=== PATIENT | female | born 1935 | race Caucasian/White ===

== ENCOUNTER 2016-06-19 11:14 | Inpatient (IN) | payer MEDICARE, MEDICAID ==
[2016-06-19] VITALS (9 sets, daily range): BP systolic 123–157; BP diastolic 61–96; PULSE 101–113; RESP 18–22; TEMP 97–97.7; O2SAT 97–100
[~2016-06-19] VITALS: Ht 162.6 cm; Wt 122.5 kg
[~2016-06-19 11:14] MED LIST: FURO20TA PO; LYRI50CA2 PO; METO50TA PO; PERC5TAB12 PO; PROM6.257 PO; ZOFR4TAB3 SL
[2016-06-19] MEDS ORDERED: METO50TA PO (11:51)
[2016-06-19] MEDS ORDERED: LYRI50CA PO (11:51)
[2016-06-19] MEDS ORDERED: FURO40TA PO (11:51)
[2016-06-19] MEDS ORDERED: ZOFR4TAB PO (11:52)
--- NOTE | 2016-06-19 12:23 | RADHPO ---
EXAM DATE/TIME: 06/19/2016 12:10 [facility] COMPARISON: No previous studies available for comparison. INDICATIONS : Right forearm pain post fall. MEDICAL HISTORY : Congestive heart failure. Deep venous thrombosis. Chronic obstructive pulmonary disease. Arthriti s. SURGICAL HISTORY : Tonsillectomy. section. ENCOUNTER: Initial ACUITY: 1 day PAIN SCORE: 10/10 LOCATION: Right forearm. FINDINGS: Two view examination of the right forearm demonstrates no evidence of fracture or dislocation. Bony mineralization is normal. The soft tissue structures are intact. CONCLUSION: 1. Negative examination of the forearm. Naseem Garcia MD on June 19, 2016 at 12:21 Board Certified Radiologist. This report was verified electronically.
--- NOTE | 2016-06-19 12:23 | RADHPO ---
EXAM DATE/TIME: 06/19/2016 12:05 [facility] COMPARISON: CHEST SINGLE AP, September 18, 2015, 12:42. INDICATIONS : Pain post fall. MEDICAL HISTORY : Congestive heart failure. Deep venous thrombosis. Chronic obstructive pulmonary disease. Arthriti s. SURGICAL HISTORY : Tonsillectomy. section. Neuorstimulator. ENCOUNTER: Initial ACUITY: 1 day PAIN SCORE: 0/10 LOCATION: chest FINDINGS: The cardiac silhouette is enlarged in transverse diameter. There is prominence of the central pulmona ry vasculature with indistinct vascular margins compatible with vascular congestion but no evidence o f overt failure. The lungs are hypoinflated. CONCLUSION: 1. Cardiomegaly and findings of vascular congestion without overt failure. Naseem Garcia MD on June 19, 2016 at 12:21 Board Certified Radiologist. This report was verified electronically.
--- NOTE | 2016-06-19 12:32 | RADHPO ---
EXAM DATE/TIME: 06/19/2016 12:21 [facility] COMPARISON: No previous studies available for comparison. INDICATIONS : Pelvic pain post fall. MEDICAL HISTORY : Congestive heart failure. Deep venous thrombosis. Chronic obstructive pulmonary disease. Arthriti s SURGICAL HISTORY : Tonsillectomy. section. Neurostimulator. ENCOUNTER: Initial ACUITY: 1 day PAIN SCORE: 10/10 LOCATION: Pelvis. FINDINGS: A single frontal view of the pelvis demonstrates no evidence of fracture. The bony pelvic ring is in tact. Bony mineralization is normal. The soft tissues are intact. CONCLUSION: Changes of the lumbar spine. No fracture visualized.. Miladis Hagan MD on June 19, 2016 at 12:30 Board Certified Radiologist. This report was verified electronically.
--- NOTE | 2016-06-19 12:32 | RADHPO ---
EXAM DATE/TIME: 06/19/2016 12:10 [facility] COMPARISON: No previous studies available for comparison. INDICATIONS : Left forearm pain post fall. MEDICAL HISTORY : Congestive heart failure. Deep venous thrombosis. Chronic obstructive pulmonary disease. Arthriti s. SURGICAL HISTORY : Tonsillectomy. section. ENCOUNTER: Initial ACUITY: 1 day PAIN SCORE: 10/10 LOCATION: Left forearm FINDINGS: Two view examination of the left forearm demonstrates no evidence of fracture or dislocation. Bony m ineralization is normal. The soft tissue structures are intact. CONCLUSION: No acute disease. Miladis Hagan MD on June 19, 2016 at 12:29 Board Certified Radiologist. This report was verified electronically.
--- NOTE | 2016-06-19 12:42 | RADHPO ---
EXAM DATE/TIME: 06/19/2016 12:23 [facility] COMPARISON: No previous studies available for comparison. INDICATIONS : Right knee pain post fall MEDICAL HISTORY : Congestive heart failure. Deep venous thrombosis. Chronic obstructive pulmonary disease. Artthrit is. SURGICAL HISTORY : Tonsillectomy. section. ENCOUNTER: Initial ACUITY: 1 day PAIN SCORE: 10/10 LOCATION: Right knee FINDINGS: Four view examination of the right knee demonstrates no evidence of fracture or dislocation. Bony mi neralization is normal. The articular surfaces are intact. The suprapatellar soft tissues have a no rmal configuration. Medial joint line degenerative change. CONCLUSION: No evidence of fracture or dislocation. Medial joint line degenerative change.. Miladis Hagan MD on June 19, 2016 at 12:39 Board Certified Radiologist. This report was verified electronically.
--- NOTE | 2016-06-19 12:43 | RADHPO ---
EXAM DATE/TIME: 06/19/2016 12:27 [facility] COMPARISON: No previous studies available for comparison. INDICATIONS : Left knee pain post fall. MEDICAL HISTORY : Congestive heart failure. Deep venous thrombosis. Chronic obstructive pulmonary disease. Arthriti s. SURGICAL HISTORY : Tonsillectomy. section. ENCOUNTER: Initial ACUITY: 1 day PAIN SCORE: 9/10 LOCATION: Left knee FINDINGS: Four view examination of the left knee demonstrates no evidence of fracture or dislocation. Bony min eralization is normal. The articular surfaces are intact. The suprapatellar soft tissues have a nor mal configuration. CONCLUSION: No acute disease. Miladis Hagan MD on June 19, 2016 at 12:41 Board Certified Radiologist. This report was verified electronically.
--- NOTE | 2016-06-19 12:44 | RADHPO ---
EXAM DATE/TIME: 06/19/2016 12:39 [facility] COMPARISON: No previous studies available for comparison. INDICATIONS : Left humerus pain post fall. MEDICAL HISTORY : Congestive heart failure. Deep venous thrombosis. Chronic obstructive pulmonary disease. Arthriti s. SURGICAL HISTORY : Tonsillectomy. section. ENCOUNTER: Initial ACUITY: 1 day PAIN SCORE: 10/10 LOCATION: Left humerus. FINDINGS: Two view examination of the left humerus demonstrates no evidence of fracture or dislocation. Bony m ineralization is normal. The soft tissue structures are intact. CONCLUSION: No acute disease. Miladis Hagan MD on June 19, 2016 at 12:42 Board Certified Radiologist. This report was verified electronically.
--- NOTE | 2016-06-19 12:44 | RADHPO ---
EXAM DATE/TIME: 06/19/2016 12:11 [facility] COMPARISON: No previous studies available for comparison. INDICATIONS : Right humerus pain post fall. MEDICAL HISTORY : Congestive heart failure. Deep venous thrombosis. Chronic obstructive pulmonary disease. Arthriti s. SURGICAL HISTORY : Tonsillectomy. section. ENCOUNTER: Initial ACUITY: 1 day PAIN SCORE: 10/10 LOCATION: Right humerus FINDINGS: Two view examination of the right humerus demonstrates no evidence of fracture or dislocation. Bony mineralization is normal. The soft tissue structures are intact. CONCLUSION: No acute disease. Miladis Hagan MD on June 19, 2016 at 12:42 Board Certified Radiologist. This report was verified electronically.
--- NOTE | 2016-06-19 12:58 | PD ---
HPI Chief Complaint: Fall Time Seen by Provider: 11:24 Travel History International Travel<30 days: No Contact w/Intl Traveler<30days: No Traveled to known affect area: No History of Present Illness HPI 80-year-old female presents status post legs giving out from underneath her and falling getting abrasions to her bilateral knees and skin tears to her upper arms. She notes pain over her entire arms and bilateral knees. She states she could not get up and has been on the ground from 7 PM until 10 AM this morning when her home health check on her and called the ambulance. She denies other specific complaints that acutely short of breath. She does state she has history of the legs being swollen like they are and thinks there may be a little worse than normal. She does feel worse when she moves around and feels all over weak. History is limited. PFSH Past Medical History Narrative Medical by records Arthritis: Yes Asthma: No Autoimmune Disease: No Blood Disorders: No Heart Rhythm Problems: No Cancer: No Cardiovascular Problems: No High Cholesterol: No Chemotherapy: No Congestive Heart Failure: Yes COPD: Yes Cerebrovascular Accident: No Diabetes: No Diminished Hearing: No Deep Vein Thrombosis: Yes (left leg ) Gastrointestinal Disorders: No GERD: No Glaucoma: No Genitourinary: No Headaches: Yes Hepatitis: No Hiatal Hernia: No Hypertension: No Immune Disorder: No Implanted Vascular Access Dvce: Yes Kidney Stones: No Musculoskeletal: Yes (BACK PAIN) Neurologic: Yes (being treated for a pinch nerve since 2003) Psychiatric: No Reproductive: No Respiratory: Yes Immunizations Current: Yes Myocardial Infarction: No Radiation Therapy: No Renal Failure: No Seizures: No Sleep Apnea: No Thyroid Disease: No Ulcer: No Tetanus Vaccination: > 5 Years Influenza Vaccination: No ?: Not Menopausal: Yes Past Surgical History Narrative Surgical by records AICD: No Body Medical Devices: STIMULATOR L BACK Section: Yes (x1) Genitourinary Surgery: No Gynecologic Surgery: Yes (C SECTION) Neurologic Surgery: No Pacemaker: No Tonsillectomy: Yes Other Surgery: Yes Social History Alcohol Use: No Tobacco Use: No (quit 25-30 yrs ago) Substance Use: No Allergies-Medications (Allergen,Severity, Reaction): Coded Allergies: Codeine (Verified Adverse Reaction, Severe, GI UPSET, 06/19/16) Cortisone (Verified Adverse Reaction, Severe, GI UPSET, 06/19/16) Ibuprofen (Verified Adverse Reaction, Severe, DIZZY, 06/19/16) Tylenol (Verified Adverse Reaction, Severe, GI UPSET, 06/19/16) Morphine (Unverified Adverse Reaction, Intermediate, GI UPSET, 06/19/16) Reported Meds & Prescriptions Reported Meds & Active Scripts Active Reported Zofran (Ondansetron HCl) 4 Mg Tab 4 Mg PO Q6HR PRN Lyrica (Pregabalin) 50 Mg Cap 50 Mg PO QID Metoprolol Tartrate 50 Mg Tab 50 Mg PO DAILY Furosemide 40 Mg Tab 40 Mg PO DAILY Review of Systems Except as stated in HPI: all other systems reviewed are Neg Physical Exam Narrative General: 80 y/o patient who is covered in urine and feces Skin: trauma noted to bilateral knees with abrasions, skin tears to bilateral arms Eyes: Pupils equal ENT: no septal hematoma NECK: no pain with range of motion in midline Cardiovascular: Regular rate and rhythm Respiratory: Normal respiratory effort noted, clear to auscultation bilaterally at apices Abdomen: soft, nontender, nondistended Back: No step-offs, midline spine nontender with palpation, mild tenderness bilateral lumbar paraspinal area Extremities: Pain with palpation of entire bilateral arms without specific joint , bilateral knee pain, no lacerations over, neurovascularly intact, no pain with palpation of other joints, significant chronic appearing nonpitting edema noted to bilateral legs Neuro: awake, clear speech, moves extremities, able to sit up with assistance Data Data Last Documented VS Vital Signs Date Time Temp Pulse Resp B/P Pulse Ox O2 Delivery O2 Flow Rate FiO2 06/19/16 14:20 20 06/19/16 13:30 111 133/93 100 Nasal Cannula 2 06/19/16 11:25 97.7 Orders Electrocardiogram (06/19/16 11:42) Complete Blood Count With Diff (06/19/16 11:42) Comprehensive Metabolic Panel (06/19/16 11:42) Prothrombin Time / Inr (Pt) (06/19/16 11:42) Act Partial Throm Time (Ptt) (06/19/16 11:42) Magnesium (Mg) (06/19/16 11:42) Phosphorus (Po4) (06/19/16 11:42) Ckmb (Isoenzyme) Profile (06/19/16 11:42) Troponin I (06/19/16 11:42) Urinalysis - C+S If Indicated (06/19/16 11:42) Chest, Single Ap (06/19/16 11:42) Blood Glucose (06/19/16 11:42) Ecg Monitoring (06/19/16 11:42) Iv Access Insert/Monitor (06/19/16 11:42) Oximetry (06/19/16 11:42) Ct Brain W/O Iv Contrast(Rout) (06/19/16 11:42) B-Type Natriuretic Peptide (06/19/16 11:42) Forearm (2vws) (06/19/16 11:42) Humerus (Min 2vws) (06/19/16 11:42) Knee, Complete (4vws) (06/19/16 11:42) Forearm (2vws) (06/19/16 11:42) Humerus (Min 2vws) (06/19/16 11:42) Knee, Complete (4vws) (06/19/16 11:42) Pelvis, Ap Only (Routine) (06/19/16 ) Urinary Catheter Insert/Apply (06/19/16 11:56) Hydromorphone Pf Inj (Dilaudid Pf Inj) (06/19/16 13:45) Forearm (2vws) (06/19/16 ) CKMB (06/19/16 13:35) CKMB% (06/19/16 13:35) Urine Culture (06/19/16 14:15) Admit Order (Ed Use Only) (06/19/16 14:45) Labs Laboratory Tests Test 06/19/16 06/19/16 13:35 14:15 White Blood Count 15.6 TH/MM3 Red Blood Count 4.65 MIL/MM3 Hemoglobin 14.5 GM/DL Hematocrit 43.3 % Mean Corpuscular Volume 93.3 FL Mean Corpuscular Hemoglobin 31.2 PG Mean Corpuscular Hemoglobin 33.4 % Concent Red Cell Distribution Width 12.9 % Platelet Count 233 TH/MM3 Mean Platelet Volume 8.9 FL Neutrophils (%) (Auto) 87.3 % Lymphocytes (%) (Auto) 5.0 % Monocytes (%) (Auto) 7.5 % Eosinophils (%) (Auto) 0.0 % Basophils (%) (Auto) 0.2 % Neutrophils # (Auto) 13.6 TH/MM3 Lymphocytes # (Auto) 0.8 TH/MM3 Monocytes # (Auto) 1.2 TH/MM3 Eosinophils # (Auto) 0.0 TH/MM3 Basophils # (Auto) 0.0 TH/MM3 CBC Comment DIFF FINAL Differential Comment Prothrombin Time 11.6 SEC Prothromb Time International 1.0 RATIO Ratio Activated Partial 25.9 SEC Thromboplast Time Sodium Level 138 MEQ/L Potassium Level 4.0 MEQ/L Chloride Level 102 MEQ/L Carbon Dioxide Level 22.6 MEQ/L Anion Gap 13 MEQ/L Blood Urea Nitrogen 28 MG/DL Creatinine 1.20 MG/DL Estimat Glomerular Filtration 43 ML/MIN Rate Random Glucose 127 MG/DL Calcium Level 9.5 MG/DL Phosphorus Level 2.0 MG/DL Magnesium Level 2.3 MG/DL Total Bilirubin 0.8 MG/DL Aspartate Amino Transf 58 U/L (AST/SGOT) Alanine Aminotransferase 29 U/L (ALT/SGPT) Alkaline Phosphatase 132 U/L Total Creatine Kinase 1547 U/L Creatine Kinase MB 21.3 NG/ML Creatine Kinase MB % 1.4 % Troponin I 0.20 NG/ML B-Type Natriuretic Peptide 112 PG/ML Total Protein 7.7 GM/DL Albumin 3.4 GM/DL Urine Collection Type CATH Urine Color YELLOW Urine Turbidity SLIGHT Urine pH 5.5 Urine Specific [place] 1.028 Urine Protein 100 mg/dL Urine Glucose (UA) NEG mg/dL Urine Ketones 15 mg/dL Urine Occult Blood LARGE Urine Nitrite POS Urine Bilirubin NEG Urine Leukocyte Esterase TRACE Urine RBC 20-24 /hpf Urine WBC 20-24 /hpf Urine WBC Clumps OCC Urine Bacteria MANY /hpf Microscopic Urinalysis Comment CATH-CULTURE IND Urine Collection Time 14:15 [facility] Medical Decision Making Medical Screen Exam Complete: Yes Emergency Medical Condition: Yes Medical Record Reviewed: Yes (past history confirmed) Interpretation(s) CBC & BMP Diagram 06/19/16 13:35 Last 24 hours Impressions Radius/Ulna X-Ray 06/19/16 1142 Signed Impressions: Service Date/Time: Sunday, June 19, 2016 12:10 - CONCLUSION: 1. Negative examination of the forearm. Naseem Garcia MD Radius/Ulna X-Ray 06/19/16 1142 Signed Impressions: Service Date/Time: Sunday, June 19, 2016 12:10 - CONCLUSION: No acute disease. Miladis Hagan MD Knee X-Ray 06/19/16 1142 Signed Impressions: Service Date/Time: Sunday, June 19, 2016 12:23 - CONCLUSION: No evidence of fracture or dislocation. Medial joint line degenerative change.. Miladis Hagan MD Knee X-Ray 06/19/16 1142 Signed Impressions: Service Date/Time: Sunday, June 19, 2016 12:27 - CONCLUSION: No acute disease. Miladis Hagan MD Humerus X-Ray 06/19/16 1142 Signed Impressions: Service Date/Time: Sunday, June 19, 2016 12:11 - CONCLUSION: No acute disease. Miladis Hagan MD Humerus X-Ray 06/19/16 1142 Signed Impressions: Service Date/Time: Sunday, June 19, 2016 12:39 - CONCLUSION: No acute disease. Miladis Hagan MD Chest X-Ray 06/19/16 1142 Signed Impressions: Service Date/Time: Sunday, June 19, 2016 12:05 - CONCLUSION: 1. Cardiomegaly and findings of vascular congestion without overt failure. Naseem Garcia MD Radius/Ulna X-Ray 06/19/16 0000 Signed Impressions: Service Date/Time: Sunday, June 19, 2016 12:11 - CONCLUSION: 1. There is no evidence of acute fracture. Naseem Garcia MD Pelvis X-Ray 06/19/16 0000 Signed Impressions: Service Date/Time: Sunday, June 19, 2016 12:21 - CONCLUSION: Changes of the lumbar spine. No fracture visualized.. Miladis Hagan MD ua with uti Differential Diagnosis Rhabdomyolysis, UTI, fracture, strain, sprain, intracranial bleed, renal failure , cardiac... Narrative Course Will check workup and reevaluate ED workup shows renal failure that is near baseline, new rhabdomyolysis with UTI , patient has tachycardia and elevated white count so blood culture and lactate added on and was given cefepime for sepsis coverage in setting of UTI. Patient was given 500 mL of normal saline given her chest x-ray shows mild vascular congestion she will not be placed on aggressive IV fluid hydration. She will need to be admitted to the hospital for further care. Sepsis Criteria SIRS Criteria (2 or more): Heart rate over 90, WBC > 65819, < 4000 or > 10% bands Sepsis Criteria (SIRS+source): Infect source susp/known Physician Communication Physician Communication dr barragan requests call back with lactate dr barragan agrees to admit Diagnosis Primary Impression: Sepsis Qualified Code: A41.9 - Sepsis, due to unspecified organism Additional Impressions: Rhabdomyolysis Qualified Code: M62.82 - Non-traumatic rhabdomyolysis Fall Qualified Code: W19.XXXA - Fall, initial encounter Skin tear of upper arm without complication Qualified Code: S41.119A - Skin tear of upper arm without complication, unspecified laterality, initial encounter Edema of both legs Admitting Information Admitting Physician Requests: Admit Koki Pedersen MD Jun 19, 2016 12:58
[2016-06-19 13:42] LABS: AUTOMATED NEUTROPHIL # 13.6 TH/MM3 (1.8-7.7); BASOPHIL % 0.2 % (0.0-2.0); HEMATOCRIT 43.3 % (35.0-46.0); LYMPHOCYTE # 0.8 TH/MM3 (1.0-4.8); MEAN CELL VOLUME 93.3 FL (80.0-100.0); MEAN CORPUSCULAR HEMOGLOBIN 31.2 PG (27.0-34.0); MEAN CORPUSCULAR HGB CONC 33.4 % (32.0-36.0); MONO % 7.5 % (0.0-8.0); NEUT % 87.3 % (16.0-70.0); PLATELET COUNT 233 TH/MM3 (150-450); RED BLOOD COUNT 4.65 MIL/MM3 (4.00-5.30); RED CELL DISTRIBUTION WIDTH 12.9 % (11.6-17.2); WHITE BLOOD COUNT 15.6 TH/MM3 (4.0-11.0)
[2016-06-19] MEDS ORDERED: HYDROmorphone HCL PF 1 MG/ML VIAL IV PUSH ONE (13:45)
[2016-06-19 13:46] LABS: HEMO FLAGS DIFF FINAL
[2016-06-19 13:51] LABS: CHLORIDE 102 MEQ/L (98-107); SODIUM (NA) 138 MEQ/L (136-145)
[2016-06-19 13:55] LABS: ANION GAP 13 MEQ/L (5-15); APTT (PATIENT) 25.9 SEC (24.3-30.1); BICARBONATE 22.6 MEQ/L (21.0-32.0); BLOOD UREA NITROGEN 28 MG/DL (7-18); MAGNESIUM 2.3 MG/DL (1.5-2.5); PROTHROMBIN TIME - PATIENT 11.6 SEC (9.8-11.6)
[2016-06-19 13:58] LABS: ALT (GPT) 29 U/L (10-53); AST (GOT) 58 U/L (15-37); GLOMERULAR FILTRATION RATE 43 ML/MIN (>89)
[2016-06-19 14:00] LABS: TOTAL BILIRUBIN ADULT 0.8 MG/DL (0.2-1.0)
[2016-06-19 14:01] LABS: ALKALINE PHOSPHATASE 132 U/L (45-117)
[2016-06-19 14:12] LABS: CREATINE KINASE 1547 U/L (26-192)
--- NOTE | 2016-06-19 14:19 | RADHPO ---
EXAM DATE/TIME: 06/19/2016 12:11 [facility] COMPARISON: No previous studies available for comparison. INDICATIONS : Right forearm pain post fall. MEDICAL HISTORY : Congestive heart failure. Congestive heart failure. Deep venous thrombosis. Arthritis. SURGICAL HISTORY : Tonsillectomy. section. ENCOUNTER: Initial ACUITY: 1 day PAIN SCORE: 10/10 LOCATION: Right forearm. FINDINGS: Two view examination of the right forearm demonstrates no evidence of fracture or dislocation. Bony mineralization is normal. The soft tissue structures are intact. CONCLUSION: 1. There is no evidence of acute fracture. Naseem Garcia MD on June 19, 2016 at 14:05 Board Certified Radiologist. This report was verified electronically.
[2016-06-19 14:25] LABS: CKMB 21.3 NG/ML (0.5-3.6)
[2016-06-19 14:30] LABS: BLOOD, URINE LARGE (NEG); GLUCOSE,URINE NEG (NEG); KETONE, URINE 15 mg/dL (NEG); PH, URINE 5.5 (5.0-8.5)
[2016-06-19 14:34] LABS: NITRITE,URINE POS (NEG)
[2016-06-19 14:38] LABS: METHOD OF COLLECTION CATH; URINE COLOR YELLOW (YELLW/STRAW)
[2016-06-19 14:39] LABS: BACTERIA, URINE MANY /hpf; COMMENT (UR) CATH-CULTURE IND; CULTURE IF INDICATED CATH CULTURE IND
[2016-06-19] MEDS ORDERED: CEFEPIME INJ 2,000 MG in SODIUM CHLORIDE 0.9% INJ 100 ML IV STA (15:00)
[2016-06-19] MEDS ORDERED: SODIUM CHLORID 0.9% 500 ML INJ 500 ML IV ONE (15:30)
--- NOTE | 2016-06-19 16:18 | RADHPO ---
EXAM DATE/TIME: 06/19/2016 16:04 [facility] COMPARISON: CT BRAIN W/O CONTRAST, October 03, 2014, 11:48. INDICATIONS : Post fall. RADIATION DOSE: 64.06 CTDIvol (mGy) MEDICAL HISTORY : Chronic obstructive pulmonary disease. Deep venous thrombosis. Congestive heart failure. SURGICAL HISTORY : Tonsillectomy. section. ENCOUNTER: Initial ACUITY: 1 day PAIN SCALE: 5/10 LOCATION: cranial TECHNIQUE: Multiple contiguous axial images were obtained of the head. Using automated exposure control and adj ustment of the mA and/or kV according to patient size, radiation dose was kept as low as reasonably a chievable to obtain optimal diagnostic quality images. FINDINGS: There is no evidence of acute cortical infarction, acute hemorrhage, mass effect or midline shift. Th e ventricles are enlarged out of proportion to the sulcal atrophy. In addition the third ventricle is somewhat prominent. Clinical correlation would be helpful in regards to the possibility of normal pr essure hydrocephalus. Posterior fossa structures are unremarkable. CONCLUSION: 1. No evidence of acute intracranial pathology. No masses are identified. Possible normal pressure hy drocephalus. Correlation with clinical findings is necessary. Naseem Garcia MD on June 19, 2016 at 16:15 Board Certified Radiologist. This report was verified electronically.
[2016-06-19] MEDS ORDERED: ASPIRIN 325 MG TAB PO ONE (16:45)
[2016-06-19] MEDS ORDERED: BISACODYL 10 MG SUPP PR PRN (17:45)
[2016-06-19] MEDS ORDERED: SODIUM CHLORIDE 0.9% FLUSH 5 ML FLUSH FLUSH PRN (17:45)
[2016-06-19] MEDS ORDERED: MAGNESIUM HYDROXIDE SUSP 30 ML CUP PO PRN (17:45)
--- NOTE | 2016-06-19 18:41 | HHI.HP ---
[facility] Service [facility] Primary Care Physician Naseem Haines MD Admission Diagnosis uti, rhabdomyolysis Diagnoses: Travel History International Travel<30 Days: No Contact w/Intl Traveler <30 Da: No Traveled to Known Affected Are: No History of Present Illness This is a pleasant 80 year-old female with past medical history of CHF , hypertension, COPD, who presented to the hospital today after she fell at home yesterday and was unable to get up. The patient states that her legs just gave out beneath her and she sank to the floor and laid there from 10 PM until this morning when her aide came in to check on her. She lives at an independent living facility. The patient states that over the past month she has been getting more short of breath. She has chronic pedal edema. Her PCP is Dr. Owens. The patient otherwise denies fever or chills. She denies dysuria. Urine does look infected. She was mildly tachycardic with leukocytosis and received IV antibiotics and blood cultures in the emergency department. Past Family Social History Past Medical History CHF, hypertension, COPD, weakness, sciatica, neuropathy, lumbar stenosis Allergies: Coded Allergies: Codeine (Verified Adverse Reaction, Severe, GI UPSET, 06/19/16) Cortisone (Verified Adverse Reaction, Severe, GI UPSET, 06/19/16) Ibuprofen (Verified Adverse Reaction, Severe, DIZZY, 06/19/16) Tylenol (Verified Adverse Reaction, Severe, GI UPSET, 06/19/16) Morphine (Unverified Adverse Reaction, Intermediate, GI UPSET, 06/19/16) Physical Exam Vital Signs Vital Signs Date Time Temp Pulse Resp B/P Pulse Ox O2 Delivery O2 Flow Rate FiO2 06/19/16 17:25 107 18 99 Nasal Cannula 2 06/19/16 15:30 112 18 100 Nasal Cannula 2 06/19/16 14:20 20 06/19/16 13:30 111 20 133/93 100 Nasal Cannula 2 06/19/16 13:25 110 20 100 Nasal Cannula 2 06/19/16 13:00 107 20 139/96 100 Nasal Cannula 2 06/19/16 11:53 22 99 Room Air 06/19/16 11:38 110 22 99 Room Air 06/19/16 11:25 97.7 109 20 154/74 100 Physical Exam GENERAL: Well-nourished, well-developed obese pleasant female patient. SKIN: Warm and dry. HEAD: Normocephalic. EYES: No scleral icterus. Yellow purulent discharge from bilateral eyes. NECK: Supple, trachea midline. No JVD or lymphadenopathy. CARDIOVASCULAR: Regular rate and rhythm without murmurs, gallops, or rubs. RESPIRATORY: Breath sounds equal bilaterally anteriorly without wheezes. Able to speak in complete sentences. GASTROINTESTINAL: Abdomen soft, non-tender, nondistended. Urine appears cloudy at bedside. EXTREMITIES: Chronic edema of the bilateral lower extremities. Forearms are edematous. She also has some edema of the face. Left medial thigh is slightly warm to touch. NEUROLOGICAL: Awake, alert, and oriented x 3. Non-focal. Laboratory Laboratory Tests Test 06/19/16 06/19/16 06/19/16 13:35 14:15 16:40 White Blood Count 15.6 Red Blood Count 4.65 Hemoglobin 14.5 Hematocrit 43.3 Mean Corpuscular Volume 93.3 Mean Corpuscular Hemoglobin 31.2 Mean Corpuscular Hemoglobin 33.4 Concent Red Cell Distribution Width 12.9 Platelet Count 233 Mean Platelet Volume 8.9 Neutrophils (%) (Auto) 87.3 Lymphocytes (%) (Auto) 5.0 Monocytes (%) (Auto) 7.5 Eosinophils (%) (Auto) 0.0 Basophils (%) (Auto) 0.2 Neutrophils # (Auto) 13.6 Lymphocytes # (Auto) 0.8 Monocytes # (Auto) 1.2 Eosinophils # (Auto) 0.0 Basophils # (Auto) 0.0 CBC Comment DIFF FINAL Differential Comment Prothrombin Time 11.6 Prothromb Time International 1.0 Ratio Activated Partial 25.9 Thromboplast Time Sodium Level 138 Potassium Level 4.0 Chloride Level 102 Carbon Dioxide Level 22.6 Anion Gap 13 Blood Urea Nitrogen 28 Creatinine 1.20 Estimat Glomerular Filtration 43 Rate Random Glucose 127 Calcium Level 9.5 Phosphorus Level 2.0 Magnesium Level 2.3 Total Bilirubin 0.8 Aspartate Amino Transf 58 (AST/SGOT) Alanine Aminotransferase 29 (ALT/SGPT) Alkaline Phosphatase 132 Total Creatine Kinase 1547 Creatine Kinase MB 21.3 Creatine Kinase MB % 1.4 Troponin I 0.20 B-Type Natriuretic Peptide 112 Total Protein 7.7 Albumin 3.4 Urine Collection Type CATH Urine Color YELLOW Urine Turbidity SLIGHT Urine pH 5.5 Urine Specific [place] 1.028 Urine Protein 100 Urine Glucose (UA) NEG Urine Ketones 15 Urine Occult Blood LARGE Urine Nitrite POS Urine Bilirubin NEG Urine Leukocyte Esterase TRACE Urine RBC 20-24 Urine WBC 20-24 Urine WBC Clumps OCC Urine Bacteria MANY Microscopic Urinalysis Comment CATH-CULTURE IND Urine Collection Time 14:15 Lactic Acid Level 1.4 Date/Time Procedure Status Source Growth 06/19/16 16:40 Aerobic Blood Culture Received Blood Peripheral Pending 06/19/16 16:40 Anaerobic Blood Culture Received Blood Peripheral Pending 06/19/16 14:15 Urine Culture Received Urine Catheterized Urine Pending Result Diagram: 06/19/16 1335 06/19/16 1335 Assessment and Plan Assessment and Plan -Sepsis due to UTI - continue with IV antibiotics, follow blood cultures, -CHF - will hold off on further IV fluids as she has anasarca on exam. We'll resume her by mouth Lasix in the morning. Check echocardiogram. -Generalized weakness. Status post fall at home. X-rays are negative. We'll consult PT. -Conjunctivitis. Start erythromycin eyedrops. -The patient states she is DO NOT RESUSCITATE. Elizabeth Fatima MD Jun 19, 2016 18:41
[2016-06-19] MEDS: DOCUSATE SODIUM 100 MG CAP PO SCH (19:33)
[2016-06-19] MEDS: ENOXAPARIN SODIUM 40 MG/0.4 ML SYRINGE SQ SCH (19:35)
[2016-06-19] MEDS: PREGABALIN 25 MG CAP PO SCH (20:41)
[2016-06-19] MEDS: cefTRIAXone INJ 2,000 MG in SODIUM CHLORIDE 0.9% INJ 100 ML IV SCH (20:41)
[2016-06-19] MEDS: SODIUM CHLORIDE 0.9% FLUSH 5 ML FLUSH FLUSH SCH (20:42)
[2016-06-19] MEDS: ERYTHROMYCIN 0.5% OPTH OINT 3.5 GM TUBO EACH EYE SCH (21:00)
[2016-06-20] VITALS: BP 123/63; PULSE 102; RESP 18; TEMP 99.1; O2SAT 95
[2016-06-20 04:00] VITALS: BP 188/75; PULSE 108; RESP 18; TEMP 98.9; O2SAT 95
[2016-06-20] MEDS: DOCUSATE SODIUM 100 MG CAP PO SCH ×2 (05:20→17:52)
[2016-06-20] MEDS: ONDANSETRON HCL 4 MG/2 ML VIAL IV PUSH PRN (05:20)
[2016-06-20 06:16] LABS: AUTOMATED NEUTROPHIL # 11.9 TH/MM3 (1.8-7.7); BASOPHIL # 0.1 TH/MM3 (0-0.2); BASOPHIL % 0.8 % (0.0-2.0); EOSINOPHIL % 0.2 % (0.0-4.0); LYMPH % 6.4 % (9.0-44.0); LYMPHOCYTE # 0.9 TH/MM3 (1.0-4.8); MEAN CELL VOLUME 93.1 FL (80.0-100.0); MEAN CORPUSCULAR HEMOGLOBIN 31.8 PG (27.0-34.0); MEAN CORPUSCULAR HGB CONC 34.2 % (32.0-36.0); MONO % 10.1 % (0.0-8.0); NEUT % 82.5 % (16.0-70.0); PLATELET COUNT 217 TH/MM3 (150-450); RED BLOOD COUNT 4.08 MIL/MM3 (4.00-5.30); RED CELL DISTRIBUTION WIDTH 13.2 % (11.6-17.2); WHITE BLOOD COUNT 14.3 TH/MM3 (4.0-11.0)
[2016-06-20 06:17] LABS: HEMO FLAGS AUTO DIFF
[2016-06-20] MEDS: HYDROmorphone HCL PF 1 MG/ML VIAL IV PUSH PRN ×3 (06:29→23:35)
[2016-06-20 06:30] LABS: POTASSIUM 4.1 MEQ/L (3.5-5.1)
[2016-06-20 06:32] LABS: BICARBONATE 20.6 MEQ/L (21.0-32.0)
[2016-06-20 06:39] LABS: SCAN/DIFF AUTO DIFF CONFIRMED
[2016-06-20 08:00] VITALS: BP 144/71; PULSE 101; RESP 20; TEMP 98.9; O2SAT 92
[2016-06-20] MEDS: SODIUM CHLORIDE 0.9% FLUSH 5 ML FLUSH FLUSH SCH ×2 (08:34→20:12)
[2016-06-20] MEDS: ERYTHROMYCIN 0.5% OPTH OINT 3.5 GM TUBO EACH EYE SCH (08:34)
[2016-06-20] MEDS: METOPROLOL TARTRATE 50 MG TAB PO SCH (08:34)
[2016-06-20] MEDS: PREGABALIN 25 MG CAP PO SCH ×4 (08:34→20:08)
[2016-06-20] MEDS ORDERED: RESP: ALBUTEROL 2.5 MG/IPRATROPIUM 0.5 MG NEB (PRN) NEB (08:45)
[2016-06-20] MEDS ORDERED: FUROSEMIDE 40 MG TAB PO SCH (09:00)
[2016-06-20] MEDS: RESP: ALBUTEROL 2.5 MG/IPRATROPIUM 0.5 MG NEB (SCH) NEB ×4 (11:41→19:33)
[2016-06-20 12:00] VITALS: BP 136/75; PULSE 98; RESP 18; TEMP 98.2; O2SAT 93
[2016-06-20] MEDS: POTASSIUM CHLORIDE 20 MEQ CONTROLLED RELEASE TAB PO SCH ×2 (12:16→20:08)
[2016-06-20] MEDS: BUMETANIDE INJ 1 MG/4 ML VIAL IV PUSH SCH ×2 (12:17→17:51)
--- NOTE | 2016-06-20 12:38 | HHI.PR ---
Subjective Remarks The patient is feeling better today in terms of her breathing however she is sore all over. She was unable to get up with physical therapy. She is agreeable to going to a nursing facility and requests to be located in [place] near her daughter. Vital signs have been stable. Objective Vitals Vital Signs Date Time Temp Pulse Resp B/P Pulse Ox O2 Delivery O2 Flow Rate FiO2 06/20/16 12:00 98.2 98 18 136/75 93 06/20/16 08:00 98.9 101 20 144/71 92 06/20/16 04:00 98.9 108 18 188/75 95 06/20/16 00:00 99.1 102 18 123/63 95 06/19/16 20:00 97.0 113 18 123/92 97 06/19/16 18:55 107 18 97 Nasal Cannula 2 06/19/16 18:55 108 18 147/61 97 Nasal Cannula 2 06/19/16 17:25 107 18 99 Nasal Cannula 2 06/19/16 16:30 101 18 129/84 99 Nasal Cannula 2 06/19/16 15:30 112 18 100 Nasal Cannula 2 06/19/16 15:15 105 18 157/69 98 Nasal Cannula 2 06/19/16 14:25 111 18 138/93 99 Nasal Cannula 2 06/19/16 14:20 20 06/19/16 13:30 111 20 133/93 100 Nasal Cannula 2 06/19/16 13:25 110 20 100 Nasal Cannula 2 06/19/16 13:00 107 20 139/96 100 Nasal Cannula 2 I/O 06/19/16 06/19/16 06/19/16 06/20/16 06/20/16 06/20/16 07:00 15:00 23:00 07:00 15:00 23:00 Intake Total 600 ml Output Total 300 ml Balance 600 ml -300 ml Intake IV Total 600 ml Output Urine Total 300 ml Result Diagram: 06/20/1653906/20/16 0540 Objective Remarks GENERAL: Well-nourished, well-developed obese pleasant female patient. SKIN: Warm and dry. HEAD: Normocephalic. EYES: No scleral icterus. scant DC from bilateral eyes, much improved. NECK: Supple, trachea midline. No JVD or lymphadenopathy. CARDIOVASCULAR: Regular rate and rhythm without murmurs, gallops, or rubs. RESPIRATORY: Breath sounds equal bilaterally anteriorly without wheezes. Able to speak in complete sentences. GASTROINTESTINAL: Abdomen soft, non-tender, nondistended. Urine appears cloudy at bedside. EXTREMITIES: Chronic edema of the bilateral lower extremities. Forearms are edematous. She also has some edema of the face but this is much improved. Left medial thigh no longer as warm to touch. NEUROLOGICAL: Awake, alert, and oriented x 3. Non-focal. A/P Assessment and Plan -Sepsis due to UTI - continue with IV antibiotics, follow blood cultures, urine cultures. clinically improved and stable. -CHF - will hold off on further IV fluids as she has anasarca on exam. continue IV diuresis with lasix, and kaba catheter needed for accurate ins/ outs and for skin protection as she is essentially bed bound at this time. Check echocardiogram. -Generalized weakness. Status post fall at home. X-rays are negative. continue PT. -Conjunctivitis. change erythromycin (pt c/o burning eyes) -> polymyxin eyedrops. clinically improved today. DO NOT RESUSCITATE. Discharge Planning will likely require nursing facility - consulted Elizabeth Mejia MD Jun 20, 2016 12:38
--- NOTE | 2016-06-20 16:56 | EC ---
Study Study Date:06/20/2016 STUDY CONCLUSIONS SUMMARY - Procedure narrative: Image quality was poor. The study was technically limited due to poor acoustic window availability. - Left ventricle: Systolic function was probably normal. The estimated ejection fraction was in the range of 55% to 60%. Doppler parameters are consistent with abnormal left ventricular relaxation (grade 1 diastolic dysfunction). If LV function is below 40, please consider prescribing an ACEI or ARB or document rationale for non-use. PROCEDURE DATA STUDY STATUS: Elective. Procedure: Transthoracic echocardiography. Image quality was poor. The study was technically limited due to poor acoustic window availability. Scanning was performed from the parasternal, apical, and subcostal acoustic windows. Study completion: The patient tolerated the procedure well. Transthoracic echocardiography. M-mode, complete 2D, complete spectral Doppler, and color Doppler. Patient status: Inpatient. CARDIAC ANATOMY LEFT VENTRICLE: Systolic function was probably normal. The estimated ejection fraction was in the range of 55% to 60%. Images were inadequate for LV wall motion assessment. Doppler parameters are consistent with abnormal left ventricular relaxation (grade 1 diastolic dysfunction). AORTIC VALVE: Not well visualized. Doppler: Valve area: 2.55cm^2 (Vmax). MITRAL VALVE: Not well visualized. Doppler: Peak gradient: 2mm Hg (D). PULMONIC VALVE: Not well visualized. TRICUSPID VALVE: Not well visualized. BASIC MEASUREMENTS ADULT Normal Left ventricle LV internal dimension, ED, chordal level, *41.4 mm 43-52 PLAX LV internal dimension, ES, chordal level, 34 mm 23-38 PLAX Fractional shortening, chordal level, PLAX *18 % >29 LV posterior wall thickness, ED 7.91 mm IVS/LVPW ratio, ED 1.15 <1.3 Ventricular septum Septal thickness, ED 9.11 mm Aortic valve Leaflet separation 17 mm 15-26 BASIC MEASUREMENTS ADULT Normal Aortic valve Leaflet separation 17 mm 15-26 Aorta Root diameter, ED 25 mm 20-37 Left atrium Anterior-posterior dimension, ES 34 mm 19-40 LA/aortic root ratio 1.36 DOPPLER MEASUREMENTS ADULT Normal Aortic valve Peak velocity, S 133 cm/s Valve area, Vmax 2.55 cm^2 Regurgitant velocity, ED 178 cm/s Regurgitant deceleration 1640 cm/s^2 Regurgitant pressure half-time 317 ms Regurgitant gradient, ED 13 mm Hg Mitral valve Peak E-wave velocity 71.6 cm/s Peak A-wave velocity 130 cm/s Deceleration time *106 ms 150-230 Peak gradient, D 2 mm Hg Peak E/A ratio 0.6 LEGEND: Mean values are shown as u=mean value. Asterisk (*) sandra values outside specified normal range. Prepared and signed by Joe Ingram [id number]
[2016-06-20] MEDS: POLYMYXIN/TRIMETHOPRIM OPHT SOLN 10 ML BTL EACH EYE SCH ×2 (17:32→23:39)
[2016-06-20] MEDS: ENOXAPARIN SODIUM 40 MG/0.4 ML SYRINGE SQ SCH (17:53)
[2016-06-20 20:00] VITALS: BP 144/75; PULSE 114; RESP 18; TEMP 99.3; O2SAT 95
[2016-06-20] MEDS: cefTRIAXone INJ 2,000 MG in SODIUM CHLORIDE 0.9% INJ 100 ML IV SCH (20:08)
--- NOTE | 2016-06-20 21:25 | EKG ---
Date Performed: 06/19/2016 Time Performed: 11:55:24 PTAGE: 80 years EKG: Sinus tachycardia with PVC(s) Left axis deviation rSr'(V1) - probable normal variant Possib le anterior infarct - age undetermined Inferior T wave changes are nonspecific Low QRS voltages in pr ecordial leads Abnormal ECG PREVIOUS TRACING : 09/18/2015 12.43 DOCTOR: Ronaldo Emmanuel Interpretating Date/Time 06/20/2016 21:12:43
[2016-06-21] MEDS: HYDROmorphone HCL PF 1 MG/ML VIAL IV PUSH PRN ×5 (05:13→20:46)
[2016-06-21] MEDS: DOCUSATE SODIUM 100 MG CAP PO SCH ×2 (05:14→17:08)
[2016-06-21] MEDS: POLYMYXIN/TRIMETHOPRIM OPHT SOLN 10 ML BTL EACH EYE SCH ×3 (05:15→16:24)
[2016-06-21 06:20] LABS: AUTOMATED NEUTROPHIL # 8.5 TH/MM3 (1.8-7.7); BASOPHIL % 0.3 % (0.0-2.0); EOSINOPHIL # 0.3 TH/MM3 (0-0.4); EOSINOPHIL % 2.3 % (0.0-4.0); HEMATOCRIT 36.8 % (35.0-46.0); HEMO FLAGS DIFF FINAL; LYMPH % 14.2 % (9.0-44.0); LYMPHOCYTE # 1.7 TH/MM3 (1.0-4.8); MEAN CELL VOLUME 94.4 FL (80.0-100.0); MEAN CORPUSCULAR HEMOGLOBIN 31.4 PG (27.0-34.0); MEAN CORPUSCULAR HGB CONC 33.3 % (32.0-36.0); MONO % 9.1 % (0.0-8.0); NEUT % 74.1 % (16.0-70.0); PLATELET COUNT 224 TH/MM3 (150-450); RED BLOOD COUNT 3.89 MIL/MM3 (4.00-5.30); RED CELL DISTRIBUTION WIDTH 13.3 % (11.6-17.2); WHITE BLOOD COUNT 11.6 TH/MM3 (4.0-11.0)
[2016-06-21 06:24] LABS: BICARBONATE 26.6 MEQ/L (21.0-32.0)
[2016-06-21] MEDS: RESP: ALBUTEROL 2.5 MG/IPRATROPIUM 0.5 MG NEB (SCH) NEB ×4 (07:30→19:49)
[2016-06-21 08:00] VITALS: BP 142/63; PULSE 104; RESP 21; TEMP 96.5; O2SAT 92
[2016-06-21] MEDS: METOPROLOL TARTRATE 50 MG TAB PO SCH (08:35)
[2016-06-21] MEDS: BUMETANIDE INJ 1 MG/4 ML VIAL IV PUSH SCH ×2 (08:35→17:08)
[2016-06-21] MEDS: SODIUM CHLORIDE 0.9% FLUSH 5 ML FLUSH FLUSH SCH ×2 (08:35→20:50)
[2016-06-21] MEDS: POTASSIUM CHLORIDE 20 MEQ CONTROLLED RELEASE TAB PO SCH ×2 (08:35→20:48)
[2016-06-21] MEDS: PREGABALIN 25 MG CAP PO SCH ×4 (08:35→20:48)
[2016-06-21 12:00] VITALS: BP 119/69; PULSE 91; RESP 20; TEMP 97; O2SAT 91
--- NOTE | 2016-06-21 13:05 | HHI.PR ---
Subjective Remarks The patient states that she is sore and has pain in her lower back. However her breathing continues to improve. PT is working with her and attempting to get her to sit up. Objective Vitals Vital Signs Date Time Temp Pulse Resp B/P Pulse Ox O2 Delivery O2 Flow Rate FiO2 06/21/16 08:00 96.5 104 21 142/63 92 06/20/16 20:00 99.3 114 18 144/75 95 I/O 06/20/16 06/20/16 06/20/16 06/21/16 06/21/16 06/21/16 07:00 15:00 23:00 07:00 15:00 23:00 Intake Total 240 ml 100 ml Output Total 300 ml 2400 ml Balance -300 ml 240 ml -2400 ml 100 ml Intake Oral 240 ml IV Total 100 ml Output Urine Total 300 ml 2400 ml Result Diagram: 06/21/16 0540 06/21/16 0540 Objective Remarks GENERAL: Well-nourished, well-developed obese pleasant female patient. SKIN: Warm and dry. HEAD: Normocephalic. EYES: No scleral icterus. scant DC from bilateral eyes, much improved. NECK: Supple, trachea midline. No JVD or lymphadenopathy. CARDIOVASCULAR: Regular rate and rhythm without murmurs, gallops, or rubs. RESPIRATORY: Breath sounds equal bilaterally anteriorly without wheezes. Able to speak in complete sentences. GASTROINTESTINAL: Abdomen soft, non-tender, nondistended. Urine appears cloudy at bedside. EXTREMITIES: Chronic edema of the bilateral lower extremities. Forearms are edematous. NEUROLOGICAL: Awake, alert, and oriented x 3. Non-focal. A/P Assessment and Plan -Sepsis due to UTI - continue with IV antibiotics, urine culture positive for Escherichia coli which is pansensitive. Blood cultures are no growth in 2 days. I'll continue Rocephin IV. Patient is clinically improved and stable. -Acute on chronic diastolic CHF exacerbation- continue IV diuresis with lasix, and kaba catheter needed for accurate ins/outs and for skin protection as she is essentially bed bound at this time. She's had 2 L out of urine output. Echocardiogram showing preserved ejection fraction. And grade 1 diastolic dysfunction. -Generalized weakness and physical deconditioning. Status post fall at home. X -rays are negative. continue PT. -Conjunctivitis. Continue polymyxin eyedrops. clinically improved today. DO NOT RESUSCITATE. Discharge Planning Likely SNF. Elizabeth Fatima MD Jun 21, 2016 13:05
[2016-06-21 16:00] VITALS: BP 127/63; PULSE 102; RESP 20; TEMP 96.2; O2SAT 90
[2016-06-21] MEDS: ENOXAPARIN SODIUM 40 MG/0.4 ML SYRINGE SQ SCH (17:08)
[2016-06-21 20:00] VITALS: BP 126/68; PULSE 111; RESP 18; TEMP 97.2; O2SAT 96
[2016-06-21] MEDS: cefTRIAXone INJ 2,000 MG in SODIUM CHLORIDE 0.9% INJ 100 ML IV SCH (20:45)
[2016-06-22] VITALS (7 sets, daily range): BP systolic 102–140; BP diastolic 56–67; PULSE 90–108; RESP 18–22; TEMP 98.6–99.4; O2SAT 92–95
[2016-06-22] MEDS: HYDROmorphone HCL PF 1 MG/ML VIAL IV PUSH PRN ×6 (03:44→21:46)
[2016-06-22] MEDS: DOCUSATE SODIUM 100 MG CAP PO SCH ×2 (06:00→16:57)
[2016-06-22] MEDS: POLYMYXIN/TRIMETHOPRIM OPHT SOLN 10 ML BTL EACH EYE SCH ×4 (06:00→16:56)
[2016-06-22] MEDS: RESP: ALBUTEROL 2.5 MG/IPRATROPIUM 0.5 MG NEB (SCH) NEB ×3 (07:45→15:51)
[2016-06-22] MEDS: PREGABALIN 25 MG CAP PO SCH ×4 (08:42→20:14)
[2016-06-22] MEDS: BUMETANIDE INJ 1 MG/4 ML VIAL IV PUSH SCH (08:42)
[2016-06-22] MEDS: POTASSIUM CHLORIDE 20 MEQ CONTROLLED RELEASE TAB PO SCH ×2 (08:42→20:14)
[2016-06-22] MEDS: SODIUM CHLORIDE 0.9% FLUSH 5 ML FLUSH FLUSH SCH ×2 (08:42→20:16)
[2016-06-22] MEDS: METOPROLOL TARTRATE 50 MG TAB PO SCH (08:43)
[2016-06-22 13:46] LABS: AUTOMATED NEUTROPHIL # 7.1 TH/MM3 (1.8-7.7); BASOPHIL # 0.1 TH/MM3 (0-0.2); BASOPHIL % 0.6 % (0.0-2.0); EOSINOPHIL # 0.5 TH/MM3 (0-0.4); EOSINOPHIL % 4.9 % (0.0-4.0); HEMATOCRIT 36.2 % (35.0-46.0); HEMO FLAGS DIFF FINAL; LYMPH % 15.2 % (9.0-44.0); LYMPHOCYTE # 1.6 TH/MM3 (1.0-4.8); MEAN CELL VOLUME 92.9 FL (80.0-100.0); MEAN CORPUSCULAR HEMOGLOBIN 31.8 PG (27.0-34.0); MEAN CORPUSCULAR HGB CONC 34.3 % (32.0-36.0); MONO % 11.1 % (0.0-8.0); NEUT % 68.2 % (16.0-70.0); PLATELET COUNT 246 TH/MM3 (150-450); RED CELL DISTRIBUTION WIDTH 12.7 % (11.6-17.2); WHITE BLOOD COUNT 10.5 TH/MM3 (4.0-11.0)
[2016-06-22 13:55] LABS: POTASSIUM 4.4 MEQ/L (3.5-5.1)
--- NOTE | 2016-06-22 15:36 | HHI.PR ---
Subjective Remarks Patient seen and examined today with Dr. Fatima. Patient states that she is feeling better. Still having pain in her lower extremities from where she fell. Patient would actually like to go home, however she knows that her daughter can't really manage her at home. Plans to go to rehabilitation facility and possible look into long-term care facility. Objective Vitals Vital Signs Date Time Temp Pulse Resp B/P Pulse Ox O2 Delivery O2 Flow Rate FiO2 06/22/16 12:00 98.8 90 20 127/62 92 06/22/16 08:00 98.7 92 22 102/56 93 06/22/16 04:00 99.3 104 18 126/67 92 06/22/16 00:00 98.6 108 18 109/62 92 06/21/16 20:00 97.2 111 18 126/68 96 06/21/16 16:00 96.2 102 20 127/63 90 I/O 06/21/16 06/21/16 06/21/16 06/22/16 06/22/16 06/22/16 07:00 15:00 23:00 07:00 15:00 23:00 Intake Total 100 ml 500 ml 160 ml 750 ml Output Total 1200 ml 975 ml Balance 100 ml 500 ml -1040 ml -225 ml Intake Oral 500 ml 160 ml 750 ml IV Total 100 ml Output Urine Total 1200 ml 975 ml # Bowel Movements 0 0 0 Result Diagram: 06/22/16 1335 06/22/16 1335 Objective Remarks GENERAL: Well-developed, well-nourished, in no acute distress. alert and orientated HEENT: Head is normocephalic without any lesions or masses noted. Facial features are symmetric. Eyes: Extraocular muscles are intact. Conjunctivae were clear. NECK: Supple without any masses. Trachea midline no deviation. No JVD, CARDIAC: Regular rhythm, regular rate. S1/S2 are heard. No murmurs gallops or rubs. LUNGS: Clear to auscultation bilaterally. No wheeze, rhonchi or rales. No use of accessory muscles on inspiration or expiration. ABDOMEN: Soft, nontender. Nondistended. Bowel sounds heard in all 4 quadrants. No organomegaly or masses. Negative rebound, negative guarding EXTREMITIES: No edema, pulses are equal bilaterally. No cyanosis or clubbing NEUROLOGY: Mood and affect appear appropriate. Cranial nerves II through XII grossly intact. Moving all extremities, speech is clear Urinary Catheter: Yes Assessment to: Continue Kaba insert reason: Measure Accurate Output Vascular Central Line Catheter: No A/P Assessment and Plan Sepsis due to UTI, improved continue Rocephin Urine culture positive for Escherichia coli which is pansensitive. Blood cultures are no growth in 3 days. -Change to ceftin at DC - total 10 days Acute on chronic diastolic CHF exacerbation Discontinue IV diuresis with Bumex, resume patient's Lasix 40 mg by mouth daily kaba catheter needed for accurate ins/outs and for skin protection as she is essentially bed bound at this time. Echocardiogram showing preserved ejection fraction. And grade 1 diastolic dysfunction. Generalized weakness and physical deconditioning. Status post fall at home. X-rays are negative. continue PT. Conjunctivitis. Continue polymyxin eyedrops. clinically improved today. DVT prevention Subcutaneous Lovenox Written by Bradley Juan PA-C, acting as scribe for Dr. Fatima on 06/22/16 at 1430. The documentation accurately reflects the work and decisions performed face-to- face by Dr. Fatima on 06/22/16 at 1430. Discharge Planning Discharge to group home facility in [place] Jun 22, 2016 15:36 Elizabeth Fatima MD Jun 22, 2016 16:28
[2016-06-22] MEDS ORDERED: POLY10O EACH EYE (16:19)
[2016-06-22] MEDS ORDERED: CEFT250T8 PO (16:19)
[2016-06-22] MEDS ORDERED: IPRASOL NEB (16:19)
[2016-06-22] MEDS: ENOXAPARIN SODIUM 40 MG/0.4 ML SYRINGE SQ SCH (16:57)
[2016-06-22] MEDS: cefTRIAXone INJ 2,000 MG in SODIUM CHLORIDE 0.9% INJ 100 ML IV SCH (20:15)
[2016-06-23] VITALS (7 sets, daily range): BP systolic 99–153; BP diastolic 51–73; PULSE 97–128; RESP 18–20; TEMP 97.4–99.4; O2SAT 91–94
[2016-06-23] MEDS: HYDROmorphone HCL PF 1 MG/ML VIAL IV PUSH PRN ×2 (05:13→09:13)
[2016-06-23] MEDS: DOCUSATE SODIUM 100 MG CAP PO SCH ×2 (05:14→18:04)
[2016-06-23] MEDS: POLYMYXIN/TRIMETHOPRIM OPHT SOLN 10 ML BTL EACH EYE SCH ×6 (05:15→23:24)
[2016-06-23] MEDS: RESP: ALBUTEROL 2.5 MG/IPRATROPIUM 0.5 MG NEB (SCH) NEB ×4 (07:24→20:01)
[2016-06-23 07:43] LABS: POTASSIUM 4.6 MEQ/L (3.5-5.1)
[2016-06-23 07:49] LABS: BICARBONATE 26.9 MEQ/L (21.0-32.0)
[2016-06-23] MEDS: PREGABALIN 25 MG CAP PO SCH ×4 (09:14→20:48)
[2016-06-23] MEDS: SODIUM CHLORIDE 0.9% FLUSH 5 ML FLUSH FLUSH SCH ×2 (09:14→20:47)
[2016-06-23] MEDS: METOPROLOL TARTRATE 50 MG TAB PO SCH (09:14)
[2016-06-23] MEDS: FUROSEMIDE 40 MG TAB PO SCH (09:14)
[2016-06-23] MEDS: POTASSIUM CHLORIDE 20 MEQ CONTROLLED RELEASE TAB PO SCH ×2 (09:14→20:47)
--- NOTE | 2016-06-23 11:42 | HHI.PR ---
Subjective Remarks Patient seen and examined today with Dr. Fatima. Patient states that she still has multiple aches and pains in her arms and legs. Discussed with case management, they do not have a female bed available this time for rehabilitation facility. Objective Vitals Vital Signs Date Time Temp Pulse Resp B/P Pulse Ox O2 Delivery O2 Flow Rate FiO2 06/23/16 08:00 98.5 103 19 123/61 93 06/23/16 07:24 92 21 06/23/16 04:00 99.1 105 18 153/73 94 06/23/16 00:00 98.1 128 20 129/68 91 06/22/16 21:25 92 21 06/22/16 20:00 99.4 106 18 128/65 92 06/22/16 16:00 99.4 102 22 140/67 95 06/22/16 12:00 98.8 90 20 127/62 92 I/O 06/22/16 06/22/16 06/22/16 06/23/16 06/23/16 06/23/16 07:00 15:00 23:00 07:00 15:00 23:00 Intake Total 160 ml 750 ml Output Total 1200 ml 975 ml 1050 ml Balance -1040 ml -225 ml -1050 ml Intake Oral 160 ml 750 ml Output Urine Total 1200 ml 975 ml 1050 ml # Bowel Movements 0 0 0 Result Diagram: 06/22/16 1335 06/23/16 0712 Objective Remarks GENERAL: Well-developed, well-nourished, in no acute distress. alert and orientated HEENT: Head is normocephalic without any lesions or masses noted. Facial features are symmetric. Eyes: Extraocular muscles are intact. Conjunctivae were clear. NECK: Supple without any masses. Trachea midline no deviation. No JVD, CARDIAC: Regular rhythm, regular rate. S1/S2 are heard. No murmurs gallops or rubs. LUNGS: Clear to auscultation bilaterally. No wheeze, rhonchi or rales. No use of accessory muscles on inspiration or expiration. ABDOMEN: Soft, nontender. Nondistended. Bowel sounds heard in all 4 quadrants. No organomegaly or masses. Negative rebound, negative guarding EXTREMITIES: No edema, pulses are equal bilaterally. No cyanosis or clubbing NEUROLOGY: Mood and affect appear appropriate. Cranial nerves II through XII grossly intact. Moving all extremities, speech is clear Urinary Catheter: Yes Assessment to: Continue Kaba insert reason: Measure Accurate Output Vascular Central Line Catheter: No A/P Assessment and Plan Sepsis due to UTI, improved continue Rocephin Urine culture positive for Escherichia coli which is pansensitive. Blood cultures are no growth in 4 days. Acute on chronic diastolic CHF exacerbation Discontinue IV diuresis with Bumex, resumed patient's Lasix 40 mg by mouth daily kaba catheter needed for accurate ins/outs and for skin protection as she is essentially bed bound at this time. Echocardiogram showing preserved ejection fraction. And grade 1 diastolic dysfunction. Generalized weakness and physical deconditioning. Status post fall at home. X-rays are negative. continue PT. Conjunctivitis. Continue polymyxin eyedrops. clinically improved today. DVT prevention Subcutaneous Lovenox Written by Bradley Juan PA-C, acting as scribe for Dr. Fatima on 06/23/16 at 1210. The documentation accurately reflects the work and decisions performed face-to- face by Dr. Fatima on 06/23/16 at 1210. Discharge Planning Discharge to long-term facility once arrangements made by case management [place] Jun 23, 2016 11:42
[2016-06-23] MEDS ORDERED: HYDROmorphone HCL 2 MG TAB PO PRN (12:30)
[2016-06-23] MEDS: HYDROmorphone HCL 4 MG TAB PO PRN ×3 (13:34→22:48)
[2016-06-23] MEDS: ENOXAPARIN SODIUM 40 MG/0.4 ML SYRINGE SQ SCH (18:04)
[2016-06-23] MEDS: cefTRIAXone INJ 2,000 MG in SODIUM CHLORIDE 0.9% INJ 100 ML IV SCH (20:47)
[2016-06-24] VITALS: BP 107/66; PULSE 124; RESP 20; TEMP 98.2; O2SAT 94
[2016-06-24] MEDS: DOCUSATE SODIUM 100 MG CAP PO SCH (06:16)
[2016-06-24] MEDS: HYDROmorphone HCL 4 MG TAB PO PRN ×3 (06:19→14:42)
[2016-06-24] MEDS: RESP: ALBUTEROL 2.5 MG/IPRATROPIUM 0.5 MG NEB (SCH) NEB ×2 (07:20→11:54)
[2016-06-24 07:22] VITALS: O2SAT 92
[2016-06-24 08:00] VITALS: BP 101/52; PULSE 97; RESP 18; TEMP 98.5; O2SAT 97
[2016-06-24] MEDS: ONDANSETRON HCL 4 MG/2 ML VIAL IV PUSH PRN ×2 (09:27→14:42)
[2016-06-24] MEDS: PREGABALIN 25 MG CAP PO SCH ×2 (09:28→13:33)
[2016-06-24] MEDS: METOPROLOL TARTRATE 50 MG TAB PO SCH (09:29)
[2016-06-24] MEDS: POTASSIUM CHLORIDE 20 MEQ CONTROLLED RELEASE TAB PO SCH (09:29)
[2016-06-24] MEDS: FUROSEMIDE 40 MG TAB PO SCH (09:29)
[2016-06-24] MEDS: SODIUM CHLORIDE 0.9% FLUSH 5 ML FLUSH FLUSH SCH (09:32)
[2016-06-24 12:00] VITALS: BP 128/61; PULSE 97; RESP 18; TEMP 98; O2SAT 97
[2016-06-24] MEDS: POLYMYXIN/TRIMETHOPRIM OPHT SOLN 10 ML BTL EACH EYE SCH (12:00)
[2016-06-24] MEDS ORDERED: DOCUSATE SODIUM 50 MG/SENNA 8.6 MG TAB PO ONE (13:30)
[2016-06-24] MEDS ORDERED: POLYETHYLENE GLYCOL 17 GM PKG PO SCH (13:30)
--- NOTE | 2016-06-24 14:26 | HHI.DCPOC ---
Discharge Care Plan Diagnosis: (1) Skin tear of upper arm without complication (2) Fall (3) Rhabdomyolysis Goals to Promote Your Health * To prevent worsening of your condition and complications * To maintain your health at the optimal level Directions to Meet Your Goals Take your medications as prescribed Follow your dietary instruction Follow activity as directed Keep your appointments as scheduled Take your immunizations and boosters as scheduled If your symptoms worsen call your PCP, if no PCP go to Urgent Care Center or Emergency Room Smoking is Dangerous to Your Health. Avoid second hand smoke Call the 24-hour hour crisis hotline for domestic abuse at [place] Jun 24, 2016 14:26
--- NOTE | 2016-06-24 14:33 | HHI.DS ---
Discharge Summary Admission Date Jun 19, 2016 at 14:46 Discharge Date: Jun 24, 2016 Admitting Diagnosis uti, rhabdomyolysis (1) Fall ICD Code: W19.XXXA (2) Edema of both legs ICD Code: R60.0 (3) Rhabdomyolysis ICD Code: M62.82 (4) Skin tear of upper arm without complication ICD Code: S41.119A (5) Sepsis ICD Code: A41.9 (6) Urinary tract infection ICD Code: N39.0 Procedures None Brief History - From Admission This is a pleasant 80 year-old female with past medical history of CHF , hypertension, COPD, who presented to the hospital today after she fell at home yesterday and was unable to get up. The patient states that her legs just gave out beneath her and she sank to the floor and laid there from 10 PM until this morning when her aide came in to check on her. She lives at an independent living facility. The patient states that over the past month she has been getting more short of breath. She has chronic pedal edema. Her PCP is Dr. Owens. The patient otherwise denies fever or chills. She denies dysuria. Urine does look infected. She was mildly tachycardic with leukocytosis and received IV antibiotics and blood cultures in the emergency department. CBC/BMP: 06/22/16 1335 06/23/16 0712 Significant Findings Laboratory Tests Test 06/22/16 06/23/16 13:35 07:12 Red Blood Count 3.90 MIL/MM3 (4.00-5.30) Monocytes (%) (Auto) 11.1 % (0.0-8.0) Eosinophils (%) (Auto) 4.9 % (0.0-4.0) Monocytes # (Auto) 1.2 TH/MM3 (0-0.9) Eosinophils # (Auto) 0.5 TH/MM3 (0-0.4) Blood Urea Nitrogen 34 MG/DL (7-18) 33 MG/DL (7-18) Estimat Glomerular Filtration 54 ML/MIN (>89) 63 ML/MIN (>89) Rate Random Glucose 123 MG/DL (74-106) Imaging Last Impressions Radius/Ulna X-Ray 06/19/16 1142 Signed Impressions: Service Date/Time: Sunday, June 19, 2016 12:10 - CONCLUSION: 1. Negative examination of the forearm. Naseem Garcia MD Knee X-Ray 06/19/16 1142 Signed Impressions: Service Date/Time: Sunday, June 19, 2016 12:23 - CONCLUSION: No evidence of fracture or dislocation. Medial joint line degenerative change.. Miladis Hagan MD Humerus X-Ray 06/19/16 1142 Signed Impressions: Service Date/Time: Sunday, June 19, 2016 12:11 - CONCLUSION: No acute disease. Miladis Hagan MD Head CT 06/19/16 1142 Signed Impressions: Service Date/Time: Sunday, June 19, 2016 16:04 - CONCLUSION: 1. No evidence of acute intracranial pathology. No masses are identified. Possible normal pressure hydrocephalus. Correlation with clinical findings is necessary. Naseem Garcia MD Chest X-Ray 06/19/16 1142 Signed Impressions: Service Date/Time: Sunday, June 19, 2016 12:05 - CONCLUSION: 1. Cardiomegaly and findings of vascular congestion without overt failure. Naseem Garcia MD Pelvis X-Ray 06/19/16 0000 Signed Impressions: Service Date/Time: Sunday, June 19, 2016 12:21 - CONCLUSION: Changes of the lumbar spine. No fracture visualized.. Miladis Hagan MD PE at Discharge GENERAL: Well-developed, well-nourished, in no acute distress. alert and orientated HEENT: Head is normocephalic without any lesions or masses noted. Facial features are symmetric. Eyes: Extraocular muscles are intact. Conjunctivae were clear. NECK: Supple without any masses. Trachea midline no deviation. No JVD, CARDIAC: Regular rhythm, regular rate. S1/S2 are heard. No murmurs gallops or rubs. LUNGS: Clear to auscultation bilaterally. No wheeze, rhonchi or rales. No use of accessory muscles on inspiration or expiration. ABDOMEN: Soft, nontender. Nondistended. Bowel sounds heard in all 4 quadrants. No organomegaly or masses. Negative rebound, negative guarding EXTREMITIES: No edema, pulses are equal bilaterally. No cyanosis or clubbing NEUROLOGY: Mood and affect appear appropriate. Cranial nerves II through XII grossly intact. Moving all extremities, speech is clear Hospital Course 80-year-old female with known history of congestive heart failure, hypertension, chronic affective component disease who presented to hospital because she fell her house and was unable to get up. The patient was on the ground from 7 PM the night before until the next morning when her aide came and checked on her. She lives in independent living facility once a found her on the floor [facility] was called the patient was sent to the hospital for evaluation. Patient had workup done with a plethora of x-rays and CT scans of the brain, chest x-rays which did not indicate any acute abnormality. Laboratory studies performed which did show signs of sepsis. Infectious source was urinary tract infection. Culture did grow Escherichia coli and was susceptible Rocephin that was continued during his stay in the hospital. Patient did have physical therapy during her stay which indicated patient is going require wheeled walker, bedside commode, PT at rehabilitation. Case management was consulted in which was successful and arranging rehabilitation placement. That was arranged to have PICC Today at 4 PM. Patient still complaining of diffuse pain in the arms and legs secondary to her fall. She is reluctant to get out of bed and has been reluctant to have her Kumar removed. It does appear that she likes lying in bed and not moving. Discharge planning has been arranged to go to rehabilitation facility today. Will discharge in stable condition. Pt Condition on Discharge: Stable Discharge Disposition: Discharge to SNF Discharge Time: > 30 minutes Discharge Instructions DIET: Follow Instructions for: Heart Healthy Diet Activities you can perform: Regular-No Restrictions Activities to Avoid: Driving for 24 hrs Follow up Referrals: PCP Follow-up - 1 Week New Medications: Cefuroxime (Ceftin) 250 Mg Tab 250 MG PO BID Infection #14 Ref 0 TAB Ipratropium-Albuterol Neb (Duoneb) 0.5-2.5 Mg/3 Ml Neb 1 AMPULE NEB Q2HR NEB PRN dyspnea #120 ML Polymyxin B-Trimethoprim Opth Drops (Polytrim Opth Drops) 10,000-0.1 Unit/Ml-% Soln 1 DROP EACH EYE Q6HR Infection Days 4 ML Continued Medications: Furosemide (Furosemide) 40 Mg Tab 40 MG PO DAILY #30 Ref 0 TAB Metoprolol Tartrate (Metoprolol Tartrate) 50 Mg Tab 50 MG PO DAILY #30 Ref 0 TAB Ondansetron (Zofran) 4 Mg Tab 4 MG PO Q6HR PRN NAUSEA OR VOMITING Ref 0 TAB Pregabalin (Lyrica) 50 Mg Cap 50 MG PO QID #60 Ref 0 CAP Additional Information Written by [place] Juan PA-C, acting as scribe for Dr. Fatima on 06/24/16 at 1315. The documentation accurately reflects the work and decisions performed face-to- face by Dr. Fatima on 06/24/16 at 1315. [place] Jun 24, 2016 14:33 Elizabeth Fatima MD Jun 26, 2016 17:26
[2016-06-24 16:00] VITALS: BP 118/60; PULSE 89; RESP 18; TEMP 98.2; O2SAT 96
[2016-06-24] MEDS ORDERED: DOCUSATE SODIUM 50 MG/SENNA 8.6 MG TAB PO SCH (21:00)
== END 2016-06-24 17:17 | DRG 871 ==
LOC: PHED 11:14 → PHEDA 14:46 → PH3A 20:21
PROVIDERS: ADMIT Family Medicine; ATTEND Family Medicine
PROC: 0T9B70Z Drainage of Bladder with Drainage Device, Via Natural or Artificial Opening (ICD-10-PCS; principal; 2016-06-19)
DX: A41.9 Sepsis, unspecified organism (principal); I50.33 Acute on chronic diastolic (congestive) heart failure; M62.82 Rhabdomyolysis; N39.0 Urinary tract infection, site not specified; J44.9 Chronic obstructive pulmonary disease, unspecified; S41.112A Laceration without foreign body of left upper arm, initial encounter; S41.111A Laceration without foreign body of right upper arm, initial encounter; W18.30XA Fall on same level, unspecified, initial encounter; Y93.9 Activity, unspecified; Y92.099 Unspecified place in other non-institutional residence as the place of occurrence of the external cause; S80.212A Abrasion, left knee, initial encounter; S80.211A Abrasion, right knee, initial encounter; M19.90 Unspecified osteoarthritis, unspecified site; M54.9 Dorsalgia, unspecified; Z87.891 Personal history of nicotine dependence; Z66 Do not resuscitate; Z74.01 Bed confinement status; I10 Essential (primary) hypertension; H10.9 Unspecified conjunctivitis
CPT/HCPCS: 51702; 70450; 71010; 72170; 73060; 73090; 73564; 80048; 80053; 81001; 82550; 82552; 83605; 83735; 83880; 84100; 84484; 85025; 85610; 85730; 87040; 87077; 87086; 87186; 93005; 93306; 94640; 94664; 96374; J0692; J0696; J1170; J1650; J2405; J7040

== ENCOUNTER 2016-07-27 14:44 | Emergency (ER) | payer MEDICARE, MEDICAID ==
[~2016-07-27] VITALS: Ht 160 cm; Wt 122.5 kg
[~2016-07-27 14:44] MED LIST changes: +CEFT250T8 PO; -FURO20TA PO; +FURO40TA PO; +IPRASOL NEB; -LYRI50CA2 PO; -PERC5TAB12 PO; +POLY10O EACH EYE; -PROM6.257 PO; +ZOFR4TAB PO; -ZOFR4TAB3 SL
[2016-07-27 14:52] VITALS: BP 115/56; PULSE 115; PULSE 92; RESP 18; RESP 56; TEMP 98.5; O2SAT 96
[2016-07-27] MEDS ORDERED: LYRI50CA PO ×2 (15:07→16:42)
[2016-07-27] MEDS ORDERED: MELA3CAP PO ×2 (15:07→16:42)
[2016-07-27] MEDS ORDERED: MIRA33504 PO ×2 (15:07→16:42)
[2016-07-27] MEDS ORDERED: DILA2TAB2 PO (15:07)
[2016-07-27] MEDS ORDERED: COLA100C3 PO ×2 (15:07→16:42)
--- NOTE | 2016-07-27 15:56 | PD ---
HPI Chief Complaint: General Weakness Time Seen by Provider: 15:08 Travel History International Travel<30 days: No Contact w/Intl Traveler<30days: No Traveled to known affect area: No History of Present Illness HPI This patient complains of generalized weakness and inability to take care of herself or walk. She for the last one month has been in a long term but yesterday at 10 AM signed herself out of the long term and went home by way of [address] services to her home. She thought she could live on her own but realized over the last 24 hours that she could not. She says she couldn't get out of her wheelchair. She can't walk or take care of herself. She says that her daughter who lives locally will not help her out because she has small children. She requests to go back to the long term. She tried to call there today but her call was not returned so she called paramedics and came to the emergency room. She has no specific complaint. She says she feels well but just cannot get out of bed and walk. For the last month at the long term she was getting some type of physical therapy but was not able to walk and was basically wheelchair bound but could not get out of the chair by herself. Severity of symptoms is moderate. No alleviating factors. Duration one month PFSH Past Medical History Arthritis: Yes Asthma: No Autoimmune Disease: No Blood Disorders: No Anxiety: No Depression: No Heart Rhythm Problems: No Cancer: No Cardiovascular Problems: No High Cholesterol: No Chemotherapy: No Congestive Heart Failure: Yes COPD: Yes Cerebrovascular Accident: No Diabetes: No Diminished Hearing: No Deep Vein Thrombosis: Yes (left leg ) Gastrointestinal Disorders: No GERD: No Glaucoma: No Genitourinary: No Headaches: Yes Hepatitis: No Hiatal Hernia: No Hypertension: No Immune Disorder: No Implanted Vascular Access Dvce: Yes Kidney Stones: No Musculoskeletal: Yes (BACK PAIN) Neurologic: Yes (being treated for a pinch nerve since 2003) Psychiatric: No Reproductive: No Respiratory: Yes Immunizations Current: Yes Migraines: No Myocardial Infarction: No Radiation Therapy: No Renal Failure: No Seizures: No Sickle Cell Disease: No Sleep Apnea: No Thyroid Disease: No Ulcer: No Influenza Vaccination: No ?: Not Menopausal: Yes Past Surgical History AICD: No Body Medical Devices: STIMULATOR L BACK Section: Yes (x1) Genitourinary Surgery: No Gynecologic Surgery: Yes (C SECTION) Neurologic Surgery: No Pacemaker: No Tonsillectomy: Yes Other Surgery: Yes Social History Alcohol Use: No Tobacco Use: No (quit 25-30 yrs ago) Substance Use: No Allergies-Medications (Allergen,Severity, Reaction): Coded Allergies: Codeine (Verified Adverse Reaction, Severe, GI UPSET, 07/27/16) Cortisone (Verified Adverse Reaction, Severe, GI UPSET, 07/27/16) Ibuprofen (Verified Adverse Reaction, Severe, DIZZY, 07/27/16) Tylenol (Verified Adverse Reaction, Severe, GI UPSET, 07/27/16) Morphine (Unverified Adverse Reaction, Intermediate, GI UPSET, 07/27/16) Reported Meds & Prescriptions Reported Meds & Active Scripts Active Reported Miralax Powder (Polyethylene Glycol 3350 Powder) 17 Gm Powd 17 Gm PO DAILY Mix and dissolve one measuring cap-ful (17 grams) in water or juice. Dilaudid (Hydromorphone HCl) 2 Mg Tab 2 Mg PO Q4H PRN Melatonin 3 Mg Cap 6 Mg PO HS Colace (Docusate Sodium) 100 Mg Cap 100 Mg PO BID Lyrica (Pregabalin) 50 Mg Cap 50 Mg PO Q6HR Metoprolol Tartrate 50 Mg Tab 50 Mg PO DAILY Furosemide 40 Mg Tab 40 Mg PO DAILY Review of Systems General / Constitutional: No: Fever Eyes: No: Visual changes HENT: No: Headaches Cardiovascular: No: Chest Pain or Discomfort Respiratory: No: Shortness of Breath Gastrointestinal: No: Abdominal Pain Genitourinary: No: Dysuria Musculoskeletal: Positive: Weakness, No: Pain Skin: No Rash Neurologic: Positive: Weakness Psychiatric: No: Depression Endocrine: No: Polydipsia Hematologic/Lymphatic: No: Easy Bruising Physical Exam Narrative GENERAL: Well-nourished, well-developed patient in no apparent distress. SKIN: Warm and dry. HEAD: Atraumatic. Normocephalic. EYES: Pupils equal and round. No scleral icterus. No injection or drainage. ENT: No nasal bleeding or discharge. Mucous membranes pink and moist. NECK: Trachea midline. No JVD. CARDIOVASCULAR: Regular rate and rhythm. No murmur appreciated. RESPIRATORY: No accessory muscle use. Clear to auscultation. Breath sounds equal bilaterally. GASTROINTESTINAL: Abdomen soft, non-tender, nondistended. Hepatic and splenic margins not palpable. MUSCULOSKELETAL: No obvious deformities. No clubbing. No cyanosis. Symmetric edema of the legs to the midshin NEUROLOGICAL: Awake and alert. No obvious cranial nerve deficits. Motor exam shows some degree of generalized weakness but no obvious asymmetry. Normal speech. PSYCHIATRIC: Appropriate mood and affect; insight and judgment poor. Data Data Last Documented VS Vital Signs Date Time Temp Pulse Resp B/P Pulse Ox O2 Delivery O2 Flow Rate FiO2 07/27/16 14:52 98.5 92 18 115/56 96 Orders Complete Blood Count With Diff (07/27/16 15:56) Basic Metabolic Panel (Bmp) (07/27/16 15:56) Creatine Kinase (Cpk) (07/27/16 15:56) Urinalysis - C+S If Indicated (07/27/16 15:56) MDM Medical Decision Making Medical Screen Exam Complete: Yes Emergency Medical Condition: Yes Medical Record Reviewed: Yes Differential Diagnosis Chronic weakness, deconditioning, inability to care for self Narrative Course I have reviewed the patient's electronic medical record. I reviewed her admission history and physical and discharge summary from her recent admission. She left the hospital one month ago to the long term Charge nurse Cynthia has spoken with case finishing machine adjuster who is looking into the matter. She has been gone from the long term for 30 hours and most ideally is to send her back there. Doesn't seem very much indication for an acute hospitalization as she has been this way for the last 30 days. medical claims manager has contacted the long term and they are going to take her back. Transport has been arranged and she will be sent back to the long term today. I feel like this is the best possible outcome for the patient. Diagnosis Primary Impression: Generalized weakness Additional Impression: Inability to bear weight Additional Instructions: Follow-up with long term [facility]/Other Pt SpecificInfo: Other Disposition: 03 DISCHARGE TO SNF Condition: Stable Bradley Null MD Jul 27, 2016 15:56
[2016-07-27] MEDS ORDERED: FURO40TA PO (16:42)
[2016-07-27] MEDS ORDERED: METO50TA PO (16:42)
[2016-07-27 17:10] VITALS: BP 116/58; PULSE 80; RESP 18; O2SAT 99
== END 2016-07-27 19:11 ==
LOC: PHEFT 14:44
DX: R53.1 Weakness (principal)
CPT/HCPCS: 99285

== ENCOUNTER 2016-08-12 11:19 | Inpatient (IN) | payer MEDICARE, MEDICAID ==
[2016-08-12] VITALS (9 sets, daily range): BP systolic 121–152; BP diastolic 61–68; PULSE 90–116; RESP 18–25; TEMP 99.1–101.3; O2SAT 86–98
[~2016-08-12] VITALS: Ht 162.6 cm; Wt 122.2 kg
[~2016-08-12 11:19] MED LIST changes: -CEFT250T8 PO; +COLA100C3 PO; -IPRASOL NEB; +LYRI50CA PO; +MELA3CAP PO; +MIRA33504 PO; -POLY10O EACH EYE; -ZOFR4TAB PO
[2016-08-12] MEDS ORDERED: AZITHROMYCIN INJ 500 MG in SODIUM CHLOR 0.9% 250 ML INJ 250 ML IV STA (12:00)
[2016-08-12] MEDS ORDERED: PIPERACIL-TAZO 4.5 GM PREMIX 100 ML IV STA (12:00)
--- NOTE | 2016-08-12 12:02 | PD ---
HPI Chief Complaint: Respiratory Distress Time Seen by Provider: 12:02 Travel History International Travel<30 days: No Contact w/Intl Traveler<30days: No Traveled to known affect area: No History of Present Illness HPI 80-year-old female with history of CHF, COPD, currently being treated for pneumonia with doxycycline, presents to the emergency department for evaluation of worsening shortness of breath, hypoxia, and infiltrate identified on chest x- ray. Patient is residing in a [facility] facility. States she has been coughing cough and chest congestion since her last hospitalization. She states she has been having shortness of breath. Reports right sided pain. No nausea or vomiting. She has been febrile. Cough is intermittently productive. No urinary symptoms. No other symptoms to report. Pt has DNR with [facility] facility. Sheet is in her paperwork from there. PFSH Past Medical History Arthritis: Yes Asthma: No Autoimmune Disease: No Blood Disorders: No Anxiety: No Depression: No Heart Rhythm Problems: No Cancer: No Cardiovascular Problems: No High Cholesterol: No Chemotherapy: No Congestive Heart Failure: Yes COPD: Yes Cerebrovascular Accident: No Diabetes: No Diminished Hearing: No Deep Vein Thrombosis: Yes (left leg ) Gastrointestinal Disorders: No GERD: No Glaucoma: No Genitourinary: No Headaches: Yes Hepatitis: No Hiatal Hernia: No Hypertension: No Immune Disorder: No Implanted Vascular Access Dvce: Yes Kidney Stones: No Musculoskeletal: Yes (BACK PAIN) Neurologic: Yes (being treated for a pinch nerve since 2003) Psychiatric: No Reproductive: No Respiratory: Yes Immunizations Current: Yes Migraines: No Myocardial Infarction: No Radiation Therapy: No Renal Failure: No Seizures: No Sickle Cell Disease: No Sleep Apnea: No Thyroid Disease: No Ulcer: No Tetanus Vaccination: > 5 Years Influenza Vaccination: No ?: Not Menopausal: Yes Past Surgical History AICD: No Body Medical Devices: STIMULATOR L BACK Section: Yes (x1) Genitourinary Surgery: No Gynecologic Surgery: Yes (C SECTION) Neurologic Surgery: No Pacemaker: No Tonsillectomy: Yes Other Surgery: Yes Social History Alcohol Use: No Tobacco Use: No (quit 25-30 yrs ago) Substance Use: No Allergies-Medications (Allergen,Severity, Reaction): Coded Allergies: Codeine (Verified Adverse Reaction, Severe, GI UPSET, 08/12/16) Cortisone (Verified Adverse Reaction, Severe, GI UPSET, 08/12/16) Ibuprofen (Verified Adverse Reaction, Severe, DIZZY, 08/12/16) Tylenol (Verified Adverse Reaction, Severe, GI UPSET, 08/12/16) Morphine (Unverified Adverse Reaction, Intermediate, GI UPSET, 08/12/16) Reported Meds & Prescriptions Reported Meds & Active Scripts Active Miralax Powder (Polyethylene Glycol 3350 Powder) 17 Gm Powd 17 Gm PO DAILY Mix and dissolve one measuring cap-ful (17 grams) in water or juice. Melatonin 3 Mg Cap 6 Mg PO HS Colace (Docusate Sodium) 100 Mg Cap 100 Mg PO BID Lyrica (Pregabalin) 50 Mg Cap 50 Mg PO Q6HR Metoprolol Tartrate 50 Mg Tab 50 Mg PO DAILY Furosemide 40 Mg Tab 40 Mg PO DAILY Review of Systems Except as stated in HPI: all other systems reviewed are Neg Physical Exam Narrative GENERAL: Obese female patient, appears chronically ill, sitting up in the bed, in no acute distress SKIN: Warm and dry. Pallor HEAD: Atraumatic. Normocephalic. EYES: Pupils equal and round. No scleral icterus. No injection or drainage. ENT: No nasal bleeding or discharge. Mucous membranes pink and moist. NECK: Trachea midline. No JVD. CARDIOVASCULAR: Elevated rate and rhythm. No murmur appreciated. RESPIRATORY: Tachypneic Diminished to auscultation. Breath sounds equal bilaterally. GASTROINTESTINAL: Abdomen soft, non-tender, nondistended. Hepatic and splenic margins not palpable. MUSCULOSKELETAL: No obvious deformities. No clubbing. No cyanosis. Distal pulses are palpable. NEUROLOGICAL: Awake and alert. No obvious cranial nerve deficits. Motor grossly within normal limits. Normal speech. PSYCHIATRIC: Appropriate mood and affect; insight and judgment normal. Data Data Last Documented VS Vital Signs Date Time Temp Pulse Resp B/P Pulse Ox O2 Delivery O2 Flow Rate FiO2 08/12/16 13:22 96 20 150/67 95 Nasal Cannula 3 08/12/16 11:33 100.9 Orders Electrocardiogram (08/12/16 12:00) Complete Blood Count With Diff (08/12/16 12:00) Comprehensive Metabolic Panel (08/12/16 12:00) Prothrombin Time / Inr (Pt) (08/12/16 12:00) Act Partial Throm Time (Ptt) (08/12/16 12:00) Lactic Acid Sepsis Protocol (08/12/16 12:00) Magnesium (Mg) (08/12/16 12:00) Ckmb (Isoenzyme) Profile (08/12/16 12:00) Troponin I (08/12/16 12:00) Urinalysis - C+S If Indicated (08/12/16 12:00) Influenzae A/B Antigen (08/12/16 12:00) Blood Culture (08/12/16 12:00) Chest, Single Ap (08/12/16 12:00) Blood Glucose (08/12/16 12:00) Ecg Monitoring (08/12/16 12:00) Iv Access Insert/Monitor (08/12/16 12:00) Oximetry (08/12/16 12:00) Oxygen Administration (08/12/16 12:00) Azithromycin Inj (Zithromax Inj) (08/12/16 12:00) Piperacil-Tazo 4.5 Gm Premix (Zosyn 4.5 (08/12/16 12:00) Urine Culture (08/12/16 12:20) Urinary Catheter Management AMY.Q8H (08/12/16 13:53) Arterial Blood Gas (Abg) (08/12/16 ) Admit Order (Ed Use Only) (08/12/16 15:13) Labs Laboratory Tests Test 08/12/16 08/12/16 12:20 14:40 Urine Color LIGHT-YELLOW Urine Turbidity CLEAR Urine pH 5.0 Urine Specific [place] 1.008 Urine Protein NEG mg/dL Urine Glucose (UA) NEG mg/dL Urine Ketones NEG mg/dL Urine Occult Blood TRACE Urine Nitrite NEG Urine Bilirubin NEG Urine Urobilinogen LESS THAN 2.0 MG/DL Urine Leukocyte Esterase NEG Urine RBC LESS THAN 1 /hpf Urine WBC 1 /hpf Urine Amorphous Sediment RARE Urine Bacteria RARE /hpf Urine Hyaline Casts 5 /lpf Urine Mucus FEW /lpf Microscopic Urinalysis Comment CATH-CULTURE IND Sodium Level 138 MEQ/L Potassium Level 4.4 MEQ/L Chloride Level 98 MEQ/L Carbon Dioxide Level 31.0 MEQ/L Anion Gap 9 MEQ/L Blood Urea Nitrogen 22 MG/DL Creatinine 1.01 MG/DL Estimat Glomerular Filtration 53 ML/MIN Rate Random Glucose 101 MG/DL Lactic Acid Level 1.3 mmol/L Calcium Level 8.7 MG/DL Magnesium Level 2.3 MG/DL Total Bilirubin 0.4 MG/DL Aspartate Amino Transf 29 U/L (AST/SGOT) Alanine Aminotransferase 29 U/L (ALT/SGPT) Alkaline Phosphatase 131 U/L Total Creatine Kinase 56 U/L Troponin I 0.02 NG/ML Total Protein 7.8 GM/DL Albumin 2.8 GM/DL White Blood Count 7.7 TH/MM3 Red Blood Count 4.10 MIL/MM3 Hemoglobin 12.1 GM/DL Hematocrit 37.7 % Mean Corpuscular Volume 92.0 FL Mean Corpuscular Hemoglobin 29.6 PG Mean Corpuscular Hemoglobin 32.2 % Concent Red Cell Distribution Width 14.2 % Platelet Count 350 TH/MM3 Mean Platelet Volume 8.6 FL Neutrophils (%) (Auto) 59.2 % Lymphocytes (%) (Auto) 18.1 % Monocytes (%) (Auto) 16.9 % Eosinophils (%) (Auto) 4.7 % Basophils (%) (Auto) 1.1 % Neutrophils # (Auto) 4.5 TH/MM3 Lymphocytes # (Auto) 1.4 TH/MM3 Monocytes # (Auto) 1.3 TH/MM3 Eosinophils # (Auto) 0.4 TH/MM3 Basophils # (Auto) 0.1 TH/MM3 CBC Comment DIFF FINAL Differential Comment Prothrombin Time 10.9 SEC Prothromb Time International 1.0 RATIO Ratio Activated Partial 26.7 SEC Thromboplast Time MDM Medical Decision Making Medical Screen Exam Complete: Yes Emergency Medical Condition: Yes Medical Record Reviewed: Yes Differential Diagnosis Pneumonia versus influenza versus COPD exacerbation versus UTI versus electrolyte abnormality Narrative Course 80 year-old female presents to emergency department for evaluation. Patient is hypoxic on arrival. Her heart rate is elevated. She is febrile. Patient is unable to have ibuprofen or Tylenol. Sepsis workup was initiated. Patient is given Zosyn and azithromycin IV. Oxygen is applied and patient's oxygen saturation increases. She is awake and oriented. Breath sounds are diminished. She has received albuterol in route. CBC is without acute concern. CMP is without acute concern. Lactic acid is 1.3. Urinalysis is with trace occult blood, rare bacteria, few mucus. Cultures indicated. Influenza screen is negative. I discussed the patient my attending physician Dr. Eddy who agrees the patient needs to be admitted for hypoxia and further evaluation. I spoke with Dr. Hernandez. Patient will be admitted to [facility] hospital[facility] service. Diagnosis Primary Impression: Hypoxia Additional Impressions: Fever Qualified Code: R50.9 - Fever, unspecified fever cause Tachypnea Generalized weakness Inability to bear weight Admitting Information Admitting Physician Requests: Admit Condition: Stable Shalini Kaur Aug 12, 2016 12:02
--- NOTE | 2016-08-12 12:54 | RADRPT ---
EXAM DATE/TIME: 08/12/2016 12:37 [facility] COMPARISON: CHEST SINGLE AP, June 19, 2016, 12:05. INDICATIONS : Cough. Short of breath. MEDICAL HISTORY : Chronic obstructive pulmonary disease. Deep venous thrombosis. Congestive heart failure. SURGICAL HISTORY : Tonsillectomy. section. ENCOUNTER: Initial ACUITY: 2 days PAIN SCORE: 0/10 LOCATION: Bilateral chest FINDINGS: A single view of the chest demonstrates the lungs to be symmetrically aerated without evidence of mas s, infiltrate or effusion. The cardiomediastinal contours are unremarkable. Dorsal column stimulato r is again noted. Osseous structures are intact. CONCLUSION: No acute disease. Arnel Miranda MD on August 12, 2016 at 12:52 Board Certified Radiologist. This report was verified electronically.
[2016-08-12 13:41] LABS: BACTERIA, URINE RARE /hpf; BLOOD, URINE TRACE (NEG); COMMENT (UR) CATH-CULTURE IND; CULTURE IF INDICATED CATH CULTURE IND; GLUCOSE,URINE NEG (NEG); HYALINE CAST, URINE 5 /lpf (RARE); KETONE, URINE NEG (NEG); MUCUS URINE FEW /lpf (OCC); NITRITE,URINE NEG (NEG); URINE COLOR LIGHT-YELLOW (YELLW/STRAW)
[2016-08-12 13:50] LABS: ANION GAP 9 MEQ/L (5-15); AST (GOT) 29 U/L (15-37); BLOOD UREA NITROGEN 22 MG/DL (7-18); CHLORIDE 98 MEQ/L (98-107); GLOMERULAR FILTRATION RATE 53 ML/MIN (>89); MAGNESIUM 2.3 MG/DL (1.5-2.5); POTASSIUM 4.4 MEQ/L (3.5-5.1); SODIUM (NA) 138 MEQ/L (136-145)
[2016-08-12 13:54] LABS: ALKALINE PHOSPHATASE 131 U/L (45-117); ALT (GPT) 29 U/L (10-53); TOTAL BILIRUBIN ADULT 0.4 MG/DL (0.2-1.0)
[2016-08-12 14:05] LABS: CREATINE KINASE 56 U/L (26-192)
[2016-08-12 15:06] LABS: AUTOMATED NEUTROPHIL # 4.5 TH/MM3 (1.8-7.7); BASOPHIL # 0.1 TH/MM3 (0-0.2); BASOPHIL % 1.1 % (0.0-2.0); EOSINOPHIL # 0.4 TH/MM3 (0-0.4); EOSINOPHIL % 4.7 % (0.0-4.0); HEMATOCRIT 37.7 % (35.0-46.0); HEMO FLAGS DIFF FINAL; LYMPH % 18.1 % (9.0-44.0); LYMPHOCYTE # 1.4 TH/MM3 (1.0-4.8); MEAN CORPUSCULAR HEMOGLOBIN 29.6 PG (27.0-34.0); MEAN CORPUSCULAR HGB CONC 32.2 % (32.0-36.0); MONO % 16.9 % (0.0-8.0); NEUT % 59.2 % (16.0-70.0); PLATELET COUNT 350 TH/MM3 (150-450); RED CELL DISTRIBUTION WIDTH 14.2 % (11.6-17.2); WHITE BLOOD COUNT 7.7 TH/MM3 (4.0-11.0)
[2016-08-12 15:13] LABS: APTT (PATIENT) 26.7 SEC (24.3-30.1); PROTHROMBIN TIME - PATIENT 10.9 SEC (9.8-11.6)
[2016-08-12] MEDS ORDERED: TEMA15CA PO (15:23)
[2016-08-12] MEDS ORDERED: MILKSUS4 PO (15:23)
[2016-08-12] MEDS ORDERED: FLEEENE3 RECTAL (15:23)
[2016-08-12] MEDS ORDERED: DULC10SU3 RECTAL (15:23)
[2016-08-12] MEDS ORDERED: GUAI100L5 PO (15:23)
[2016-08-12] MEDS ORDERED: DOXY1CAP91 PO (15:23)
[2016-08-12] MEDS ORDERED: IPRASOL INH (15:23)
[2016-08-12] MEDS ORDERED: TRAM50TA PO (15:23)
[2016-08-12] MEDS ORDERED: MAGNESIUM HYDROXIDE SUSP 30 ML CUP PO PRN (15:30)
[2016-08-12] MEDS ORDERED: SENNOSIDES 8.6 MG TAB PO PRN (15:30)
[2016-08-12] MEDS ORDERED: ACETAMINOPHEN 325 MG TAB PO PRN (15:30)
[2016-08-12] MEDS ORDERED: PROCHLORPERAZINE 25 MG SUPP PR PRN (15:30)
[2016-08-12] MEDS ORDERED: BISACODYL 10 MG SUPP PR PRN (15:30)
[2016-08-12] MEDS ORDERED: SODIUM CHLORIDE 0.9% FLUSH 5 ML FLUSH FLUSH PRN (15:30)
[2016-08-12] MEDS ORDERED: ONDANSETRON HCL 4 MG/2 ML VIAL IVP PRN (15:30)
[2016-08-12] MEDS ORDERED: ENOXAPARIN SODIUM 40 MG/0.4 ML SYRINGE SQ SCH (16:00)
[2016-08-12 16:37] LABS: BLOOD GAS BASE EXCESS 6.6 mmol/L (-2-2); BLOOD GAS CARBOXYHEMOGLOBIN 1.4 % (0-4); BLOOD GAS HCO3 31 mmol/L (22-26); BLOOD GAS METHEMOGLOBIN 0.6 % (0-2); BLOOD GAS O2 HGB SATURATION 93 % (90-100); BLOOD GAS OXYGEN CONTENT 15.9 Vol % (12.0-20.0); BLOOD GAS PCO2 49 mmHg (38-42); BLOOD GAS PO2 66 mmHG (61-120); BLOOD GAS TOTAL HGB 12.2 G/DL (12.0-16.0); CRITICAL VALUE NO; DRAW SITE LT RADIAL; LITER FLOW 2 L/M; NUMBER OF ARTERIAL PUNCTURES 2; OXYGEN DEVICE NASAL CANNULA; STAT YES; TEMP CORR TO 98.6; ULNAR PULSE PRESENT
[2016-08-12] MEDS ORDERED: IOHEXOL 350 MG/ML 10 ML VIAL (for RAD DIAG) IV ONE (17:23)
[2016-08-12] MEDS ORDERED: VANCOMYCIN INJ 1,000 MG in SODIUM CHLOR 0.9% 250 ML INJ 250 ML IV SCH ×4 (18:00)
[2016-08-12] MEDS ORDERED: traMADol HCL 50 MG TAB PO PRN (18:00)
[2016-08-12] MEDS: PREGABALIN 25 MG CAP PO SCH (18:00)
[2016-08-12] MEDS ORDERED: RESP: ALBUTEROL 2.5 MG/IPRATROPIUM 0.5 MG NEB (PRN) NEB (18:00)
[2016-08-12] MEDS ORDERED: Vancomycin Consult Pharmacy 1 EA OTHER SCH ×2 (18:00)
[2016-08-12] MEDS: SODIUM CHLOR 0.9% 1000 ML INJ 1,000 ML IV SCH (18:18)
--- NOTE | 2016-08-12 18:24 | HHI.HP ---
[facility] Naseem Haines MD Admission Diagnosis Hypoxia; resiratory distress; fever Diagnoses: Chief Complaint: Soreness of breath with worsening cough Travel History International Travel<30 Days: No Contact w/Intl Traveler <30 Da: No Traveled to Known Affected Are: No Sepsis Criteria SIRS Criteria (2 or more): Temp > 100.9 or < 96.8, RR > 20 or PaCO2 < 32 Sepsis Criteria (SIRS+source): Infect source susp/known History of Present Illness This is 80-year-old female patient with a past medical history which includes congestive heart failure, hypertension, COPD, sciatica, neuropathy, chronic back pain. [facility] for [facility] and worsening cough. Patient reports she has had a cough for the past 3 weeks and it is getting progressively worse. Patient reports the cough is nonproductive although it does sound moist in nature. Patient has been taking doxycycline by mouth with no improvement. Patient also complains of chronic lower back pain for which she has a spinal stimulator takes Lyrica and her tramadol 4. Patient reports no changes in the back pain denies weakness, numbness or tingling in bilateral lower extremities. Patient denies chest pain nausea vomiting diarrhea constipation fevers or chills Review of Systems Except as stated in HPI: all other systems reviewed are Neg Past Family Social History Past Medical History congestive heart failure, hypertension, COPD, sciatica, neuropathy, chronic back pain. Past Surgical History Spinal stimulator, 1, tonsillectomy Reported Medications Miralax Powder (Polyethylene Glycol 3350 Powder) 17 Gm Powd 17 Gm PO DAILY Mix and dissolve one measuring cap-ful (17 grams) in water or juice. Melatonin 3 Mg Cap 6 Mg PO HS Colace (Docusate Sodium) 100 Mg Cap 100 Mg PO BID Lyrica (Pregabalin) 50 Mg Cap 50 Mg PO Q6HR Metoprolol Tartrate 50 Mg Tab 50 Mg PO DAILY Furosemide 40 Mg Tab 40 Mg PO DAILY Dulcolax Supp (Bisacodyl) 10 Mg Supp 10 Mg RECTAL DAILY PRN Milk of Magnesia Liq (Magnesium Hydroxide) 400 Mg/5 Ml Susp 5 Ml PO Q3D Fleet Enema Rectal (Sodium Phosphates Rectal) 7-19 Gm/118 Ml Enem 118 Ml RECTAL DAILY PRN Robitussin Mucus+Chest Congestion Liq (Guaifenesin) 100 Mg/5 Ml Liq 100 Mg PO Q4H PRN Duoneb (Ipratropium-Albuterol Neb) 0.5-2.5 Mg/3 Ml Neb 1 Nebule INH Q6HR NEB Temazepam 15 Mg Cap 15 Mg PO HS PRN Tramadol (Tramadol HCl) 50 Mg Tab 50 Mg PO Q8H PRN Doxycycline (Doxycycline (Monohydrate)) 100 Mg Cap Mg PO Allergies: Coded Allergies: Codeine (Verified Adverse Reaction, Severe, GI UPSET, 08/12/16) Cortisone (Verified Adverse Reaction, Severe, GI UPSET, 08/12/16) Ibuprofen (Verified Adverse Reaction, Severe, DIZZY, 08/12/16) Tylenol (Verified Adverse Reaction, Severe, GI UPSET, 08/12/16) Morphine (Unverified Adverse Reaction, Intermediate, GI UPSET, 08/12/16) Active Ordered Medications Current Medications Medications (Trade) Dose Ordered Sig/Krystal Route Start Time Stop Time Status Last Admin (NS Flush) 2 ml UNSCH PRN FLUSH 08/12/16 15:30 (NS Flush) 2 ml BID FLUSH 08/12/16 21:00 (Tylenol) 650 mg Q4H PRN PO 08/12/16 15:30 (Zofran Inj) 4 mg Q6H PRN IVP 08/12/16 15:30 (Compazine Supp) 25 mg Q12H PRN FL 08/12/16 15:30 (Dulcolax Supp) 10 mg DAILY PRN FL 08/12/16 15:30 (Milk Of Magnesia Liq) 30 ml Q12H PRN PO 08/12/16 15:30 (Senokot) 17.2 mg Q12H PRN PO 08/12/16 15:30 Enoxaparin Sodium 40 mg 40 mg Q24H SQ 08/12/16 16:00 Sodium Chloride 1,000 ml @ 84 mls/hr [id number] IV 08/12/16 16:00 Pharmacy Profile Note 0 ml @ 0 mls/hr UNSCH OTHER 08/12/16 18:00 UNV (Vancomycin Inj/ NS 250 ml Inj) 250 ml @ 250 mls/hr Q12H IV 08/12/16 18:00 UNV (Protonix) 20 mg DAILY PO 08/13/16 09:00 UNV (Lasix) 40 mg DAILY PO 08/13/16 09:00 UNV (Robitussin Liq) 100 mg Q4H PRN PO 08/12/16 18:00 UNV (Lopressor) 50 mg DAILY PO 08/13/16 09:00 UNV (Miralax) 17 gm DAILY PO 08/13/16 09:00 UNV (Lyrica) 50 mg Q6HR PO 08/12/16 18:00 UNV Tramadol HCl 50 mg 50 mg Q8H PRN PO 08/12/16 18:00 UNV Vancomycin HCl 1000 mg/Sodium Chloride 250 ml @ 250 mls/hr Q12H IV 08/12/16 18:00 UNV Pharmacy Profile Note 0 ml @ 0 mls/hr UNSCH OTHER 08/12/16 18:00 UNV (Zosyn 3.375 Gm Premix) 50 ml @ 100 mls/hr Q6H IV 08/12/16 18:00 UNV Family History Patient reports multiple family members have heart disease unable to elaborate Social History Patient quit smoking 25+ years ago Denies EtOH use or illicit drug use Physical Exam Vital Signs Vital Signs Date Time Temp Pulse Resp B/P Pulse Ox O2 Delivery O2 Flow Rate FiO2 08/12/16 15:30 90 20 127/67 98 Nasal Cannula 3 08/12/16 13:22 96 20 150/67 95 Nasal Cannula 3 08/12/16 12:30 90 18 134/68 98 Nasal Cannula 2 08/12/16 12:30 96 Nasal Cannula 2 08/12/16 11:33 100.9 92 25 129/61 93 Nasal Cannula 3 08/12/16 11:28 100.9 93 25 129/61 86 Physical Exam GENERAL: This is a obese, well-developed patient, coughing multiple times throughout the interview process SKIN: Generally dry skin flaking bilateral lower extremities HEAD: Atraumatic. Normocephalic. No temporal or scalp tenderness. EYES:Extraocular motions intact. No scleral icterus. No injection or drainage. CARDIOVASCULAR: Regular rate and rhythm without murmurs, gallops, or rubs. RESPIRATORY: Coarse throughout with scattered expiratory wheezing GASTROINTESTINAL: Abdomen soft, non-tender, nondistended. MUSCULOSKELETAL: Extensive bilateral lower extremity nonpitting edema No calf tenderness. Negative Homans sign bilaterally. NEUROLOGICAL: Awake and alert. No focal deficits. Motor and sensory grossly within normal limits. 3-4 out of 5 muscle strength in all muscle groups. Normal speech. Laboratory Laboratory Tests Test 08/12/16 08/12/16 08/12/16 12:20 14:40 16:30 Urine Color LIGHT-YELLOW Urine Turbidity CLEAR Urine pH 5.0 Urine Specific [place] 1.008 Urine Protein NEG Urine Glucose (UA) NEG Urine Ketones NEG Urine Occult Blood TRACE Urine Nitrite NEG Urine Bilirubin NEG Urine Urobilinogen LESS THAN 2.0 Urine Leukocyte Esterase NEG Urine RBC LESS THAN 1 Urine WBC 1 Urine Amorphous Sediment RARE Urine Bacteria RARE Urine Hyaline Casts 5 Urine Mucus FEW Microscopic Urinalysis Comment CATH-CULTURE IND Sodium Level 138 Potassium Level 4.4 Chloride Level 98 Carbon Dioxide Level 31.0 Anion Gap 9 Blood Urea Nitrogen 22 Creatinine 1.01 Estimat Glomerular Filtration 53 Rate Random Glucose 101 Lactic Acid Level 1.3 Calcium Level 8.7 Magnesium Level 2.3 Total Bilirubin 0.4 Aspartate Amino Transf 29 (AST/SGOT) Alanine Aminotransferase 29 (ALT/SGPT) Alkaline Phosphatase 131 Total Creatine Kinase 56 Troponin I 0.02 Total Protein 7.8 Albumin 2.8 White Blood Count 7.7 Red Blood Count 4.10 Hemoglobin 12.1 Hematocrit 37.7 Mean Corpuscular Volume 92.0 Mean Corpuscular Hemoglobin 29.6 Mean Corpuscular Hemoglobin 32.2 Concent Red Cell Distribution Width 14.2 Platelet Count 350 Mean Platelet Volume 8.6 Neutrophils (%) (Auto) 59.2 Lymphocytes (%) (Auto) 18.1 Monocytes (%) (Auto) 16.9 Eosinophils (%) (Auto) 4.7 Basophils (%) (Auto) 1.1 Neutrophils # (Auto) 4.5 Lymphocytes # (Auto) 1.4 Monocytes # (Auto) 1.3 Eosinophils # (Auto) 0.4 Basophils # (Auto) 0.1 CBC Comment DIFF FINAL Differential Comment Prothrombin Time 10.9 Prothromb Time International 1.0 Ratio Activated Partial 26.7 Thromboplast Time B-Type Natriuretic Peptide 88 Blood Gas Puncture Site LT RADIAL Blood Gas Patient Temperature 98.6 Blood Gas HCO3 31 Blood Gas Base Excess 6.6 Blood Gas Oxygen Saturation 93 Arterial Blood pH 7.42 Arterial Blood Partial 49 Pressure CO2 Arterial Blood Partial 66 Pressure O2 Arterial Blood Oxygen Content 15.9 Arterial Blood 1.4 Carboxyhemoglobin Arterial Blood Methemoglobin 0.6 Blood Gas Hemoglobin 12.2 Oxygen Delivery Device NASAL CANNULA Blood Gas Liter Flow 2 Date/Time Procedure Status Source Growth 08/12/16 12:20 Urine Culture Received Urine Catheterized Urine Pending 08/12/16 12:20 Influenza Types A,B Antigen (MILDRED) - Final Complete Nasal Washing NEGATIVE FOR FLU A AND B ANTIGEN.... 08/12/16 12:20 Aerobic Blood Culture Received Blood Peripheral Pending 08/12/16 12:20 Anaerobic Blood Culture Received Blood Peripheral Pending Result Diagram: 08/12/16 1440 08/12/16 1220 Septic Shock Reassessment Heart: Regular rate and rhythm Lungs: Course Skin: Warm, Dry Peripheral Pulses: Bounding Right Radial Bounding Left Radial Bounding Right Dorsalis Pedis Bounding Left Dorsalis Pedis Capillary Refill: Brisk Assessment and Plan Assessment and Plan This is 80-year-old female patient with a past medical history which includes congestive heart failure, hypertension, COPD, sciatica, neuropathy, chronic back pain. [facility] for [facility]ness of [facility] and worsening cough. Patient reports she has had a cough for the past 3 weeks and it is getting progressively worse. Patient reports the cough is nonproductive although it does sound moist in nature. Patient has been taking doxycycline by mouth with no improvement. Healthcare acquired pneumonia Failed outpatient therapy COPD exacerbation Hypoxia Sepsis by criteria temp 101.3, respitatory rate 25 and pna Vancomycin with pharmacy to dose and Zosyn IV Duo nebs every 4 hours and scheduled into every 2 hours as needed Hold off on Solu-Medrol as patient reports allergy to steroids Consult pulmonology Lactic acid ordered and pending Sputum culture Blood cultures 2 Chronic back pain Continue Lyrica and tramadol as needed Hypertension continue home medications metoprolol Monitor blood pressure trend adjust as indicated Chronic congestive heart failure unknown systolic versus diastolic Continue home medications Lasix and metoprolol DVT prophylaxis Levaquin Patient has a [place] DNR status DNR while in hospital Plan of care discussed with the care provider, patient and nursing Written by Sandra Chadwick, acting as scribe for Dr. Hernandez on 08/12/16 at 18 :22. All or portions of this note were transcribed by balwinder Chadwick. I , Dr. Phylicia Hernandez personally performed the history, physical exam, and medical decision making; and confirmed the accuracy of the information in the transcribed note on 08/12/16 at 18:22. Authenticated by Dr. Phylicia Hernandez on 08/12/16 at 19:19. Physician Certification 2 Midnight Certification Type: Admission for Inpatient Services Order for Inpatient Services The services are ordered in accordance with Medicare regulations or non- Medicare payer requirements, as applicable. In the case of services not specified as inpatient-only, they are appropriately provided as inpatient services in accordance with the 2-midnight benchmark. Estimated LOS (days): 4 days is the estimated time the patient will need to remain in the hospital, assuming treatment plan goals are met and no additional complications. Post-Hospital Plan: SNF Sandra Chadwick Aug 12, 2016 18:24 Phylicia Hernandez MD Aug 12, 2016 19:20
[2016-08-12] MEDS ORDERED: VANCOMYCIN INJ 2,500 MG in SODIUM CHLORID 0.9% 500 ML INJ 500 ML IV ONE (20:00)
[2016-08-12] MEDS: SODIUM CHLORIDE 0.9% FLUSH 5 ML FLUSH FLUSH SCH (21:00)
[2016-08-12] MEDS: RESP: ALBUTEROL 2.5 MG/IPRATROPIUM 0.5 MG NEB (PRN) NEB (21:10)
[2016-08-12] MEDS: PIPERACIL-TAZO 3.375 GM PREMIX 50 ML IV SCH (21:20)
[2016-08-12] MEDS: guaiFENesin SOLUTION 200 MG/10 ML CUP PO PRN (21:26)
[2016-08-12] MEDS ORDERED: RESP: ALBUTEROL 2.5 MG/IPRATROPIUM 0.5 MG NEB (SCH) NEB (22:00)
[2016-08-13] VITALS (9 sets, daily range): BP systolic 108–151; BP diastolic 56–67; PULSE 99–118; RESP 18–24; TEMP 97.6–100.2; O2SAT 92–100
[2016-08-13] MEDS: PREGABALIN 25 MG CAP PO SCH ×5 (01:10→23:15)
[2016-08-13] MEDS: guaiFENesin SOLUTION 200 MG/10 ML CUP PO PRN ×3 (01:15→10:39)
[2016-08-13] MEDS: RESP: ALBUTEROL 2.5 MG/IPRATROPIUM 0.5 MG NEB (SCH) NEB ×6 (01:20→20:09)
[2016-08-13] MEDS: PIPERACIL-TAZO 3.375 GM PREMIX 50 ML IV SCH ×4 (04:59→23:14)
[2016-08-13] MEDS: SODIUM CHLOR 0.9% 1000 ML INJ 1,000 ML IV SCH ×3 (05:00→18:00)
--- NOTE | 2016-08-13 07:50 | MB ---
cc: MALINDA MEADOWS DATE OF CONSULTATION 08/12/[address] David Whatley REASON FOR CONSULTATION COPD exacerbation and pneumonia. PRESENT ILLNESS Ms. Shrestha is a 80-year-old female with COPD, hypertension and CHF. She is basically chronically bedridden. She lives in a [place] [facility] home for the last 16 years or so. She has been having worsening of shortness of cough and congestion. She took antibiotic that did not help her. Because of the worsening of symptoms, she came to the hospital. She had a workup done. WBC count is 7.7, hemoglobin 12.1, hematocrit 37.7, MCV 92, platelet count 350. Sodium 130, potassium 4.4, chloride 98, CO2 31, BUN 22, creatinine 1.01. Her blood gas on 2 liters nasal cannula - pH 7.42, pCO2 49, pO2 66, bicarb 31. Her INR is 1.0. CHEST X-RAY No acute infiltrate. PAST MEDICAL HISTORY 1. History of COPD. 2. Congestive heart failure. 3. Hypertension. 4. Neuropathy. 5. Chronic back pain. MEDICATIONS 1. Protonix 20 mg a day. 2. Lasix 40 mg a day. 3. Metoprolol 50 mg a day. 4. MiraLax 17 grams daily. 5. Albuterol/Atrovent nebulizer treatment. 6. Zosyn IV q. 6 hours. 7. Vancomycin IV. 8. Lyrica 50 mg q.6 hours. 9. Ultram 50 mg for pain as needed. 10. Lovenox 40 mg a day. ALLERGIES CODEINE. CORTISONE. IBUPROFEN. MORPHINE. TYLENOL. SOCIAL HISTORY She has a remote history of smoking. No alcohol use. 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 FAMILY HISTORY She is . She has one daughter. REVIEW OF SYSTEMS The patient is basically bedridden, does not walk because of multiple falls. Denies any seizure, stroke or epilepsy. Denies any malignancy. No DVT or pulmonary embolism. PHYSICAL EXAMINATION GENERAL: A morbidly obese female. Mild short of breath. VITAL SIGNS: Blood pressure 121/67, heart rate 100, respirations 20, temperature 101.3. HEENT EXAMINATION: Pupils are equal and reactive to light. Oral mucosa, nasal mucosa normal. NECK: Supple. JVP not raised. CHEST: Equal bilaterally. She has bilateral expiratory rhonchi. CV: S2 and S2 normal. ABDOMEN: Bening, obese, nontender. Bowel sounds are present. EXTREMITIES: She has nonpitting edema. IMPRESSION 1. COPD exacerbation. 2. Acute bronchitis. 3. Possible pneumonia but x-ray does not show any infiltrate right now. 4. Chronically bedridden. 5. Hypertension. 6. Congestive heart failure. PLAN 1. We will continue with her antibiotic. 2. Check her cultures. 3. Aerosol treatment every q.12 and Atrovent. 4. Subcu Lovenox for DVT prophylaxis. 5. Supplemental oxygen. 6. Further treatment will depend on her course in the hospital. Thank you Dr. David Whatley for this consult. MD REGINALDO Parks/SOPHIA /7:25 PM /6:35 AM
--- NOTE | 2016-08-13 08:04 | HHI.PR ---
Subjective Remarks Patient appears chronically ill, very dry mouth and lips. She says she still feels sob, she is coughing, nu much chest pain. No feevrs or chills overnight., Feesl very tired. No palpitations, however her HR is elevated. Objective Vitals Vital Signs Date Time Temp Pulse Resp B/P Pulse Ox O2 Delivery O2 Flow Rate FiO2 08/13/16 04:58 100.2 112 22 151/65 100 08/13/16 00:00 99.6 118 20 124/64 93 08/12/16 21:10 92 Nasal Cannula 4.00 08/12/16 20:45 99.1 116 20 140/63 96 08/12/16 18:34 101.3 100 24 121/67 96 08/12/16 18:15 70 18 152/68 96 Nasal Cannula 2 08/12/16 15:30 90 20 127/67 98 Nasal Cannula 3 08/12/16 13:22 96 20 150/67 95 Nasal Cannula 3 08/12/16 12:30 90 18 134/68 98 Nasal Cannula 2 08/12/16 12:30 96 Nasal Cannula 2 08/12/16 11:33 100.9 92 25 129/61 93 Nasal Cannula 3 08/12/16 11:28 100.9 93 25 129/61 86 I/O 08/12/16 08/12/16 08/12/16 08/13/16 08/13/16 08/13/16 07:00 15:00 23:00 07:00 15:00 23:00 Intake Total 890 ml Output Total 600 ml 250 ml Balance -600 ml -250 ml 890 ml Intake IV Total 890 ml Output Urine Total 600 ml 250 ml Result Diagram: 08/12/16 1440 08/12/16 1220 Imaging Last Impressions Chest X-Ray 08/12/16 1200 Signed Impressions: Service Date/Time: Friday, August 12, 2016 12:37 - CONCLUSION: No acute disease. Arnel Miranda MD Objective Remarks GENERAL: This is a pleasant 80 yo male, obese, well-developed patient, coughing multiple times throughout the interview process SKIN: Generally dry skin flaking bilateral lower extremities HEAD: Atraumatic. Normocephalic. No temporal or scalp tenderness. EYES:Extraocular motions intact. No scleral icterus. No injection or drainage. CARDIOVASCULAR: Regular rate and rhythm without murmurs, gallops, or rubs. RESPIRATORY: Coarse throughout with scattered expiratory wheezing GASTROINTESTINAL: Abdomen soft, non-tender, nondistended. MUSCULOSKELETAL: Extensive bilateral lower extremity nonpitting edema No calf tenderness. Negative Homans sign bilaterally. NEUROLOGICAL: Awake and alert. No focal deficits. Motor and sensory grossly within normal limits. 3-4 out of 5 muscle strength in all muscle groups. Normal speech. A/P Assessment and Plan This is 80-year-old female patient with a past medical history which includes congestive heart failure, hypertension, COPD, sciatica, neuropathy, chronic back pain. Patient was sent from a [facility] facility for shortness of breath and worsening cough. Patient reports she has had a cough for the past 3 weeks and it is getting progressively worse. Patient reports the cough is nonproductive although it does sound moist in nature. Patient has been taking doxycycline by mouth with no improvement. Healthcare acquired pneumonia Failed outpatient therapy COPD exacerbation Hypoxia Pulmonary embolism Sepsis by criteria temp 101.3, respiratory rate 25 and pna Vancomycin with pharmacy to dose and Zosyn IV Duo nebs every 4 hours and scheduled into every 2 hours as needed Hold off on Solu-Medrol as patient reports allergy to steroids Consult pulmonology Lactic acid ordered and pending Sputum culture Blood cultures 2 CTA lung reviewed shows pulm emboli . Start lovenox 120 mg bid Will start gentle IVF. Monitor VS. Chronic back pain. Continue Lyrica and tramadol as needed Hypertension continue home medications metoprolol. Monitor blood pressure trend adjust as indicated Chronic congestive heart failure unknown systolic versus diastolic. Continue home medications Lasix and metoprolol DVT prophylaxis Levaquin Patient has a [place] DNR status DNR while in hospital Discussed with the patient, nurse SETH pending improvement Phylicia Hernandez MD Aug 13, 2016 08:04
[2016-08-13 08:41] LABS: AUTOMATED NEUTROPHIL # 6.1 TH/MM3 (1.8-7.7); BASOPHIL # 0.1 TH/MM3 (0-0.2); BASOPHIL % 1.4 % (0.0-2.0); EOSINOPHIL # 0.1 TH/MM3 (0-0.4); EOSINOPHIL % 1.7 % (0.0-4.0); HEMATOCRIT 34.9 % (35.0-46.0); LYMPH % 13.5 % (9.0-44.0); LYMPHOCYTE # 1.2 TH/MM3 (1.0-4.8); MEAN CELL VOLUME 91.2 FL (80.0-100.0); MEAN CORPUSCULAR HEMOGLOBIN 30.4 PG (27.0-34.0); MEAN CORPUSCULAR HGB CONC 33.4 % (32.0-36.0); MONO % 13.7 % (0.0-8.0); NEUT % 69.7 % (16.0-70.0); PLATELET COUNT 299 TH/MM3 (150-450); RED BLOOD COUNT 3.83 MIL/MM3 (4.00-5.30); RED CELL DISTRIBUTION WIDTH 14.2 % (11.6-17.2); WHITE BLOOD COUNT 8.8 TH/MM3 (4.0-11.0)
[2016-08-13 08:42] LABS: BICARBONATE 29.3 MEQ/L (21.0-32.0)
[2016-08-13 08:43] LABS: POTASSIUM 4.4 MEQ/L (3.5-5.1)
[2016-08-13 08:48] LABS: HEMO FLAGS AUTO DIFF
[2016-08-13] MEDS ORDERED: IOHEXOL 350 MG/ML 10 ML VIAL (for RAD DIAG) IV ONE (09:13)
--- NOTE | 2016-08-13 09:21 | RADRPT ---
EXAM DATE/TIME: 08/13/2016 08:55 [facility] COMPARISON: No previous studies available for comparison. INDICATIONS : Shortness of breath. IV CONTRAST: 75 cc Omnipaque 350 (iohexol) IV RADIATION DOSE: 23.02 CTDIvol (mGy) MEDICAL HISTORY : Congestive hearrt failure. Deep venous thrombosis. SURGICAL HISTORY : None. ENCOUNTER: Initial ACUITY: 1 day PAIN SCALE: 3/10 LOCATION: Bilateral chest TECHNIQUE: Volumetric scanning of the chest was performed using a pulmonary embolism protocol MIP images were re constructed. Using automated exposure control and adjustment of the mA and/or kV according to patien t size, radiation dose was kept as low as reasonably achievable to obtain optimal diagnostic quality images. FINDINGS: PULMONARY ARTERIES: There are pulmonary emboli seen in the left pulmonary artery supplying the left lower lobe. Significa nt pulmonary emboli on the right are not seen. LUNGS: There is mild increased density at the left lower lung representing some atelectasis or consolidation . PLEURAE: There is no pleural thickening or pleural effusion. MEDIASTINUM: There is good visualization of the great vessels of the middle mediastinum. No evidence of mediastin al or hilar adenopathy/mass. Coronary artery calcification are present. MUSCULOSKELETAL: Spinal leads are seen. MISCELLANEOUS: The visualized upper abdominal organs demonstrate no acute abnormality. CONCLUSION: 1. Pulmonary emboli at the left lower lobe. 2. Atelectasis or consolidation of the left lower lobe. Damaso Rios MD on August 13, 2016 at 9:14 Board Certified Radiologist. This report was verified electronically.
[2016-08-13 09:46] LABS: BANDS 14 % (0-6); BASOPHILS 1 % (0-2); NEUTROPHIL # MANUAL DIFF 5.7 TH/MM3 (1.8-7.7); POLYS (SEG NEUTROPHILS) 51 % (16-70); WBC DIFF SAMPLE 100
[2016-08-13 09:47] LABS: PLATELET ESTIMATE SMEAR NORMAL (NORMAL); PLATELET MORPHOLOGY CLUMPED (NORMAL); SCAN/DIFF FINAL DIFF MANUAL
[2016-08-13] MEDS: PANTOPRAZOLE SOD 20 MG DELAYED RELEASE TAB PO SCH (10:28)
[2016-08-13] MEDS: FUROSEMIDE 40 MG TAB PO SCH (10:28)
[2016-08-13] MEDS: METOPROLOL TARTRATE 50 MG TAB PO SCH (10:28)
[2016-08-13] MEDS: SODIUM CHLORIDE 0.9% FLUSH 5 ML FLUSH FLUSH SCH ×2 (10:29→19:59)
[2016-08-13] MEDS: POLYETHYLENE GLYCOL 17 GM PKG PO SCH (10:29)
[2016-08-13] MEDS: ENOXAPARIN SODIUM 120 MG/0.8 ML SYRINGE SQ SCH ×2 (12:51→23:15)
--- NOTE | 2016-08-13 19:51 | HHI.PR ---
Subjective Remarks 80 YO WF with SOB, Cough CTA PE and left basal infilt has persistant cough no fever Objective Vital Signs Vital Signs Date Time Temp Pulse Resp B/P Pulse Ox O2 Delivery O2 Flow Rate FiO2 08/13/16 16:00 97.6 103 128/56 92 08/13/16 12:00 97.6 111 24 125/67 96 08/13/16 11:39 95 Nasal Cannula 4.00 08/13/16 09:35 92 Nasal Cannula 3.00 08/13/16 08:00 97.6 99 24 133/65 95 08/13/16 04:58 100.2 112 22 151/65 100 08/13/16 00:00 99.6 118 20 124/64 93 08/12/16 21:10 92 Nasal Cannula 4.00 08/12/16 20:45 99.1 116 20 140/63 96 I/O 08/12/16 08/12/16 08/12/16 08/13/16 08/13/16 08/13/16 07:00 15:00 23:00 07:00 15:00 23:00 Intake Total 1370 ml Output Total 600 ml 250 ml 1100 ml Balance -600 ml -250 ml 270 ml Intake Oral 480 ml IV Total 890 ml Output Urine Total 600 ml 250 ml 1100 ml # Bowel Movements 1 Result Diagram: 08/13/1672208/13/16722 Objective Remarks GENERAL: WBWN female, mild discomfort SKIN: Warm and dry. HEAD: Normocephalic. EYES: No scleral icterus. No injection or drainage. NECK: Supple, trachea midline. No JVD or lymphadenopathy. CARDIOVASCULAR: Regular rate and rhythm without murmurs, gallops, or rubs. RESPIRATORY: Breath sounds equal bilaterally. No accessory muscle use. GASTROINTESTINAL: Abdomen soft, non-tender, nondistended. MUSCULOSKELETAL: No cyanosis, or edema. BACK: Nontender without obvious deformity. No CVA tenderness. A/P Assessment and Plan Pulm Embolism Basal infilt bronchitis HTN COPD PLAN SQ Lovenox Abx vanco and Zosyn pending cultures Aerosol nebs Supplement 02 Robitussin with Cod cough syp Carlos Manuel Caceres MD Aug 13, 2016 19:51
[2016-08-13] MEDS: guaiFENesin/CODEINE SYRUP 200 MG/20 MG/10 ML CUP PO SCH (19:57)
[2016-08-14] VITALS (9 sets, daily range): BP systolic 99–151; BP diastolic 58–69; PULSE 98–117; RESP 17–22; TEMP 96.6–98.9; O2SAT 84–100
[2016-08-14] MEDS: VANCOMYCIN INJ 2,000 MG in SODIUM CHLORID 0.9% 500 ML INJ 500 ML IV SCH ×2 (00:11→22:41)
[2016-08-14] MEDS: RESP: ALBUTEROL 2.5 MG/IPRATROPIUM 0.5 MG NEB (SCH) NEB ×6 (00:11→19:12)
[2016-08-14] MEDS: guaiFENesin/CODEINE SYRUP 200 MG/20 MG/10 ML CUP PO SCH ×4 (02:19→19:40)
[2016-08-14] MEDS: PIPERACIL-TAZO 3.375 GM PREMIX 50 ML IV SCH ×3 (03:59→15:25)
[2016-08-14] MEDS: PREGABALIN 25 MG CAP PO SCH ×4 (06:20→22:42)
[2016-08-14] MEDS: SODIUM CHLOR 0.9% 1000 ML INJ 1,000 ML IV SCH ×2 (06:20→22:43)
--- NOTE | 2016-08-14 07:25 | EKG ---
Date Performed: 08/12/2016 Time Performed: 12:51:15 PTAGE: 80 years EKG: Sinus rhythm LOW QRS VOLTAGE IN PRECORDIAL LEADS PATTERN CONSISTENT WITH PULMONARY DISEASE INCOMPLETE RIGHT BUNDL E BRANCH BLOCK LEFT ANTERIOR FASCICULAR BLOCK Compared to the previous tracing sinus rate has slowed ABNORMAL ECG PREVIOUS TRACING : 06/19/2016 11.55 DOCTOR: Jack Leach Interpretating Date/Time 08/14/2016 07:24:58
[2016-08-14] MEDS: POLYETHYLENE GLYCOL 17 GM PKG PO SCH (07:56)
[2016-08-14] MEDS: FUROSEMIDE 40 MG TAB PO SCH (07:56)
[2016-08-14] MEDS: PANTOPRAZOLE SOD 20 MG DELAYED RELEASE TAB PO SCH (07:56)
[2016-08-14] MEDS: SODIUM CHLORIDE 0.9% FLUSH 5 ML FLUSH FLUSH SCH ×2 (08:02→19:41)
[2016-08-14] MEDS: METOPROLOL TARTRATE 50 MG TAB PO SCH (09:00)
--- NOTE | 2016-08-14 09:13 | HHI.PR ---
Subjective Remarks Patient is more awake and alert today. Says cough has improved somehow.No efevr or chills overnight. With sob, improving. No n/v/d/c. Eating better. Objective Vitals Vital Signs Date Time Temp Pulse Resp B/P Pulse Ox O2 Delivery O2 Flow Rate FiO2 08/14/16 08:00 98.9 98 22 99/69 100 08/14/16 04:00 97.8 102 18 151/69 100 08/14/16 00:00 97.2 110 18 131/58 98 08/13/16 20:09 94 Nasal Cannula 4.00 08/13/16 20:00 98.3 108 18 108/63 97 08/13/16 16:00 97.6 103 128/56 92 08/13/16 12:00 97.6 111 24 125/67 96 08/13/16 11:39 95 Nasal Cannula 4.00 08/13/16 09:35 92 Nasal Cannula 3.00 I/O 08/13/16 08/13/16 08/13/16 08/14/16 08/14/16 08/14/16 07:00 15:00 23:00 07:00 15:00 23:00 Intake Total 1370 ml 1080 ml 995 ml Output Total 250 ml 1100 ml 1350 ml Balance -250 ml 270 ml 1080 ml -355 ml Intake Oral 480 ml 140 ml 200 ml IV Total 890 ml 940 ml 795 ml Output Urine Total 250 ml 1100 ml 1350 ml # Bowel Movements 1 1 Result Diagram: 08/13/16 0723 08/13/[address] Angiography 08/13/16 0000 Signed Impressions: Service Date/Time: Saturday, August 13, 2016 08:55 - CONCLUSION: 1. Pulmonary emboli at the left lower lobe. 2. Atelectasis or consolidation of the left lower lobe. Damaso Rios MD Chest X-Ray 08/12/16 1200 Signed Impressions: Service Date/Time: Friday, August 12, 2016 12:37 - CONCLUSION: No acute disease. Arnel Miranda MD Objective Remarks GENERAL: This is a pleasant 80 yo male, obese, well-developed patient, coughing multiple times throughout the interview process SKIN: Generally dry skin flaking bilateral lower extremities HEAD: Atraumatic. Normocephalic. No temporal or scalp tenderness. EYES:Extraocular motions intact. No scleral icterus. No injection or drainage. CARDIOVASCULAR: Regular rate and rhythm without murmurs, gallops, or rubs. RESPIRATORY: Coarse throughout with scattered expiratory wheezing GASTROINTESTINAL: Abdomen soft, non-tender, nondistended. MUSCULOSKELETAL: Extensive bilateral lower extremity nonpitting edema No calf tenderness. Negative Homans sign bilaterally. NEUROLOGICAL: Awake and alert. No focal deficits. Motor and sensory grossly within normal limits. 3-4 out of 5 muscle strength in all muscle groups. Normal speech. A/P Assessment and Plan This is 80-year-old female patient with a past medical history which includes congestive heart failure, hypertension, COPD, sciatica, neuropathy, chronic back pain. Patient was [facility] for shortness of breath and worsening cough. Patient reports she has had a cough for the past 3 weeks and it is getting progressively worse. Patient reports the cough is nonproductive although it does sound moist in nature. Patient has been taking doxycycline by mouth with no improvement. Healthcare acquired pneumonia Failed outpatient therapy COPD exacerbation Hypoxia Pulmonary embolism Bacteremia GPC. Sepsis by criteria temp 101.3, respiratory rate 25 and pna, UTI E coli, bacteremia GPC Continue Vancomycin with pharmacy to dose and Zosyn IV Duo nebs every 4 hours and scheduled into every 2 hours as needed Hold off on Solu-Medrol as patient reports allergy to steroids Consult pulmonology Lactic acid 1.3 Sputum culture pending Blood cultures 2 positive GPC CTA lung reviewed shows pulm emboli . Continue lovenox 120 mg bid Gentle IVF. Monitor VS. Consult ID as patient with bacteremia GPC x2 , repeat blood cultures 08/13 NTD Chronic back pain. Continue Lyrica and tramadol as needed Hypertension continue home medications metoprolol. Monitor blood pressure trend adjust as indicated Chronic congestive heart failure unknown systolic versus diastolic. Continue home medications Lasix and metoprolol DVT prophylaxis Levaquin Patient has a [place] DNR status DNR while in hospital Discussed with the patient, nurse SETH pending improvement Phylicia Hernandez MD Aug 14, 2016 09:13
[2016-08-14] MEDS: ENOXAPARIN SODIUM 120 MG/0.8 ML SYRINGE SQ SCH ×2 (12:17→22:42)
[2016-08-14 13:43] LABS: AUTOMATED NEUTROPHIL # 3.2 TH/MM3 (1.8-7.7); BASOPHIL % 0.7 % (0.0-2.0); EOSINOPHIL # 0.5 TH/MM3 (0-0.4); EOSINOPHIL % 8.3 % (0.0-4.0); HEMATOCRIT 33.3 % (35.0-46.0); HEMO FLAGS DIFF FINAL; LYMPH % 23.5 % (9.0-44.0); LYMPHOCYTE # 1.5 TH/MM3 (1.0-4.8); MEAN CELL VOLUME 91.9 FL (80.0-100.0); MEAN CORPUSCULAR HEMOGLOBIN 30.1 PG (27.0-34.0); MEAN CORPUSCULAR HGB CONC 32.7 % (32.0-36.0); MONO % 16.2 % (0.0-8.0); NEUT % 51.3 % (16.0-70.0); PLATELET COUNT 284 TH/MM3 (150-450); RED BLOOD COUNT 3.63 MIL/MM3 (4.00-5.30); RED CELL DISTRIBUTION WIDTH 14.4 % (11.6-17.2); WHITE BLOOD COUNT 6.2 TH/MM3 (4.0-11.0)
[2016-08-14 14:02] LABS: BICARBONATE 30.5 MEQ/L (21.0-32.0); POTASSIUM 3.6 MEQ/L (3.5-5.1)
--- NOTE | 2016-08-14 15:09 | PD.ID.CON ---
History of Present Illness Service ID Consult Requested By Dr Heranndez Reason for Consult bacteremia, coag neg staph Primary Care Physician Naseem Haines MD Diagnoses: History of Present Illness Chart reviewed Morbidly obese bedriddent 80 yo female pt with HTN, CHF andf COPD presented with fever, hypoxia She is basically bedriden and resides in a correction She co cough, non productive, cold like smx, fever and SOB x 3 weeks Her CXR from 2 days ago showed no acute disease, but CTA was positive for Pulmonary emboli at the left lower lobe and Atelectasis or consolidation of the left lower lobe. She has low grade fever on admission, but is afebrile in the last 24 hrs She is unable to expectorate Blood clx growing coag negative staph Pt has spinal cord stimulator Review of Systems ROS Limitations: Poor Historian Except as stated in HPI: all other systems reviewed are Neg Past Family Social History Allergies: Coded Allergies: Codeine (Verified Adverse Reaction, Severe, GI UPSET, 08/12/16) Cortisone (Verified Adverse Reaction, Severe, GI UPSET, 08/12/16) Ibuprofen (Verified Adverse Reaction, Severe, DIZZY, 08/12/16) Tylenol (Verified Adverse Reaction, Severe, GI UPSET, 08/12/16) Morphine (Unverified Adverse Reaction, Intermediate, GI UPSET, 08/12/16) Past Medical History congestive heart failure, hypertension, COPD, sciatica, neuropathy, chronic back pain. Past Surgical History Spinal stimulator, 1, tonsillectomy Active Ordered Medications Medications where reviewed in EMR Antibiotics Include: vancomycin, zosyn Family History Patient reports multiple family members have heart disease Social History remote smoking 25+ years ago Denies EtOH use or illicit drug use Physical Exam Vital Signs Vital Signs Date Time Temp Pulse Resp B/P Pulse Ox O2 Delivery O2 Flow Rate FiO2 08/14/16 12:21 96.6 98 20 106/61 97 08/14/16 11:58 99 Nasal Cannula 4.00 08/14/16 08:00 98.9 98 22 99/69 100 08/14/16 04:00 97.8 102 18 151/69 100 08/14/16 00:00 97.2 110 18 131/58 98 08/13/16 20:09 94 Nasal Cannula 4.00 08/13/16 20:00 98.3 108 18 108/63 97 08/13/16 16:00 97.6 103 128/56 92 Physical Exam CONSTITUTIONAL/GENERAL: This is a morbidly obese female patient, in no apparent distress. TUBES/LINES/DRAINS: PIVs wo e/o infx SKIN: No jaundice, rashes, or lesions.Skin temperature appropriate. Not diaphoretic. HEAD: Atraumatic. Normocephalic. EYES: Pupils equal and round and reactive. Extraocular motions intact. No scleral icterus. No injection or drainage. Fundi not examined. ENT: Hearing grossly normal. Nose without bleeding or purulent drainage. Oral mucosase4 dry without visible erythema, exudates, masses, or lesions. NECK: Trachea midline. Supple, nontender. CARDIOVASCULAR: Regular rate and rhythm without murmurs, gallops, or rubs. No JVD. Peripheral pulses symmetric. RESPIRATORY/CHEST: Symmetric, unlabored respirations. Clear to auscultation. Breath sounds equal bilaterally. No wheezes, rales, or rhonchi. GASTROINTESTINAL: Abdomen soft very obese , non-tender, nondistended. No hepato- splenomegaly, or palpable masses. No guarding. Bowel sounds present, hyperactive GENITOURINARY: Without palpable bladder distension. Kumar catheter in place with clear yellow MUSCULOSKELETAL: Extremities without clubbing, cyanosis, or edema. No joint tenderness or effusion noted. No calf tenderness. No mottling or clubbing. BACK: well healed L spine scar from prev sx L upper outer buttock has stimulator in place wo skin changes over it Not tender to palpation LYMPHATICS: No palpable cervical or supraclavicular adenopathy. NEUROLOGICAL: Awake and alert. Motor and sensory grossly within normal limits. Follows commands. Cognitively sharp. Moves all extremities. PSYCHIATRIC: No obvious anxiety/depression. no apparent hallucinations or other psychotic thought process. Laboratory Laboratory Tests Test 08/14/16 13:11 White Blood Count 6.2 Red Blood Count 3.63 Hemoglobin 10.9 Hematocrit 33.3 Mean Corpuscular Volume 91.9 Mean Corpuscular Hemoglobin 30.1 Mean Corpuscular Hemoglobin 32.7 Concent Red Cell Distribution Width 14.4 Platelet Count 284 Mean Platelet Volume 8.3 Neutrophils (%) (Auto) 51.3 Lymphocytes (%) (Auto) 23.5 Monocytes (%) (Auto) 16.2 Eosinophils (%) (Auto) 8.3 Basophils (%) (Auto) 0.7 Neutrophils # (Auto) 3.2 Lymphocytes # (Auto) 1.5 Monocytes # (Auto) 1.0 Eosinophils # (Auto) 0.5 Basophils # (Auto) 0.0 CBC Comment DIFF FINAL Differential Comment Sodium Level 140 Potassium Level 3.6 Chloride Level 100 Carbon Dioxide Level 30.5 Anion Gap 10 Blood Urea Nitrogen 19 Creatinine 1.03 Estimat Glomerular Filtration 52 Rate Random Glucose 105 Calcium Level 8.7 Date/Time Procedure Status Source Growth 08/13/16 21:41 Aerobic Blood Culture - Preliminary Resulted Blood Peripheral NO GROWTH IN 1 DAY 08/13/16 21:41 Anaerobic Blood Culture - Preliminary Resulted Blood Peripheral NO GROWTH IN 1 DAY 08/12/16 12:20 Urine Culture - Final Complete Urine Catheterized Urine Escherichia Coli 08/12/16 12:20 Influenza Types A,B Antigen (MILDRED) - Final Complete Nasal Washing NEGATIVE FOR FLU A AND B ANTIGEN.... Result Diagram: 08/14/16 1311 08/14/[address] Angiography 08/13/16 0000 Signed Impressions: Service Date/Time: Saturday, August 13, 2016 08:55 - CONCLUSION: 1. Pulmonary emboli at the left lower lobe. 2. Atelectasis or consolidation of the left lower lobe. Damaso Rios MD Chest X-Ray 08/12/16 1200 Signed Impressions: Service Date/Time: Friday, August 12, 2016 12:37 - CONCLUSION: No acute disease. Arnel Miranda MD Assessment and Plan Assessment and Plan Fever Pulm emboli ? LLL PNA coag neg staph bacteremia, clin significance is unclear at this point E.coli bacteriuria - dc zosyn - start levaquine, cefepime - fu CXR - BNP - try to obtaine sputum for clx - cont vanco for now - if diff morphology staph then will dc vanco Discussed Condition With Antonia Salazar MD Aug 14, 2016 15:09
[2016-08-14] MEDS: LEVOFLOXACIN 750 MG TAB PO SCH (17:38)
[2016-08-14] MEDS: CEFEPIME INJ 2,000 MG in SODIUM CHLORIDE 0.9% INJ 100 ML IV SCH (17:38)
--- NOTE | 2016-08-14 21:30 | HHI.PR ---
Subjective Remarks 80 YO WF with SOB, Cough CTA PE and left basal infilt has persistant cough, better with Cough syp no fever Objective Vital Signs Vital Signs Date Time Temp Pulse Resp B/P Pulse Ox O2 Delivery O2 Flow Rate FiO2 08/14/16 20:00 97.5 117 17 108/59 96 08/14/16 19:14 95 Nasal Cannula 4.00 08/14/16 16:00 97.9 101 22 102/61 95 08/14/16 12:21 96.6 98 20 106/61 97 08/14/16 11:58 99 Nasal Cannula 4.00 08/14/16 08:00 98.9 98 22 99/69 100 08/14/16 04:00 97.8 102 18 151/69 100 08/14/16 00:00 97.2 110 18 131/58 98 I/O 08/13/16 08/13/16 08/13/16 08/14/16 08/14/16 08/14/16 07:00 15:00 23:00 07:00 15:00 23:00 Intake Total 1370 ml 1080 ml 995 ml 600 ml Output Total 250 ml 1100 ml 1350 ml 1350 ml 450 ml Balance -250 ml 270 ml 1080 ml -355 ml -750 ml -450 ml Intake Oral 480 ml 140 ml 200 ml 600 ml IV Total 890 ml 940 ml 795 ml Output Urine Total 250 ml 1100 ml 1350 ml 1350 ml 450 ml # Bowel Movements 1 1 Result Diagram: 08/14/16 1311 08/14/16 1311 Objective Remarks GENERAL: WBWN female, mild discomfort SKIN: Warm and dry. HEAD: Normocephalic. EYES: No scleral icterus. No injection or drainage. NECK: Supple, trachea midline. No JVD or lymphadenopathy. CARDIOVASCULAR: Regular rate and rhythm without murmurs, gallops, or rubs. RESPIRATORY: Breath sounds equal bilaterally. No accessory muscle use. GASTROINTESTINAL: Abdomen soft, non-tender, nondistended. MUSCULOSKELETAL: No cyanosis, or edema. BACK: Nontender without obvious deformity. No CVA tenderness. A/P Assessment and Plan Pulm Embolism Basal infilt bronchitis HTN COPD PLAN SQ Lovenox Abx vanco and Zosyn pending cultures Aerosol nebs Supplement 02 Robitussin with Cod cough syp DC Plans underway Carlos Manuel Caceres MD Aug 14, 2016 21:30
[2016-08-14] MEDS: guaiFENesin SOLUTION 200 MG/10 ML CUP PO PRN (23:24)
[2016-08-14] MEDS: SODIUM CHLORIDE 0.65% NASAL SPRAY 45 ML BTL EACH NARE PRN (23:24)
[2016-08-15] VITALS (8 sets, daily range): BP systolic 114–140; BP diastolic 62–80; PULSE 93–102; RESP 18–22; TEMP 97–98.1; O2SAT 94–99
[2016-08-15] MEDS: RESP: ALBUTEROL 2.5 MG/IPRATROPIUM 0.5 MG NEB (SCH) NEB ×6 (01:30→19:59)
[2016-08-15] MEDS: CEFEPIME INJ 2,000 MG in SODIUM CHLORIDE 0.9% INJ 100 ML IV SCH ×2 (04:38→18:35)
[2016-08-15] MEDS: PREGABALIN 25 MG CAP PO SCH ×4 (04:38→23:36)
[2016-08-15] MEDS: SODIUM CHLORIDE 0.65% NASAL SPRAY 45 ML BTL EACH NARE PRN ×3 (04:39→21:51)
[2016-08-15] MEDS: guaiFENesin SOLUTION 200 MG/10 ML CUP PO PRN ×2 (04:47→12:43)
[2016-08-15] MEDS: SODIUM CHLORIDE 0.9% FLUSH 5 ML FLUSH FLUSH SCH ×2 (07:39→21:51)
[2016-08-15] MEDS: FUROSEMIDE 40 MG TAB PO SCH (07:39)
[2016-08-15] MEDS: PANTOPRAZOLE SOD 20 MG DELAYED RELEASE TAB PO SCH (07:39)
[2016-08-15] MEDS: METOPROLOL TARTRATE 50 MG TAB PO SCH (07:39)
[2016-08-15] MEDS: LEVOFLOXACIN 750 MG TAB PO SCH (07:39)
[2016-08-15] MEDS: POLYETHYLENE GLYCOL 17 GM PKG PO SCH (07:39)
[2016-08-15 08:09] LABS: AUTOMATED NEUTROPHIL # 4.9 TH/MM3 (1.8-7.7); BASOPHIL # 0.1 TH/MM3 (0-0.2); BASOPHIL % 0.8 % (0.0-2.0); EOSINOPHIL # 0.6 TH/MM3 (0-0.4); EOSINOPHIL % 7.6 % (0.0-4.0); HEMATOCRIT 34.1 % (35.0-46.0); HEMO FLAGS DIFF FINAL; LYMPH % 18.6 % (9.0-44.0); LYMPHOCYTE # 1.5 TH/MM3 (1.0-4.8); MEAN CORPUSCULAR HEMOGLOBIN 30.1 PG (27.0-34.0); MEAN CORPUSCULAR HGB CONC 32.7 % (32.0-36.0); PLATELET COUNT 307 TH/MM3 (150-450); RED BLOOD COUNT 3.71 MIL/MM3 (4.00-5.30); RED CELL DISTRIBUTION WIDTH 14.7 % (11.6-17.2); WHITE BLOOD COUNT 7.9 TH/MM3 (4.0-11.0)
[2016-08-15 08:43] LABS: BICARBONATE 28.8 MEQ/L (21.0-32.0); POTASSIUM 3.5 MEQ/L (3.5-5.1)
--- NOTE | 2016-08-15 08:52 | RADRPT ---
EXAM DATE/TIME: 08/15/2016 06:39 [facility] COMPARISON: CHEST SINGLE AP, August 12, 2016, 12:37. INDICATIONS : Coughing, short of breath MEDICAL HISTORY : Chronic obstructive pulmonary disease. Congestive heart failure. DVT SURGICAL HISTORY : Tonsillectomy. section. ENCOUNTER: Subsequent ACUITY: 2 days PAIN SCORE: 0/10 LOCATION: chest FINDINGS: Heart is minimally enlarged. Mild interstitial edema is present. Spinal stimulator is noted. Minim al bibasilar parenchymal changes are noted. Degenerative changes are seen about both shoulders. CONCLUSION: Overall there has been improvement when compared to 08/12 with better aeration. Minimal bibasilar parenchymal changes persist. Ronnie Del Rio MD FACR on August 15, 2016 at 8:43 Board Certified Radiologist. This report was verified electronically.
--- NOTE | 2016-08-15 10:48 | HHI.PR ---
Subjective Remarks Says she feels much better. Says she had some itching with the syrup however she wants to take it as she fels much better, says she felt itchy with codeine in it. No n/v/d/c. Coughing less. Says she wants to go home. No fever or chills. Objective Vitals Vital Signs Date Time Temp Pulse Resp B/P Pulse Ox O2 Delivery O2 Flow Rate FiO2 08/15/16 08:50 95 Nasal Cannula 4.00 08/15/16 07:37 98.1 102 20 140/64 94 08/15/16 04:00 97.5 97 18 125/80 96 08/15/16 00:00 97.5 97 20 115/66 98 08/14/16 22:00 84 21 08/14/16 20:00 97.5 117 17 108/59 96 08/14/16 19:14 95 Nasal Cannula 4.00 08/14/16 16:00 97.9 101 22 102/61 95 08/14/16 12:21 96.6 98 20 106/61 97 08/14/16 11:58 99 Nasal Cannula 4.00 I/O 08/14/16 08/14/16 08/14/16 08/15/16 08/15/16 08/15/16 07:00 15:00 23:00 07:00 15:00 23:00 Intake Total 995 ml 1245 ml 1788 ml Output Total 1350 ml 1350 ml 450 ml 400 ml Balance -355 ml -105 ml -450 ml 1388 ml Intake Oral 200 ml 600 ml IV Total 795 ml 645 ml 1788 ml Output Urine Total 1350 ml 1350 ml 450 ml 400 ml # Bowel Movements 1 Result Diagram: 08/15/16 0708 08/15/16 0708 Other Results Microbiology Date/Time Procedure Status Source Growth 08/14/16 16:16 Legionella Antigen - Final Complete Urine Random Urine PRESUMPTIVE NEGATIVE FOR LEGIONELLA P... 08/14/16 16:16 Streptococcus pneumoniae Antigen (M - Final Complete Urine Random Urine PRESUMPTIVE NEGATIVE FOR STREPTOCOCCU... 08/13/16 21:41 Aerobic Blood Culture - Preliminary Resulted Blood Peripheral NO GROWTH IN 2 DAYS 08/13/16 21:41 Anaerobic Blood Culture - Preliminary Resulted Blood Peripheral NO GROWTH IN 2 DAYS 08/12/16 12:20 Urine Culture - Final Complete Urine Catheterized Urine Escherichia Coli 08/12/16 12:20 Influenza Types A,B Antigen (MILDRED) - Final Complete Nasal Washing NEGATIVE FOR FLU A AND B ANTIGEN.... Imaging Last Impressions CT Angiography 08/13/16 0000 Signed Impressions: Service Date/Time: Saturday, August 13, 2016 08:55 - CONCLUSION: 1. Pulmonary emboli at the left lower lobe. 2. Atelectasis or consolidation of the left lower lobe. Damaso Rios MD Chest X-Ray 08/12/16 1200 Signed Impressions: Service Date/Time: Friday, August 12, 2016 12:37 - CONCLUSION: No acute disease. Arnel Miranda MD Objective Remarks GENERAL: This is a pleasant 80 yo male, obese, well-developed patient, coughing multiple times throughout the interview process SKIN: Generally dry skin flaking bilateral lower extremities HEAD: Atraumatic. Normocephalic. No temporal or scalp tenderness. EYES:Extraocular motions intact. No scleral icterus. No injection or drainage. CARDIOVASCULAR: Regular rate and rhythm without murmurs, gallops, or rubs. RESPIRATORY: Coarse throughout with scattered expiratory wheezing GASTROINTESTINAL: Abdomen soft, non-tender, nondistended. MUSCULOSKELETAL: Extensive bilateral lower extremity nonpitting edema No calf tenderness. Negative Homans sign bilaterally. NEUROLOGICAL: Awake and alert. No focal deficits. Motor and sensory grossly within normal limits. 3-4 out of 5 muscle strength in all muscle groups. Normal speech. A/P Assessment and Plan This is 80-year-old female patient with a past medical history which includes congestive heart failure, hypertension, COPD, sciatica, neuropathy, chronic back pain. Patient was sent from a senior care facility for shortness of breath and worsening cough. Patient reports she has had a cough for the past 3 weeks and it is getting progressively worse. Patient reports the cough is nonproductive although it does sound moist in nature. Patient has been taking doxycycline by mouth with no improvement. Healthcare acquired pneumonia Failed outpatient therapy COPD exacerbation Hypoxia Pulmonary embolism Bacteremia GPC. Sepsis by criteria temp 101.3, respiratory rate 25 and pna, UTI E coli, bacteremia GPC Continue Vancomycin with pharmacy to dose .DC zosyn, start levaquine, cefepime Duo nebs every 4 hours and scheduled into every 2 hours as needed Hold off on Solu-Medrol as patient reports allergy to steroids Consult pulmonology Lactic acid 1.3 Sputum culture pending Blood cultures 2 positive GPC CTA lung reviewed shows pulm emboli . Continue lovenox 120 mg bid Gentle IVF. Monitor VS. Consult ID as patient with bacteremia GPC x2 , repeat blood cultures 08/13 NTD Chronic back pain. Continue Lyrica and tramadol as needed Hypertension continue home medications metoprolol. Monitor blood pressure trend adjust as indicated Chronic congestive heart failure unknown systolic versus diastolic. Continue home medications Lasix and metoprolol DVT prophylaxis Levaquin Patient has a [place] DNR status DNR while in hospital Discussed with the patient, nurse SETH pending improvement Phylicia Hernandez MD Aug 15, 2016 10:48
[2016-08-15] MEDS: ENOXAPARIN SODIUM 120 MG/0.8 ML SYRINGE SQ SCH (11:17)
[2016-08-15] MEDS ORDERED: ACETAMINOPHEN/CODEINE ELIX 120 MG/12 MG/5 ML CUP PO PRN (11:45)
[2016-08-15] MEDS: guaiFENesin/CODEINE SYRUP 200 MG/20 MG/10 ML CUP PO PRN ×2 (15:32→21:50)
--- NOTE | 2016-08-15 16:52 | HHI.PR ---
Subjective Remarks 80 YO WF with SOB, Cough CTA PE and left basal infilt has persistant cough, better with Cough syp no fever mild itching no rash Objective Vital Signs Vital Signs Date Time Temp Pulse Resp B/P Pulse Ox O2 Delivery O2 Flow Rate FiO2 08/15/16 12:00 97.3 95 20 114/62 94 08/15/16 08:50 95 Nasal Cannula 4.00 08/15/16 07:37 98.1 102 20 140/64 94 08/15/16 04:00 97.5 97 18 125/80 96 08/15/16 00:00 97.5 97 20 115/66 98 08/14/16 22:00 84 21 08/14/16 20:00 97.5 117 17 108/59 96 08/14/16 19:14 95 Nasal Cannula 4.00 I/O 08/14/16 08/14/16 08/14/16 08/15/16 08/15/16 08/15/16 07:00 15:00 23:00 07:00 15:00 23:00 Intake Total 995 ml 1245 ml 1788 ml Output Total 1350 ml 1350 ml 450 ml 400 ml Balance -355 ml -105 ml -450 ml 1388 ml Intake Oral 200 ml 600 ml IV Total 795 ml 645 ml 1788 ml Output Urine Total 1350 ml 1350 ml 450 ml 400 ml # Bowel Movements 1 Result Diagram: 08/15/16 0708 08/15/16 0708 Objective Remarks GENERAL: WBWN female, mild discomfort SKIN: Warm and dry. HEAD: Normocephalic. EYES: No scleral icterus. No injection or drainage. NECK: Supple, trachea midline. No JVD or lymphadenopathy. CARDIOVASCULAR: Regular rate and rhythm without murmurs, gallops, or rubs. RESPIRATORY: Breath sounds equal bilaterally. No accessory muscle use. GASTROINTESTINAL: Abdomen soft, non-tender, nondistended. MUSCULOSKELETAL: No cyanosis, or edema. BACK: Nontender without obvious deformity. No CVA tenderness. A/P Assessment and Plan Pulm Embolism Basal infilt bronchitis HTN COPD PLAN SQ Lovenox Abx vanco and Zosyn pending cultures Aerosol nebs Supplement 02 Robitussin with Cod cough syp Stable from pulm standpoint. Carlos Manuel Caceres MD Aug 15, 2016 16:52
[2016-08-15] MEDS ORDERED: PHARMACY ORDERED LAB XX ONE (21:45)
[2016-08-15] MEDS: VANCOMYCIN INJ 2,000 MG in SODIUM CHLORID 0.9% 500 ML INJ 500 ML IV SCH (21:51)
[2016-08-16] VITALS (8 sets, daily range): BP systolic 98–134; BP diastolic 51–73; PULSE 88–109; RESP 17–22; TEMP 96.9–98.2; O2SAT 94–98
[2016-08-16] MEDS: ENOXAPARIN SODIUM 120 MG/0.8 ML SYRINGE SQ SCH ×3 (00:51→21:46)
[2016-08-16] MEDS: diphenhydrAMINE HCL 25 MG CAP PO PRN ×3 (01:22→20:01)
[2016-08-16] MEDS: RESP: ALBUTEROL 2.5 MG/IPRATROPIUM 0.5 MG NEB (SCH) NEB ×6 (01:26→20:23)
[2016-08-16] MEDS: CEFEPIME INJ 2,000 MG in SODIUM CHLORIDE 0.9% INJ 100 ML IV SCH ×2 (05:05→16:39)
[2016-08-16] MEDS: PREGABALIN 25 MG CAP PO SCH ×3 (05:09→16:39)
[2016-08-16] MEDS: SODIUM CHLORIDE 0.65% NASAL SPRAY 45 ML BTL EACH NARE PRN ×3 (05:10→21:51)
[2016-08-16] MEDS ORDERED: TRAM50TA PO (08:09)
[2016-08-16] MEDS ORDERED: TEMA15CA PO (08:09)
--- NOTE | 2016-08-16 08:09 | HHI.DS ---
Discharge Summary Admission Date Aug 12, 2016 at 15:15 Discharge Date: Aug 17, 2016 Admitting Diagnosis Hypoxia; resiratory distress; fever (1) Hypoxia ICD Code: R09.02 Diagnosis: Principal (2) Sepsis ICD Code: A41.9 Diagnosis: Principal (3) Pneumonia ICD Code: J18.9 Diagnosis: Principal (4) Respiratory distress ICD Code: R06.00 Diagnosis: Principal (5) Bacteremia ICD Code: R78.81 Diagnosis: Principal (6) Generalized weakness ICD Code: R53.1 Diagnosis: Secondary (7) Urinary tract infection ICD Code: N39.0 Diagnosis: Secondary Procedures none Brief History - From Admission This is 80-year-old female patient with a past medical history which includes congestive heart failure, hypertension, COPD, sciatica, neuropathy, chronic back pain. Patient was sent from a longterm facility for shortness of breath and worsening cough. Patient reports she has had a cough for the past 3 weeks and it is getting progressively worse. Patient reports the cough is nonproductive although it does sound moist in nature. Patient has been taking doxycycline by mouth with no improvement. Patient also complains of chronic lower back pain for which she has a spinal stimulator takes Lyrica and her tramadol 4. Patient reports no changes in the back pain denies weakness, numbness or tingling in bilateral lower extremities. Patient denies chest pain nausea vomiting diarrhea constipation fevers or chills CBC/BMP: 08/15/16 0708 08/15/16 0708 Significant Findings Laboratory Tests Test 08/14/16 08/15/16 08/15/16 13:11 07:08 21:49 Red Blood Count 3.63 MIL/MM3 3.71 MIL/MM3 (4.00-5.30) (4.00-5.30) Hemoglobin 10.9 GM/DL 11.2 GM/DL (11.6-15.3) (11.6-15.3) Hematocrit 33.3 % 34.1 % (35.0-46.0) (35.0-46.0) Monocytes (%) (Auto) 16.2 % 11.0 % (0.0-8.0) (0.0-8.0) Eosinophils (%) (Auto) 8.3 % (0.0-4.0) 7.6 % (0.0-4.0) Monocytes # (Auto) 1.0 TH/MM3 (0-0.9) Eosinophils # (Auto) 0.5 TH/MM3 0.6 TH/MM3 (0-0.4) (0-0.4) Blood Urea Nitrogen 19 MG/DL (7-18) Creatinine 1.03 MG/DL (0.50-1.00) Estimat Glomerular Filtration 52 ML/MIN (>89) 54 ML/MIN (>89) Rate Vancomycin Level Trough 30.2 MCG/ML (5.0-10.0) Imaging Last Impressions Chest X-Ray 08/15/16 0600 Signed Impressions: Service Date/Time: July 06:39 - CONCLUSION: Overall there has been improvement when compared to 08/12 with better aeration. Minimal bibasilar parenchymal changes persist. Ronnie DelR io MD FACR CT Angiography 08/13/16 0000 Signed Impressions: Service Date/Time: Saturday, August 13, 2016 08:55 - CONCLUSION: 1. Pulmonary emboli at the left lower lobe. 2. Atelectasis or consolidation of the left lower lobe. Damaso Rios MD PE at Discharge GENERAL: This is a pleasant 80 yo male, obese, well-developed patient, coughing multiple times throughout the interview process SKIN: Generally dry skin flaking bilateral lower extremities HEAD: Atraumatic. Normocephalic. No temporal or scalp tenderness. EYES:Extraocular motions intact. No scleral icterus. No injection or drainage. CARDIOVASCULAR: Regular rate and rhythm without murmurs, gallops, or rubs. RESPIRATORY: Coarse throughout with scattered expiratory wheezing GASTROINTESTINAL: Abdomen soft, non-tender, nondistended. MUSCULOSKELETAL: Extensive bilateral lower extremity nonpitting edema No calf tenderness. Negative Homans sign bilaterally. NEUROLOGICAL: Awake and alert. No focal deficits. Motor and sensory grossly within normal limits. 3-4 out of 5 muscle strength in all muscle groups. Normal speech. Hospital Course This is 80-year-old female patient with a past medical history which includes congestive heart failure, hypertension, COPD, sciatica, neuropathy, chronic back pain. Patient was sent from a longterm facility for shortness of breath and worsening cough. Patient reports she has had a cough for the past 3 weeks and it is getting progressively worse. Patient reports the cough is nonproductive although it does sound moist in nature. Patient has been taking doxycycline by mouth with no improvement. Healthcare acquired pneumonia Failed outpatient therapy COPD exacerbation Hypoxia Pulmonary embolism Bacteremia GPC. Sepsis by criteria temp 101.3, respiratory rate 25 and pna, UTI E coli, bacteremia GPC. Continue Vancomycin with pharmacy to dose. DC zosyn, start levaquine, cefepime Duo nebs every 4 hours and scheduled into every 2 hours as needed Hold off on Solu-Medrol as patient reports allergy to steroids Consult pulmonology Lactic acid 1.3 Sputum culture pending Blood cultures 2 positive GPC CTA lung reviewed shows pulm emboli . Continue lovenox 120 mg bid. Give xarelto at DC. Gentle IVF. Monitor VS. Consult ID as patient with bacteremia GPC x2 , repeat blood cultures 08/13 NTD. Can give levaquin at DC 750 mg x5 days per Dr Pelayo. Chronic back pain. Continue Lyrica and tramadol as needed Hypertension continue home medications metoprolol. Monitor blood pressure trend adjust as indicated Chronic congestive heart failure unknown systolic versus diastolic. Continue home medications Lasix and metoprolol DVT prophylaxis Levaquin Patient has a [place] DNR status DNR while in hospital Discussed with the patient, nurse DC to SNF. I spoke with Dr Pelayo who evaluated the patient, recommends levaquin PO 750 at DC. Patient was discharged to SNF in fairly stable condition to follow up as OP with PCP and consultants as OP. Pt Condition on Discharge: Stable Discharge Disposition: Discharge to SNF Discharge Time: > 30 minutes Discharge Instructions DIET: Follow Instructions for: Heart Healthy Diet Activities you can perform: Regular-No Restrictions Follow up Referrals: PCP Follow-up - 3-5 Days Pulmonology New Medications: Levofloxacin (Levaquin) 750 Mg Tab 750 MG PO DAILY Infection #5 Ref 0 TAB Rivaroxaban (Xarelto) 15 Mg Tab 15 MG PO Q12HR take with food, continue treatment with 20 mg po daily thereafter Blood Clot Prevention #42 Ref 0 TAB Rivaroxaban (Xarelto) 20 Mg Tab 20 MG PO DAILY Blood Clot Prevention #30 Ref 0 TAB Guaifenesin-Codeine Liq (Guaifenesin-Codeine Liq) 100-10 Mg/5 Ml Soln 10 ML PO Q6H PRN COUGH Days 5 ML Continued Medications: Bisacodyl Supp (Dulcolax Supp) 10 Mg Supp 10 MG RECTAL DAILY PRN CONSTIPATION #12 Ref 0 SUPP Docusate Sodium (Colace) 100 Mg Cap 100 MG PO BID Constipation #60 Ref 0 CAP Furosemide (Furosemide) 40 Mg Tab 40 MG PO DAILY #30 Ref 0 TAB Guaifenesin Liq (Robitussin Mucus+Chest Congestion Liq) 100 Mg/5 Ml Liq 100 MG PO Q4H PRN CHEST CONGESTION #1 Ref 0 BOTTLE Ipratropium-Albuterol Neb (Duoneb) 0.5-2.5 Mg/3 Ml Neb 1 NEBULE INH Q6HR NEB Breathing Treatment #120 Ref 0 NEBULE Magnesium Hydroxide Liq (Milk of Magnesia Liq) 400 Mg/5 Ml Susp 5 ML PO Q3D Melatonin (Melatonin) 3 Mg Cap 6 MG PO HS #30 Metoprolol Tartrate (Metoprolol Tartrate) 50 Mg Tab 50 MG PO DAILY #30 Ref 0 TAB Polyethylene Glycol 3350 Powder (Miralax Powder) 17 Gm Powd 17 GM PO DAILY Mix and dissolve one measuring cap-ful (17 grams) in water or juice. Constipation #1 Ref 0 BOTTLE Pregabalin (Lyrica) 50 Mg Cap 50 MG PO Q6HR #60 Ref 0 CAP Sodium Phosphates Rectal (Fleet Enema Rectal) 7-19 Gm/118 Ml Enem 118 ML RECTAL DAILY PRN CONSTIPATION Ref 0 BOTTLE Temazepam (Temazepam) 15 Mg Cap 15 MG PO HS PRN INSOMNIA #30 Ref 0 CAP (This prescription has been renewed) Tramadol (Tramadol) 50 Mg Tab 50 MG PO Q8H PRN PAIN #15 Ref 0 TAB (This prescription has been renewed) Discontinued Medications: Doxycycline (Monohydrate) (Doxycycline) 100 Mg Cap MG PO Cough Phylicia Hernandez MD Aug 16, 2016 08:09
[2016-08-16] MEDS ORDERED: GUAI100S5 PO (08:11)
--- NOTE | 2016-08-16 08:12 | HHI.PR ---
Subjective Remarks Feels improving. Still with cough, says syrup does help. No n/v/d/c. She is able to eat and doesn't appear dehydrated. Less wheezing. No fever or chills. Objective Vitals Vital Signs Date Time Temp Pulse Resp B/P Pulse Ox O2 Delivery O2 Flow Rate FiO2 08/16/16 04:00 96.9 99 17 126/73 98 08/16/16 00:00 97.8 109 17 119/51 96 08/15/16 20:00 97.0 93 18 126/71 99 08/15/16 19:59 96 Nasal Cannula 4.00 08/15/16 16:00 97.5 95 22 140/64 95 08/15/16 12:00 97.3 95 20 114/62 94 08/15/16 08:50 95 Nasal Cannula 4.00 I/O 08/15/16 08/15/16 08/15/16 08/16/16 08/16/16 08/16/16 06:59 14:59 22:59 06:59 14:59 22:59 Intake Total 1788 ml 840 ml Output Total 400 ml 1100 ml 250 ml Balance 1388 ml -260 ml -250 ml Intake Oral 840 ml IV Total 1788 ml Output Urine Total 400 ml 1100 ml 250 ml Result Diagram: 08/15/16 0708 08/15/16 0708 Imaging Last Impressions Chest X-Ray 08/15/16 0600 Signed Impressions: Service Date/Time: July 06:39 - CONCLUSION: Overall there has been improvement when compared to 08/12 with better aeration. Minimal bibasilar parenchymal changes persist. Ronnie Del Rio MD FACR CT Angiography 08/13/16 0000 Signed Impressions: Service Date/Time: Saturday, August 13, 2016 08:55 - CONCLUSION: 1. Pulmonary emboli at the left lower lobe. 2. Atelectasis or consolidation of the left lower lobe. Damaso Rios MD Objective Remarks GENERAL: This is a pleasant 80 yo male, obese, well-developed patient, coughing multiple times throughout the interview process SKIN: Generally dry skin flaking bilateral lower extremities HEAD: Atraumatic. Normocephalic. No temporal or scalp tenderness. EYES:Extraocular motions intact. No scleral icterus. No injection or drainage. CARDIOVASCULAR: Regular rate and rhythm without murmurs, gallops, or rubs. RESPIRATORY: Coarse throughout with scattered expiratory wheezing GASTROINTESTINAL: Abdomen soft, non-tender, nondistended. MUSCULOSKELETAL: Extensive bilateral lower extremity nonpitting edema No calf tenderness. Negative Homans sign bilaterally. NEUROLOGICAL: Awake and alert. No focal deficits. Motor and sensory grossly within normal limits. 3-4 out of 5 muscle strength in all muscle groups. Normal speech. A/P Assessment and Plan This is 80-year-old female patient with a past medical history which includes congestive heart failure, hypertension, COPD, sciatica, neuropathy, chronic back pain. Patient was sent from a halfway facility for shortness of breath and worsening cough. Patient reports she has had a cough for the past 3 weeks and it is getting progressively worse. Patient reports the cough is nonproductive although it does sound moist in nature. Patient has been taking doxycycline by mouth with no improvement. Healthcare acquired pneumonia Failed outpatient therapy COPD exacerbation Hypoxia Pulmonary embolism Bacteremia GPC. Sepsis by criteria temp 101.3, respiratory rate 25 and pna, UTI E coli, bacteremia GPC Continue Vancomycin with pharmacy to dose. DC zosyn, start levaquine, cefepime Duo nebs every 4 hours and scheduled into every 2 hours as needed Hold off on Solu-Medrol as patient reports allergy to steroids Consult pulmonology Lactic acid 1.3 Sputum culture pending Blood cultures 2 positive GPC CTA lung reviewed shows pulm emboli . Continue lovenox 120 mg bid Gentle IVF. Monitor VS. Consult ID as patient with bacteremia GPC x2 , repeat blood cultures 08/13 NTD Chronic back pain. Continue Lyrica and tramadol as needed Hypertension continue home medications metoprolol. Monitor blood pressure trend adjust as indicated Chronic congestive heart failure unknown systolic versus diastolic. Continue home medications Lasix and metoprolol DVT prophylaxis Levaquin Patient has a [place] DNR status DNR while in hospital Discussed with the patient, nurse DC to SNF today after seen by ID specialist. I spoke with Dr Pelayo will evaluate the patient and will give recommendations at DC after evaluation. Phylicia Hernandez MD Aug 16, 2016 08:12
[2016-08-16] MEDS ORDERED: XARE20TA PO (08:27)
[2016-08-16] MEDS ORDERED: XARE15TA PO (08:27)
[2016-08-16] MEDS: POLYETHYLENE GLYCOL 17 GM PKG PO SCH (09:00)
[2016-08-16] MEDS: SODIUM CHLORIDE 0.9% FLUSH 5 ML FLUSH FLUSH SCH ×2 (09:00→20:03)
[2016-08-16] MEDS: METOPROLOL TARTRATE 50 MG TAB PO SCH (09:07)
[2016-08-16] MEDS: PANTOPRAZOLE SOD 20 MG DELAYED RELEASE TAB PO SCH (09:07)
[2016-08-16] MEDS: LEVOFLOXACIN 250 MG TAB PO SCH (09:07)
[2016-08-16] MEDS: FUROSEMIDE 40 MG TAB PO SCH (09:07)
[2016-08-16] MEDS: guaiFENesin/CODEINE SYRUP 200 MG/20 MG/10 ML CUP PO PRN ×2 (09:11→16:44)
--- NOTE | 2016-08-16 13:49 | HHI.IDPN ---
Subjective Subjective Remarks feels better afebrile still on 4 L of O2 + cough , not able to expectorate Antibiotics levaquin vanco -stopped Allergies: Coded Allergies: Codeine (Verified Adverse Reaction, Severe, GI UPSET, ITCHING, 08/15/16) Cortisone (Verified Adverse Reaction, Severe, GI UPSET, 08/12/16) Ibuprofen (Verified Adverse Reaction, Severe, DIZZY, 08/12/16) Tylenol (Verified Adverse Reaction, Severe, GI UPSET, 08/12/16) Morphine (Unverified Adverse Reaction, Intermediate, GI UPSET, 08/12/16) Objective . Vital Signs Date Time Temp Pulse Resp B/P Pulse Ox O2 Delivery O2 Flow Rate FiO2 08/16/16 08:38 97 Nasal Cannula 4.00 08/16/16 08:00 97.3 97 22 134/67 96 08/16/16 04:00 96.9 99 17 126/73 98 08/16/16 00:00 97.8 109 17 119/51 96 08/15/16 20:00 97.0 93 18 126/71 99 08/15/16 19:59 96 Nasal Cannula 4.00 08/15/16 16:00 97.5 95 22 140/64 95 08/15/16 08/15/16 08/16/16 15:00 23:00 07:00 Intake Total 840 ml Output Total 1100 ml 250 ml Balance -260 ml -250 ml Intake Oral 840 ml Output Urine Total 1100 ml 250 ml . Laboratory Tests Test 08/15/16 07:08 White Blood Count 7.9 TH/MM3 Red Blood Count 3.71 MIL/MM3 Hemoglobin 11.2 GM/DL Hematocrit 34.1 % Mean Corpuscular Volume 92.0 FL Mean Corpuscular Hemoglobin 30.1 PG Mean Corpuscular Hemoglobin 32.7 % Concent Red Cell Distribution Width 14.7 % Platelet Count 307 TH/MM3 Mean Platelet Volume 8.7 FL Neutrophils (%) (Auto) 62.0 % Lymphocytes (%) (Auto) 18.6 % Monocytes (%) (Auto) 11.0 % Eosinophils (%) (Auto) 7.6 % Basophils (%) (Auto) 0.8 % Neutrophils # (Auto) 4.9 TH/MM3 Lymphocytes # (Auto) 1.5 TH/MM3 Monocytes # (Auto) 0.9 TH/MM3 Eosinophils # (Auto) 0.6 TH/MM3 Basophils # (Auto) 0.1 TH/MM3 CBC Comment DIFF FINAL Differential Comment Laboratory Tests Test 08/15/16 07:08 Sodium Level 141 MEQ/L Potassium Level 3.5 MEQ/L Chloride Level 102 MEQ/L Carbon Dioxide Level 28.8 MEQ/L Anion Gap 10 MEQ/L Blood Urea Nitrogen 18 MG/DL Creatinine 1.00 MG/DL Estimat Glomerular Filtration 54 ML/MIN Rate Random Glucose 98 MG/DL Calcium Level 8.9 MG/DL Microbiology Date/Time Procedure Status Source Growth 08/13/16 21:30 Aerobic Blood Culture - Preliminary Resulted Blood Peripheral NO GROWTH IN 3 DAYS 08/13/16 21:30 Anaerobic Blood Culture - Preliminary Resulted Blood Peripheral NO GROWTH IN 3 DAYS 08/13/16 21:41 Aerobic Blood Culture - Preliminary Resulted Blood Peripheral NO GROWTH IN 3 DAYS 08/13/16 21:41 Anaerobic Blood Culture - Preliminary Resulted Blood Peripheral NO GROWTH IN 3 DAYS 08/14/16 16:16 Legionella Antigen - Final Complete Urine Random Urine PRESUMPTIVE NEGATIVE FOR LEGIONELLA P... 08/14/16 16:16 Streptococcus pneumoniae Antigen (M - Final Complete Urine Random Urine PRESUMPTIVE NEGATIVE FOR STREPTOCOCCU... Imaging Last Impressions Chest X-Ray 08/15/16 0600 Signed Impressions: Service Date/Time: July 06:39 - CONCLUSION: Overall there has been improvement when compared to 08/12 with better aeration. Minimal bibasilar parenchymal changes persist. Ronnie Del Rio MD FACR CT Angiography 08/13/16 0000 Signed Impressions: Service Date/Time: Saturday, August 13, 2016 08:55 - CONCLUSION: 1. Pulmonary emboli at the left lower lobe. 2. Atelectasis or consolidation of the left lower lobe. Damaso Rios MD Physical Exam CONSTITUTIONAL/GENERAL: This is a morbidly obese female patient, in no apparent distress. TUBES/LINES/DRAINS: PIVs wo e/o infx SKIN: No jaundice, rashes, or lesions.Skin temperature appropriate. Not diaphoretic. CARDIOVASCULAR: Regular rate and rhythm without murmurs, gallops, or rubs. No JVD. Peripheral pulses symmetric. RESPIRATORY/CHEST: Symmetric, unlabored respirations. Coars breath sounds to ascultaiton GASTROINTESTINAL: Abdomen soft very obese , non-tender, nondistended. No hepato- splenomegaly, or palpable masses. No guarding. Bowel sounds present, hyperactive GENITOURINARY: Without palpable bladder distension. Kumar catheter in place with clear yellow MUSCULOSKELETAL: Extremities without clubbing, cyanosis, or edema. No joint tenderness or effusion noted. No calf tenderness. No mottling or clubbing. NEUROLOGICAL: Awake and alert. Motor and sensory grossly within normal limits. Follows commands. Normal speech. Moves all extremities. PSYCHIATRIC: No obvious anxiety/depression. no apparent hallucinations or other psychotic thought process. Assessment & Plan Remarks Fever -r esolved Pulm embolism, on tx Possible superimposed LLL PNA - clinically suspicious for PNA (cough) - Leg/pneumococcus neg - spurtm unobtainable for clx coag neg staph bacteremia, different morphologies; repeat BC negative - no clin significance E.coli bacteriuria, less likley UTI - dc cefepime - cont levaquine 750 daily po x 5 days - dc vanco - done - OK to dc Discussed Condition With Antonia Mae RN, MD Aug 16, 2016 13:49
[2016-08-16] MEDS ORDERED: LEVA750T PO (13:53)
[2016-08-16] MEDS ORDERED: BENZOCAINE 6 MG/MENTHOL 10 MG LOZENGE BUCCAL PRN (18:45)
[2016-08-16] MEDS: MENTHOL LOZENGE BUCCAL PRN ×2 (20:01→21:46)
--- NOTE | 2016-08-16 20:32 | HHI.PR ---
Subjective Remarks 80 YO WF with SOB, Cough CTA PE and left basal infilt has persistant cough, better with Cough syp no fever mild itching no rash Sore mouth, difficult to swallow Objective Vital Signs Vital Signs Date Time Temp Pulse Resp B/P Pulse Ox O2 Delivery O2 Flow Rate FiO2 08/16/16 20:24 98 Nasal Cannula 4.00 08/16/16 20:05 98.0 95 18 123/63 97 08/16/16 16:00 98.2 88 18 98/55 95 08/16/16 12:00 97.7 93 19 113/56 94 08/16/16 08:38 97 Nasal Cannula 4.00 08/16/16 08:00 97.3 97 22 134/67 96 08/16/16 04:00 96.9 99 17 126/73 98 08/16/16 00:00 97.8 109 17 119/51 96 I/O 08/15/16 08/15/16 08/15/16 08/16/16 08/16/16 08/16/16 07:00 15:00 23:00 07:00 15:00 23:00 Intake Total 1788 ml 840 ml 1200 ml 0 ml Output Total 400 ml 1100 ml 250 ml 825 ml Balance 1388 ml -260 ml -250 ml 375 ml 0 ml Intake Oral 840 ml 1200 ml IV Total 1788 ml 0 ml Output Urine Total 400 ml 1100 ml 250 ml Stool Total 825 ml Result Diagram: 08/15/16 0708 08/15/16 0708 Objective Remarks GENERAL: WBWN female, mild discomfort SKIN: Warm and dry. HEAD: Normocephalic. EYES: No scleral icterus. No injection or drainage. NECK: Supple, trachea midline. No JVD or lymphadenopathy. CARDIOVASCULAR: Regular rate and rhythm without murmurs, gallops, or rubs. RESPIRATORY: Breath sounds equal bilaterally. No accessory muscle use. GASTROINTESTINAL: Abdomen soft, non-tender, nondistended. MUSCULOSKELETAL: No cyanosis, or edema. BACK: Nontender without obvious deformity. No CVA tenderness. A/P Assessment and Plan Pulm Embolism Basal infilt bronchitis HTN COPD PLAN SQ Lovenox Abx vanco and Zosyn pending cultures Aerosol nebs Supplement 02 Robitussin with Cod cough syp Will try magic mouth wash. Carlos Manuel Caceres MD Aug 16, 2016 20:32
[2016-08-16] MEDS: NYSTAT/DIPHENHY/LIDO MOUTHWASH (Adult) 120ML SWISH-SWAL SCH (21:15)
[2016-08-17] VITALS: BP 109/62; PULSE 93; RESP 21; TEMP 98.7; O2SAT 96
[2016-08-17] MEDS: MENTHOL LOZENGE BUCCAL PRN ×3 (02:37→15:50)
[2016-08-17 04:00] VITALS: BP 96/58; PULSE 99; RESP 22; TEMP 97.6; O2SAT 95
[2016-08-17] MEDS: CEFEPIME INJ 2,000 MG in SODIUM CHLORIDE 0.9% INJ 100 ML IV SCH ×2 (05:33→16:47)
[2016-08-17] MEDS: PREGABALIN 25 MG CAP PO SCH ×4 (05:36→16:47)
[2016-08-17] MEDS: guaiFENesin/CODEINE SYRUP 200 MG/20 MG/10 ML CUP PO PRN ×2 (05:38→12:31)
[2016-08-17] MEDS: SODIUM CHLORIDE 0.65% NASAL SPRAY 45 ML BTL EACH NARE PRN (05:38)
[2016-08-17 08:00] VITALS: BP 97/55; PULSE 93; RESP 18; TEMP 98.7; O2SAT 95
[2016-08-17] MEDS: POLYETHYLENE GLYCOL 17 GM PKG PO SCH (09:00)
[2016-08-17] MEDS: LEVOFLOXACIN 250 MG TAB PO SCH (09:51)
[2016-08-17] MEDS: FUROSEMIDE 40 MG TAB PO SCH (09:51)
[2016-08-17] MEDS: METOPROLOL TARTRATE 50 MG TAB PO SCH (09:51)
[2016-08-17] MEDS: PANTOPRAZOLE SOD 20 MG DELAYED RELEASE TAB PO SCH (09:51)
[2016-08-17] MEDS: NYSTAT/DIPHENHY/LIDO MOUTHWASH (Adult) 120ML SWISH-SWAL SCH ×3 (09:52→16:47)
[2016-08-17] MEDS: SODIUM CHLORIDE 0.9% FLUSH 5 ML FLUSH FLUSH SCH (09:56)
[2016-08-17] MEDS: ENOXAPARIN SODIUM 120 MG/0.8 ML SYRINGE SQ SCH (11:52)
[2016-08-17 12:00] VITALS: BP 98/53; PULSE 88; RESP 18; TEMP 97.3; O2SAT 96
--- NOTE | 2016-08-17 14:00 | HHI.PR ---
Subjective Remarks In bed, appears in nad. Says she has some sore throat , l;oz helps dome. still with cough. No n/v/d/c. No efevrs or chills overnight. Wants to go to SNF today. Objective Vitals Vital Signs Date Time Temp Pulse Resp B/P Pulse Ox O2 Delivery O2 Flow Rate FiO2 08/17/16 12:00 97.3 88 18 98/53 96 08/17/16 08:00 98.7 93 18 97/55 95 08/17/16 04:00 97.6 99 22 96/58 95 08/17/16 00:00 98.7 93 21 109/62 96 08/16/16 20:24 98 Nasal Cannula 4.00 08/16/16 20:05 98.0 95 18 123/63 97 08/16/16 16:00 98.2 88 18 98/55 95 I/O 08/16/16 08/16/16 08/16/16 08/17/16 08/17/16 08/17/16 07:00 15:00 23:00 07:00 15:00 23:00 Intake Total 1200 ml 480 ml 480 ml 960 ml Output Total 250 ml 825 ml 350 ml 350 ml 600 ml Balance -250 ml 375 ml 130 ml 130 ml 360 ml Intake Oral 1200 ml 480 ml 480 ml 960 ml IV Total 0 ml Output Urine Total 250 ml 350 ml 350 ml 600 ml Stool Total 825 ml # Bowel Movements 1 Result Diagram: 08/15/16 0708 08/17/16 0705 Imaging Last Impressions Chest X-Ray 08/15/16 0600 Signed Impressions: Service Date/Time: July 06:39 - CONCLUSION: Overall there has been improvement when compared to 08/12 with better aeration. Minimal bibasilar parenchymal changes persist. Ronnie Del Rio MD FACR CT Angiography 08/13/16 0000 Signed Impressions: Service Date/Time: Saturday, August 13, 2016 08:55 - CONCLUSION: 1. Pulmonary emboli at the left lower lobe. 2. Atelectasis or consolidation of the left lower lobe. Damaso Rios MD Objective Remarks GENERAL: This is a pleasant 80 yo male, obese, well-developed patient, coughing multiple times throughout the interview process SKIN: Generally dry skin flaking bilateral lower extremities HEAD: Atraumatic. Normocephalic. No temporal or scalp tenderness. EYES:Extraocular motions intact. No scleral icterus. No injection or drainage. CARDIOVASCULAR: Regular rate and rhythm without murmurs, gallops, or rubs. RESPIRATORY: Coarse throughout with scattered expiratory wheezing GASTROINTESTINAL: Abdomen soft, non-tender, nondistended. MUSCULOSKELETAL: Extensive bilateral lower extremity nonpitting edema No calf tenderness. Negative Homans sign bilaterally. NEUROLOGICAL: Awake and alert. No focal deficits. Motor and sensory grossly within normal limits. 3-4 out of 5 muscle strength in all muscle groups. Normal speech. Procedures none A/P Assessment and Plan This is 80-year-old female patient with a past medical history which includes congestive heart failure, hypertension, COPD, sciatica, neuropathy, chronic back pain. Patient was sent from a shelter facility for shortness of breath and worsening cough. Patient reports she has had a cough for the past 3 weeks and it is getting progressively worse. Patient reports the cough is nonproductive although it does sound moist in nature. Patient has been taking doxycycline by mouth with no improvement. Healthcare acquired pneumonia Failed outpatient therapy COPD exacerbation Hypoxia Pulmonary embolism Bacteremia GPC. Sepsis by criteria temp 101.3, respiratory rate 25 and pna, UTI E coli, bacteremia GPC Continue Vancomycin with pharmacy to dose. DC zosyn, start levaquine, cefepime Duo nebs every 4 hours and scheduled into every 2 hours as needed Hold off on Solu-Medrol as patient reports allergy to steroids Consult pulmonology Lactic acid 1.3 Sputum culture pending Blood cultures 2 positive GPC CTA lung reviewed shows pulm emboli . Continue lovenox 120 mg bid Gentle IVF. Monitor VS. Consult ID as patient with bacteremia GPC x2 , repeat blood cultures 08/13 NTD Chronic back pain. Continue Lyrica and tramadol as needed Hypertension continue home medications metoprolol. Monitor blood pressure trend adjust as indicated Chronic congestive heart failure unknown systolic versus diastolic. Continue home medications Lasix and metoprolol DVT prophylaxis Levaquin Patient has a [place] DNR status DNR while in hospital Discussed with the patient, nurse DC to SNF today. I spoke with Dr Pelayo who evaluated the patient, recommends levaquin PO 750 at DC. Patient to be discharged to SNF when arrangements done, to follow up as OP with PCP and consultants as OP. CM following for DC plan Phylicia Hernandez MD Aug 17, 2016 14:00
[2016-08-17 15:19] VITALS: O2SAT 96
--- NOTE | 2016-08-17 15:45 | HHI.PR ---
Subjective Remarks 80 YO WF with SOB, Cough CTA PE and left basal infilt has persistant cough, better with Cough syp no fever mild itching no rash Anxious to go SNF Objective Vital Signs Vital Signs Date Time Temp Pulse Resp B/P Pulse Ox O2 Delivery O2 Flow Rate FiO2 08/17/16 15:19 96 Nasal Cannula 4.00 08/17/16 12:00 97.3 88 18 98/53 96 08/17/16 08:00 98.7 93 18 97/55 95 08/17/16 04:00 97.6 99 22 96/58 95 08/17/16 00:00 98.7 93 21 109/62 96 08/16/16 20:24 98 Nasal Cannula 4.00 08/16/16 20:05 98.0 95 18 123/63 97 08/16/16 16:00 98.2 88 18 98/55 95 I/O 08/16/16 08/16/16 08/16/16 08/17/16 08/17/16 08/17/16 07:00 15:00 23:00 07:00 15:00 23:00 Intake Total 1200 ml 480 ml 480 ml 960 ml Output Total 250 ml 825 ml 350 ml 350 ml 600 ml Balance -250 ml 375 ml 130 ml 130 ml 360 ml Intake Oral 1200 ml 480 ml 480 ml 960 ml IV Total 0 ml Output Urine Total 250 ml 350 ml 350 ml 600 ml Stool Total 825 ml # Bowel Movements 1 Result Diagram: 08/15/16 0708 08/17/16 0705 Objective Remarks GENERAL: WBWN female, mild discomfort SKIN: Warm and dry. HEAD: Normocephalic. EYES: No scleral icterus. No injection or drainage. NECK: Supple, trachea midline. No JVD or lymphadenopathy. CARDIOVASCULAR: Regular rate and rhythm without murmurs, gallops, or rubs. RESPIRATORY: Breath sounds equal bilaterally. No accessory muscle use. GASTROINTESTINAL: Abdomen soft, non-tender, nondistended. MUSCULOSKELETAL: No cyanosis, or edema. BACK: Nontender without obvious deformity. No CVA tenderness. A/P Assessment and Plan Pulm Embolism Basal infilt bronchitis HTN COPD PLAN SQ Lovenox Abx vanco and Zosyn pending cultures Aerosol nebs Supplement 02 Robitussin with Cod cough syp Magic mouth wash. DC Plans for SNF Carlos Manuel Caceres MD Aug 17, 2016 15:45
[2016-08-17 16:00] VITALS: BP 108/54; PULSE 92; RESP 20; TEMP 97; O2SAT 95
[2016-08-17] MEDS: RESP: ALBUTEROL 2.5 MG/IPRATROPIUM 0.5 MG NEB (PRN) NEB (16:07)
== END 2016-08-17 19:41 | DRG 871 ==
LOC: NEPE 11:19 → NEDA 15:15 → HOCB 18:19
PROVIDERS: ADMIT Hospitalist; ATTEND Hospitalist
DX: A41.9 Sepsis, unspecified organism (principal); J18.9 Pneumonia, unspecified organism; I26.99 Other pulmonary embolism without acute cor pulmonale; J96.90 Respiratory failure, unspecified, unspecified whether with hypoxia or hypercapnia; I13.0 Hypertensive heart and chronic kidney disease with heart failure and stage 1 through stage 4 chronic kidney disease, or unspecified chronic kidney disease; G62.9 Polyneuropathy, unspecified; N39.0 Urinary tract infection, site not specified; I50.32 Chronic diastolic (congestive) heart failure; J44.0 Chronic obstructive pulmonary disease with (acute) lower respiratory infection; J44.1 Chronic obstructive pulmonary disease with (acute) exacerbation; Z68.42 Body mass index [BMI] 45.0-49.9, adult; G89.29 Other chronic pain; E66.01 Morbid (severe) obesity due to excess calories; M54.40 Lumbago with sciatica, unspecified side; B96.20 Unspecified Escherichia coli [E. coli] as the cause of diseases classified elsewhere; Z66 Do not resuscitate; N18.9 Chronic kidney disease, unspecified; E87.6 Hypokalemia; Z74.01 Bed confinement status; Z87.891 Personal history of nicotine dependence
CPT/HCPCS: 36600; 71010; 71275; 76937; 80048; 80053; 80202; 81001; 82550; 82565; 82805; 83605; 83735; 83880; 84484; 85007; 85025; 85027; 85610; 85730; 86403; 87040; 87077; 87086; 87186; 87205; 87449; 87804; 93005; 94150; 94640; 94664; 96365; J0456; J0692; J1650; J2543; J3370; J7030; J7040; J7050; Q9967

== ENCOUNTER 2016-08-17 21:06 | Inpatient (IN) | payer MEDICARE, MEDICAID ==
[~2016-08-17] VITALS: Ht 162.6 cm; Wt 123.0 kg
[~2016-08-17 21:06] MED LIST changes: +DULC10SU3 RECTAL; +FLEEENE3 RECTAL; +GUAI100L5 PO; +GUAI100S5 PO; +IPRASOL INH; +LEVA750T PO; +MILKSUS4 PO; +TEMA15CA PO; +TRAM50TA PO; +XARE15TA PO; +XARE20TA PO
[2016-08-17 21:12] VITALS: BP 134/84; PULSE 108; RESP 24; TEMP 100.1; O2SAT 96
--- NOTE | 2016-08-17 21:25 | PD ---
HPI Chief Complaint: Respiratory Distress Time Seen by Provider: 21:12 Travel History International Travel<30 days: No Contact w/Intl Traveler<30days: No Traveled to known affect area: No History of Present Illness HPI 80-year-old female was brought from the SNF by EMS for shortness of breath and worsening cough. Patient was just discharged less than 8 hours ago from this institution after being admitted for pneumonia, shortness of breath and PE. Patient was awake and answering questions appropriately. She did not appear to be in any respiratory distress as she was laying on the stretcher. However she did start coughing which sounded like a very wet and rhonchorous cough. As per EMS oxygen saturation was 96% on 5 L of oxygen. They gave her a nebulizer treatment en route. In the ER a rectal temperature was done which was 100.1. Patient says that her cough has worsened after she was discharged. [facility] Past Medical History Narrative Medical List of her past medical, surgical, social and family history was reviewed from the nursing note. Arthritis: Yes Asthma: No Autoimmune Disease: No Blood Disorders: No Anxiety: No Depression: No Heart Rhythm Problems: No Cancer: No Cardiovascular Problems: No High Cholesterol: No Chemotherapy: No Congestive Heart Failure: Yes COPD: Yes Cerebrovascular Accident: No Diabetes: No Diminished Hearing: No Deep Vein Thrombosis: Yes (left leg ) Endocrine: No Gastrointestinal Disorders: No GERD: No Glaucoma: No Genitourinary: No Headaches: Yes Hepatitis: No Hiatal Hernia: No Hypertension: No Immune Disorder: No Implanted Vascular Access Dvce: Yes Kidney Stones: No Musculoskeletal: Yes (BACK PAIN) Neurologic: Yes (being treated for a pinch nerve since 2003) Psychiatric: No Reproductive: No Respiratory: Yes Immunizations Current: Yes Migraines: No Myocardial Infarction: No Radiation Therapy: No Renal Failure: No Seizures: No Sickle Cell Disease: No Sleep Apnea: No Thyroid Disease: No Ulcer: No Menopausal: Yes Past Surgical History AICD: No Body Medical Devices: STIMULATOR L BACK Section: Yes (x1) Genitourinary Surgery: No Gynecologic Surgery: Yes (C SECTION) Neurologic Surgery: No Pacemaker: No Tonsillectomy: Yes Other Surgery: Yes Social History Alcohol Use: No Tobacco Use: No (quit 25-30 yrs ago) Substance Use: No Allergies-Medications (Allergen,Severity, Reaction): Coded Allergies: Codeine (Verified Adverse Reaction, Severe, GI UPSET, ITCHING, 08/15/16) Cortisone (Verified Adverse Reaction, Severe, GI UPSET, 08/12/16) Ibuprofen (Verified Adverse Reaction, Severe, DIZZY, 08/12/16) Tylenol (Verified Adverse Reaction, Severe, GI UPSET, 08/12/16) Morphine (Unverified Adverse Reaction, Intermediate, GI UPSET, 08/12/16) Comments List of her allergies reviewed from the nursing note. Reported Meds & Prescriptions Reported Meds & Active Scripts Active Levaquin (Levofloxacin) 750 Mg Tab 750 Mg PO DAILY Xarelto (Rivaroxaban) 20 Mg Tab 20 Mg PO DAILY Xarelto (Rivaroxaban) 15 Mg Tab 15 Mg PO Q12HR take with food, continue treatment with 20 mg po daily thereafter Guaifenesin-Codeine Liq 100-10 Mg/5 Ml Soln 10 Ml PO Q6H PRN 5 Days Temazepam 15 Mg Cap 15 Mg PO HS PRN Tramadol (Tramadol HCl) 50 Mg Tab 50 Mg PO Q8H PRN Miralax Powder (Polyethylene Glycol 3350 Powder) 17 Gm Powd 17 Gm PO DAILY Mix and dissolve one measuring cap-ful (17 grams) in water or juice. Melatonin 3 Mg Cap 6 Mg PO HS Colace (Docusate Sodium) 100 Mg Cap 100 Mg PO BID Lyrica (Pregabalin) 50 Mg Cap 50 Mg PO Q6HR Metoprolol Tartrate 50 Mg Tab 50 Mg PO DAILY Furosemide 40 Mg Tab 40 Mg PO DAILY Reported Dulcolax Supp (Bisacodyl) 10 Mg Supp 10 Mg RECTAL DAILY PRN Milk of Magnesia Liq (Magnesium Hydroxide) 400 Mg/5 Ml Susp 5 Ml PO Q3D Fleet Enema Rectal (Sodium Phosphates Rectal) 7-19 Gm/118 Ml Enem 118 Ml RECTAL DAILY PRN Robitussin Mucus+Chest Congestion Liq (Guaifenesin) 100 Mg/5 Ml Liq 100 Mg PO Q4H PRN Duoneb (Ipratropium-Albuterol Neb) 0.5-2.5 Mg/3 Ml Neb 1 Nebule INH Q6HR NEB Narrative Medication List of her home medications reviewed from the nursing note. Review of Systems Except as stated in HPI: all other systems reviewed are Neg Physical Exam Narrative GENERAL: Awake, alert, elderly, morbidly obese, mild distress, disheveled SKIN: Warm and dry. HEAD: Atraumatic. Normocephalic. EYES: Pupils equal and round. No scleral icterus. No injection or drainage. ENT: No nasal bleeding or discharge. Mucous membranes pink and moist. NECK: Trachea midline. No JVD. CARDIOVASCULAR: Regular rate and rhythm. No murmur appreciated. RESPIRATORY: No accessory muscle use. Clear to auscultation. Decreased breath sounds bilaterally with coarse crackles mostly bibasilar left worse than right. GASTROINTESTINAL: Abdomen soft, non-tender, nondistended. Hepatic and splenic margins not palpable. MUSCULOSKELETAL: No obvious deformities. No clubbing. No cyanosis. No edema. NEUROLOGICAL: Awake and alert. No obvious cranial nerve deficits. Motor grossly within normal limits. Normal speech. PSYCHIATRIC: Appropriate mood and affect; insight and judgment normal. Data Data Last Documented VS Vital Signs Date Time Temp Pulse Resp B/P Pulse Ox O2 Delivery O2 Flow Rate FiO2 08/17/16 22:15 100 22 122/68 95 Nasal Cannula 5 08/17/16 21:12 100.1 Orders Complete Blood Count With Diff (08/17/16 21:12) Comprehensive Metabolic Panel (08/17/16 21:12) Lactic Acid Sepsis Protocol (08/17/16 21:12) Urinalysis - C+S If Indicated (08/17/16 21:12) Blood Culture (08/17/16 21:12) Chest, Single Ap (08/17/16 21:12) Blood Glucose (08/17/16 21:12) Ecg Monitoring (08/17/16 21:12) Iv Access Insert/Monitor (08/17/16 21:12) Oximetry (08/17/16 21:12) Oxygen Administration (08/17/16 21:12) Piperacil-Tazo 4.5 Gm Premix (Zosyn 4.5 (08/17/16 22:00) Vancomycin Inj (Vancomycin Inj) (08/17/16 22:00) Admit Order (Ed Use Only) (08/17/16 22:45) Labs Laboratory Tests Test 08/17/16 22:00 Sodium Level 139 MEQ/L Potassium Level 3.5 MEQ/L Chloride Level 99 MEQ/L Carbon Dioxide Level 32.3 MEQ/L Anion Gap 8 MEQ/L Blood Urea Nitrogen 22 MG/DL Creatinine 1.25 MG/DL Estimat Glomerular Filtration 41 ML/MIN Rate Random Glucose 123 MG/DL Lactic Acid Level 1.1 mmol/L Calcium Level 9.0 MG/DL Total Bilirubin 0.3 MG/DL Aspartate Amino Transf 27 U/L (AST/SGOT) Alanine Aminotransferase 19 U/L (ALT/SGPT) Alkaline Phosphatase 88 U/L Total Protein 7.0 GM/DL Albumin 2.5 GM/DL White Blood Count 13.5 TH/MM3 Red Blood Count 3.59 MIL/MM3 Hemoglobin 10.6 GM/DL Hematocrit 32.5 % Mean Corpuscular Volume 90.4 FL Mean Corpuscular Hemoglobin 29.6 PG Mean Corpuscular Hemoglobin 32.8 % Concent Red Cell Distribution Width 14.4 % Platelet Count 302 TH/MM3 Mean Platelet Volume 8.5 FL Neutrophils (%) (Auto) 75.7 % Lymphocytes (%) (Auto) 11.9 % Monocytes (%) (Auto) 6.5 % Eosinophils (%) (Auto) 4.9 % Basophils (%) (Auto) 1.0 % Neutrophils # (Auto) 10.3 TH/MM3 Lymphocytes # (Auto) 1.6 TH/MM3 Monocytes # (Auto) 0.9 TH/MM3 Eosinophils # (Auto) 0.7 TH/MM3 Basophils # (Auto) 0.1 TH/MM3 CBC Comment DIFF FINAL Differential Comment MDM Medical Decision Making Medical Screen Exam Complete: Yes Emergency Medical Condition: Yes Medical Record Reviewed: Yes Differential Diagnosis Sepsis, pneumonia, UTI Narrative Course 10:23 PM patient is a difficult stick. An IV access was finally achieved an blood test have been sent. Meanwhile chest x-ray was done and the report is back which is read as new infiltrate developing and worsening of infiltrate. I have ordered IV vancomycin and Zosyn. I will give her IV fluid with caution given her past history of congestive heart failure. Patient will need to be admitted again. Procedures EKG Prior to Arrival: No Diagnosis Primary Impression: Respiratory distress Additional Impression: Pneumonia Qualified Code: J18.9 - Pneumonia of both lower lobes due to infectious organism Admitting Information Admitting Physician Requests: Admit Pool Shaffer MD Aug 17, 2016 21:25 Admitting Physician Requests: Admit Pool Shaffer MD Aug 17, 2016 21:25
--- NOTE | 2016-08-17 21:40 | RADRPT ---
EXAM DATE/TIME: 08/17/2016 21:25 [place] COMPARISON: CHEST SINGLE AP, August 15, 2016, 6:39. INDICATIONS : Short of Breath. MEDICAL HISTORY : Chronic obstructive pulmonary disease. Congestive heart failure. DVT SURGICAL HISTORY : Tonsillectomy. section. ENCOUNTER: Subsequent ACUITY: 4 - 6 days PAIN SCORE: 0/10 LOCATION: Bilateral chest FINDINGS: A single view of the chest demonstrates the lungs to be symmetrically aerated without evidence of mas s or effusion. Hazy opacity is present in both lung bases left greater than right. This appears incr eased on the left. The cardiomediastinal contours are unremarkable. Osseous structures are intact. CONCLUSION: 1. Interval increase in hazy opacity the left lung base of concern for pneumonia. 2. Milder opacity remains at the right lung base. Diomedes Chin MD on August 17, 2016 at 21:36 Board Certified Radiologist. This report was verified electronically.
[2016-08-17] MEDS ORDERED: VANCOMYCIN INJ 1,000 MG in SODIUM CHLOR 0.9% 250 ML INJ 250 ML IV ONE (22:00)
[2016-08-17] MEDS ORDERED: PIPERACIL-TAZO 4.5 GM PREMIX 100 ML IV ONE (22:00)
[2016-08-17 22:15] VITALS: BP 122/68; PULSE 100; RESP 22; O2SAT 95
[2016-08-17 22:21] LABS: AUTOMATED NEUTROPHIL # 10.3 TH/MM3 (1.8-7.7); BASOPHIL # 0.1 TH/MM3 (0-0.2); EOSINOPHIL # 0.7 TH/MM3 (0-0.4); EOSINOPHIL % 4.9 % (0.0-4.0); HEMATOCRIT 32.5 % (35.0-46.0); HEMO FLAGS DIFF FINAL; LYMPH % 11.9 % (9.0-44.0); LYMPHOCYTE # 1.6 TH/MM3 (1.0-4.8); MEAN CELL VOLUME 90.4 FL (80.0-100.0); MEAN CORPUSCULAR HEMOGLOBIN 29.6 PG (27.0-34.0); MEAN CORPUSCULAR HGB CONC 32.8 % (32.0-36.0); MONO % 6.5 % (0.0-8.0); NEUT % 75.7 % (16.0-70.0); PLATELET COUNT 302 TH/MM3 (150-450); RED BLOOD COUNT 3.59 MIL/MM3 (4.00-5.30); RED CELL DISTRIBUTION WIDTH 14.4 % (11.6-17.2); WHITE BLOOD COUNT 13.5 TH/MM3 (4.0-11.0)
[2016-08-17 22:32] LABS: ALT (GPT) 19 U/L (10-53); ANION GAP 8 MEQ/L (5-15); AST (GOT) 27 U/L (15-37); BICARBONATE 32.3 MEQ/L (21.0-32.0); BLOOD UREA NITROGEN 22 MG/DL (7-18); CHLORIDE 99 MEQ/L (98-107); GLOMERULAR FILTRATION RATE 41 ML/MIN (>89); POTASSIUM 3.5 MEQ/L (3.5-5.1); SODIUM (NA) 139 MEQ/L (136-145)
[2016-08-17 22:34] LABS: ALKALINE PHOSPHATASE 88 U/L (45-117); TOTAL BILIRUBIN ADULT 0.3 MG/DL (0.2-1.0)
--- NOTE | 2016-08-17 23:07 | HHI.HP ---
[facility] Naseem Haines MD Admission Diagnosis hospital-acquired pneumonia, respiratory distress Diagnoses: (1) Sepsis Diagnosis: Principal (2) PNA (pneumonia) Diagnosis: Principal (3) CHF (congestive heart failure) Diagnosis: Principal (4) PE (pulmonary thromboembolism) Diagnosis: Principal (5) Renal insufficiency Diagnosis: Principal Travel History International Travel<30 Days: No Contact w/Intl Traveler <30 Da: No Traveled to Known Affected Are: No History of Present Illness This is a 80-year-old DNR female with a PMH of HTN, COPD, CHF (Echo 06/20/16 w/ EF 55-60%, Grade I Diastolic Dysfxn), PE, Chronic Pain and Sciatica who was sent to the ER from SNF secondary to SOB. Recent admit 08/12-08/16/16 for Respiratory Distress, Hypoxia, Sepsis w/ Bacteremia and PE on Xarelto. D/c'd to SNF, however shortly afterwards developed worsening SOB. On arrival, BP 108/ 54, HR 92, O2 sat 95% on 4L NC, Temp 100.1. WBC 13.5. Creatinine 1.25, previously 1.0 on 08/15/16. Lactic Acid 1.1. INR 1.0. CXR with interval increase in hazy opacity at left lung base concerning for pneumonia, additional opacity right lung base. S/p Blood Cultures, Vanc/Zosyn in ER. Review of Systems Except as stated in HPI: all other systems reviewed are Neg ROS: 14 point review of systems otherwise negative. Past Family Social History Past Medical History PMH: HTN, COPD, CHF (Echo 06/20/16 w/ EF 55-60%, Grade I Diastolic Dysfxn), PE, Chronic Pain and Sciatica Past Surgical History PAST SURGICAL HISTORY: Back Stimulator, , Tonsillectomy Allergies: Coded Allergies: Codeine (Verified Adverse Reaction, Severe, GI UPSET, ITCHING, 08/15/16) Cortisone (Verified Adverse Reaction, Severe, GI UPSET, 08/12/16) Ibuprofen (Verified Adverse Reaction, Severe, DIZZY, 08/12/16) Tylenol (Verified Adverse Reaction, Severe, GI UPSET, 08/12/16) Morphine (Unverified Adverse Reaction, Intermediate, GI UPSET, 08/12/16) Family History PAST FAMILY HISTORY: Reviewed. No h/o DM or CAD Social History PAST SOCIAL HISTORY: Negative for alcohol, tobacco or drugs. Physical Exam Vital Signs Vital Signs Date Time Temp Pulse Resp B/P Pulse Ox O2 Delivery O2 Flow Rate FiO2 08/17/16 21:17 Nasal Cannula 5 08/17/16 21:16 97 Nasal Cannula 5 08/17/16 21:12 100.1 108 24 134/84 96 Physical Exam PE: GENERAL: Elderly white female in mild distress secondary to shortness of breath HEENT: PERRLA, EOMI. No scleral icterus or conjunctival pallor. No lid lag or facial droop. CARDIOVASCULAR: Regular rate and rhythm. No obvious murmurs to auscultation. No chest tenderness to palpation. RESPIRATORY: No obvious rhonchi or wheezing. Clear to auscultation. Breath sounds decreased at bases bilaterally. GASTROINTESTINAL: Abdomen soft, non-tender, nondistended. BS normal. MUSCULOSKELETAL: Extremities without clubbing, cyanosis, or edema. No obvious deformities. NEUROLOGICAL: Awake, alert and oriented x4. No focal neurologic deficits. Moving both upper and lower extremities spontaneously. Laboratory Laboratory Tests Test 08/17/16 22:00 White Blood Count 13.5 Red Blood Count 3.59 Hemoglobin 10.6 Hematocrit 32.5 Mean Corpuscular Volume 90.4 Mean Corpuscular Hemoglobin 29.6 Mean Corpuscular Hemoglobin 32.8 Concent Red Cell Distribution Width 14.4 Platelet Count 302 Mean Platelet Volume 8.5 Neutrophils (%) (Auto) 75.7 Lymphocytes (%) (Auto) 11.9 Monocytes (%) (Auto) 6.5 Eosinophils (%) (Auto) 4.9 Basophils (%) (Auto) 1.0 Neutrophils # (Auto) 10.3 Lymphocytes # (Auto) 1.6 Monocytes # (Auto) 0.9 Eosinophils # (Auto) 0.7 Basophils # (Auto) 0.1 CBC Comment DIFF FINAL Differential Comment Sodium Level 139 Potassium Level 3.5 Chloride Level 99 Carbon Dioxide Level 32.3 Anion Gap 8 Blood Urea Nitrogen 22 Creatinine 1.25 Estimat Glomerular Filtration 41 Rate Random Glucose 123 Lactic Acid Level 1.1 Calcium Level 9.0 Total Bilirubin 0.3 Aspartate Amino Transf 27 (AST/SGOT) Alanine Aminotransferase 19 (ALT/SGPT) Alkaline Phosphatase 88 Total Protein 7.0 Albumin 2.5 Date/Time Procedure Status Source Growth 08/17/16 22:05 Aerobic Blood Culture Received Blood Peripheral Pending 08/17/16 22:05 Anaerobic Blood Culture Received Blood Peripheral Pending Result Diagram: 08/17/16219908/17/162199 Assessment and Plan Problem List: (1) Sepsis ICD Code: A41.9 Status: Acute (2) PNA (pneumonia) ICD Code: J18.9 Status: Acute (3) CHF (congestive heart failure) ICD Code: I50.9 Status: Acute (4) PE (pulmonary thromboembolism) ICD Code: I26.99 Status: Acute (5) Renal insufficiency ICD Code: N28.9 Status: Acute Assessment and Plan A/P: 1. Sepsis: Temp 100.1, HR 114, WBC 13.5, Source-PNA, s/p Blood Cultures, Vanc/ Zosyn for HCAP, will follow up cultures, continue IV Abx, IVF for hydration- caution w/ CHF. 2. PNA: Recent admit 08/12-08/16/16 for Sepsis/PNA/Bacteremia, s/p IV Abx, d/c' d on Levaquin. CXR w/ increased opacity in the left lung base concerning for pneumonia and persistent opacity at right lung base, images reviewed by me. Continue w/ IV Abx as above, follow up cultures, DuoNeb, Mucinex, Symbicort. 3. CHF: Echo 06/20/16 w/ EF 55-60%, Grade I Diastolic Dysfunction, resume home Lasix-caution w/ diuresis and renal insufficiency/sepsis. 4. Renal Insufficiency: Acute on Chronic, creatinine 1.25, previously 1.00, will monitor, repeat labs in am. 5. PE: PE on recent admit, currently on Xarelto, will resume. 6. DVT Prophylaxis: On Xarelto as above. 7. Social work for d/c planning as needed. 8. Case discussed w/ ER physician at length. Physician Certification 2 Midnight Certification Type: Admission for Inpatient Services Order for Inpatient Services The services are ordered in accordance with Medicare regulations or non- Medicare payer requirements, as applicable. In the case of services not specified as inpatient-only, they are appropriately provided as inpatient services in accordance with the 2-midnight benchmark. Estimated LOS (days): 2 days is the estimated time the patient will need to remain in the hospital, assuming treatment plan goals are met and no additional complications. Post-Hospital Plan: Not yet determined Kelsy Sanabria MD Aug 17, 2016 23:07
[2016-08-17 23:10] VITALS: BP 125/69; PULSE 102; RESP 22; O2SAT 94
[2016-08-17] MEDS ORDERED: traMADol HCL 50 MG TAB PO PRN (23:15)
[2016-08-17] MEDS ORDERED: ONDANSETRON HCL 4 MG/2 ML VIAL IVP PRN (23:15)
[2016-08-17] MEDS ORDERED: Vancomycin Consult Pharmacy 1 EA OTHER SCH (23:15)
[2016-08-17] MEDS ORDERED: ACETAMINOPHEN 325 MG TAB PO PRN (23:15)
[2016-08-17] MEDS ORDERED: BISACODYL 10 MG SUPP PR PRN (23:15)
[2016-08-17] MEDS ORDERED: SODIUM CHLORIDE 0.9% FLUSH 5 ML FLUSH FLUSH PRN (23:15)
[2016-08-18] VITALS (15 sets, daily range): BP systolic 108–136; BP diastolic 42–70; PULSE 80–105; RESP 18–24; TEMP 96.3–99.2; O2SAT 91–99
[2016-08-18] MEDS: SODIUM CHLOR 0.9% 1000 ML INJ 1,000 ML IV SCH ×3 (00:12→22:43)
[2016-08-18 01:45] LABS: BACTERIA, URINE OCC /hpf; BLOOD, URINE MOD (NEG); GLUCOSE,URINE NEG (NEG); KETONE, URINE NEG (NEG); MUCUS URINE FEW /lpf (OCC); NITRITE,URINE NEG (NEG); PH, URINE 5.5 (5.0-8.5); SQUAMOUS EPITHELIAL CELL URINE 4 /hpf (0-5); URINE COLOR YELLOW (YELLW/STRAW)
[2016-08-18 01:48] LABS: COMMENT (UR) CATH-CULTURE IND; CULTURE IF INDICATED CATH CULTURE IND
[2016-08-18] MEDS: PREGABALIN 25 MG CAP PO SCH ×5 (02:09→22:43)
[2016-08-18] MEDS: RESP: ALBUTEROL 2.5 MG/IPRATROPIUM 0.5 MG NEB (PRN) NEB ×6 (02:40→23:20)
[2016-08-18] MEDS: diphenhydrAMINE HCL 50 MG/ML VIAL IV PRN ×2 (02:41→22:47)
[2016-08-18] MEDS: PIPERACIL-TAZO 2.25 GM PREMIX 50 ML IV SCH ×3 (04:53→20:25)
[2016-08-18 05:53] LABS: AUTOMATED NEUTROPHIL # 8.9 TH/MM3 (1.8-7.7); BASOPHIL % 0.4 % (0.0-2.0); EOSINOPHIL # 0.6 TH/MM3 (0-0.4); EOSINOPHIL % 4.7 % (0.0-4.0); HEMATOCRIT 31.1 % (35.0-46.0); HEMO FLAGS DIFF FINAL; LYMPH % 11.4 % (9.0-44.0); LYMPHOCYTE # 1.3 TH/MM3 (1.0-4.8); MEAN CELL VOLUME 89.6 FL (80.0-100.0); MEAN CORPUSCULAR HEMOGLOBIN 28.8 PG (27.0-34.0); MEAN CORPUSCULAR HGB CONC 32.2 % (32.0-36.0); MONO % 7.7 % (0.0-8.0); NEUT % 75.8 % (16.0-70.0); PLATELET COUNT 288 TH/MM3 (150-450); RED BLOOD COUNT 3.47 MIL/MM3 (4.00-5.30); RED CELL DISTRIBUTION WIDTH 14.2 % (11.6-17.2); WHITE BLOOD COUNT 11.8 TH/MM3 (4.0-11.0)
[2016-08-18 06:32] LABS: ANION GAP 9 MEQ/L (5-15); AST (GOT) 23 U/L (15-37); BICARBONATE 30.1 MEQ/L (21.0-32.0); BLOOD UREA NITROGEN 21 MG/DL (7-18); CHLORIDE 101 MEQ/L (98-107); GLOMERULAR FILTRATION RATE 42 ML/MIN (>89); POTASSIUM 3.1 MEQ/L (3.5-5.1); SODIUM (NA) 140 MEQ/L (136-145)
[2016-08-18 06:37] LABS: ALKALINE PHOSPHATASE 78 U/L (45-117); ALT (GPT) 16 U/L (10-53); TOTAL BILIRUBIN ADULT 0.4 MG/DL (0.2-1.0)
[2016-08-18] MEDS: SODIUM CHLORIDE 0.9% FLUSH 5 ML FLUSH FLUSH SCH ×2 (09:00→21:15)
--- NOTE | 2016-08-18 09:38 | HHI.PR ---
Subjective Remarks With cough and congestion. Was sent back form the SNF. Patient says she feels tired. Had low grade fevers. With wheezing. No n/v/d/c. Denies chest pain. Objective Vitals Vital Signs Date Time Temp Pulse Resp B/P Pulse Ox O2 Delivery O2 Flow Rate FiO2 08/18/16 08:58 94 Nasal Cannula 4.00 08/18/16 08:00 96.3 91 18 136/61 96 08/18/16 05:53 18 08/18/16 04:03 96.9 88 20 113/55 96 08/18/16 02:45 91 Nasal Cannula 4.00 08/18/16 02:20 98.3 105 20 108/55 92 08/18/16 02:11 104 22 129/60 94 Nasal Cannula 5 08/18/16 01:30 98 20 118/68 96 Nasal Cannula 5 08/18/16 00:15 102 20 120/70 94 Nasal Cannula 5 08/17/16 23:10 102 22 125/69 94 Nasal Cannula 5 08/17/16 22:15 100 22 122/68 95 Nasal Cannula 5 08/17/16 21:17 Nasal Cannula 5 08/17/16 21:16 97 Nasal Cannula 5 08/17/16 21:12 100.1 108 24 134/84 96 I/O 08/17/16 08/17/16 08/17/16 08/18/16 08/18/16 08/18/16 07:00 15:00 23:00 07:00 15:00 23:00 Intake Total 240 ml Output Total 750 ml Balance -510 ml Intake Oral 240 ml Output Urine Total 750 ml # Bowel Movements 0 Result Diagram: 08/18/163 08/18/16 0433 Imaging Last Impressions Chest X-Ray 08/17/162111 Signed Impressions: Service Date/Time: Wednesday, August 17, 2016 21:25 - CONCLUSION: 1. Interval increase in hazy opacity the left lung base of concern for pneumonia. 2. Milder opacity remains at the right lung base. Diomedes Chin MD Objective Remarks GENERAL: Elderly 80 yo female in mild distress secondary to shortness of breath HEENT: PERRLA, EOMI. No scleral icterus or conjunctival pallor. No lid lag or facial droop. CARDIOVASCULAR: Regular rate and rhythm. No obvious murmurs to auscultation. No chest tenderness to palpation. RESPIRATORY: No obvious rhonchi or wheezing. Clear to auscultation. Breath sounds decreased at bases bilaterally. GASTROINTESTINAL: Abdomen soft, non-tender, nondistended. BS normal. MUSCULOSKELETAL: Extremities without clubbing, cyanosis, or edema. No obvious deformities. NEUROLOGICAL: Awake, alert and oriented x4. No focal neurologic deficits. Moving both upper and lower extremities spontaneously. A/P Problem List: (1) Sepsis ICD Code: A41.9 Status: Acute (2) PNA (pneumonia) ICD Code: J18.9 Status: Acute (3) CHF (congestive heart failure) ICD Code: I50.9 Status: Acute (4) PE (pulmonary thromboembolism) ICD Code: I26.99 Status: Acute (5) Renal insufficiency ICD Code: N28.9 Status: Acute Assessment and Plan Sepsis: Temp 100.1, HR 114, WBC 13.5, Source-PNA on admission Blood Cultures pending Continue Vanc/Zosyn for HCAP Follow up cultures, continue IV Abx Gentle IVF for hydration-caution w/ CHF. Add mucomyst to duonebs. PNA: COPD with exacerbation Recent admit 08/12-08/16/16 for Sepsis/PNA/Bacteremia, s/p IV Abx, d/c'd on Levaquin. CXR w/ increased opacity in the left lung base concerning for pneumonia and persistent opacity at right lung base, images reviewed by me. Continue w/ IV Abx as above, follow up cultures, DuoNeb, Mucinex, Symbicort. Add mucomyst to duonebs. Discussed with Dr Montano, Consult Dr Pelayo ID as she s aquintat with the patient. Diastolic CHF with preserved EF: Echo 06/20/16 w/ EF 55-60%, Grade I Diastolic Dysfunction, resume home Lasix-caution w/ diuresis and renal insufficiency/ sepsis. Renal Insufficiency: Acute on Chronic, creatinine 1.25, previously 1.00, will monitor, repeat labs in am. PE: PE on recent admit, continue Xarelto DVT Prophylaxis: On Xarelto as above. CM consult for d/c planning as needed. Discussed with the patient, nurse. Phylicia Hernandez MD Aug 18, 2016 09:38
[2016-08-18] MEDS ORDERED: POTASSIUM CHLORIDE 20 MEQ CONTROLLED RELEASE TAB PO ONE (09:45)
[2016-08-18] MEDS: DOCUSATE SODIUM 100 MG CAP PO SCH ×2 (09:50→20:24)
[2016-08-18] MEDS: FUROSEMIDE 40 MG TAB PO SCH (09:50)
[2016-08-18] MEDS: guaiFENesin E.R. 600 MG TAB PO SCH ×2 (09:51→20:25)
[2016-08-18] MEDS: METOPROLOL TARTRATE 50 MG TAB PO SCH (09:51)
[2016-08-18] MEDS: BUDESONIDE-FORMOTEROL 160/4.5 MCG INHALER INH SCH ×2 (09:58→20:23)
[2016-08-18] MEDS: RIVAROXABAN 15 MG TAB PO SCH ×2 (09:58→20:25)
[2016-08-18] MEDS: RESP: ACETYLCYSTEINE 20% 30 ML NEB NEB SCH ×4 (12:57→23:21)
[2016-08-18] MEDS: BENZOCAINE 6 MG/MENTHOL 10 MG LOZENGE BUCCAL PRN (15:19)
[2016-08-19] VITALS (8 sets, daily range): BP systolic 114–141; BP diastolic 51–82; PULSE 82–102; RESP 17–22; TEMP 98–99.4; O2SAT 93–98
[2016-08-19] MEDS: RESP: ACETYLCYSTEINE 20% 30 ML NEB NEB SCH ×5 (03:30→20:56)
[2016-08-19] MEDS: RESP: ALBUTEROL 2.5 MG/IPRATROPIUM 0.5 MG NEB (PRN) NEB ×5 (03:30→20:56)
[2016-08-19] MEDS: PREGABALIN 25 MG CAP PO SCH ×4 (05:16→22:27)
[2016-08-19] MEDS: PIPERACIL-TAZO 2.25 GM PREMIX 50 ML IV SCH ×3 (05:17→19:57)
[2016-08-19 05:35] LABS: BICARBONATE 28.1 MEQ/L (21.0-32.0); MAGNESIUM 2.4 MG/DL (1.5-2.5); POTASSIUM 3.8 MEQ/L (3.5-5.1)
[2016-08-19 05:37] LABS: AUTOMATED NEUTROPHIL # 10.2 TH/MM3 (1.8-7.7); BASOPHIL % 0.3 % (0.0-2.0); EOSINOPHIL # 0.7 TH/MM3 (0-0.4); EOSINOPHIL % 5.3 % (0.0-4.0); HEMATOCRIT 32.6 % (35.0-46.0); HEMO FLAGS DIFF FINAL; LYMPH % 13.5 % (9.0-44.0); LYMPHOCYTE # 1.8 TH/MM3 (1.0-4.8); MEAN CELL VOLUME 91.3 FL (80.0-100.0); MEAN CORPUSCULAR HEMOGLOBIN 29.6 PG (27.0-34.0); MEAN CORPUSCULAR HGB CONC 32.4 % (32.0-36.0); MONO % 6.9 % (0.0-8.0); PLATELET COUNT 310 TH/MM3 (150-450); RED BLOOD COUNT 3.57 MIL/MM3 (4.00-5.30); RED CELL DISTRIBUTION WIDTH 14.5 % (11.6-17.2); WHITE BLOOD COUNT 13.7 TH/MM3 (4.0-11.0)
[2016-08-19] MEDS: FUROSEMIDE 40 MG TAB PO SCH (08:21)
[2016-08-19] MEDS: METOPROLOL TARTRATE 50 MG TAB PO SCH (08:21)
[2016-08-19] MEDS: guaiFENesin E.R. 600 MG TAB PO SCH ×2 (08:21→19:55)
[2016-08-19] MEDS: SODIUM CHLORIDE 0.9% FLUSH 5 ML FLUSH FLUSH SCH ×2 (08:22→19:56)
[2016-08-19] MEDS: BUDESONIDE-FORMOTEROL 160/4.5 MCG INHALER INH SCH ×2 (08:22→19:54)
[2016-08-19] MEDS: RIVAROXABAN 15 MG TAB PO SCH ×2 (08:22→19:55)
[2016-08-19] MEDS: DOCUSATE SODIUM 100 MG CAP PO SCH ×2 (08:23→19:56)
--- NOTE | 2016-08-19 09:48 | HHI.PR ---
Subjective Remarks awake and alert, po 100% dry cough- poor expectoration effort generalized [id number] states has been unable or too weak to walk since her fall 06/2016 recent admission and just discharge few days ago for PNA Objective Vitals Vital Signs Date Time Temp Pulse Resp B/P Pulse Ox O2 Delivery O2 Flow Rate FiO2 08/19/16 08:57 93 Nasal Cannula 4.00 08/19/16 08:00 98.0 102 20 114/51 94 08/19/16 06:24 98.4 82 20 134/80 98 08/19/16 00:00 98.8 88 22 141/80 94 08/18/16 23:43 18 08/18/16 23:22 96 Nasal Cannula 3.00 08/18/16 19:57 92 08/18/16 19:57 91 Nasal Cannula 2.00 08/18/16 19:00 99.2 92 24 122/68 94 08/18/16 16:00 98.2 80 19 120/59 96 08/18/16 13:29 99 08/18/16 12:00 96.5 96 19 109/42 95 I/O 08/18/16 08/18/16 08/18/16 08/19/16 08/19/16 08/19/16 07:00 15:00 23:00 07:00 15:00 23:00 Intake Total 240 ml 1320 ml 2138 ml 240 ml Output Total 750 ml 1150 ml 750 ml 700 ml Balance -510 ml 170 ml 1388 ml -460 ml Intake Oral 240 ml 1320 ml 360 ml 240 ml IV Total 1778 ml Output Urine Total 750 ml 1150 ml 750 ml 700 ml # Bowel Movements 0 1 0 0 Result Diagram: 08/19/164 08/19/164 Imaging Last Impressions Chest X-Ray 08/17/162111 Signed Impressions: Service Date/Time: Wednesday, August 17, 2016 21:25 - CONCLUSION: 1. Interval increase in hazy opacity the left lung base of concern for pneumonia. 2. Milder opacity remains at the right lung base. Diomedes Chin MD Objective Remarks awake and alert but appears weak anicteric lungs decreased breath sounds, few rhonchi regular rhythm abdomen- flabby soft kaba in place extremities- moves all extremities spontaneously Urinary Catheter: Yes Assessment to: Continue Kaba insert reason: Prolonged Immobilization A/P Problem List: (1) Sepsis ICD Code: A41.9 Status: Acute (2) PNA (pneumonia) ICD Code: J18.9 Status: Acute (3) CHF (congestive heart failure) ICD Code: I50.9 Status: Acute (4) PE (pulmonary thromboembolism) ICD Code: I26.99 Status: Acute (5) Renal insufficiency ICD Code: N28.9 Status: Acute Assessment and Plan Sepsis: Temp 100.1, HR 114, WBC 13.5, Source-PNA on admission Blood Cultures pending Continue Vanc/Zosyn for HCAP Follow up cultures, continue IV Abx Gentle IVF for hydration-caution w/ CHF. Add mucomyst to duonebs. PNA: Non resolving Pneumonia COPD with exacerbation Recent admit 08/12-08/16/16 for Sepsis/PNA/Bacteremia, s/p IV Abx, d/c'd on Levaquin. CXR w/ increased opacity in the left lung base concerning for pneumonia and persistent opacity at right lung base, images reviewed by me. Continue w/ IV Abx as above, follow up cultures, DuoNeb, Mucinex, Symbicort. Add mucomyst to duonebs. Consult Dr Galan ID -knew patient from recent admission Respiratory Failure- due to PE and Infectious process -Consult her Remote Sensing Analyst- Dr. Caceres -continue NC supplement Diastolic CHF with preserved EF: Echo 06/20/16 w/ EF 55-60%, Grade I Diastolic Dysfunction, resume home Lasix-caution w/ diuresis and renal insufficiency/ sepsis. Renal Insufficiency: Acute on Chronic, creatinine 1.25, previously 1.00, will monitor Hypokalemia- replace and ff PE: PE on recent admit, continue Xarelto Generalized deconditioning- PT gently as tolerates DVT Prophylaxis: On Xarelto as above. Aurelio Fox MD Aug 19, 2016 09:48
[2016-08-19 10:47] LABS: BLOOD GAS BASE EXCESS 5.1 mmol/L (-2-2); BLOOD GAS CARBOXYHEMOGLOBIN 1.2 % (0-4); BLOOD GAS HCO3 30 mmol/L (22-26); BLOOD GAS METHEMOGLOBIN 0.8 % (0-2); BLOOD GAS O2 HGB SATURATION 93 % (90-100); BLOOD GAS OXYGEN CONTENT 20.8 Vol % (12.0-20.0); BLOOD GAS PCO2 47 mmHg (38-42); BLOOD GAS PO2 73 mmHg (61-120); CRITICAL VALUE NO; DRAW SITE LT RADIAL; LITER FLOW 4 L/M; NUMBER OF ARTERIAL PUNCTURES 1; OXYGEN DEVICE NASAL CANNULA; TEMP CORR TO 98.6
[2016-08-19 10:48] LABS: STAT NO; ULNAR PULSE PRESENT
[2016-08-19] MEDS ORDERED: VANCOMYCIN INJ 2,000 MG in SODIUM CHLORID 0.9% 500 ML INJ 500 ML IV SCH (13:00)
[2016-08-19] MEDS: SODIUM CHLOR 0.9% 1000 ML INJ 1,000 ML IV SCH (17:55)
--- NOTE | 2016-08-19 18:39 | PD.ID.CON ---
History of Present Illness Service ID Consult Requested By Dr Fox Reason for Consult Dr Fox Primary Care Physician Naseem Haines MD Diagnoses: History of Present Illness 80 yo female known to me from previous admission with pulmonary embolism and PNA This time she presented from the skilled nursing where she resides with shortness of breath and worsening cough within a day of discharge Blood clx were negative last admission, sputum was not available for clx 2/2 lack of expectoration She had negative flu/leg/pneumoccoccus antigens readmitted with non resolving cough, SOB She is unable to expectorate Her CXR showed Interval increase in hazy opacity the left lung base of concern for pneumonia She has no fever, but noted to have leukocytosis (13 K) Review of Systems Except as stated in HPI: all other systems reviewed are Neg Past Family Social History Allergies: Coded Allergies: Codeine (Verified Adverse Reaction, Severe, GI UPSET, ITCHING, 08/15/16) Cortisone (Verified Adverse Reaction, Severe, GI UPSET, 08/12/16) Ibuprofen (Verified Adverse Reaction, Severe, DIZZY, 08/12/16) Tylenol (Verified Adverse Reaction, Severe, GI UPSET, 08/12/16) Morphine (Unverified Adverse Reaction, Intermediate, GI UPSET, 08/12/16) Past Medical History congestive heart failure, hypertension, COPD, sciatica, neuropathy, chronic back pain. Past Surgical History Spinal stimulator, 1, tonsillectomy Active Ordered Medications Medications where reviewed in EMR Antibiotics Include: vancomycin, zosyn Family History Patient reports multiple family members have heart disease Social History remote smoking 25+ years ago Denies EtOH use or illicit drug use Physical Exam Vital Signs Vital Signs Date Time Temp Pulse Resp B/P Pulse Ox O2 Delivery O2 Flow Rate FiO2 08/19/16 16:00 99.4 99 20 127/59 93 08/19/16 13:45 16 08/19/16 12:00 99.3 84 17 126/58 93 08/19/16 08:57 93 Nasal Cannula 4.00 08/19/16 08:00 98.0 102 20 114/51 94 08/19/16 06:24 98.4 82 20 134/80 98 08/19/16 00:00 98.8 88 22 141/80 94 08/18/16 23:22 96 Nasal Cannula 3.00 08/18/16 19:57 92 08/18/16 19:57 91 Nasal Cannula 2.00 08/18/16 19:00 99.2 92 24 122/68 94 Physical Exam CONSTITUTIONAL/GENERAL: This is a morbidly obese female patient, in no apparent distress. + non productive wet cough TUBES/LINES/DRAINS: PIVs wo e/o infx SKIN: No jaundice, rashes, or lesions.Skin temperature appropriate. Not diaphoretic. HEAD: Atraumatic. Normocephalic. EYES: Pupils equal and round and reactive. Extraocular motions intact. No scleral icterus. No injection or drainage. Fundi not examined. ENT: Hearing grossly normal. Nose without bleeding or purulent drainage. Oral mucosae dry without visible erythema, exudates, masses, or lesions. NECK: Trachea midline. Supple, nontender. CARDIOVASCULAR: Regular rate and rhythm without murmurs, gallops, or rubs. No JVD. Peripheral pulses symmetric. RESPIRATORY/CHEST: Symmetric, unlabored respirations. Clear to auscultation. Breath sounds equal bilaterally. No wheezes, rales, or rhonchi. GASTROINTESTINAL: Abdomen soft very obese , non-tender, nondistended. No hepato- splenomegaly, or palpable masses. No guarding. Bowel sounds present, hyperactive GENITOURINARY: Without palpable bladder distension. Kumar catheter in place with clear yellow MUSCULOSKELETAL: Extremities without clubbing, cyanosis, or edema. No joint tenderness or effusion noted. No calf tenderness. No mottling or clubbing. LYMPHATICS: No palpable cervical or supraclavicular adenopathy. NEUROLOGICAL: Awake and alert. Motor and sensory grossly within normal limits. Follows commands. Normal speech. Moves all extremities. PSYCHIATRIC: No obvious anxiety/depression. no apparent hallucinations or other psychotic thought process. Laboratory Laboratory Tests Test 08/19/16 08/19/16 04:44 10:35 White Blood Count 13.7 Red Blood Count 3.57 Hemoglobin 10.6 Hematocrit 32.6 Mean Corpuscular Volume 91.3 Mean Corpuscular Hemoglobin 29.6 Mean Corpuscular Hemoglobin 32.4 Concent Red Cell Distribution Width 14.5 Platelet Count 310 Mean Platelet Volume 8.7 Neutrophils (%) (Auto) 74.0 Lymphocytes (%) (Auto) 13.5 Monocytes (%) (Auto) 6.9 Eosinophils (%) (Auto) 5.3 Basophils (%) (Auto) 0.3 Neutrophils # (Auto) 10.2 Lymphocytes # (Auto) 1.8 Monocytes # (Auto) 1.0 Eosinophils # (Auto) 0.7 Basophils # (Auto) 0.0 CBC Comment DIFF FINAL Differential Comment Sodium Level 141 Potassium Level 3.8 Chloride Level 104 Carbon Dioxide Level 28.1 Anion Gap 9 Blood Urea Nitrogen 20 Creatinine 1.21 Estimat Glomerular Filtration 43 Rate Random Glucose 102 Calcium Level 8.9 Magnesium Level 2.4 Random Vancomycin Level 23.3 Blood Gas Puncture Site LT RADIAL Blood Gas Patient Temperature 98.6 Blood Gas HCO3 30 Blood Gas Base Excess 5.1 Blood Gas Oxygen Saturation 93 Arterial Blood pH 7.42 Arterial Blood Partial 47 Pressure CO2 Arterial Blood Partial 73 Pressure O2 Arterial Blood Oxygen Content 20.8 Arterial Blood 1.2 Carboxyhemoglobin Arterial Blood Methemoglobin 0.8 Blood Gas Hemoglobin 16.0 Oxygen Delivery Device NASAL CANNULA Blood Gas Liter Flow 4 Date/Time Procedure Status Source Growth 08/18/16 15:00 Group A Streptococcus Screen - Preliminary Resulted Throat NO BETA STREPTOCOCCI ISOLATED AT 24 H... 08/18/16 15:00 Group A Streptococcus Screen (MILDRED) - Final Complete Throat 08/18/16 01:00 Urine Culture - Preliminary Resulted Urine Catheterized Urine Yeast Species 08/17/16 22:05 Aerobic Blood Culture - Preliminary Resulted Blood Peripheral NO GROWTH IN 2 DAYS 08/17/16 22:05 Anaerobic Blood Culture - Preliminary Resulted Blood Peripheral NO GROWTH IN 2 DAYS Result Diagram: 08/19/16 0444 08/19/16 0444 Imaging Last Impressions Chest X-Ray 08/17/162 Signed Impressions: Service Date/Time: Wednesday, August 17, 2016 21:25 - CONCLUSION: 1. Interval increase in hazy opacity the left lung base of concern for pneumonia. 2. Milder opacity remains at the right lung base. Diomedes Chin MD Assessment and Plan Assessment and Plan ? LLL PNA: recurrent recent Pulm emboli recent coag neg staph bacteremia, no clin significance, cw contaminant E.coli bacteriuria - cont zosyn, vanco - needs sputum for clx Discussed Condition With Dr Ruddy Galan,Antonia Soliman MD Aug 19, 2016 18:39
[2016-08-19] MEDS: traMADol HCL 50 MG TAB PO PRN (22:27)
[2016-08-20] VITALS (9 sets, daily range): BP systolic 108–132; BP diastolic 45–80; PULSE 78–103; RESP 17–20; TEMP 98.1–99.5; O2SAT 92–97
[2016-08-20] MEDS: RESP: ALBUTEROL 2.5 MG/IPRATROPIUM 0.5 MG NEB (PRN) NEB ×5 (04:03→20:54)
[2016-08-20] MEDS: RESP: ACETYLCYSTEINE 20% 30 ML NEB NEB SCH ×6 (04:03→20:54)
[2016-08-20] MEDS: PREGABALIN 25 MG CAP PO SCH ×3 (04:58→17:34)
[2016-08-20] MEDS: PIPERACIL-TAZO 2.25 GM PREMIX 50 ML IV SCH ×3 (04:58→20:38)
--- NOTE | 2016-08-20 05:55 | MB ---
cc: MALINDA MEADOWS DATE OF CONSULTATION 08/19/[address] Fox REASON FOR CONSULTATION Pneumonia. HISTORY OF PRESENT ILLNESS Ms. Shrestha is a 80-year-old female who [facility]. She was recently discharged from this hospital. She continued to have persistent cough and when she went to the [facility] she started having increasing shortness of breath and fever, did not have any nausea or vomiting. Because of worsening of her symptoms she was brought to the emergency room. She had a workup done. Her chest x-ray shows she has increased in hazy opacity in the left lung base concerning for pneumonia. Her WBC count is 13.7, hemoglobin 10.6, hematocrit 32.6, MCI 91, platelet count 310. Her sodium was 141, potassium 3.8, chloride 104, CO2 28, BUN 20, creatinine 1.21, lactic acid 1.1. Blood gas on 4 liters nasal cannula - pH 7.42, pCO2 47, pO2 73, bicarb 30. PAST MEDICAL HISTORY Significant for history of - 1. COPD. 2. Congestive heart failure. 3. Pulmonary embolism. 4. Chronic pain. 5. Sciatica. 6. Hypertension. 7. History of chronic back pain. PAST SURGICAL HISTORY 1. Pain nerve stimulator. 2. History of . 3. Tonsillectomy. MEDICATIONS She is currently taking - 1. Vancomycin IV. 2. Mucomyst. 3. Nebulizer treatment 20%. 4. Throat lozenges. 5. Symbicort 160/4.5 two puffs twice a day. 6. Mucinex 600 mg twice a day. 7. Lasix 40 mg a day. 8. Lopressor 50 mg a day. 9. Xarelto 15 mg q. 12 hours. 10. Zosyn IV. 11. Lyrica 50 mg q. 6 hours. 12. Albuterol/Atrovent nebulizer treatment. 13. Temazepam 15 mg as needed. 14. Levaquin 250 mg per day. 15. Robitussin AC cough syrup. 16. Cefepime 2 grams. ALLERGIES CORTISONE. CODEINE. IBUPROFEN. MORPHINE. TYLENOL SOCIAL HISTORY [facility] the [facility]. She has a remote history of smoking. FAMILY HISTORY Noncontributory. REVIEW OF SYSTEMS She is bedridden, has mild shortness of breath, congestion in his chest. No seizure or epilepsy. Recent pulmonary embolism. PHYSICAL EXAMINATION GENERAL: An obese, elderly female with mild discomfort because of persistent cough. VITAL SIGNS: Blood pressure 127/59, heart 99, respirations 20, temperature 99.4. HEENT: Examination pupils are equal and reactive to light. NECK: Supple. JVP not raised. CHEST: She has expiratory rhonchi. Has coarse crackles. CV: S1 and S2 normal. ABDOMEN: Obese, nontender. Bowel sounds are present EXTREMITIES: 1+ pedal edema. 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 No focal deficit. IMPRESSION 1. Pneumonia. 2. COPD with mild exacerbation. 3. Hypertension. 4. Recent pulmonary embolism. 5. Congestive heart failure. PLAN We will continue with present antibiotic, aerosol treatment with albuterol and Atrovent, Symbicort twice a day, Mucinex twice a day. Encourage her to use acapella. Monitor her electrolytes and blood count. Further treatment will depend on her course in the hospital. Thank you, Dr. Kelsy Sanabria, for this consultation. MD REGINALDO Parks/SOPHIA /6:50 PM /5:37 AM
[2016-08-20] MEDS: SODIUM CHLORIDE 0.9% FLUSH 5 ML FLUSH FLUSH SCH ×2 (08:07→20:38)
[2016-08-20] MEDS: SODIUM CHLOR 0.9% 1000 ML INJ 1,000 ML IV SCH (08:07)
[2016-08-20] MEDS: METOPROLOL TARTRATE 50 MG TAB PO SCH (08:36)
[2016-08-20] MEDS: FUROSEMIDE 40 MG TAB PO SCH (08:36)
[2016-08-20] MEDS: guaiFENesin E.R. 600 MG TAB PO SCH ×2 (08:36→20:38)
[2016-08-20] MEDS: RIVAROXABAN 15 MG TAB PO SCH ×2 (08:36→20:38)
[2016-08-20] MEDS: BUDESONIDE-FORMOTEROL 160/4.5 MCG INHALER INH SCH ×2 (08:37→20:44)
[2016-08-20] MEDS: DOCUSATE SODIUM 100 MG CAP PO SCH ×2 (08:39→20:38)
--- NOTE | 2016-08-20 09:31 | HHI.PR ---
Subjective Remarks patient awake and alert po 100% poor expectoration effort needs to be encourage to move Objective Vitals Vital Signs Date Time Temp Pulse Resp B/P Pulse Ox O2 Delivery O2 Flow Rate FiO2 08/20/16 07:18 94 Nasal Cannula 3.00 08/20/16 06:43 18 08/20/16 04:07 92 Nasal Cannula 3.00 08/20/16 04:00 98.9 78 20 132/80 97 08/19/16 23:27 18 08/19/16 20:57 93 Nasal Cannula 3.00 08/19/16 20:00 98.8 88 22 138/82 96 08/19/16 16:00 99.4 99 20 127/59 93 08/19/16 12:00 99.3 84 17 126/58 93 I/O 08/19/16 08/19/16 08/19/16 08/20/16 08/20/16 08/20/16 07:00 15:00 23:00 07:00 15:00 23:00 Intake Total 240 ml 1188 ml 948 ml Output Total 700 ml 1850 ml 800 ml Balance -460 ml -662 ml 148 ml Intake Oral 240 ml 360 ml 240 ml IV Total 828 ml 708 ml Output Urine Total 700 ml 1850 ml 800 ml # Bowel Movements 0 0 0 Result Diagram: 08/19/16 0444 08/20/16 0437 Imaging Last Impressions Chest X-Ray 08/17/162111 Signed Impressions: Service Date/Time: Wednesday, August 17, 2016 21:25 - CONCLUSION: 1. Interval increase in hazy opacity the left lung base of concern for pneumonia. 2. Milder opacity remains at the right lung base. Diomedes Chin MD Objective Remarks awake and alert NAD anicteric lungs decreased breath sounds, few rhonchi regular rhythm abdomen- flabby soft kaba in place extremities- moves all extremities spontaneously Urinary Catheter: Yes Assessment to: Continue Kaba insert reason: Prolonged Immobilization Date of Insertion: Aug 19, 2016 A/P Problem List: (1) Sepsis ICD Code: A41.9 Status: Acute (2) PNA (pneumonia) ICD Code: J18.9 Status: Acute (3) CHF (congestive heart failure) ICD Code: I50.9 Status: Acute (4) PE (pulmonary thromboembolism) ICD Code: I26.99 Status: Acute (5) Renal insufficiency ICD Code: N28.9 Status: Acute Assessment and Plan Sepsis: Temp 100.1, HR 114, WBC 13.5, Source-PNA on admission Blood Cultures pending Continue Vanc/Zosyn for HCAP Follow up cultures, continue IV Abx Add mucomyst to duonebs. ID and Pulmo ff will try to get sputum cultures- needs encurage- I spoke with RT PNA: Non resolving Pneumonia COPD with exacerbation Recent admit 08/12-08/16/16 for Sepsis/PNA/Bacteremia, s/p IV Abx, d/c'd on Levaquin. CXR w/ increased opacity in the left lung base concerning for pneumonia and persistent opacity at right lung base, images reviewed by me. Continue w/ IV Abx as above, follow up cultures, DuoNeb, Mucinex, Symbicort. Add mucomyst to duonebs. Consult Dr Galan ID get sputum studies Respiratory Failure- due to PE and Infectious process -Consult her Blending Tank Tender- Dr. Caceres -continue NC supplement Diastolic CHF with preserved EF: Echo 06/20/16 w/ EF 55-60%, Grade I Diastolic Dysfunction, resume home Lasix-caution w/ diuresis and renal insufficiency/ sepsis. - good UO. DC IVF- good PO Renal Insufficiency: Acute on Chronic, creatinine 1.25, previously 1.00, will monitor Hypokalemia- replace and ff recheck BMP today PE: PE on recent admit, continue Xarelto Generalized deconditioning- PT gently as tolerates DVT Prophylaxis: On Xarelto as above. Aurelio Fox MD Aug 20, 2016 09:31
[2016-08-20 11:46] LABS: BICARBONATE 31.1 MEQ/L (21.0-32.0); POTASSIUM 3.6 MEQ/L (3.5-5.1)
--- NOTE | 2016-08-20 15:00 | HHI.IDPN ---
Subjective Subjective Remarks cont to have cough unable to expectorate thinks she feeels better, both breathing and cough afebrile Antibiotics zosyn orianao Allergies: Coded Allergies: Codeine (Verified Adverse Reaction, Severe, GI UPSET, ITCHING, 08/15/16) Cortisone (Verified Adverse Reaction, Severe, GI UPSET, 08/12/16) Ibuprofen (Verified Adverse Reaction, Severe, DIZZY, 08/12/16) Tylenol (Verified Adverse Reaction, Severe, GI UPSET, 08/12/16) Morphine (Unverified Adverse Reaction, Intermediate, GI UPSET, 08/12/16) Objective . Vital Signs Date Time Temp Pulse Resp B/P Pulse Ox O2 Delivery O2 Flow Rate FiO2 08/20/16 12:24 18 08/20/16 12:00 99.4 83 18 112/53 95 08/20/16 08:00 98.1 97 17 111/53 94 08/20/16 07:18 94 Nasal Cannula 3.00 08/20/16 04:07 92 Nasal Cannula 3.00 08/20/16 04:00 98.9 78 20 132/80 97 08/19/16 23:27 18 08/19/16 20:57 93 Nasal Cannula 3.00 08/19/16 20:00 98.8 88 22 138/82 96 08/19/16 16:00 99.4 99 20 127/59 93 08/19/16 08/19/16 08/20/16 15:00 23:00 07:00 Intake Total 1188 ml 948 ml Output Total 1850 ml 800 ml Balance -662 ml 148 ml Intake Oral 360 ml 240 ml IV Total 828 ml 708 ml Output Urine Total 1850 ml 800 ml # Bowel Movements 0 0 . Laboratory Tests Test 08/19/16 04:44 White Blood Count 13.7 TH/MM3 Red Blood Count 3.57 MIL/MM3 Hemoglobin 10.6 GM/DL Hematocrit 32.6 % Mean Corpuscular Volume 91.3 FL Mean Corpuscular Hemoglobin 29.6 PG Mean Corpuscular Hemoglobin 32.4 % Concent Red Cell Distribution Width 14.5 % Platelet Count 310 TH/MM3 Mean Platelet Volume 8.7 FL Neutrophils (%) (Auto) 74.0 % Lymphocytes (%) (Auto) 13.5 % Monocytes (%) (Auto) 6.9 % Eosinophils (%) (Auto) 5.3 % Basophils (%) (Auto) 0.3 % Neutrophils # (Auto) 10.2 TH/MM3 Lymphocytes # (Auto) 1.8 TH/MM3 Monocytes # (Auto) 1.0 TH/MM3 Eosinophils # (Auto) 0.7 TH/MM3 Basophils # (Auto) 0.0 TH/MM3 CBC Comment DIFF FINAL Differential Comment Laboratory Tests Test 08/19/16 08/20/16 08/20/16 04:44 04:37 10:25 Sodium Level 141 MEQ/L 140 MEQ/L Potassium Level 3.8 MEQ/L 3.6 MEQ/L Chloride Level 104 MEQ/L 103 MEQ/L Carbon Dioxide Level 28.1 MEQ/L 31.1 MEQ/L Anion Gap 9 MEQ/L 6 MEQ/L Blood Urea Nitrogen 20 MG/DL 20 MG/DL Creatinine 1.21 MG/DL 1.37 MG/DL 1.33 MG/DL Estimat Glomerular Filtration 43 ML/MIN 37 ML/MIN 39 ML/MIN Rate Random Glucose 102 MG/DL 134 MG/DL Calcium Level 8.9 MG/DL 9.0 MG/DL Magnesium Level 2.4 MG/DL B-Type Natriuretic Peptide 124 PG/ML Microbiology Date/Time Procedure Status Source Growth 08/17/16 22:00 Aerobic Blood Culture - Preliminary Resulted Blood Peripheral NO GROWTH IN 3 DAYS 08/17/16 22:00 Anaerobic Blood Culture - Preliminary Resulted Blood Peripheral NO GROWTH IN 3 DAYS 08/17/16 22:05 Aerobic Blood Culture - Preliminary Resulted Blood Peripheral NO GROWTH IN 3 DAYS 08/17/16 22:05 Anaerobic Blood Culture - Preliminary Resulted Blood Peripheral NO GROWTH IN 3 DAYS 08/18/16 01:00 Urine Culture - Final Complete Urine Catheterized Urine [place] Albicans 08/18/16 15:00 Group A Streptococcus Screen (MILDRED) - Final Complete Throat 08/18/16 15:00 Group A Streptococcus Screen - Final Complete Throat NO GP A BETA STREP ISOLATED. Imaging Last Impressions Chest X-Ray 08/17/162111 Signed Impressions: Service Date/Time: Wednesday, August 17, 2016 21:25 - CONCLUSION: 1. Interval increase in hazy opacity the left lung base of concern for pneumonia. 2. Milder opacity remains at the right lung base. Diomedes Chin MD Physical Exam CONSTITUTIONAL/GENERAL: This is a morbidly obese female patient, in no apparent distress. + non productive wet cough TUBES/LINES/DRAINS: PIVs wo e/o infx SKIN: No jaundice, rashes, or lesions.Skin temperature appropriate. Not diaphoretic. EYES: No scleral icterus. ENT: Oral mucosae moist without visible erythema, exudates, masses, or lesions. CARDIOVASCULAR: Regular rate and rhythm without murmurs, gallops, or rubs. No JVD. Peripheral pulses symmetric. RESPIRATORY/CHEST: Symmetric, unlabored respirations. Clear to auscultation. Breath sounds equal bilaterally. No wheezes, rales, or rhonchi. GASTROINTESTINAL: Abdomen soft very obese , non-tender, nondistended. No hepato- splenomegaly, or palpable masses. No guarding. Bowel sounds present, hyperactive GENITOURINARY: Without palpable bladder distension. Kumar catheter in place with clear yellow MUSCULOSKELETAL: Extremities without clubbing, cyanosis, + trace edema. NEUROLOGICAL: Awake and alert. Motor and sensory grossly within normal limits. Follows commands. Normal speech. Moves all extremities. PSYCHIATRIC: calm and cooperative Assessment & Plan Remarks ? LLL PNA: recurrent - some clin improvement to empiric abx recent Pulm emboli recent coag neg staph bacteremia, no clin significance, cw contaminant Candiduria - doubt clin significance - cont zosyn, vanco - needs sputum for clx : as k RT to help top obtain -fu CXR; if not improving will chk CT dw Dr jacobson;Antonia Sparks MD Aug 20, 2016 15:00
[2016-08-20] MEDS: guaiFENesin/DEXTROMETHORPHAN 200 MG/20 MG/10 ML CUP PO PRN ×2 (15:53→20:39)
--- NOTE | 2016-08-20 19:26 | HHI.PR ---
Subjective Remarks 80 YOWF with Pn,COPD exac, persistant cough Feels better Small amount of sp no fever Objective Vital Signs Vital Signs Date Time Temp Pulse Resp B/P Pulse Ox O2 Delivery O2 Flow Rate FiO2 08/20/16 18:38 19 08/20/16 16:00 98.5 93 17 108/50 94 08/20/16 12:00 99.4 83 18 112/53 95 08/20/16 08:00 98.1 97 17 111/53 94 08/20/16 07:18 94 Nasal Cannula 3.00 08/20/16 04:07 92 Nasal Cannula 3.00 08/20/16 04:00 98.9 78 20 132/80 97 08/19/16 23:27 18 08/19/16 20:57 93 Nasal Cannula 3.00 08/19/16 20:00 98.8 88 22 138/82 96 I/O 08/19/16 08/19/16 08/19/16 08/20/16 08/20/16 08/20/16 07:00 15:00 23:00 07:00 15:00 23:00 Intake Total 240 ml 1188 ml 948 ml 1200 ml Output Total 700 ml 1850 ml 800 ml 1200 ml Balance -460 ml -662 ml 148 ml 0 ml Intake Oral 240 ml 360 ml 240 ml 1200 ml IV Total 828 ml 708 ml 0 ml Output Urine Total 700 ml 1850 ml 800 ml 1200 ml # Bowel Movements 0 0 0 1 Result Diagram: 08/19/16 0444 08/20/16 1025 Objective Remarks GENERAL: WBWN Wf, mild sob SKIN: Warm and dry. HEAD: Normocephalic. EYES: No scleral icterus. No injection or drainage. NECK: Supple, trachea midline. No JVD or lymphadenopathy. CARDIOVASCULAR: Regular rate and rhythm without murmurs, gallops, or rubs. RESPIRATORY: Breath sounds equal bilaterally. No accessory muscle use. Exp rhonchi GASTROINTESTINAL: Abdomen soft, non-tender, nondistended. MUSCULOSKELETAL: No cyanosis, or edema. BACK: Nontender without obvious deformity. No CVA tenderness. A/P Assessment and Plan Pneumonia COPD exac Pulm Embolism CHF PLAN: Cont Abx Aerosol nebs Tessalon 200 mg tid Robitussin DM cough syp cont xarelto Symbicort BID Carlos Manuel Caceres MD Aug 20, 2016 19:26
[2016-08-20] MEDS: BENZOCAINE 6 MG/MENTHOL 10 MG LOZENGE BUCCAL PRN (20:47)
[2016-08-20] MEDS: traMADol HCL 50 MG TAB PO PRN (21:16)
[2016-08-20] MEDS ORDERED: diphenhydrAMINE HCL 25 MG CAP PO ONE (23:15)
[2016-08-21] VITALS (10 sets, daily range): BP systolic 99–131; BP diastolic 40–61; PULSE 83–95; RESP 18–20; TEMP 97.6–98.9; O2SAT 93–97
[2016-08-21] MEDS: PREGABALIN 25 MG CAP PO SCH ×5 (00:54→23:24)
[2016-08-21] MEDS: RESP: ALBUTEROL 2.5 MG/IPRATROPIUM 0.5 MG NEB (PRN) NEB ×3 (03:29→19:46)
[2016-08-21] MEDS: RESP: ACETYLCYSTEINE 20% 30 ML NEB NEB SCH ×6 (03:29→19:46)
[2016-08-21] MEDS: PIPERACIL-TAZO 2.25 GM PREMIX 50 ML IV SCH ×3 (06:04→19:47)
[2016-08-21] MEDS: DOCUSATE SODIUM 100 MG CAP PO SCH ×2 (09:00→19:46)
[2016-08-21] MEDS: RIVAROXABAN 15 MG TAB PO SCH ×2 (10:19→19:46)
[2016-08-21] MEDS: FUROSEMIDE 40 MG TAB PO SCH (10:19)
[2016-08-21] MEDS: METOPROLOL TARTRATE 50 MG TAB PO SCH (10:19)
[2016-08-21] MEDS: SODIUM CHLORIDE 0.9% FLUSH 5 ML FLUSH FLUSH SCH ×2 (10:19→19:47)
[2016-08-21] MEDS: guaiFENesin E.R. 600 MG TAB PO SCH ×2 (10:19→19:46)
[2016-08-21] MEDS: BUDESONIDE-FORMOTEROL 160/4.5 MCG INHALER INH SCH ×2 (10:20→19:47)
[2016-08-21] MEDS ORDERED: PHARMACY ORDERED LAB XX ONE (12:45)
--- NOTE | 2016-08-21 13:43 | HHI.IDPN ---
Subjective Subjective Remarks feels better afebrile still co cough Antibiotics zosyn vanco Allergies: Coded Allergies: Codeine (Verified Adverse Reaction, Severe, GI UPSET, ITCHING, 08/15/16) Cortisone (Verified Adverse Reaction, Severe, GI UPSET, 08/12/16) Ibuprofen (Verified Adverse Reaction, Severe, DIZZY, 08/12/16) Tylenol (Verified Adverse Reaction, Severe, GI UPSET, 08/12/16) Morphine (Unverified Adverse Reaction, Intermediate, GI UPSET, 08/12/16) Objective . Vital Signs Date Time Temp Pulse Resp B/P Pulse Ox O2 Delivery O2 Flow Rate FiO2 08/21/16 12:56 18 08/21/16 12:00 98.2 89 18 100/40 96 08/21/16 08:05 93 Nasal Cannula 3.00 08/21/16 08:00 97.6 94 18 131/61 94 08/21/16 04:00 98.5 89 18 99/50 94 08/21/16 03:30 96 Nasal Cannula 3.00 08/21/16 00:00 98.9 95 18 106/53 94 08/20/16 20:56 94 Nasal Cannula 3.00 08/20/16 20:48 103 08/20/16 20:00 99.5 103 18 115/45 93 08/20/16 16:00 98.5 93 17 108/50 94 08/20/16 08/20/16 08/21/16 15:00 23:00 07:00 Intake Total 1200 ml 530 ml 120 ml Output Total 1200 ml 750 ml 800 ml Balance 0 ml -220 ml -680 ml Intake Oral 1200 ml 480 ml 120 ml IV Total 0 ml 50 ml Output Urine Total 1200 ml 750 ml 800 ml # Bowel Movements 1 1 . Laboratory Tests Test 08/20/16 08/20/16 08/21/16 04:37 10:25 04:50 Creatinine 1.37 MG/DL 1.33 MG/DL 1.26 MG/DL Estimat Glomerular Filtration 37 ML/MIN 39 ML/MIN 41 ML/MIN Rate Sodium Level 140 MEQ/L Potassium Level 3.6 MEQ/L Chloride Level 103 MEQ/L Carbon Dioxide Level 31.1 MEQ/L Anion Gap 6 MEQ/L Blood Urea Nitrogen 20 MG/DL Random Glucose 134 MG/DL Calcium Level 9.0 MG/DL B-Type Natriuretic Peptide 124 PG/ML Microbiology Date/Time Procedure Status Source Growth 08/18/16 15:00 Group A Streptococcus Screen (MILDRED) - Final Complete Throat 08/18/16 15:00 Group A Streptococcus Screen - Final Complete Throat NO GP A BETA STREP ISOLATED. 08/20/16 14:50 Gram Stain - Final Resulted Sputum Expectorated Sputum 08/20/16 14:50 Sputum Culture - Preliminary Resulted Sputum Expectorated Sputum HEAVY GROWTH NORMAL RESPIRATORY HUY... Imaging Last Impressions Chest X-Ray 08/17/162111 Signed Impressions: Service Date/Time: Wednesday, August 17, 2016 21:25 - CONCLUSION: 1. Interval increase in hazy opacity the left lung base of concern for pneumonia. 2. Milder opacity remains at the right lung base. Diomedes Chin MD Physical Exam CONSTITUTIONAL/GENERAL: This is a morbidly obese female patient, in no apparent distress. + non productive wet cough TUBES/LINES/DRAINS: PIVs wo e/o infx SKIN: No jaundice, rashes, or lesions.Skin temperature appropriate. Not diaphoretic. EYES: No scleral icterus. ENT: Oral mucosae moist without visible erythema, exudates, masses, or lesions. CARDIOVASCULAR: Regular rate and rhythm without murmurs, gallops, or rubs. No JVD. Peripheral pulses symmetric. RESPIRATORY/CHEST: Symmetric, unlabored respirations. Clear to auscultation. Breath sounds equal bilaterally. No wheezes, rales, or rhonchi. GASTROINTESTINAL: Abdomen soft very obese , non-tender, nondistended. No hepato- splenomegaly, or palpable masses. No guarding. Bowel sounds present, hyperactive GENITOURINARY: Without palpable bladder distension. Kumar catheter in place with clear yellow MUSCULOSKELETAL: Extremities without clubbing, cyanosis, no edema. NEUROLOGICAL: Awake and alert. NOn focal PSYCHIATRIC: calm and cooperative Assessment & Plan Remarks ? LLL PNA: recurrent - clinically and radioogicaly improving - nl resp huy on sputum clx recent Pulm emboli recent coag neg staph bacteremia, no clin significance, cw contaminant Candiduria - doubt clin significance - cont zosyn, - dc vanco - needs sputum for clx : as k RT to help top obtain -fu CXR; if not improving will chk CT Antonia Galan MD Aug 21, 2016 13:42
[2016-08-21] MEDS ORDERED: VANCOMYCIN INJ 2,000 MG in SODIUM CHLORID 0.9% 500 ML INJ 500 ML IV SCH (14:00)
--- NOTE | 2016-08-21 14:32 | HHI.PR ---
Subjective Remarks still with cough- unable to bring up sputum generalized weakness - discuss PT with her- "will not do any good, I've been through all of it" no diarrhea or abdominal pain Objective Vitals Vital Signs Date Time Temp Pulse Resp B/P Pulse Ox O2 Delivery O2 Flow Rate FiO2 08/21/16 12:56 18 08/21/16 12:00 98.2 89 18 100/40 96 08/21/16 08:05 93 Nasal Cannula 3.00 08/21/16 08:00 97.6 94 18 131/61 94 08/21/16 04:00 98.5 89 18 99/50 94 08/21/16 03:30 96 Nasal Cannula 3.00 08/21/16 00:00 98.9 95 18 106/53 94 08/20/16 20:56 94 Nasal Cannula 3.00 08/20/16 20:48 103 08/20/16 20:00 99.5 103 18 115/45 93 08/20/16 16:00 98.5 93 17 108/50 94 I/O 08/20/16 08/20/16 08/20/16 08/21/16 08/21/16 08/21/16 07:00 15:00 23:00 07:00 15:00 23:00 Intake Total 948 ml 1200 ml 530 ml 120 ml Output Total 800 ml 1200 ml 750 ml 800 ml Balance 148 ml 0 ml -220 ml -680 ml Intake Oral 240 ml 1200 ml 480 ml 120 ml IV Total 708 ml 0 ml 50 ml Output Urine Total 800 ml 1200 ml 750 ml 800 ml # Bowel Movements 0 1 1 Result Diagram: 08/19/16 0444 08/21/16 0450 Imaging Last Impressions Chest X-Ray 08/17/162 Signed Impressions: Service Date/Time: Wednesday, August 17, 2016 21:25 - CONCLUSION: 1. Interval increase in hazy opacity the left lung base of concern for pneumonia. 2. Milder opacity remains at the right lung base. Diomedes Chin MD Objective Remarks awake and alert NAD anicteric lungs decreased breath sounds, no wheezes regular rhythm abdomen- flabby soft kaba in place extremities- moves all extremities spontaneously Date of Insertion: Aug 19, 2016 A/P Problem List: (1) Sepsis ICD Code: A41.9 Status: Acute (2) PNA (pneumonia) ICD Code: J18.9 Status: Acute (3) CHF (congestive heart failure) ICD Code: I50.9 Status: Acute (4) PE (pulmonary thromboembolism) ICD Code: I26.99 Status: Acute (5) Renal insufficiency ICD Code: N28.9 Status: Acute Assessment and Plan Sepsis: Source-PNA on admission Blood Cultures pending- no growth so far. T down Continue Vanc/Zosyn for HCAP Add mucomyst to duonebs. ID and Pulmo ff 08/20 will try to get sputum cultures- needs encurage- I spoke with RT PNA: Non resolving Pneumonia COPD with exacerbation Recent admit 08/12-08/16/16 for Sepsis/PNA/Bacteremia, s/p IV Abx, d/c'd on Levaquin. CXR w/ increased opacity in the left lung base concerning for pneumonia and persistent opacity at right lung base, images reviewed by me. Continue w/ IV Abx as above, follow up cultures, DuoNeb, Mucinex, Symbicort. Add mucomyst to duonebs. 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 Caceres -continue NC supplement Diastolic CHF with preserved EF: Echo 06/20/16 w/ EF 55-60%, Grade I Diastolic Dysfunction, resume home Lasix-caution w/ diuresis and renal insufficiency/ sepsis. - good UO. DC IVF- good PO Renal Insufficiency: Acute on Chronic, creatinine 1.25, previously 1.00, will monitor Hypokalemia- replace and ff - stable PE: PE on recent admit, continue Xarelto Generalized deconditioning- PT gently as tolerates DVT Prophylaxis: On Xarelto as above. Aurelio Fox MD Aug 21, 2016 14:32
--- NOTE | 2016-08-21 19:05 | HHI.PR ---
Subjective Remarks 80 YOWF with Pn,COPD exac, persistant cough Feels better Small amount of sp no fever Cough better Good appetite Objective Vital Signs Vital Signs Date Time Temp Pulse Resp B/P Pulse Ox O2 Delivery O2 Flow Rate FiO2 08/21/16 16:00 97.9 83 19 118/58 97 08/21/16 15:50 96 Nasal Cannula 3.00 08/21/16 12:56 18 08/21/16 12:00 98.2 89 18 100/40 96 08/21/16 08:05 93 Nasal Cannula 3.00 08/21/16 08:00 97.6 94 18 131/61 94 08/21/16 04:00 98.5 89 18 99/50 94 08/21/16 03:30 96 Nasal Cannula 3.00 08/21/16 00:00 98.9 95 18 106/53 94 08/20/16 20:56 94 Nasal Cannula 3.00 08/20/16 20:48 103 08/20/16 20:00 99.5 103 18 115/45 93 I/O 08/20/16 08/20/16 08/20/16 08/21/16 08/21/16 08/21/16 07:00 15:00 23:00 07:00 15:00 23:00 Intake Total 948 ml 1200 ml 530 ml 120 ml 620 ml Output Total 800 ml 1200 ml 750 ml 800 ml 700 ml Balance 148 ml 0 ml -220 ml -680 ml -80 ml Intake Oral 240 ml 1200 ml 480 ml 120 ml 620 ml IV Total 708 ml 0 ml 50 ml Output Urine Total 800 ml 1200 ml 750 ml 800 ml 700 ml # Bowel Movements 0 1 1 0 Result Diagram: 08/19/16 0444 08/21/16 0450 Objective Remarks GENERAL: WBWN Wf, mild sob SKIN: Warm and dry. HEAD: Normocephalic. EYES: No scleral icterus. No injection or drainage. NECK: Supple, trachea midline. No JVD or lymphadenopathy. CARDIOVASCULAR: Regular rate and rhythm without murmurs, gallops, or rubs. RESPIRATORY: Breath sounds equal bilaterally. No accessory muscle use. Exp rhonchi GASTROINTESTINAL: Abdomen soft, non-tender, nondistended. MUSCULOSKELETAL: No cyanosis, or edema. BACK: Nontender without obvious deformity. No CVA tenderness. A/P Assessment and Plan Pneumonia COPD exac Pulm Embolism CHF PLAN: Cont Abx Aerosol nebs Tessalon 200 mg tid Robitussin DM cough syp cont Xarelto Symbicort BID DC palns for NH Carlos Manuel Caceres MD Aug 21, 2016 19:05
[2016-08-21] MEDS: BENZOCAINE 6 MG/MENTHOL 10 MG LOZENGE BUCCAL PRN (19:47)
[2016-08-22] VITALS (9 sets, daily range): BP systolic 118–151; BP diastolic 60–66; PULSE 86–102; RESP 16–20; TEMP 96.9–98.4; O2SAT 93–97
[2016-08-22] MEDS: RESP: ALBUTEROL 2.5 MG/IPRATROPIUM 0.5 MG NEB (PRN) NEB ×4 (00:08→11:49)
[2016-08-22] MEDS: guaiFENesin/DEXTROMETHORPHAN 200 MG/20 MG/10 ML CUP PO PRN ×3 (01:04→20:22)
[2016-08-22] MEDS: RESP: ACETYLCYSTEINE 20% 30 ML NEB NEB SCH ×4 (04:30→11:48)
[2016-08-22] MEDS: PREGABALIN 25 MG CAP PO SCH ×4 (05:28→22:56)
[2016-08-22] MEDS: PIPERACIL-TAZO 2.25 GM PREMIX 50 ML IV SCH ×3 (05:28→22:25)
[2016-08-22 05:37] LABS: AUTOMATED NEUTROPHIL # 8.8 TH/MM3 (1.8-7.7); BASOPHIL # 0.1 TH/MM3 (0-0.2); BASOPHIL % 0.6 % (0.0-2.0); EOSINOPHIL # 0.7 TH/MM3 (0-0.4); EOSINOPHIL % 5.5 % (0.0-4.0); HEMATOCRIT 31.5 % (35.0-46.0); HEMO FLAGS DIFF FINAL; LYMPH % 16.8 % (9.0-44.0); LYMPHOCYTE # 2.2 TH/MM3 (1.0-4.8); MEAN CELL VOLUME 89.7 FL (80.0-100.0); MEAN CORPUSCULAR HEMOGLOBIN 29.1 PG (27.0-34.0); MEAN CORPUSCULAR HGB CONC 32.4 % (32.0-36.0); MONO % 9.5 % (0.0-8.0); NEUT % 67.6 % (16.0-70.0); PLATELET COUNT 320 TH/MM3 (150-450); RED BLOOD COUNT 3.52 MIL/MM3 (4.00-5.30); RED CELL DISTRIBUTION WIDTH 14.3 % (11.6-17.2); WHITE BLOOD COUNT 13.1 TH/MM3 (4.0-11.0)
[2016-08-22] MEDS: BUDESONIDE-FORMOTEROL 160/4.5 MCG INHALER INH SCH ×2 (08:39→20:21)
[2016-08-22] MEDS: BENZOCAINE 6 MG/MENTHOL 10 MG LOZENGE BUCCAL PRN ×3 (08:41→17:35)
[2016-08-22] MEDS: FUROSEMIDE 40 MG TAB PO SCH (08:41)
[2016-08-22] MEDS: METOPROLOL TARTRATE 50 MG TAB PO SCH (08:41)
[2016-08-22] MEDS: DOCUSATE SODIUM 100 MG CAP PO SCH ×2 (08:41→20:24)
[2016-08-22] MEDS: guaiFENesin E.R. 600 MG TAB PO SCH ×2 (08:41→20:22)
[2016-08-22] MEDS: RIVAROXABAN 15 MG TAB PO SCH ×2 (08:41→20:22)
[2016-08-22] MEDS: SODIUM CHLORIDE 0.9% FLUSH 5 ML FLUSH FLUSH SCH ×2 (08:43→20:25)
--- NOTE | 2016-08-22 13:48 | HHI.PR ---
Subjective Remarks awake but feels weak unable to expectorate well, wak cough Objective Vitals Vital Signs Date Time Temp Pulse Resp B/P Pulse Ox O2 Delivery O2 Flow Rate FiO2 08/22/16 12:00 96.9 86 20 134/60 93 08/22/16 08:08 96 Nasal Cannula 3.00 08/22/16 08:00 97.8 102 18 148/61 94 08/22/16 04:00 98.4 90 18 121/66 94 08/22/16 00:11 94 Nasal Cannula 3.00 08/22/16 00:00 98.0 92 18 118/62 95 08/21/16 20:00 97.9 95 20 120/58 96 08/21/16 19:20 93 08/21/16 16:00 97.9 83 19 118/58 97 08/21/16 15:50 96 Nasal Cannula 3.00 I/O 08/21/16 08/21/16 08/21/16 08/22/16 08/22/16 08/22/16 07:00 15:00 23:00 07:00 15:00 23:00 Intake Total 120 ml 620 ml 375 ml 290 ml 40 ml Output Total 800 ml 700 ml 850 ml 650 ml Balance -680 ml -80 ml -475 ml -360 ml 40 ml Intake Oral 120 ml 620 ml 320 ml 240 ml IV Total 55 ml 50 ml 40 ml Output Urine Total 800 ml 700 ml 850 ml 650 ml # Bowel Movements 1 0 0 0 Result Diagram: 08/22/16 0429 08/21/16 0450 Imaging Last Impressions Chest X-Ray 08/17/162 Signed Impressions: Service Date/Time: Wednesday, August 17, 2016 21:25 - CONCLUSION: 1. Interval increase in hazy opacity the left lung base of concern for pneumonia. 2. Milder opacity remains at the right lung base. Diomedes Chin MD Objective Remarks awake and alert NAD anicteric lungs decreased breath sounds, no wheezes regular rhythm abdomen- flabby soft kaba in place extremities- moves all extremities spontaneously Date of Insertion: Aug 19, 2016 A/P Problem List: (1) Sepsis ICD Code: A41.9 Status: Acute (2) PNA (pneumonia) ICD Code: J18.9 Status: Acute (3) CHF (congestive heart failure) ICD Code: I50.9 Status: Acute (4) PE (pulmonary thromboembolism) ICD Code: I26.99 Status: Acute (5) Renal insufficiency ICD Code: N28.9 Status: Acute Assessment and Plan Sepsis: Source-PNA on admission Blood Cultures pending- no growth so far. T down Continue Zosyn for HCAP Add mucomyst to duonebs. [place] ID and Pulmo ff I spoke with RT PNA: Non resolving Pneumonia COPD with exacerbation Recent admit 08/12-08/16/16 for Sepsis/PNA/Bacteremia, s/p IV Abx, d/c'd on Levaquin. CXR w/ increased opacity in the left lung base concerning for pneumonia and persistent opacity at right lung base, images reviewed by me. Continue w/ IV Abx as above, follow up cultures, DuoNeb, Mucinex, Symbicort. mucomyst to duonebs. Consult Dr Adama PALUMBO awaiting sputum specimen Respiratory Failure- due to PE and Infectious process -Consult her Maintenance Coordinator- Dr. Caceres -continue NC supplement Diastolic CHF with preserved EF: Echo 06/20/16 w/ EF 55-60%, Grade I Diastolic Dysfunction, resume home Lasix-caution w/ diuresis and renal insufficiency/ sepsis. - good UO. DC IVF- good PO Renal Insufficiency: Acute on Chronic, creatinine 1.25, previously 1.00, will monitor Hypokalemia- replace and ff - stable PE: PE on recent admit, continue Xarelto Generalized deconditioning- PT gently as tolerates DVT Prophylaxis: On Xarelto as above. ? hospice candidate Aruelio Fox MD Aug 22, 2016 13:48
[2016-08-22] MEDS: traMADol HCL 50 MG TAB PO PRN (17:38)
--- NOTE | 2016-08-22 18:59 | HHI.PR ---
Subjective Remarks 80 YOWF with Pn,COPD exac, persistant cough Feels better Small amount of sp no fever Good appetite no new complaint Objective Vital Signs Vital Signs Date Time Temp Pulse Resp B/P Pulse Ox O2 Delivery O2 Flow Rate FiO2 08/22/16 16:00 98.4 89 20 151/66 95 08/22/16 12:00 96.9 86 20 134/60 93 08/22/16 08:08 96 Nasal Cannula 3.00 08/22/16 08:00 97.8 102 18 148/61 94 08/22/16 04:00 98.4 90 18 121/66 94 08/22/16 00:11 94 Nasal Cannula 3.00 08/22/16 00:00 98.0 92 18 118/62 95 08/21/16 20:00 97.9 95 20 120/58 96 08/21/16 19:20 93 I/O 08/21/16 08/21/16 08/21/16 08/22/16 08/22/16 08/22/16 07:00 15:00 23:00 07:00 15:00 23:00 Intake Total 120 ml 620 ml 375 ml 290 ml 520 ml Output Total 800 ml 700 ml 850 ml 650 ml 1450 ml Balance -680 ml -80 ml -475 ml -360 ml -930 ml Intake Oral 120 ml 620 ml 320 ml 240 ml 480 ml IV Total 55 ml 50 ml 40 ml Output Urine Total 800 ml 700 ml 850 ml 650 ml 1450 ml # Bowel Movements 1 0 0 0 1 Result Diagram: 08/22/16 0429 08/21/16 0450 Objective Remarks GENERAL: WBWN Wf, mild sob SKIN: Warm and dry. HEAD: Normocephalic. EYES: No scleral icterus. No injection or drainage. NECK: Supple, trachea midline. No JVD or lymphadenopathy. CARDIOVASCULAR: Regular rate and rhythm without murmurs, gallops, or rubs. RESPIRATORY: Breath sounds equal bilaterally. No accessory muscle use. Exp rhonchi GASTROINTESTINAL: Abdomen soft, non-tender, nondistended. MUSCULOSKELETAL: No cyanosis, or edema. BACK: Nontender without obvious deformity. No CVA tenderness. A/P Assessment and Plan Pneumonia COPD exac Pulm Embolism CHF PLAN: Cont Abx Aerosol nebs Tessalon 200 mg tid Robitussin DM cough syp cont Xarelto Symbicort BID Aneja,Carlos Manuel Dev MD Aug 22, 2016 18:59
[2016-08-23] VITALS (8 sets, daily range): BP systolic 111–142; BP diastolic 57–80; PULSE 86–102; RESP 17–20; TEMP 96.2–98.4; O2SAT 92–97
[2016-08-23] MEDS: diphenhydrAMINE HCL 25 MG CAP PO PRN ×2 (01:13→20:56)
[2016-08-23] MEDS: PIPERACIL-TAZO 2.25 GM PREMIX 50 ML IV SCH ×3 (05:34→20:15)
[2016-08-23] MEDS: PREGABALIN 25 MG CAP PO SCH ×3 (05:34→17:30)
[2016-08-23] MEDS: guaiFENesin/DEXTROMETHORPHAN 200 MG/20 MG/10 ML CUP PO PRN ×4 (05:39→20:16)
[2016-08-23] MEDS: BENZOCAINE 6 MG/MENTHOL 10 MG LOZENGE BUCCAL PRN ×5 (06:19→20:56)
[2016-08-23] MEDS: FUROSEMIDE 40 MG TAB PO SCH (07:29)
[2016-08-23] MEDS: RIVAROXABAN 15 MG TAB PO SCH ×2 (07:29→20:15)
[2016-08-23] MEDS: guaiFENesin E.R. 600 MG TAB PO SCH ×2 (07:29→20:14)
[2016-08-23] MEDS: METOPROLOL TARTRATE 50 MG TAB PO SCH (07:29)
[2016-08-23] MEDS: DOCUSATE SODIUM 100 MG CAP PO SCH ×2 (07:29→20:14)
[2016-08-23] MEDS: SODIUM CHLORIDE 0.9% FLUSH 5 ML FLUSH FLUSH SCH ×2 (07:30→20:13)
[2016-08-23] MEDS: BUDESONIDE-FORMOTEROL 160/4.5 MCG INHALER INH SCH ×2 (07:32→20:13)
[2016-08-23] MEDS ORDERED: PHARMACY ORDERED LAB XX ONE (13:45)
--- NOTE | 2016-08-23 14:23 | HHI.PR ---
Subjective Remarks persistent cough- having diffiuctty expectorating sputum Objective Vitals Vital Signs Date Time Temp Pulse Resp B/P Pulse Ox O2 Delivery O2 Flow Rate FiO2 08/23/16 12:00 96.8 88 19 142/66 96 08/23/16 08:00 96.2 86 18 127/58 95 08/23/16 04:47 98.1 90 18 137/80 97 08/23/16 00:29 98.4 89 18 118/57 94 08/22/16 20:18 97.7 88 16 140/62 97 08/22/16 20:00 89 08/22/16 16:00 98.4 89 20 151/66 95 I/O 08/22/16 08/22/16 08/22/16 08/23/16 08/23/16 08/23/16 06:59 14:59 22:59 06:59 14:59 22:59 Intake Total 290 ml 520 ml 360 ml 680 ml Output Total 650 ml 1450 ml 1000 ml 1200 ml Balance -360 ml -930 ml -640 ml -520 ml Intake Oral 240 ml 480 ml 360 ml 580 ml IV Total 50 ml 40 ml 100 ml Output Urine Total 650 ml 1450 ml 1000 ml 1200 ml # Bowel Movements 0 1 1 Result Diagram: 08/22/16 0429 08/21/16 0450 Imaging Last Impressions Chest X-Ray 08/17/162111 Signed Impressions: Service Date/Time: Wednesday, August 17, 2016 21:25 - CONCLUSION: 1. Interval increase in hazy opacity the left lung base of concern for pneumonia. 2. Milder opacity remains at the right lung base. Diomedes Chin MD Objective Remarks awake and alert NAD anicteric lungs decreased breath sounds, + rhonchi, few expiratory wheezes regular rhythm abdomen- flabby soft kaba in place extremities- moves all extremities spontaneously Urinary Catheter: Yes Kaba insert reason: Prolonged Immobilization Date of Insertion: Aug 19, 2016 A/P Problem List: (1) Sepsis ICD Code: A41.9 Status: Acute (2) PNA (pneumonia) ICD Code: J18.9 Status: Acute (3) CHF (congestive heart failure) ICD Code: I50.9 Status: Acute (4) PE (pulmonary thromboembolism) ICD Code: I26.99 Status: Acute (5) Renal insufficiency ICD Code: N28.9 Status: Acute Assessment and Plan Sepsis: Source-PNA on admission Blood Cultures no growth so far. T down Continue Zosyn for HCAP Add mucomyst to duonebs. A[place]ella ID and Pulmo ff PNA: Non resolving Pneumonia- slow improvment COPD with exacerbation Recent admit 08/12-08/16/16 for Sepsis/PNA/Bacteremia, s/p IV Abx, d/c'd on Levaquin. CXR w/ increased opacity in the left lung base concerning for pneumonia and persistent opacity at right lung base, images reviewed by me. Continue w/ IV Abx as above, follow up cultures, DuoNeb, Mucinex, Symbicort. mucomyst to duonebs. Dr Galan ID ff sputum culture pending recheck CXR in am Respiratory Failure- due to PE and Infectious process Dr. Caceres ff -continue NC supplement Diastolic CHF with preserved EF: Echo 06/20/16 w/ EF 55-60%, Grade I Diastolic Dysfunction, resume home Lasix-caution w/ diuresis and renal insufficiency/ sepsis. - good UO. DC IVF- good PO Renal Insufficiency: Acute on Chronic, creatinine 1.25, previously 1.00, will monitor Hypokalemia- replace and ff - stable PE: PE on recent admit, continue Xarelto Generalized deconditioning- PT gently as tolerates DVT Prophylaxis: On Xarelto as above. ? hospice candidate/Palliative candidate Aurelio Fox MD Aug 23, 2016 14:23
[2016-08-23] MEDS ORDERED: BENZONATATE 100 MG CAP PO PRN (14:30)
[2016-08-23] MEDS: RESP: ALBUTEROL 2.5 MG/IPRATROPIUM 0.5 MG NEB (PRN) NEB (14:39)
[2016-08-23] MEDS: BENZONATATE 100 MG CAP PO PRN ×2 (14:59→22:14)
--- NOTE | 2016-08-23 16:20 | HHI.PR ---
Subjective Remarks 80 YOWF with Pn,COPD exac, persistant cough Feels better Small amount of sp no fever Good appetite Still has cough Objective Vital Signs Vital Signs Date Time Temp Pulse Resp B/P Pulse Ox O2 Delivery O2 Flow Rate FiO2 08/23/16 12:00 96.8 88 19 142/66 96 08/23/16 08:00 96.2 86 18 127/58 95 08/23/16 04:47 98.1 90 18 137/80 97 08/23/16 00:29 98.4 89 18 118/57 94 08/22/16 20:18 97.7 88 16 140/62 97 08/22/16 20:00 89 I/O 08/22/16 08/22/16 08/22/16 08/23/16 08/23/16 08/23/16 07:00 15:00 23:00 07:00 15:00 23:00 Intake Total 290 ml 520 ml 360 ml 680 ml Output Total 650 ml 1450 ml 1000 ml 1200 ml Balance -360 ml -930 ml -640 ml -520 ml Intake Oral 240 ml 480 ml 360 ml 580 ml IV Total 50 ml 40 ml 100 ml Output Urine Total 650 ml 1450 ml 1000 ml 1200 ml # Bowel Movements 0 1 1 Result Diagram: 08/22/16 0429 08/21/16 0450 Objective Remarks GENERAL: WBWN Wf, mild sob SKIN: Warm and dry. HEAD: Normocephalic. EYES: No scleral icterus. No injection or drainage. NECK: Supple, trachea midline. No JVD or lymphadenopathy. CARDIOVASCULAR: Regular rate and rhythm without murmurs, gallops, or rubs. RESPIRATORY: Breath sounds equal bilaterally. No accessory muscle use. Exp rhonchi GASTROINTESTINAL: Abdomen soft, non-tender, nondistended. MUSCULOSKELETAL: No cyanosis, or edema. BACK: Nontender without obvious deformity. No CVA tenderness. A/P Assessment and Plan Pneumonia COPD exac Pulm Embolism CHF PLAN: Cont Abx Aerosol nebs Tessalon 200 mg tid Robitussin DM cough syp cont Xarelto Symbicort BID Available prn over weekend. Carlos Manuel Caceres MD Aug 23, 2016 16:20
[2016-08-23] MEDS: RESP: ALBUTEROL 2.5 MG/IPRATROPIUM 0.5 MG NEB (SCH) NEB ×2 (16:36→20:26)
[2016-08-24] VITALS (10 sets, daily range): BP systolic 117–136; BP diastolic 56–66; PULSE 86–100; RESP 15–20; TEMP 97.3–98.9; O2SAT 93–97
[2016-08-24] MEDS: RESP: ALBUTEROL 2.5 MG/IPRATROPIUM 0.5 MG NEB (SCH) NEB ×4 (03:32→21:02)
[2016-08-24] MEDS: PIPERACIL-TAZO 2.25 GM PREMIX 50 ML IV SCH ×3 (05:10→20:33)
[2016-08-24] MEDS: PREGABALIN 25 MG CAP PO SCH ×5 (06:00→23:40)
[2016-08-24] MEDS: RIVAROXABAN 15 MG TAB PO SCH ×2 (08:08→20:36)
[2016-08-24] MEDS: guaiFENesin E.R. 600 MG TAB PO SCH ×2 (08:08→20:35)
[2016-08-24] MEDS: FUROSEMIDE 40 MG TAB PO SCH (08:08)
[2016-08-24] MEDS: guaiFENesin/DEXTROMETHORPHAN 200 MG/20 MG/10 ML CUP PO PRN ×4 (08:08→20:36)
[2016-08-24] MEDS: DOCUSATE SODIUM 100 MG CAP PO SCH ×2 (08:08→20:35)
[2016-08-24] MEDS: BENZOCAINE 6 MG/MENTHOL 10 MG LOZENGE BUCCAL PRN ×5 (08:09→23:41)
[2016-08-24] MEDS: METOPROLOL TARTRATE 50 MG TAB PO SCH (08:09)
[2016-08-24] MEDS: SODIUM CHLORIDE 0.9% FLUSH 5 ML FLUSH FLUSH SCH ×2 (08:09→20:36)
[2016-08-24] MEDS: BENZONATATE 100 MG CAP PO PRN ×3 (08:09→21:27)
[2016-08-24] MEDS: BUDESONIDE-FORMOTEROL 160/4.5 MCG INHALER INH SCH ×2 (08:10→20:34)
--- NOTE | 2016-08-24 08:47 | HHI.PR ---
Subjective Remarks f/u; pneumonia still with cough. on oxygen via [place]. no fever. Objective Vitals Vital Signs Date Time Temp Pulse Resp B/P Pulse Ox O2 Delivery O2 Flow Rate FiO2 08/24/16 04:03 98.4 92 20 122/56 97 08/24/16 03:33 95 Nasal Cannula 3.00 08/24/16 00:13 98.1 90 20 119/57 97 08/23/16 20:36 96.5 90 20 111/59 95 08/23/16 20:00 102 08/23/16 16:36 92 Nasal Cannula 3.00 08/23/16 16:00 96.9 91 17 120/58 92 08/23/16 12:00 96.8 88 19 142/66 96 I/O 08/23/16 08/23/16 08/23/16 08/24/16 08/24/16 08/24/16 07:00 15:00 23:00 07:00 15:00 23:00 Intake Total 680 ml 1680 ml 480 ml 380 ml Output Total 1200 ml 1150 ml 500 ml 600 ml Balance -520 ml 530 ml -20 ml -220 ml Intake Oral 580 ml 1680 ml 480 ml 380 ml IV Total 100 ml Output Urine Total 1200 ml 1150 ml 500 ml 600 ml # Bowel Movements 1 2 2 1 Result Diagram: 08/22/16 0429 08/21/16 0450 Imaging Last Impressions Chest X-Ray 08/17/162111 Signed Impressions: Service Date/Time: Wednesday, August 17, 2016 21:25 - CONCLUSION: 1. Interval increase in hazy opacity the left lung base of concern for pneumonia. 2. Milder opacity remains at the right lung base. Diomedes hCin MD Objective Remarks GENERAL: This is a well-nourished, well-developed patient, in no apparent distress. CARDIOVASCULAR: Regular rate and regular rhythm without murmurs, gallops, or rubs. RESPIRATORY: diminished air entry in bases with rhonchi bilaterally GASTROINTESTINAL: Abdomen soft, non-tender, nondistended. Normal, active bowel sounds MUSCULOSKELETAL: Extremities without clubbing, cyanosis, or edema. NEURO: Alert & Oriented x4 to person, place, time, situation. Moves all ext x4 Procedures none Medications and IVs Current Medications Piperacillin Sod/ Tazobactam Sod 100 ml @ 200 mls/hr ONCE ONCE IV Last administered on 08/17/16 23:09; Start 08/17/16 at 22:00; Stop 08/17/16 at 22:29 ; Status DC Vancomycin HCl 1000 mg/Sodium Chloride 250 ml @ 250 mls/hr ONCE ONCE IV Last administered on 08/18/16 00:12; Start 08/17/16 at 22:00; Stop 08/17/16 at 22:59 ; Status DC Pharmacy Profile Note 0 ml @ 0 mls/hr UNSCH OTHER ; Start 08/17/16 at 23:15; Stop 08/21/16 at 13:43; Status DC Piperacillin Sod/ Tazobactam Sod (Zosyn 2.25 Gm Premix) 50 ml @ 100 mls/hr Q8H IV Last administered on 08/24/16 05:10; Start 08/18/16 at 06:00 Albuterol/ Ipratropium (Duoneb Neb) 1 ampule Q4HR NEB PRN NEB SOB/WHEEZING Last administered on 08/22/16 11:49; Start 08/17/16 at 23:15; Stop 08/23/16 at 14:24; Status DC Budesonide/ Formoterol Fumarate (Symbicort 160-4.5 Inh) 2 puff Q12HR INH Last administered on 08/24/16 08:10; Start 08/18/16 at 09:00 Guaifenesin 600 mg 600 mg BID PO Last administered on 08/24/16 08:08; Start at 09:00 Sodium Chloride (NS 1000 ml Inj) 1,000 ml @ 70 mls/hr [id number] IV Last administered on 08/20/16 08:07; Start 08/17/16 at 23:01; Stop 08/20/16 at 09:33 ; Status DC IV Flush (NS Flush) 2 ml UNSCH PRN FLUSH FLUSH AFTER USING IV ACCESS Last administered on 08/22/16 05:28; Start 08/17/16 at 23:15 IV Flush (NS Flush) 2 ml BID FLUSH Last administered on 08/24/16 08:09; Start 08/18/16 at 09:00 Ondansetron HCl (Zofran Inj) 4 mg Q6H PRN IVP NAUSEA OR VOMITING; Start at 23:15 Bisacodyl (Dulcolax Supp) 10 mg DAILY PRN [place] CONSTIPATION; Start 08/17/16 at 23 :15 Acetaminophen (Tylenol) 650 mg Q6H PRN PO FEVER/PAIN SCALE 1 TO 2; Start at 23:15 Tramadol HCl (Ultram) 50 mg Q4H PRN PO PAIN SCALE 3 TO 5 Last administered on 17:38; Start 08/17/16 at 23:15 Tramadol HCl (Ultram) 100 mg Q4H PRN PO PAIN SCALE 6 TO 10; Start 08/17/16 at 23:15 Docusate Sodium (Colace) 100 mg BID PO Last administered on 08/21/16 19:46; Start 08/18/16 at 09:00 Furosemide (Lasix) 40 mg DAILY PO Last administered on 08/24/16 08:08; Start 08/18/16 at 09:00 Metoprolol Tartrate (Lopressor) 50 mg DAILY PO Last administered on 08/24/16 08:09; Start 08/18/16 at 09:00 Pregabalin (Lyrica) 50 mg Q6HR PO Last administered on 08/23/16 17:30; Start 08/18/16 at 00:00 Rivaroxaban (Xarelto) 15 mg Q12HR PO Last administered on 08/24/16 08:08; Start 08/18/16 at 09:00 Temazepam (Restoril) 15 mg HS PRN PO INSOMNIA; Start 08/17/16 at 23:15 Diphenhydramine HCl (Benadryl Inj) 25 mg Q6H PRN IV ITCHING Last administered on 08/18/16 22:47; Start 08/18/16 at 02:30; Stop 08/19/16 at 09:54; Status DC Potassium Chloride (KCl) 40 meq ONCE ONCE PO Last administered on 08/18/16 09 :50; Start 08/18/16 at 09:45; Stop 08/18/16 at 09:46; Status DC Benzocaine/Menthol (Chloraseptic Yasmany) 1 lozenge UNSCH PRN BUCCAL sore throat Last administered on 08/24/16 08:09; Start 08/18/16 at 11:00 Acetylcysteine 2 ml 2 ml Q4HR NEB NEB Last administered on 08/22/16 11:48; Start 08/18/16 at 12:00; Stop 08/22/16 at 12:00; Status DC Vancomycin HCl/ Sodium Chloride (Vancomycin Inj/ NS 500 ml Inj) 520 ml @ 250 mls/hr Q24H IV Last administered on 08/19/16 13:46; Start 08/19/16 at 13:00; Stop 08/21/16 at 09:48; Status DC Miscellaneous Information SPECIFIC LAB TO BE DRAWN:VANCOMYCIN TROUGH DATE TO... ONCE ONCE XX ; Start 08/21/16 at 12:45; Stop 08/21/16 at 12:46; Status Cancel Guaifenesin/ Dextromethorphan (Robitussin Dm 200-20 Mg/10 ml Liq) 5 ml Q4H PRN PO COUGH Last administered on 08/24/16 08:08; Start 08/20/16 at 15:30 Diphenhydramine HCl 25 mg 25 mg ONCE ONCE PO Last administered on 08/21/16 00 :55; Start 08/20/16 at 23:15; Stop 08/20/16 at 23:16; Status DC Vancomycin HCl/ Sodium Chloride (Vancomycin Inj/ NS 500 ml Inj) 520 ml @ 250 mls/hr Q48H IV ; Start 08/21/16 at 14:00; Stop 08/21/16 at 14:00; Status DC Miscellaneous Information SPECIFIC LAB TO BE DRAWN:VANCOMYCIN TROUGH DATE TO... ONCE ONCE XX ; Start 08/23/16 at 13:45; Stop 08/23/16 at 13:46; Status Cancel Diphenhydramine HCl (Benadryl) 25 mg UNSCH X1 PRN PO ITCHING Last administered on 08/23/16 20:56; Start 08/22/16 at 21:45; Stop 08/23/16 at 23:59; Status DC Benzonatate (Tessalon) 100 mg TID PRN PO COUGH; Start 08/23/16 at 14:30; Stop 08/23/16 at 14:30; Status DC Benzonatate (Tessalon) 200 mg TID PRN PO COUGH Last administered on 08/24/16 08:09; Start 08/23/16 at 14:30 Albuterol/ Ipratropium (Duoneb Neb) 1 ampule Q6HR NEB NEB Last administered on 08/24/16 03:32; Start 08/23/16 at 16:00 Albuterol/ Ipratropium (Duoneb Neb) 1 ampule Q2HR NEB PRN NEB WHEEZING/SOB Last administered on 08/23/16 14:39; Start 08/23/16 at 14:30; Stop 08/28/16 at 14:29 Date of Insertion: Aug 19, 2016 A/P Assessment and Plan A/P Sepsis: Source-PNA on admission Blood Cultures no growth so far. Continue Zosyn for HCAP ID and Pulmo ff PNA: Non resolving Pneumonia- COPD with exacerbation Recent admit 08/12-08/16/16 for Sepsis/PNA/Bacteremia, s/p IV Abx, d/c'd on Levaquin. CXR w/ increased opacity in the left lung base concerning for pneumonia and persistent opacity at right lung base. Continue w/ IV Abx as above. Dr Galan ID ff sputum culture with normal respiratory huy. CXR in am Diastolic CHF with preserved EF: Echo 06/20/16 w/ EF 55-60%, Grade I Diastolic Dysfunction, resumed home Lasix-caution w/ diuresis and renal insufficiency/ sepsis. Renal Insufficiency: Chronic- PE: PE on recent admit, continue Xarelto Generalized deconditioning- PT gently as tolerates DVT Prophylaxis: On Xarelto as above. PT consulted. Chinmay Singh MD Aug 24, 2016 08:47
[2016-08-24] MEDS: RESP: ALBUTEROL 2.5 MG/IPRATROPIUM 0.5 MG NEB (PRN) NEB (11:41)
[2016-08-24] MEDS ORDERED: RESP: ACETYLCYSTEINE 10% 30 ML NEB NEB PRN (14:15)
[2016-08-24] MEDS: TEMAZEPAM 15 MG CAP PO PRN (23:41)
[2016-08-25] VITALS (8 sets, daily range): BP systolic 116–132; BP diastolic 56–60; PULSE 75–100; RESP 15–19; TEMP 97.4–98.9; O2SAT 92–96
[2016-08-25] MEDS: RESP: ALBUTEROL 2.5 MG/IPRATROPIUM 0.5 MG NEB (SCH) NEB ×4 (02:56→20:36)
[2016-08-25] MEDS: PIPERACIL-TAZO 2.25 GM PREMIX 50 ML IV SCH ×3 (05:38→22:08)
[2016-08-25] MEDS: guaiFENesin/DEXTROMETHORPHAN 200 MG/20 MG/10 ML CUP PO PRN ×4 (05:41→20:31)
[2016-08-25] MEDS: PREGABALIN 25 MG CAP PO SCH ×4 (05:45→23:32)
--- NOTE | 2016-08-25 06:51 | RADRPT ---
EXAM DATE/TIME: 08/25/2016 06:12 [facility] COMPARISON: CHEST SINGLE AP, August 17, 2016, 21:25. INDICATIONS : Pneumonia. MEDICAL HISTORY : None. SURGICAL HISTORY : None. ENCOUNTER: Subsequent ACUITY: 3 days PAIN SCORE: 5/10 LOCATION: Bilateral chest FINDINGS: A single portable frontal view of the chest shows resolution of the right lower lobe infiltrate. A pa tchy parenchymal opacity remains in the left lung base. Heart is mildly enlarged. No effusions. Bony structures unremarkable. Neurostimulator overlies the spine. CONCLUSION: Resolved right lower lobe infiltrate with residual left lower lobe infiltrate. Gunner Chamberlain Jr., MD on August 25, 2016 at 6:49 Board Certified Radiologist. This report was verified electronically.
[2016-08-25] MEDS: DOCUSATE SODIUM 100 MG CAP PO SCH ×2 (09:00→20:33)
[2016-08-25] MEDS: BUDESONIDE-FORMOTEROL 160/4.5 MCG INHALER INH SCH ×2 (09:00→20:36)
[2016-08-25] MEDS: SODIUM CHLORIDE 0.9% FLUSH 5 ML FLUSH FLUSH SCH ×2 (09:36→20:34)
[2016-08-25] MEDS: RIVAROXABAN 15 MG TAB PO SCH ×2 (09:37→20:33)
[2016-08-25] MEDS: FUROSEMIDE 40 MG TAB PO SCH (09:37)
[2016-08-25] MEDS: BENZONATATE 100 MG CAP PO PRN ×2 (09:37→17:27)
[2016-08-25] MEDS: METOPROLOL TARTRATE 50 MG TAB PO SCH (09:37)
[2016-08-25] MEDS: BENZOCAINE 6 MG/MENTHOL 10 MG LOZENGE BUCCAL PRN ×3 (09:38→18:19)
[2016-08-25] MEDS: guaiFENesin E.R. 600 MG TAB PO SCH ×2 (09:38→20:32)
--- NOTE | 2016-08-25 10:19 | HHI.PR ---
Subjective Remarks in no acute distress. afebrile. cough is better. on oxygen via N/C. Objective Vitals Vital Signs Date Time Temp Pulse Resp B/P Pulse Ox O2 Delivery O2 Flow Rate FiO2 08/25/16 08:00 97.4 99 15 116/58 93 08/25/16 04:00 97.8 97 19 132/60 94 08/25/16 00:00 98.9 100 18 117/56 94 08/24/16 21:00 96 Nasal Cannula 3.00 08/24/16 20:17 91 08/24/16 20:00 98.9 92 18 118/60 97 08/24/16 16:00 97.3 86 17 120/58 95 08/24/16 12:00 98.5 89 17 117/56 97 08/24/16 10:47 93 Nasal Cannula 3.00 I/O 08/24/16 08/24/16 08/24/16 08/25/16 08/25/16 08/25/16 07:00 15:00 23:00 07:00 15:00 23:00 Intake Total 380 ml 120 ml 240 ml 240 ml Output Total 600 ml 950 ml 800 ml 750 ml Balance -220 ml -830 ml -560 ml -510 ml Intake Oral 380 ml 120 ml 240 ml 240 ml Output Urine Total 600 ml 950 ml 800 ml 750 ml # Bowel Movements 1 4 2 Result Diagram: 08/22/16 0429 08/21/16 0450 Imaging Last Impressions Chest X-Ray 08/25/16 0600 Signed Impressions: Service Date/Time: Thursday, August 25, 2016 06:12 - CONCLUSION: Resolved right lower lobe infiltrate with residual left lower lobe infiltrate. Gunner Chamberlain Jr., MD Objective Remarks GENERAL: This is a well-nourished, well-developed patient, in no apparent distress. CARDIOVASCULAR: Regular rate and regular rhythm without murmurs, gallops, or rubs. RESPIRATORY: diminished air entry in bases with rhonchi bilaterally GASTROINTESTINAL: Abdomen soft, non-tender, nondistended. Normal, active bowel sounds MUSCULOSKELETAL: Extremities without clubbing, cyanosis, or edema. NEURO: Alert & Oriented x4 to person, place, time, situation. Moves all ext x4 Procedures none Medications and IVs Current Medications Piperacillin Sod/ Tazobactam Sod 100 ml @ 200 mls/hr ONCE ONCE IV Last administered on 08/17/16 23:09; Start 08/17/16 at 22:00; Stop 08/17/16 at 22:29 ; Status DC Vancomycin HCl 1000 mg/Sodium Chloride 250 ml @ 250 mls/hr ONCE ONCE IV Last administered on 08/18/16 00:12; Start 08/17/16 at 22:00; Stop 08/17/16 at 22:59 ; Status DC Pharmacy Profile Note 0 ml @ 0 mls/hr UNSCH OTHER ; Start 08/17/16 at 23:15; Stop 08/21/16 at 13:43; Status DC Piperacillin Sod/ Tazobactam Sod (Zosyn 2.25 Gm Premix) 50 ml @ 100 mls/hr Q8H IV Last administered on 08/25/16 05:38; Start 08/18/16 at 06:00 Albuterol/ Ipratropium (Duoneb Neb) 1 ampule Q4HR NEB PRN NEB SOB/WHEEZING Last administered on 08/22/16 11:49; Start 08/17/16 at 23:15; Stop 08/23/16 at 14:24; Status DC Budesonide/ Formoterol Fumarate (Symbicort 160-4.5 Inh) 2 puff Q12HR INH Last administered on 08/25/16 09:00; Start 08/18/16 at 09:00 Guaifenesin 600 mg 600 mg BID PO Last administered on 08/25/16 09:38; Start at 09:00 Sodium Chloride (NS 1000 ml Inj) 1,000 ml @ 70 mls/hr [id number] IV Last administered on 08/20/16 08:07; Start 08/17/16 at 23:01; Stop 08/20/16 at 09:33 ; Status DC IV Flush (NS Flush) 2 ml UNSCH PRN FLUSH FLUSH AFTER USING IV ACCESS Last administered on 08/22/16 05:28; Start 08/17/16 at 23:15 IV Flush (NS Flush) 2 ml BID FLUSH Last administered on 08/25/16 09:36; Start 08/18/16 at 09:00 Ondansetron HCl (Zofran Inj) 4 mg Q6H PRN IVP NAUSEA OR VOMITING; Start at 23:15 Bisacodyl (Dulcolax Supp) 10 mg DAILY PRN IN CONSTIPATION; Start 08/17/16 at 23 :15 Acetaminophen (Tylenol) 650 mg Q6H PRN PO FEVER/PAIN SCALE 1 TO 2; Start at 23:15 Tramadol HCl (Ultram) 50 mg Q4H PRN PO PAIN SCALE 3 TO 5 Last administered on 17:38; Start 08/17/16 at 23:15 Tramadol HCl (Ultram) 100 mg Q4H PRN PO PAIN SCALE 6 TO 10; Start 08/17/16 at 23:15 Docusate Sodium (Colace) 100 mg BID PO Last administered on 08/21/16 19:46; Start 08/18/16 at 09:00 Furosemide (Lasix) 40 mg DAILY PO Last administered on 08/25/16 09:37; Start 08/18/16 at 09:00 Metoprolol Tartrate (Lopressor) 50 mg DAILY PO Last administered on 08/25/16 09:37; Start 08/18/16 at 09:00 Pregabalin (Lyrica) 50 mg Q6HR PO Last administered on 08/25/16 05:45; Start 08/18/16 at 00:00 Rivaroxaban (Xarelto) 15 mg Q12HR PO Last administered on 08/25/16 09:37; Start 08/18/16 at 09:00 Temazepam (Restoril) 15 mg HS PRN PO INSOMNIA Last administered on 08/24/16 23 :41; Start 08/17/16 at 23:15 Diphenhydramine HCl (Benadryl Inj) 25 mg Q6H PRN IV ITCHING Last administered on 08/18/16 22:47; Start 08/18/16 at 02:30; Stop 08/19/16 at 09:54; Status DC Potassium Chloride (KCl) 40 meq ONCE ONCE PO Last administered on 08/18/16 09 :50; Start 08/18/16 at 09:45; Stop 08/18/16 at 09:46; Status DC Benzocaine/Menthol (Chloraseptic Yasmany) 1 lozenge UNSCH PRN BUCCAL sore throat Last administered on 08/25/16 09:38; Start 08/18/16 at 11:00 Acetylcysteine 2 ml 2 ml Q4HR NEB NEB Last administered on 08/22/16 11:48; Start 08/18/16 at 12:00; Stop 08/22/16 at 12:00; Status DC Vancomycin HCl/ Sodium Chloride (Vancomycin Inj/ NS 500 ml Inj) 520 ml @ 250 mls/hr Q24H IV Last administered on 08/19/16 13:46; Start 08/19/16 at 13:00; Stop 08/21/16 at 09:48; Status DC Miscellaneous Information SPECIFIC LAB TO BE DRAWN:VANCOMYCIN TROUGH DATE TO... ONCE ONCE XX ; Start 08/21/16 at 12:45; Stop 08/21/16 at 12:46; Status Cancel Guaifenesin/ Dextromethorphan (Robitussin Dm 200-20 Mg/10 ml Liq) 5 ml Q4H PRN PO COUGH Last administered on 08/25/16 09:37; Start 08/20/16 at 15:30 Diphenhydramine HCl 25 mg 25 mg ONCE ONCE PO Last administered on 08/21/16 00 :55; Start 08/20/16 at 23:15; Stop 08/20/16 at 23:16; Status DC Vancomycin HCl/ Sodium Chloride (Vancomycin Inj/ NS 500 ml Inj) 520 ml @ 250 mls/hr Q48H IV ; Start 08/21/16 at 14:00; Stop 08/21/16 at 14:00; Status DC Miscellaneous Information SPECIFIC LAB TO BE DRAWN:VANCOMYCIN TROUGH DATE TO... ONCE ONCE XX ; Start 08/23/16 at 13:45; Stop 08/23/16 at 13:46; Status Cancel Diphenhydramine HCl (Benadryl) 25 mg UNSCH X1 PRN PO ITCHING Last administered on 08/23/16 20:56; Start 08/22/16 at 21:45; Stop 08/23/16 at 23:59; Status DC Benzonatate (Tessalon) 100 mg TID PRN PO COUGH; Start 08/23/16 at 14:30; Stop 08/23/16 at 14:30; Status DC Benzonatate (Tessalon) 200 mg TID PRN PO COUGH Last administered on 08/25/16 09:37; Start 08/23/16 at 14:30 Albuterol/ Ipratropium (Duoneb Neb) 1 ampule Q6HR NEB NEB Last administered on 08/24/16 21:02; Start 08/23/16 at 16:00 Albuterol/ Ipratropium (Duoneb Neb) 1 ampule Q2HR NEB PRN NEB WHEEZING/SOB Last administered on 08/24/16 11:41; Start 08/23/16 at 14:30; Stop 08/28/16 at 14:29 Acetylcysteine (Mucomyst 10% Neb) 2 ml Q6HR NEB PRN NEB COUGH Last administered on 08/24/16 21:03; Start 08/24/16 at 14:15 Date of Insertion: Aug 19, 2016 A/P Assessment and Plan A/P Sepsis: Source-PNA on admission Blood Cultures no growth so far. Continue Zosyn for HCAP ID and Pulmo ff PNA: COPD with exacerbation Continue w/ IV Abx as above. Dr Galan ID ff sputum culture with normal respiratory huy. CXR on 08/25 with resolved RLL infiltrate and residual LLL infiltrate will taper off the oxygen to keep O2 sat > 90%. Diastolic CHF with preserved EF: Echo 06/20/16 w/ EF 55-60%, Grade I Diastolic Dysfunction, resumed home Lasix-caution w/ diuresis and renal insufficiency/ sepsis. Renal Insufficiency: Chronic- PE: PE on recent admit, continue Xarelto Generalized deconditioning- PT gently as tolerates DVT Prophylaxis: On Xarelto as above. PT consulted. Discharge Planning possible dc to SNF in am if stable. Chinmay Singh MD Aug 25, 2016 10:19
[2016-08-25 14:00] LABS: BICARBONATE 37.2 MEQ/L (21.0-32.0); POTASSIUM 3.6 MEQ/L (3.5-5.1)
[2016-08-25] MEDS: TEMAZEPAM 15 MG CAP PO PRN (20:33)
[2016-08-26] VITALS: BP 120/56; PULSE 98; RESP 19; TEMP 97.9; O2SAT 92
[2016-08-26 04:00] VITALS: BP 120/60; PULSE 89; RESP 18; TEMP 97.4; O2SAT 93
[2016-08-26] MEDS: RESP: ALBUTEROL 2.5 MG/IPRATROPIUM 0.5 MG NEB (SCH) NEB ×3 (04:26→10:00)
[2016-08-26] MEDS: PIPERACIL-TAZO 2.25 GM PREMIX 50 ML IV SCH (05:23)
[2016-08-26] MEDS: PREGABALIN 25 MG CAP PO SCH ×2 (05:24→12:31)
[2016-08-26 08:00] VITALS: BP 119/55; PULSE 94; RESP 17; TEMP 98.1; O2SAT 92
[2016-08-26] MEDS: FUROSEMIDE 40 MG TAB PO SCH (08:48)
[2016-08-26] MEDS: DOCUSATE SODIUM 100 MG CAP PO SCH (08:48)
[2016-08-26] MEDS: guaiFENesin E.R. 600 MG TAB PO SCH (08:48)
[2016-08-26] MEDS: METOPROLOL TARTRATE 50 MG TAB PO SCH (08:48)
[2016-08-26] MEDS: RIVAROXABAN 15 MG TAB PO SCH (08:48)
[2016-08-26] MEDS: BUDESONIDE-FORMOTEROL 160/4.5 MCG INHALER INH SCH (08:49)
[2016-08-26] MEDS: SODIUM CHLORIDE 0.9% FLUSH 5 ML FLUSH FLUSH SCH (08:49)
[2016-08-26 09:26] VITALS: O2SAT 94
--- NOTE | 2016-08-26 10:47 | HHI.PR ---
Subjective Remarks resting comfortably with no distress. sob and cough has improved. no fever. no new complaints. Objective Vitals Vital Signs Date Time Temp Pulse Resp B/P Pulse Ox O2 Delivery O2 Flow Rate FiO2 08/26/16 09:26 94 Nasal Cannula 2.00 08/26/16 08:00 98.1 94 17 119/55 92 08/26/16 04:00 97.4 89 18 120/60 93 08/26/16 00:00 97.9 98 19 120/56 92 08/25/16 20:00 93 08/25/16 20:00 98.4 100 17 123/60 96 08/25/16 16:21 94 Nasal Cannula 2.00 08/25/16 16:00 98.7 93 16 129/60 92 08/25/16 12:11 93 Nasal Cannula 2.00 08/25/16 12:00 97.6 75 16 130/58 92 I/O 08/25/16 08/25/16 08/25/16 08/26/16 08/26/16 08/26/16 07:00 15:00 23:00 07:00 15:00 23:00 Intake Total 240 ml 360 ml 480 ml 240 ml Output Total 750 ml 1250 ml 650 ml 450 ml Balance -510 ml -890 ml -170 ml -210 ml Intake Oral 240 ml 360 ml 480 ml 240 ml Output Urine Total 750 ml 1250 ml 650 ml 450 ml Result Diagram: 08/22/16 0429 08/25/16 1326 Imaging Last Impressions Chest X-Ray 08/25/16 0600 Signed Impressions: Service Date/Time: Thursday, August 25, 2016 06:12 - CONCLUSION: Resolved right lower lobe infiltrate with residual left lower lobe infiltrate. Gunner Chamberlain Jr., MD Objective Remarks GENERAL: This is a well-nourished, well-developed patient, in no apparent distress. CARDIOVASCULAR: Regular rate and regular rhythm without murmurs, gallops, or rubs. RESPIRATORY: diminished air entry in bases with rhonchi bilaterally GASTROINTESTINAL: Abdomen soft, non-tender, nondistended. Normal, active bowel sounds MUSCULOSKELETAL: Extremities without clubbing, cyanosis, or edema. NEURO: Alert & Oriented x4 to person, place, time, situation. Moves all ext x4 Procedures none Medications and IVs Current Medications Piperacillin Sod/ Tazobactam Sod 100 ml @ 200 mls/hr ONCE ONCE IV Last administered on 08/17/16 23:09; Start 08/17/16 at 22:00; Stop 08/17/16 at 22:29 ; Status DC Vancomycin HCl 1000 mg/Sodium Chloride 250 ml @ 250 mls/hr ONCE ONCE IV Last administered on 08/18/16 00:12; Start 08/17/16 at 22:00; Stop 08/17/16 at 22:59 ; Status DC Pharmacy Profile Note 0 ml @ 0 mls/hr UNSCH OTHER ; Start 08/17/16 at 23:15; Stop 08/21/16 at 13:43; Status DC Piperacillin Sod/ Tazobactam Sod (Zosyn 2.25 Gm Premix) 50 ml @ 100 mls/hr Q8H IV Last administered on 08/26/16 05:23; Start 08/18/16 at 06:00 Albuterol/ Ipratropium (Duoneb Neb) 1 ampule Q4HR NEB PRN NEB SOB/WHEEZING Last administered on 08/22/16 11:49; Start 08/17/16 at 23:15; Stop 08/23/16 at 14:24; Status DC Budesonide/ Formoterol Fumarate (Symbicort 160-4.5 Inh) 2 puff Q12HR INH Last administered on 08/26/16 08:49; Start 08/18/16 at 09:00 Guaifenesin 600 mg 600 mg BID PO Last administered on 08/26/16 08:48; Start at 09:00 Sodium Chloride (NS 1000 ml Inj) 1,000 ml @ 70 mls/hr [id number] IV Last administered on 08/20/16 08:07; Start 08/17/16 at 23:01; Stop 08/20/16 at 09:33 ; Status DC IV Flush (NS Flush) 2 ml UNSCH PRN FLUSH FLUSH AFTER USING IV ACCESS Last administered on 08/22/16 05:28; Start 08/17/16 at 23:15 IV Flush (NS Flush) 2 ml BID FLUSH Last administered on 08/26/16 08:49; Start 08/18/16 at 09:00 Ondansetron HCl (Zofran Inj) 4 mg Q6H PRN IVP NAUSEA OR VOMITING; Start at 23:15 Bisacodyl (Dulcolax Supp) 10 mg DAILY PRN PA CONSTIPATION; Start 08/17/16 at 23 :15 Acetaminophen (Tylenol) 650 mg Q6H PRN PO FEVER/PAIN SCALE 1 TO 2; Start at 23:15 Tramadol HCl (Ultram) 50 mg Q4H PRN PO PAIN SCALE 3 TO 5 Last administered on 17:38; Start 08/17/16 at 23:15 Tramadol HCl (Ultram) 100 mg Q4H PRN PO PAIN SCALE 6 TO 10; Start 08/17/16 at 23:15 Docusate Sodium (Colace) 100 mg BID PO Last administered on 08/26/16 08:48; Start 08/18/16 at 09:00 Furosemide (Lasix) 40 mg DAILY PO Last administered on 08/26/16 08:48; Start 08/18/16 at 09:00 Metoprolol Tartrate (Lopressor) 50 mg DAILY PO Last administered on 08/26/16 08:48; Start 08/18/16 at 09:00 Pregabalin (Lyrica) 50 mg Q6HR PO Last administered on 08/26/16 05:24; Start 08/18/16 at 00:00 Rivaroxaban (Xarelto) 15 mg Q12HR PO Last administered on 08/26/16 08:48; Start 08/18/16 at 09:00 Temazepam (Restoril) 15 mg HS PRN PO INSOMNIA Last administered on 08/25/16 20 :33; Start 08/17/16 at 23:15 Diphenhydramine HCl (Benadryl Inj) 25 mg Q6H PRN IV ITCHING Last administered on 08/18/16 22:47; Start 08/18/16 at 02:30; Stop 08/19/16 at 09:54; Status DC Potassium Chloride (KCl) 40 meq ONCE ONCE PO Last administered on 08/18/16 09 :50; Start 08/18/16 at 09:45; Stop 08/18/16 at 09:46; Status DC Benzocaine/Menthol (Chloraseptic Yasmany) 1 lozenge UNSCH PRN BUCCAL sore throat Last administered on 08/25/16 18:19; Start 08/18/16 at 11:00 Acetylcysteine 2 ml 2 ml Q4HR NEB NEB Last administered on 08/22/16 11:48; Start 08/18/16 at 12:00; Stop 08/22/16 at 12:00; Status DC Vancomycin HCl/ Sodium Chloride (Vancomycin Inj/ NS 500 ml Inj) 520 ml @ 250 mls/hr Q24H IV Last administered on 08/19/16 13:46; Start 08/19/16 at 13:00; Stop 08/21/16 at 09:48; Status DC Miscellaneous Information SPECIFIC LAB TO BE DRAWN:VANCOMYCIN TROUGH DATE TO... ONCE ONCE XX ; Start 08/21/16 at 12:45; Stop 08/21/16 at 12:46; Status Cancel Guaifenesin/ Dextromethorphan (Robitussin Dm 200-20 Mg/10 ml Liq) 5 ml Q4H PRN PO COUGH Last administered on 08/25/16 20:31; Start 08/20/16 at 15:30 Diphenhydramine HCl 25 mg 25 mg ONCE ONCE PO Last administered on 08/21/16 00 :55; Start 08/20/16 at 23:15; Stop 08/20/16 at 23:16; Status DC Vancomycin HCl/ Sodium Chloride (Vancomycin Inj/ NS 500 ml Inj) 520 ml @ 250 mls/hr Q48H IV ; Start 08/21/16 at 14:00; Stop 08/21/16 at 14:00; Status DC Miscellaneous Information SPECIFIC LAB TO BE DRAWN:VANCOMYCIN TROUGH DATE TO... ONCE ONCE XX ; Start 08/23/16 at 13:45; Stop 08/23/16 at 13:46; Status Cancel Diphenhydramine HCl (Benadryl) 25 mg UNSCH X1 PRN PO ITCHING Last administered on 08/23/16 20:56; Start 08/22/16 at 21:45; Stop 08/23/16 at 23:59; Status DC Benzonatate (Tessalon) 100 mg TID PRN PO COUGH; Start 08/23/16 at 14:30; Stop 08/23/16 at 14:30; Status DC Benzonatate (Tessalon) 200 mg TID PRN PO COUGH Last administered on 08/25/16 17:27; Start 08/23/16 at 14:30 Albuterol/ Ipratropium (Duoneb Neb) 1 ampule Q6HR NEB NEB Last administered on 08/26/16 10:00; Start 08/23/16 at 16:00 Albuterol/ Ipratropium (Duoneb Neb) 1 ampule Q2HR NEB PRN NEB WHEEZING/SOB Last administered on 08/24/16 11:41; Start 08/23/16 at 14:30; Stop 08/28/16 at 14:29 Acetylcysteine (Mucomyst 10% Neb) 2 ml Q6HR NEB PRN NEB COUGH Last administered on 08/24/16 21:03; Start 08/24/16 at 14:15 Date of Insertion: Aug 19, 2016 A/P Assessment and Plan A/P Sepsis: Source-PNA on admission Blood Cultures no growth so far. treated with Zosyn. evaluated by ID and pulmonary. PNA: COPD with exacerbation Abx as noted above. Dr Galan ID ff sputum culture with normal respiratory huy. CXR on 08/25 with resolved RLL infiltrate and residual LLL infiltrate Diastolic CHF with preserved EF: Echo 06/20/16 w/ EF 55-60%, Grade I Diastolic Dysfunction, resumed home Lasix-caution w/ diuresis and renal insufficiency/ sepsis. Renal Insufficiency: Chronic- PE: PE on recent admit, continue Xarelto Generalized deconditioning- PT gently as tolerates DVT Prophylaxis: On Xarelto as above. PT consulted. Discharge Planning dc to SNF today. see med list. f/u; pcp. d/w the patient. time spent 32 min. Chinmay Singh MD Aug 26, 2016 10:47
[2016-08-26] MEDS ORDERED: TRAM50TA PO (10:51)
[2016-08-26] MEDS ORDERED: BENZ100 PO (10:51)
[2016-08-26] MEDS ORDERED: XARE15TA PO (10:51)
[2016-08-26] MEDS ORDERED: XARE20TA PO (10:51)
[2016-08-26] MEDS ORDERED: SYMB160A INH (10:51)
--- NOTE | 2016-08-26 10:52 | HHI.DS ---
Discharge Summary Admission Date Aug 17, 2016 at 22:48 Discharge Date: Aug 26, 2016 Admitting Diagnosis hospital-acquired pneumonia, respiratory distress (1) Sepsis ICD Code: A41.9 Diagnosis: Principal (2) PNA (pneumonia) ICD Code: J18.9 Diagnosis: Principal (3) CHF (congestive heart failure) ICD Code: I50.9 Diagnosis: Secondary (4) PE (pulmonary thromboembolism) ICD Code: I26.99 Diagnosis: Secondary (5) Renal insufficiency ICD Code: N28.9 Diagnosis: Secondary Procedures none Brief History - From Admission This is a 80-year-old DNR female with a PMH of HTN, COPD, CHF (Echo 06/20/16 w/ EF 55-60%, Grade I Diastolic Dysfxn), PE, Chronic Pain and Sciatica who was sent to the ER from SNF secondary to SOB. Recent admit 08/12-08/16/16 for Respiratory Distress, Hypoxia, Sepsis w/ Bacteremia and PE on Xarelto. D/c'd to SNF, however shortly afterwards developed worsening SOB. On arrival, BP 108/ 54, HR 92, O2 sat 95% on 4L NC, Temp 100.1. WBC 13.5. Creatinine 1.25, previously 1.0 on 08/15/16. Lactic Acid 1.1. INR 1.0. CXR with interval increase in hazy opacity at left lung base concerning for pneumonia, additional opacity right lung base. S/p Blood Cultures, Vanc/Zosyn in ER. CBC/BMP: 08/22/16 0429 08/25/16 1326 Significant Findings Laboratory Tests Test 08/25/16 13:26 Carbon Dioxide Level 37.2 MEQ/L (21.0-32.0) Blood Urea Nitrogen 24 MG/DL (7-18) Creatinine 1.11 MG/DL (0.50-1.00) Estimat Glomerular Filtration 48 ML/MIN (>89) Rate Random Glucose 155 MG/DL (74-106) Imaging Last Impressions Chest X-Ray 08/25/16 0600 Signed Impressions: Service Date/Time: Thursday, August 25, 2016 06:12 - CONCLUSION: Resolved right lower lobe infiltrate with residual left lower lobe infiltrate. Gunner Chamberlain Jr., MD PE at Discharge GENERAL: This is a well-nourished, well-developed patient, in no apparent distress. CARDIOVASCULAR: Regular rate and regular rhythm without murmurs, gallops, or rubs. RESPIRATORY: diminished air entry in bases with rhonchi bilaterally GASTROINTESTINAL: Abdomen soft, non-tender, nondistended. Normal, active bowel sounds MUSCULOSKELETAL: Extremities without clubbing, cyanosis, or edema. NEURO: Alert & Oriented x4 to person, place, time, situation. Moves all ext x4 Hospital Course Sepsis: Source-PNA on admission Blood Cultures no growth so far. treated with Zosyn. evaluated by ID and pulmonary. PNA: COPD with exacerbation Abx as noted above. Dr Galan ID ff sputum culture with normal respiratory huy. CXR on 08/25 with resolved RLL infiltrate and residual LLL infiltrate Diastolic CHF with preserved EF: Echo 06/20/16 w/ EF 55-60%, Grade I Diastolic Dysfunction, resumed home Lasix-caution w/ diuresis and renal insufficiency/ sepsis. Renal Insufficiency: Chronic- PE: PE on recent admit, continue Xarelto Generalized deconditioning- PT gently as tolerates DVT Prophylaxis: On Xarelto as above. PT consulted. Pt Condition on Discharge: Fair Discharge Disposition: Discharge to SNF Discharge Time: > 30 minutes Discharge Instructions DIET: Follow Instructions for: Heart Healthy Diet Activities you can perform: Regular-No Restrictions Follow up Referrals: PCP Follow-up New Medications: Benzonatate (Tessalon Perles) 100 Mg Cap 200 MG PO TID PRN COUGH #10 Ref 0 CAP Budesonide-Formoterol Inh (Symbicort Inh) 160-4.5 Mcg/Act Aero 2 PUFF INH Q12HR copd #1 Ref 0 INHALER Changed Medications: Rivaroxaban (Xarelto) 20 Mg Tab 20 MG PO DAILY start on 09/06/16. Blood Clot Prevention #30 Ref 0 TAB ( Medication details modified) Continued Medications: Bisacodyl Supp (Dulcolax Supp) 10 Mg Supp 10 MG RECTAL DAILY PRN CONSTIPATION #12 Ref 0 SUPP Docusate Sodium (Colace) 100 Mg Cap 100 MG PO BID Constipation #60 Ref 0 CAP Furosemide (Furosemide) 40 Mg Tab 40 MG PO DAILY #30 Ref 0 TAB Ipratropium-Albuterol Neb (Duoneb) 0.5-2.5 Mg/3 Ml Neb 1 NEBULE INH Q6HR NEB Breathing Treatment #120 Ref 0 NEBULE Magnesium Hydroxide Liq (Milk of Magnesia Liq) 400 Mg/5 Ml Susp 5 ML PO Q3D Melatonin (Melatonin) 3 Mg Cap 6 MG PO HS #30 Metoprolol Tartrate (Metoprolol Tartrate) 50 Mg Tab 50 MG PO DAILY #30 Ref 0 TAB Polyethylene Glycol 3350 Powder (Miralax Powder) 17 Gm Powd 17 GM PO DAILY Mix and dissolve one measuring cap-ful (17 grams) in water or juice. Constipation #1 Ref 0 BOTTLE Pregabalin (Lyrica) 50 Mg Cap 50 MG PO Q6HR #60 Ref 0 CAP Rivaroxaban (Xarelto) 15 Mg Tab 15 MG PO Q12HR take with food, continue treatment with 20 mg po daily thereafter Blood Clot Prevention Days 10 Ref 0 TAB (This prescription has been renewed) Sodium Phosphates Rectal (Fleet Enema Rectal) 7-19 Gm/118 Ml Enem 118 ML RECTAL DAILY PRN CONSTIPATION Ref 0 BOTTLE Tramadol (Tramadol) 50 Mg Tab 50 MG PO Q8H PRN PAIN #15 Ref 0 TAB (This prescription has been renewed) Discontinued Medications: Guaifenesin Liq (Robitussin Mucus+Chest Congestion Liq) 100 Mg/5 Ml Liq 100 MG PO Q4H PRN CHEST CONGESTION #1 Ref 0 BOTTLE Guaifenesin-Codeine Liq (Guaifenesin-Codeine Liq) 100-10 Mg/5 Ml Soln 10 ML PO Q6H PRN COUGH Days 5 ML Levofloxacin (Levaquin) 750 Mg Tab 750 MG PO DAILY Infection #5 Ref 0 TAB Temazepam (Temazepam) 15 Mg Cap 15 MG PO HS PRN INSOMNIA #30 Ref 0 CAP Chinmay Singh MD Aug 26, 2016 10:52
--- NOTE | 2016-08-26 10:52 | HHI.DCPOC ---
Discharge Care Plan Diagnosis: (1) Respiratory distress (2) Pneumonia Your Health Problems Are: Cough Shortness of Breath Goals to Promote Your Health * To prevent worsening of your condition and complications * To maintain your health at the optimal level Directions to Meet Your Goals Take your medications as prescribed Follow your dietary instruction Follow activity as directed Keep your appointments as scheduled Take your immunizations and boosters as scheduled If your symptoms worsen call your PCP, if no PCP go to Urgent Care Center or Emergency Room Smoking is Dangerous to Your Health. Avoid second hand smoke Call the 24-hour hour crisis hotline for domestic abuse at Chinmay Singh MD Aug 26, 2016 10:52
[2016-08-26] MEDS ORDERED: MELA3CAP PO (10:57)
[2016-08-26 12:00] VITALS: BP 127/59; PULSE 81; RESP 17; TEMP 97.9; O2SAT 91
== END 2016-08-26 14:37 | DRG 871 ==
LOC: NEPC 21:06 → NEDA 22:48 → N07B 08-18 02:19
PROVIDERS: ADMIT Internal Medicine; ATTEND Internal Medicine
DX: A41.9 Sepsis, unspecified organism (principal); J18.9 Pneumonia, unspecified organism; J96.90 Respiratory failure, unspecified, unspecified whether with hypoxia or hypercapnia; I13.0 Hypertensive heart and chronic kidney disease with heart failure and stage 1 through stage 4 chronic kidney disease, or unspecified chronic kidney disease; J44.0 Chronic obstructive pulmonary disease with (acute) lower respiratory infection; J44.9 Chronic obstructive pulmonary disease, unspecified; I50.32 Chronic diastolic (congestive) heart failure; E87.6 Hypokalemia; Z68.42 Body mass index [BMI] 45.0-49.9, adult; J44.1 Chronic obstructive pulmonary disease with (acute) exacerbation; E66.01 Morbid (severe) obesity due to excess calories; G89.29 Other chronic pain; M54.30 Sciatica, unspecified side; Z66 Do not resuscitate; N18.9 Chronic kidney disease, unspecified; Z87.891 Personal history of nicotine dependence; Z86.711 Personal history of pulmonary embolism; Z79.01 Long term (current) use of anticoagulants
CPT/HCPCS: 36600; 71010; 80048; 80053; 80202; 81001; 82565; 82805; 83605; 83735; 83880; 85025; 87040; 87070; 87081; 87086; 87205; 87880; 94640; 94664; 94667; 94668; J1200; J2543; J3370; J7030; J7040; J7050; J7608

== ENCOUNTER 2017-08-06 19:24 | Inpatient (IN) | payer MEDICARE, MEDICAID ==
[~2017-08-06] VITALS: Ht 160 cm; Wt 123.0 kg
[~2017-08-06 19:24] MED LIST changes: +BENZ100 PO; -COLA100C3 PO; +COLA100C5 PO; +GABA600T PO; -GUAI100L5 PO; -GUAI100S5 PO; -LEVA750T PO; -MELA3CAP PO; +MELA5 PO; +MIRA3350 PO; -MIRA33504 PO; +MULTTAB67 PO; +POTA10CA PO; +SPIR25 PO; +SYMB160A INH; -TEMA15CA PO; +VITA250C3 CHEW; -XARE15TA PO; -XARE20TA PO
[2017-08-06 19:38] VITALS: BP 129/54; PULSE 101; PULSE 127; RESP 16; TEMP 98.4; O2SAT 98
--- NOTE | 2017-08-06 19:58 | PD ---
HPI Chief Complaint: Edema Time Seen by Provider: 19:44 Travel History International Travel<30 days: No Contact w/Intl Traveler<30days: No Traveled to known affect area: No History of Present Illness HPI 81-year-old female presents to the emergency department from [facility] via EMS transport for evaluation of reported lower abdominal pain malodorous vaginal discharge and worsening peripheral edema/anasarca. 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 According to import customs clearing agent report from nursing facility patient was recently diagnosed with an urinary tract infection 07/31/17 treated for 4 days with oral antibiotic which was discontinued and at the same time administration of previously prescribed Lasix and antihypertensive medications discontinued. According to paperwork that presents with the patient she is under the care of Dr. Victoria. According to import customs clearing agent report upon their initial evaluation patient was hypotensive with a systolic blood pressure of 88 mmHg although due to marked swelling of patient's arm and reported intolerance of having blood pressure checked they were not sure of the accuracy of this blood pressure. Patient presents without IV access due to marked peripheral edema. According to import customs clearing agent report nursing facility also identifies that her peripheral edema has worsened over the past 2 weeks. Patient here denies any pain except for arm pain where she is having her blood pressure evaluated. Patient denies head pain chest pain shortness of breath abdominal pain back pain or other extremity pain. Patient also denies any shortness of breath or nausea. Patient does not know her medications or medical history. PFSH Past Medical History Narrative Medical COPD, CHF, PE, DVT, renal insufficiency, possible central cord syndrome w/ chronic BUE weakness, chronic pain syndrome, and chronic bedrest/non-ambulatory ; C-sxn, tonsillectomy; nursing notes reviewed Arthritis: Yes Asthma: No Autoimmune Disease: No Blood Disorders: No Anxiety: No Depression: No Heart Rhythm Problems: No Cancer: No Cardiovascular Problems: No High Cholesterol: No Chemotherapy: No Congestive Heart Failure: Yes COPD: Yes Cerebrovascular Accident: No Diabetes: No Diminished Hearing: No Deep Vein Thrombosis: Yes (left leg ) Endocrine: No Gastrointestinal Disorders: No GERD: No Glaucoma: No Genitourinary: No Headaches: Yes Hepatitis: No Hiatal Hernia: No Hypertension: No Immune Disorder: No Implanted Vascular Access Dvce: Yes Kidney Stones: No Musculoskeletal: Yes (BACK PAIN) Neurologic: Yes (being treated for a pinch nerve since 2003) Psychiatric: No Reproductive: No Respiratory: Yes Immunizations Current: Yes Migraines: No Myocardial Infarction: No Radiation Therapy: No Renal Failure: No Seizures: No Sickle Cell Disease: No Sleep Apnea: No Thyroid Disease: No Ulcer: No Menopausal: Yes Past Surgical History AICD: No Body Medical Devices: STIMULATOR L BACK Section: Yes (x1) Genitourinary Surgery: No Gynecologic Surgery: Yes (C SECTION) Neurologic Surgery: No Pacemaker: No Tonsillectomy: Yes Other Surgery: Yes Social History Alcohol Use: No Tobacco Use: No (quit 25-30 yrs ago) Substance Use: No Allergies-Medications (Allergen,Severity, Reaction): Coded Allergies: acetaminophen (Unverified Adverse Reaction, Severe, GI UPSET, 08/06/17) codeine (Unverified Adverse Reaction, Severe, GI UPSET, ITCHING, 08/06/17) cortisone (Unverified Adverse Reaction, Severe, GI UPSET, 08/06/17) ibuprofen (Unverified Adverse Reaction, Severe, DIZZY, 08/06/17) morphine (Unverified Adverse Reaction, Intermediate, GI UPSET, 08/06/17) Reported Meds & Prescriptions Reported Meds & Active Scripts Active Lyrica (Pregabalin) 50 Mg Cap 100 Mg PO TID Vitamin C (Ascorbic Acid) 250 Mg Chew 500 Mg CHEW BID Symbicort Inh (Budesonide/Formoterol Fumarate) 160-4.5 Mcg/Act Aero 2 Puff INH Q12HR Tessalon Perles (Benzonatate) 100 Mg Cap 200 Mg PO TID PRN Metoprolol Tartrate 50 Mg Tab 50 Mg PO DAILY Furosemide 40 Mg Tab 40 Mg PO DAILY Reported Aldactone (Spironolactone) 25 Mg Tab 25 Mg PO DAILY Miralax Powder (Polyethylene Glycol 3350 Powder) 17 Gm Powd 17 Gm PO BID Mix and dissolve one measuring cap-ful (17 grams) in water or juice. Tramadol (Tramadol HCl) 50 Mg Tab 50 Mg PO Q8H Colace (Docusate Sodium) 100 Mg Capsule 1 Cap PO BID Melatonin 5 Mg Tab 6 Mg PO HS Gabapentin 600 Mg Tab 600 Mg PO TID Multiple Vitamin 1 Tab 1 Tab PO DAILY Potassium Chloride ER (Potassium Chloride) 10 Meq Cap 10 Meq PO BID Aldactone (Spironolactone) 25 Mg Tab 25 Mg PO DAILY Dulcolax Supp (Bisacodyl) 10 Mg Supp 10 Mg RECTAL DAILY PRN Milk of Magnesia Liq (Magnesium Hydroxide) 400 Mg/5 Ml Susp 5 Ml PO Q3D Fleet Enema Rectal (Sodium Phosphates Rectal) 7-19 Gm/118 Ml Enem 118 Ml RECTAL DAILY PRN Duoneb (Ipratropium-Albuterol Neb) 0.5-2.5 Mg/3 Ml Neb 1 Nebule INH Q6HR NEB Review of Systems ROS Limitations: Poor Historian, Other: ([facility] records) Except as stated in HPI: all other systems reviewed are Neg General / Constitutional: No: Fever HENT: No: Congestion Cardiovascular: No: Chest Pain or Discomfort Respiratory: No: Shortness of Breath Gastrointestinal: Positive: Abdominal Pain, No: Vomiting, Diarrhea Genitourinary: Positive: Discharge Musculoskeletal: Positive: Edema, No: Myalgias, Arthralgias Skin: Positive Other (ecchymoses) Neurologic: Positive: Weakness Psychiatric: No: Anxiety Hematologic/Lymphatic: Positive: Easy Bruising Physical Exam Narrative GENERAL: Morbidly obese female with anasarca resting supine with room air O2 saturation 99% in no respiratory distress SKIN: Warm and dry. Marked upper extremity and lower extremity edema with erythema and multiple various staged ecchymoses and weeping. HEAD: Normocephalic. EYES: No scleral icterus. No injection or drainage. NECK: Supple, trachea midline. No JVD or lymphadenopathy. CARDIOVASCULAR: Increased regular rate and rhythm without murmurs, gallops, or rubs. RESPIRATORY: Breath sounds equal bilaterally. No accessory muscle use. GASTROINTESTINAL: Abdomen soft, non-tender, nondistended. MUSCULOSKELETAL: No cyanosis, bilateral upper and lower extremity pitting edema. Data Data Last Documented VS Vital Signs Date Time Temp Pulse Resp B/P (MAP) Pulse Ox O2 Delivery O2 Flow Rate FiO2 08/06/17 19:38 98.4 127 16 129/54 (79) 98 Room Air Orders Orders Complete Blood Count With Diff (08/06/17 19:44) Comprehensive Metabolic Panel (08/06/17 19:44) Lipase (08/06/17 19:44) Lactic Acid (08/06/17 19:44) Prothrombin Time / Inr (Pt) (08/06/17 19:44) Act Partial Throm Time (Ptt) (08/06/17 19:44) Urinalysis - C+S If Indicated (08/06/17 19:44) Iv Access Insert/Monitor (08/06/17 19:44) Ecg Monitoring (08/06/17 19:44) Oximetry (08/06/17 19:44) Sodium Chloride 0.9% Flush (Ns Flush) (08/06/17 19:45) Electrocardiogram (08/06/17 19:44) Chest, Single Ap (08/06/17 19:44) Troponin I (08/06/17 19:44) Magnesium (Mg) (08/06/17 19:44) B-Type Natriuretic Peptide (08/06/17 19:44) Blood Culture (08/06/17 19:44) MDM Medical Decision Making Medical Screen Exam Complete: Yes Emergency Medical Condition: Yes Medical Record Reviewed: Yes Differential Diagnosis Anasarca, peripheral edema, CHF, hypoalbuminemia/hypoproteinemia, renal failure , electrolyte disturbance, arrhythmia, COPD, ACS, sepsis, UTI, pelvic infection , lymphedema Narrative Course Patient placed on hand embroiderer IV access obtained specimens collected and sent for resulting Lisbet Guerrero MD Aug 06, 2017 19:58
[2017-08-06 20:19] LABS: AUTOMATED NEUTROPHIL # 16.4 TH/MM3 (1.8-7.7); BASOPHIL # 0.1 TH/MM3 (0-0.2); BASOPHIL % 0.4 % (0.0-2.0); EOSINOPHIL # 0.1 TH/MM3 (0-0.4); EOSINOPHIL % 0.7 % (0.0-4.0); HEMATOCRIT 38.7 % (35.0-46.0); HEMOGLOBIN 12.7 GM/DL (11.6-15.3); LYMPH % 11.1 % (9.0-44.0); LYMPHOCYTE # 2.3 TH/MM3 (1.0-4.8); MEAN CELL VOLUME 86.8 FL (80.0-100.0); MEAN CORPUSCULAR HEMOGLOBIN 28.4 PG (27.0-34.0); MEAN CORPUSCULAR HGB CONC 32.7 % (32.0-36.0); MEAN PLATELET VOLUME 10.4 FL (7.0-11.0); MONO % 7.8 % (0.0-8.0); MONOCYTE # 1.6 TH/MM3 (0-0.9); PLATELET COUNT 213 TH/MM3 (150-450); RED BLOOD COUNT 4.46 MIL/MM3 (4.00-5.30); RED CELL DISTRIBUTION WIDTH 15.3 % (11.6-17.2); WHITE BLOOD COUNT 20.5 TH/MM3 (4.0-11.0)
[2017-08-06 20:31] LABS: INTERNATIONAL NORMALIZED RATIO 1.2 RATIO; PROTHROMBIN TIME - PATIENT 12.2 SEC (9.8-11.6)
--- NOTE | 2017-08-06 20:34 | RADRPT ---
EXAM DATE/TIME: 08/06/2017 20:12 [facility] COMPARISON: CHEST SINGLE AP, August 25, 2016, 6:12. INDICATIONS : Short of breath. MEDICAL HISTORY : None. SURGICAL HISTORY : None. ENCOUNTER: Initial ACUITY: 1 day PAIN SCORE: Non-responsive. LOCATION: Bilateral chest FINDINGS: There are hazy areas of airspace opacity in the right central lower lung and a smaller area medially in the left lower lung. Both hemidiaphragms are well delineated. The heart is stable in size when c ompared to 08/25/16. Stimulation electrodes project over the thoracic region. CONCLUSION: Interval development of patchy areas of infiltrate in the right mid and lower lung and in the medial left lower lung. Gunner Hobbs MD on August 06, 2017 at 20:31 Board Certified Radiologist. This report was verified electronically.
[2017-08-06] MEDS ORDERED: VANCOMYCIN INJ 1,000 MG in SODIUM CHLOR 0.9% 250 ML INJ 250 ML IV ONE (20:45)
[2017-08-06] MEDS ORDERED: CEFEPIME INJ 2,000 MG in SODIUM CHLORIDE 0.9% INJ 100 ML IV ONE (20:45)
[2017-08-06 20:48] LABS: ALBUMIN 1.9 GM/DL (3.4-5.0); ALT (GPT) 33 U/L (10-53); AST (GOT) 49 U/L (15-37); BICARBONATE 26.4 MEQ/L (21.0-32.0); BLOOD UREA NITROGEN 41 MG/DL (7-18); CALCIUM 8.8 MG/DL (8.5-10.1); CHLORIDE 99 MEQ/L (98-107); CREATININE 1.16 MG/DL (0.50-1.00); GLOMERULAR FILTRATION RATE 45 ML/MIN (>89); GLUCOSE,RANDOM 110 MG/DL (74-106); SODIUM (NA) 133 MEQ/L (136-145)
[2017-08-06 20:52] LABS: ALKALINE PHOSPHATASE 270 U/L (45-117); TOTAL BILIRUBIN ADULT 0.9 MG/DL (0.2-1.0); TOTAL PROTEIN 6.8 GM/DL (6.4-8.2); TROPONIN I 0.02 NG/ML (0.02-0.05)
[2017-08-06 21:06] LABS: AMORPHOUS SEDIMENT, URINE RARE; BACTERIA, URINE MANY /hpf; BILIRUBIN, URINE NEG (NEG); BLOOD, URINE NEG (NEG); GLUCOSE,URINE NEG (NEG); HYALINE CAST, URINE 4 /lpf (RARE); KETONE, URINE NEG (NEG); MUCUS URINE FEW /lpf (OCC); NITRITE,URINE NEG (NEG); PH, URINE 5.5 (5.0-8.5); SQUAMOUS EPITHELIAL CELL URINE 2 /hpf (0-5); URINE COLOR YELLOW (YELLW/STRAW); URINE LEUKOCYTE ESTERASE MOD (NEG)
[2017-08-06 21:43] LABS: BANDS 6 % (0-6); LYMPHOCYTES 13 % (9-44); MONOCYTES 4 % (0-8); MYELOCYTES 1 % (0-0); POLYS (SEG NEUTROPHILS) 76 % (16-70)
[2017-08-06] MEDS ORDERED: SODIUM POLYSTYRENE SULFONATE SUSP 15 GM/60 ML CUP PO ONE (21:45)
[2017-08-06] MEDS ORDERED: SODIUM CHLOR 0.9% 250 ML INJ 250 ML IV ONE (21:45)
[2017-08-06] MEDS ORDERED: SOD PHOSPHATE/SOD BIPHOSPHATE (ADULT) ENEMA 133ML RECTAL PRN (22:15)
[2017-08-06 22:32] VITALS: O2SAT 98
[2017-08-06 22:58] VITALS: BP 114/66; PULSE 97; RESP 18; O2SAT 97
[2017-08-06] MEDS ORDERED: MAGNESIUM HYDROXIDE SUSP 30 ML CUP PO SCH (23:00)
[2017-08-07] VITALS (23 sets, daily range): BP systolic 83–142; BP diastolic 44–88; PULSE 68–122; RESP 16–22; TEMP 98; O2SAT 97–100
[2017-08-07] MEDS ORDERED: DILTIAZEM 125 MG/NS 100 ML IV PRN ×2 (01:15)
[2017-08-07] MEDS ORDERED: ALBUMIN 25% INJ 100 ML IV ONE (01:30)
[2017-08-07] MEDS ORDERED: FUROSEMIDE 40 MG/4 ML VIAL IV PUSH SCH (01:30)
[2017-08-07] MEDS: LORazepam 2 MG/ML VIAL IV PUSH PRN ×3 (01:31→16:28)
[2017-08-07] MEDS: traMADol HCL 50 MG TAB PO PRN ×2 (01:31→22:46)
[2017-08-07] MEDS ORDERED: ONDANSETRON HCL 4 MG/2 ML VIAL IV PUSH PRN (02:00)
[2017-08-07] MEDS: FAMOTIDINE 20 MG/2 ML VIAL IV PUSH SCH ×2 (02:46→16:27)
[2017-08-07 04:28] LABS: CALCIUM 8.6 MG/DL (8.5-10.1); CREATININE 1.02 MG/DL (0.50-1.00)
[2017-08-07] MEDS ORDERED: ENOXAPARIN SODIUM 150 MG/ML SYRINGE SQ SCH (06:00)
--- NOTE | 2017-08-07 08:16 | HHI.HP ---
History of Present Illness Primary Care Physician Rom Victoria MD Admission Diagnosis pneumonmia;uti; afib; renal insufficiency Diagnoses: History of Present Illness 81 Y CF SNF RESIDENT. AT SNF PAST TWO WEEKS W GENERAL DECLINE. I GAVE PT IVF'S HOWEVER PT REFUSED TO HAVE LINE REPLACED AGAIN. SHE MENTIONED LAST WEEK WANTING TO BE AGGRESSIVE W HER CARE. SHE DID NOT WANT HOSPICE "YET" SHE STATED. PT W MINIMAL TO NIL PO YESTERDAY AND WITH AMS. [place] [facility] [place] FOUND IN AF RVR W DEHYDRATION YET THIRD SPACING. ER MD GAVE IVF AND I SUGGESTED DILT DRIP AND ALBUMIN WITH THE CURRENT BOLUSES ALREADY ORDERED BY THE ER MD. PT STILL W AMS AND WEAKNESS. D/W RN. Sepsis Criteria SIRS Criteria (2 or more): Heart rate over 90, WBC > 23038, < 4000 or > 10% bands Sepsis Criteria (SIRS+source): Infect source susp/known Severe Sepsis (+one): Organ Dysfunction, Hypotension Criteria Outcome: Meets severe sepsis criteria Review of Systems ROS Limitations: Clinical Condition, Altered Mental Status, Uncooperative, Poor Historian Except as stated in HPI: all other systems reviewed are Neg Past Family Social History Allergies: Coded Allergies: acetaminophen (Unverified Adverse Reaction, Severe, GI UPSET, 08/06/17) codeine (Unverified Adverse Reaction, Severe, GI UPSET, ITCHING, 08/06/17) cortisone (Unverified Adverse Reaction, Severe, GI UPSET, 08/06/17) ibuprofen (Unverified Adverse Reaction, Severe, DIZZY, 08/06/17) morphine (Unverified Adverse Reaction, Intermediate, GI UPSET, 08/06/17) Past Medical History PE AF RI Past Surgical History NC Reported Medications Current Medications Medications (Trade) Dose Ordered Sig/Krystal Route Start Time Stop Time Status Last Admin (NS Flush) 2 ml UNSCH PRN IV FLUSH 08/06/17 19:45 (Miralax) 17 gm BID PO 08/07/17 09:00 08/07/17 09:21 (Fleets Enema (Adult)) 118 ml DAILY PRN RECTAL 08/06/17 22:15 (Milk Of Magnesia Liq) 30 ml Q3D PO 08/07/17 09:00 Diltiazem HCl 125 mg/Sodium Chloride 125 ml @ 5 mls/hr TITRATE PRN IV 08/07/17 01:15 08/07/17 03:40 (Ativan Inj) 0.5 mg Q6H PRN IV PUSH 08/07/17 01:30 08/07/17 06:45 (Ultram) 50 mg Q6H PRN PO 08/07/17 01:30 08/07/17 01:31 (Zofran Inj) 4 mg Q6H PRN IV PUSH 08/07/17 02:00 (Lovenox Inj) 140 mg Q12H SQ 08/07/17 06:00 08/07/17 06:10 (Pepcid Inj) 10 mg Q12H IV PUSH 08/07/17 02:00 08/07/17 02:46 (Catapres) 0.1 mg Q6H PRN PO 08/07/17 08:30 Piperacillin Sod/ Tazobactam Sod 50 ml @ 100 mls/hr Q6H IV 08/07/17 10:00 08/07/17 09:22 (Cardizem) 30 mg Q6HR PO 08/07/17 12:00 (Ecotrin Ec) 325 mg DAILY PO 08/07/17 10:45 08/07/17 11:05 Family History NC MOM AND DAD Social History NO E/T/D, RETIRED, SNF RES Physical Exam Vital Signs Vital Signs Date Time Temp Pulse Resp B/P (MAP) Pulse Ox O2 Delivery O2 Flow Rate FiO2 08/07/17 07:48 107 19 104/56 (72) 98 Nasal Cannula 2.00 08/07/17 06:45 99 Nasal Cannula 08/07/17 06:00 122 16 111/56 (74) 100 Room Air 08/07/17 04:19 108 16 109/63 (78) 98 Room Air 08/07/17 04:00 108 16 110/60 (77) 98 Room Air 08/07/17 03:40 118 117/67 08/07/17 03:38 118 18 117/67 (84) 97 Room Air 08/07/17 02:55 18 96 Room Air 08/07/17 02:51 18 08/07/17 01:40 118 16 142/88 (106) 98 Room Air 08/06/17 22:58 97 18 114/66 (82) 97 Room Air 08/06/17 22:32 98 Room Air 08/06/17 19:38 98.4 127 16 129/54 (79) 98 Room Air Physical Exam GENERAL: This is a well-nourished, well-developed patient, in Mild distress. SKIN: No rashes, ecchymoses or lesions. Cool and dry. HEAD: Atraumatic. Normocephalic. No temporal or scalp tenderness. EYES: Pupils equal round and reactive. Extraocular motions intact. No scleral icterus. No injection or drainage. ENT: Nose without bleeding, purulent drainage or septal hematoma. Throat without erythema, tonsillar hypertrophy or exudate. Uvula midline. Airway patent. NECK: Trachea midline. No JVD or lymphadenopathy. Supple, nontender, no meningeal signs. CARDIOVASCULAR: irr irr, tachy RESPIRATORY: pos wheezes, rales, rhonchi. GASTROINTESTINAL: Abdomen soft, non-tender, nondistended. No hepato-splenomegaly , or palpable masses. No guarding. MUSCULOSKELETAL: 3 plus edema in extr's. No calf tenderness. Negative Homans sign bilaterally. NEUROLOGICAL: Awake and alert. Cranial nerves II through XII intact. Motor and sensory grossly within normal limits. 1 out of 5 muscle strength in all muscle groups. stuporous Laboratory Laboratory Tests Test 08/06/17 19:51 08/06/17 20:45 08/06/17 20:51 08/07/17 03:31 White Blood Count 20.5 Red Blood Count 4.46 Hemoglobin 12.7 Hematocrit 38.7 Mean Corpuscular Volume 86.8 Mean Corpuscular Hemoglobin 28.4 Mean Corpuscular Hemoglobin Concent 32.7 Red Cell Distribution Width 15.3 Platelet Count 213 Mean Platelet Volume 10.4 Neutrophils (%) (Auto) 80.0 Lymphocytes (%) (Auto) 11.1 Monocytes (%) (Auto) 7.8 Eosinophils (%) (Auto) 0.7 Basophils (%) (Auto) 0.4 Neutrophils # (Auto) 16.4 Lymphocytes # (Auto) 2.3 Monocytes # (Auto) 1.6 Eosinophils # (Auto) 0.1 Basophils # (Auto) 0.1 CBC Comment AUTO DIFF Differential Total Cells Counted 100 Neutrophils % (Manual) 76 Band Neutrophils % 6 Lymphocytes % 13 Monocytes % 4 Neutrophils # (Manual) 17.0 Myelocytes 1 Differential Comment FINAL DIFF MANUAL Platelet Estimate NORMAL Platelet Morphology Comment ENLARGED Prothrombin Time 12.2 Prothromb Time International Ratio 1.2 Activated Partial Thromboplast Time 25.2 Blood Urea Nitrogen 41 36 Creatinine 1.16 1.02 Random Glucose 110 111 Total Protein 6.8 Albumin 1.9 Calcium Level 8.8 8.6 Magnesium Level 2.0 Alkaline Phosphatase 270 Aspartate Amino Transf (AST/SGOT) 49 Alanine Aminotransferase (ALT/SGPT) 33 Total Bilirubin 0.9 Sodium Level 133 140 Potassium Level 5.4 4.5 Chloride Level 99 106 Carbon Dioxide Level 26.4 25.0 Anion Gap 8 9 Estimat Glomerular Filtration Rate 45 52 Troponin I 0.02 B-Type Natriuretic Peptide 166 Lipase 28 Urine Color YELLOW Urine Turbidity CLEAR Urine pH 5.5 Urine Specific Fords 1.020 Urine Protein TRACE Urine Glucose (UA) NEG Urine Ketones NEG Urine Occult Blood NEG Urine Nitrite NEG Urine Bilirubin NEG Urine Urobilinogen 2.0 Urine Leukocyte Esterase MOD Urine RBC 1 Urine WBC 4 Urine Squamous Epithelial Cells 2 Urine Amorphous Sediment RARE Urine Bacteria MANY Urine Hyaline Casts 4 Urine Mucus FEW Microscopic Urinalysis Comment CULTURE INDICATED Lactic Acid Level 1.6 Date/Time Source Procedure Growth Status 08/06/17 20:50 Blood Peripheral Aerobic Blood Culture Pending Received 08/06/17 20:50 Blood Peripheral Anaerobic Blood Culture Pending Received 08/06/17 20:45 Urine Random Urine Urine Culture Pending Worksheet Result Diagram: 08/06/17195008/07/17330 Caprini VTE Risk Assessment Caprini VTE Risk Assessment: Mod/High Risk (score >= 2) Caprini Risk Assessment Model Point Value = 1 Point Value = 2 Point Value = 3 Point Value = 5 Age 41-60 Minor surgery BMI > 25 kg/m2 Swollen legs Varicose veins or History of unexplained or recurrent spontaneous Oral contraceptives or hormone replacement Sepsis (< 1 month) Serious lung disease, including pneumonia (< 1 month) Abnormal pulmonary function Acute myocardial infarction Congestive heart failure (< 1 month) History of inflammatory bowel disease Medical patient at bed rest Age 61-74 Arthroscopic surgery Major open surgery (> 45 min) Laparoscopic surgery (> 45 min) Malignancy Confined to bed (> 72 hours) Immobilizing plaster cast Central venous access Age >= 75 History of VTE Family history of VTE Factor V Leiden Prothrombin [id number] Lupus anticoagulant Anticardiolipin antibodies Elevated serum homocysteine Heparin-induced thrombocytopenia Other congenital or acquired thrombophilia Stroke (< 1 month) Elective arthroplasty Hip, pelvis, or leg fracture Acute spinal cord injury (< 1 month) Prophylaxis Regimen Total Risk Factor Score Risk Level Prophylaxis Regimen 0-1 Low Early ambulation 2 Moderate Order ONE of the following: *Sequential Compression Device (SCD) *Heparin 5000 units SQ BID 3-4 Higher Order ONE of the following medications: *Heparin 5000 units SQ TID *Enoxaparin/Lovenox 40 mg SQ daily (WT < 150 kg, CrCl > 30 mL/min) *Enoxaparin/Lovenox 30 mg SQ daily (WT < 150 kg, CrCl > 10-29 mL/min) *Enoxaparin/Lovenox 30 mg SQ BID (WT < 150 kg, CrCl > 30 mL/min) AND/OR *Sequential Compression Device (SCD) 5 or more Highest Order ONE of the following medications: *Heparin 5000 units SQ TID (Preferred with Epidurals) *Enoxaparin/Lovenox 40 mg SQ daily (WT < 150 kg, CrCl > 30 mL/min) *Enoxaparin/Lovenox 30 mg SQ daily (WT < 150 kg, CrCl > 10-29 mL/min) *Enoxaparin/Lovenox 30 mg SQ BID (WT < 150 kg, CrCl > 30 mL/min) AND *Sequential Compression Device (SCD) Assessment and Plan Problem List: (1) Sepsis ICD Codes: A41.9 - Sepsis, unspecified organism Status: Acute (2) PNA (pneumonia) ICD Codes: J18.9 - Pneumonia, unspecified organism Status: Acute (3) Urinary tract infection ICD Codes: N39.0 - Urinary tract infection, site not specified Status: Acute (4) PE (pulmonary thromboembolism) ICD Codes: I26.99 - Other pulmonary embolism without acute cor pulmonale Status: Acute (5) Renal insufficiency ICD Codes: N28.9 - Disorder of kidney and ureter, unspecified Status: Acute (6) CHF (congestive heart failure) ICD Codes: I50.9 - Heart failure, unspecified Status: Acute (7) Elevated blood pressure ICD Codes: R03.0 - Elevated blood pressure Status: Acute (8) Edema of both legs ICD Codes: R60.0 - Localized edema Status: Acute (9) Generalized weakness ICD Codes: R53.1 - Weakness Status: Acute Plan: A/P: SEPSIS: IV ABX, IVF, PANCULTURES, ID CONSULT FLUID OVERLOAD DUE TO CHF: IV LASIX, CARDIOLOGY CONSULT, AM LABS AF RVR: DILT GTT, ASA ONLY PER CARDIOLOGY, CHANGE LOVENOX BID TO HEPARIN BID FOR DVT PX E COLI UTI: FOLLOWUP CULTURES, CKD PE HYPOTHYROIDISM, NEW: START SYNTHROID GI PX: IV PEPCID DVT PX: HEPARIN SC BID DISPO: NEEDS HOSPICE YET PT MENTIONED WANTING TO BE AGGRESSIVE, GOAL IS BACK TO [facility], INPT ADMIT FOR THE ABOVE DX AND PLAN. EXPECT 5 D INPT STAY. PT WOULD AT SNF IF NOT MADE INPT. Discharge Planning SEE ORDERS... Rom Victoria MD Aug 07, 2017 08:16
[2017-08-07] MEDS ORDERED: PIPERACIL-TAZO 3.375 GM PREMIX 50 ML IV SCH ×2 (08:30)
[2017-08-07] MEDS ORDERED: cloNIDine HCL 0.1 MG TAB PO PRN (08:30)
[2017-08-07] MEDS: MAGNESIUM HYDROXIDE SUSP 30 ML CUP PO SCH (09:00)
[2017-08-07] MEDS ORDERED: PIPERACILLIN/TAZ 2.25 GM VIAL 2.25 GM in SODIUM CHLORIDE 0.9% INJ 50 ML IV SCH (09:00)
[2017-08-07] MEDS: POLYETHYLENE GLYCOL 17 GM PKG PO SCH ×2 (09:21→21:00)
[2017-08-07] MEDS: PIPERACIL-TAZO 2.25 GM PREMIX 50 ML IV SCH ×3 (09:22→22:31)
[2017-08-07] MEDS: ASPIRIN EC 325 MG TABEC PO SCH (11:05)
--- NOTE | 2017-08-07 11:27 | MB ---
cc: Wallace Lopes MD DATE OF CONSULT: 08/07/2017 DATE OF CONSULTATION: 08/07/2017 INDICATION: Atrial fibrillation. HISTORY OF PRESENT ILLNESS: The patient is not a good historian. The entire history is obtained basically from chart records. The patient currently resides in a intermediate and was reporting some lower abdominal pain and malodorous vaginal discharge, worsening peripheral edema. She has a complicated past medical history which includes COPD, congestive heart failure, pulmonary embolism, DVT. Upon presentation she was found to be in atrial fibrillation, this is a new diagnosis for her. She was slightly tachycardic. Blood pressure is on the low side but she was initiated on a low dose of Cardizem. Heart rate is now controlled. Currently denies any chest pain or shortness of breath, although she does have significant edema in both lower and upper extremities. She was initiated on IV diuretic. PAST MEDICAL HISTORY: COPD, congestive heart failure, pulmonary embolism, DVT, renal insufficiency, chronic pain syndrome, tonsillectomy. SOCIAL HISTORY: Quit smoking 25 years ago. Denies any alcohol or drug use. ALLERGIES: CODEINE, ACETAMINOPHEN, CORTISONE, IBUPROFEN, MORPHINE. ACTIVE MEDICATIONS: Lyrica, vitamin, Symbicort, Tessalon Perles, metoprolol, Lasix. REVIEW OF SYSTEMS: Unable to be obtained. PHYSICAL EXAMINATION: VITAL SIGNS: Pulses 80s to 110s beats per minute. Blood pressure most recent 97/54 mmHg. GENERAL: Alert but not oriented. No significant jugular venous distention, although it is difficult to appreciate given body habitus. LUNGS: Fine bibasilar crackles. CARDIOVASCULAR: Irregular. Distant heart sounds. ABDOMEN: No tenderness. EXTREMITIES: Significant edema both upper and lower extremities. LABORATORY DATA: White blood cell count is 20.5, hemoglobin is 12.7, platelet count is 213. INR is 1.2. Sodium 140, potassium 4.5, BUN 36, creatinine 1.02. ASSESSMENT: 1. Edema. 2. Atrial fibrillation. 3. History of congestive heart failure, pulmonary embolism, DVT. PLAN: The patient has significant edema throughout. I am not sure if this is primarily cardiac or if there is an underlying alternative etiology. Will order for a TSH. Her most recent albumin is also low at 1.9. This may be related to cardiac. We will get a 2D echocardiogram. Agree with diuresis. Creatinine is normal. Will use rate control with oral Cardizem 30 mg q. 6, monitor her blood pressure closely. Hold any beta-blockers at this point. Also, it does not appear that she would be a great candidate for anticoagulation, so we will initiate aspirin 325 mg a day. Wallace Lopes MD ELI/TL/ , 10:55 AM , 11:16 AM
[2017-08-07] MEDS: DILTIAZEM HCL 30 MG TAB PO SCH ×3 (12:00→23:36)
--- NOTE | 2017-08-07 15:10 | MB ---
cc: Vignesh Reyna MD DATE OF CONSULT: 08/07/2017 REQUESTING PHYSICIAN: Dr. Victoria REASON FOR CONSULTATION: Sepsis. HISTORY OF PRESENT ILLNESS: This is a 81-year-old white female who was brought to the emergency department from [facility]. The patient was noted to have diffuse edema. She was also noted to have low blood pressure. The patient also was noted to have low abdominal pain and malodorous vaginal discharge. She was recently treated for a urinary tract infection earlier this month with a 4 day course of antibiotics which was then discontinued. Upon evaluation here, the heart rate was 127. Her white blood count is elevated at 20.5. Urinalysis revealed many bacteria and the urine culture has gram negative rods. Blood culture has no growth in one day. The patient is currently laying in bed, but she is very somnolent and just arouses for brief moments when I tried to awaken her. She is unable to give me any history. Information is obtained from the medical record. PAST MEDICAL HISTORY: 1. Urinary tract infection. 2. COPD. 3. Hypertension. 4. CHF. 5. Pulmonary embolism. 6. Chronic pain. 7. Tonsillectomy. 8. History of C. difficile. ALLERGIES: MORPHINE, IBUPROFEN, CORTISONE, CODEINE, ACETAMINOPHEN. MEDICATIONS: 1. Piperacillin/tazobactam. 2. MiraLax. 3. Ecotrin. 4. Cardizem. 5. Lovenox. 6. Pepcid. 7. Ultram. SOCIAL HISTORY: No tobacco. No alcohol. No illicit drugs. FAMILY HISTORY: Unable to obtain. REVIEW OF SYSTEMS: Unable to obtain. PHYSICAL EXAM: This is a morbidly obese female who is very somnolent. She barely awakens for brief moments. She does not appear to be in any acute distress. VITAL SIGNS: Temperature 98.4, blood pressure 126/57, heart rate 67. HEENT: The head is atraumatic. Extraocular movements grossly intact, pupils reactive to light. No icterus. Oropharynx, dry mucosa. No thrush. No visible lesions. NECK: Supple without adenopathy. LUNGS: Decreased breath sounds at the right base. HEART: Irregular rate and rhythm. No murmurs audible. ABDOMEN: Bowel sounds diminished, soft, no tenderness appreciated. No masses palpable. RECTAL: Not performed. EXTREMITIES: Diffuse edema with 3+ edema of the upper extremities and 2+ edema of the lower extremities. SKIN: No diffuse rash. NEURO: Difficult to assess. Patient unable to cooperate. PSYCH: Unable to assess. LABS: WBC 20.0, platelets 213, 80% neutrophils, hemoglobin 12.7. Creatinine 1.02, BUN 36, estimated GFR 52, sodium 140. Third degeneration TSH 7.2. Chest x-ray shows interval development of patchy areas of infiltrate in the right mid and lower lung and in the mid left lower lung. IMPRESSION: 1. Urinary tract infection with gram negative bacteria. The patient recently treated with antibiotics for urinary tract infection within the past week. 2. Sepsis indicated by urinary tract infection along with tachycardia and leukocytosis. 3. Pneumonia. 4. Chronic kidney disease. 5. Anasarca. 6. Atrial fibrillation. RECOMMENDATIONS: 1. Continue piperacillin/tazobactam. 2. Monitor urine culture for identity of the gram negative rods. 3. Follow the blood cultures. 4. Monitor the white blood cell count. 5. Monitor temperature. 6. Monitor white blood cell counts. Thank you for this consultation. I will follow this patient's progress along with you and will make further recommendations upon followup. Vignesh Reyna MD FFD/DL , 02:37 PM , 03:09 PM
[2017-08-07] MEDS: SODIUM CHLORIDE 0.9% FLUSH 10 ML FLUSH IV FLUSH PRN (16:29)
--- NOTE | 2017-08-07 18:26 | ECHRPT ---
Indication: HEART FAILURE CONCLUSIONS Normal left ventricular size. Wall thickness is normal. The left ventricular systolic function is normal with an estimated ejection fraction in the range of 55-60%. The left atrial size is moderately dilated. The left atrial size is moderately dilated. Mitral annular calcification is present. Mild mitral valve regurgitation. Aortic valve sclerosis is present. Mild aortic valve regurgitation. Mild aortic valve stenosis (aortic valve area or transvalvular gradient were not obtained, but the v alve appeared mildly stenotic by visual assessment). There is mild to moderate tricuspid valve regurgitation. There is estimated mild pulmonary hypertension present (46 mmHg). The pulmonary valve is not well visualized. BP: 128 / 59 HR: 108 Rhythm: MEASUREMENTS (Male / Female) Normal Values Technical Quality:Fair 2D ECHO LV Diastolic Diameter PLAX 4.2 cm 4.2 - 5.9 / 3.9 - 5.3 cm LV Systolic Diameter PLAX 3.1 cm IVS Diastolic Thickness 1.1 cm 0.6 - 1.0 / 0.6 - 0.9 cm LVPW Diastolic Thickness 0.9 cm 0.6 - 1.0 / 0.6 - 0.9 cm LV Relative Wall Thickness 0.5 DOPPLER Mitral E Point Velocity 80.0 cm/s TR Peak Velocity 319.0 cm/s TR Peak Gradient 40.7 mmHg FINDINGS LEFT VENTRICLE Normal left ventricular size. Wall thickness is normal. The left ventricular systolic function is normal with an estimated ejection fraction in the range of 55-60%. RIGHT VENTRICLE Normal right ventricular size and systolic function. LEFT ATRIUM The left atrial size is moderately dilated. The left atrial size is moderately dilated. RIGHT ATRIUM The right atrial size is normal. ATRIAL SEPTUM Normal atrial septal thickness without atrial level shunting by limited color doppler interrogation. AORTA The aortic root and proximal ascending aorta are normal in size on limited imaging. MITRAL VALVE Mitral annular calcification is present. Mild mitral valve regurgitation. AORTIC VALVE Aortic valve sclerosis is present. Mild aortic valve regurgitation. Mild aortic valve stenosis (aortic valve area or transvalvular gradient were not obtained, but the v alve appeared mildly stenotic by visual assessment). TRICUSPID VALVE There is mild to moderate tricuspid valve regurgitation. There is estimated mild pulmonary hypertension present (46 mmHg). PULMONARY VALVE The pulmonary valve is not well visualized. VESSELS The inferior vena cava is normal in size. PERICARDIUM No pericardial effusion. Wallace Lopes MD, FACC (Electronically Signed) Final Date:07 August 2017 18:25
--- NOTE | 2017-08-07 19:20 | PD.CONS ---
HPI Consult Requested By Reason for Consult Chronic renal insufficiency. Edema. Primary Care Physician Rom Victoria MD History of Present Illness 81-year-old female with a history of multiple medical problems including COPD, CHF apparently secondary to diastolic dysfunction, PE, DVT and chronic renal insufficiency with a baseline creatinine of approximately 1.18 with estimated GFR is ranging between the 30s and 40s. Also I suspect the patient has chronic debilitation and some degree of failure to thrive based on clinical examination. Patient admitted to this institution with apparent atrial fibrillation, urinary tract infection secondary to gram-negative bacillary I and noted to have edema of the upper and lower extremities. Albumin level noted to be only 1.9. Urinalysis showing only trace protein however on presentation. Patient is a very poor historian and lethargic. Review of Systems ROS Limitations: Clinical Condition, Altered Mental Status Past Family Social History Allergies: Coded Allergies: acetaminophen (Unverified Adverse Reaction, Severe, GI UPSET, 08/06/17) codeine (Unverified Adverse Reaction, Severe, GI UPSET, ITCHING, 08/06/17) cortisone (Unverified Adverse Reaction, Severe, GI UPSET, 08/06/17) ibuprofen (Unverified Adverse Reaction, Severe, DIZZY, 08/06/17) morphine (Unverified Adverse Reaction, Intermediate, GI UPSET, 08/06/17) Past Medical History Chronic kidney disease stage III COPD CHF related to diastolic dysfunction. Ejection fraction this admission 55-60%. History of PE. History of DVT. Debilitation. Past Surgical History Noncontributory to current complaint. Reported Medications Reported Meds & Active Scripts Active Lyrica (Pregabalin) 50 Mg Cap 100 Mg PO TID Vitamin C (Ascorbic Acid) 250 Mg Chew 500 Mg CHEW BID Symbicort Inh (Budesonide/Formoterol Fumarate) 160-4.5 Mcg/Act Aero 2 Puff INH Q12HR Tessalon Perles (Benzonatate) 100 Mg Cap 200 Mg PO TID PRN Metoprolol Tartrate 50 Mg Tab 50 Mg PO DAILY Furosemide 40 Mg Tab 40 Mg PO DAILY Reported Aldactone (Spironolactone) 25 Mg Tab 25 Mg PO DAILY Miralax Powder (Polyethylene Glycol 3350 Powder) 17 Gm Powd 17 Gm PO BID Mix and dissolve one measuring cap-ful (17 grams) in water or juice. Tramadol (Tramadol HCl) 50 Mg Tab 50 Mg PO Q8H Colace (Docusate Sodium) 100 Mg Capsule 1 Cap PO BID Melatonin 5 Mg Tab 6 Mg PO HS Gabapentin 600 Mg Tab 600 Mg PO TID Multiple Vitamin 1 Tab 1 Tab PO DAILY Potassium Chloride ER (Potassium Chloride) 10 Meq Cap 10 Meq PO BID Aldactone (Spironolactone) 25 Mg Tab 25 Mg PO DAILY Dulcolax Supp (Bisacodyl) 10 Mg Supp 10 Mg RECTAL DAILY PRN Milk of Magnesia Liq (Magnesium Hydroxide) 400 Mg/5 Ml Susp 5 Ml PO Q3D Duoneb (Ipratropium-Albuterol Neb) 0.5-2.5 Mg/3 Ml Neb 1 Nebule INH Q6HR NEB Active Ordered Medications Current Medications Sodium Chloride (NS Flush) 2 ml UNSCH PRN IV FLUSH FLUSH AFTER USING IV ACCESS Last administered on 08/07/17at 16:29; Start 08/06/17 at 19:45 Cefepime HCl 2000 mg/Sodium Chloride 100 ml @ 200 mls/hr ONCE ONCE IV Last administered on 08/06/17at 22:29; Start 08/06/17 at 20:45; Stop 08/06/17 at 21:14; Status DC Vancomycin HCl 1000 mg/Sodium Chloride 250 ml @ 250 mls/hr ONCE ONCE IV Last administered on 08/06/17at 23:54; Start 08/06/17 at 20:45; Stop 08/06/17 at 21:44; Status DC Sodium Polystyrene Sulfonate (Kayexalate Liq) 15 gm ONCE ONCE PO ; Start at 21:45; Stop 08/06/17 at 21:46; Status DC Sodium Chloride 250 ml @ 250 mls/hr BOLUS ONCE IV Last administered on at 22:29; Start 08/06/17 at 21:45; Stop 08/06/17 at 22:44; Status DC Magnesium Hydroxide (Milk Of Magnesia Liq) 5 ml Q3D PO ; Start 08/06/17 at 23:00 ; Stop 08/06/17 at 23:00; Status DC Polyethylene Glycol (Miralax) 17 gm BID PO Last administered on 08/07/17at 09:21 ; Start 08/07/17 at 09:00 Sodium Biphosphate/ Sodium Phosphate (Fleets Enema (Adult)) 118 ml DAILY PRN RECTAL CONSTIPATION; Start 08/06/17 at 22:15 Magnesium Hydroxide (Milk Of Magnesia Liq) 30 ml Q3D PO ; Start 08/07/17 at 09:00 Diltiazem HCl 125 mg/Sodium Chloride 125 ml @ 5 mls/hr TITRATE PRN IV Tachycardia Last administered on 08/07/17at 03:40; Start 08/07/17 at 01:15 Albumin Human 100 ml @ 66.667 mls/ hr NOW ONCE IV Last administered on at 02:02; Start 08/07/17 at 01:30; Stop 08/07/17 at 02:59; Status DC Furosemide (Lasix Inj) 40 mg ONCE IV PUSH Last administered on 08/07/17at 03:38; Start 08/07/17 at 01:30; Stop 08/07/17 at 04:00; Status DC Lorazepam (Ativan Inj) 0.5 mg Q6H PRN IV PUSH ANXIETY Last administered on at 16:28; Start 08/07/17 at 01:30 Tramadol HCl (Ultram) 50 mg Q6H PRN PO PAIN Last administered on 08/07/17at 01:31 ; Start 08/07/17 at 01:30 Ondansetron HCl (Zofran Inj) 4 mg Q6H PRN IV PUSH NAUSEA OR VOMITING; Start 08/07/17 at 02:00 Enoxaparin Sodium (Lovenox Inj) 140 mg Q12H SQ Last administered on 08/07/17at 06 :10; Start 08/07/17 at 06:00; Stop 08/07/17 at 15:26; Status DC Famotidine (Pepcid Inj) 10 mg Q12H IV PUSH Last administered on 08/07/17at 16:27 ; Start 08/07/17 at 02:00 Clonidine (Catapres) 0.1 mg Q6H PRN PO SBP>160, DBP>90; Start 08/07/17 at 08:30 Piperacillin Sod/ Tazobactam Sod 50 ml @ 100 mls/hr Q6H IV ; Start 08/07/17 at 08:30; Stop 08/07/17 at 08:37; Status DC Piperacillin Sod/ Tazobactam Sod 50 ml @ 100 mls/hr Q6H IV ; Start 08/07/17 at 08:30; Stop 08/07/17 at 08:32; Status DC Piperacillin Sod/ Tazobactam Sod 2.25 gm/Sodium Chloride 50 ml @ 100 mls/hr Q6H IV ; Start 08/07/17 at 09:00; Status Cancel Piperacillin Sod/ Tazobactam Sod 50 ml @ 100 mls/hr Q6H IV Last administered on 08/07/17at 16:50; Start 08/07/17 at 10:00 Diltiazem HCl (Cardizem) 30 mg Q6HR PO ; Start 08/07/17 at 12:00 Aspirin (Ecotrin Ec) 325 mg DAILY PO Last administered on 08/07/17at 11:05; Start 08/07/17 at 10:45 Levothyroxine Sodium (Synthroid) 25 mcg DAILY@0600 PO ; Start 08/08/17 at 06:00 Heparin Sodium (Porcine) (Heparin Inj) 5,000 units Q12HR SQ ; Start 08/07/17 at 21:00 Family History Unobtainable from patient currently. Social History Previous history of tobacco use per records. No history of alcohol use or abuse currently. Physical Exam Vital Signs Vital Signs Date Time Temp Pulse Resp B/P (MAP) Pulse Ox O2 Delivery O2 Flow Rate FiO2 08/07/17 18:38 92 18 92/51 (65) 98 Nasal Cannula 2.00 08/07/17 17:35 100 20 99/58 (72) 98 Nasal Cannula 2.00 08/07/17 17:05 104 17 83/44 (57) 99 Nasal Cannula 2.00 08/07/17 16:00 98 19 109/58 (75) 98 2.00 08/07/17 15:05 99 21 102/70 (81) 100 Nasal Cannula 2.00 08/07/17 14:05 106 20 120/57 (78) 100 Nasal Cannula 2.00 08/07/17 13:05 103 19 97/57 (70) 97 Nasal Cannula 2.00 08/07/17 12:05 105 19 123/68 (86) 97 Nasal Cannula 2.00 08/07/17 11:05 108 19 128/59 (82) 98 Nasal Cannula 2.00 08/07/17 10:00 111 22 97/54 (68) 100 Nasal Cannula 2.00 08/07/17 08:54 113 20 102/76 (85) 98 Nasal Cannula 2.00 08/07/17 07:48 107 19 104/56 (72) 98 Nasal Cannula 2.00 08/07/17 06:45 99 Nasal Cannula 08/07/17 06:00 122 16 111/56 (74) 100 Room Air 08/07/17 04:19 108 16 109/63 (78) 98 Room Air 08/07/17 04:00 108 16 110/60 (77) 98 Room Air 08/07/17 03:40 118 117/67 08/07/17 03:38 118 18 117/67 (84) 97 Room Air 08/07/17 02:55 18 96 Room Air 08/07/17 02:51 18 08/07/17 01:40 118 16 142/88 (106) 98 Room Air 08/06/17 22:58 97 18 114/66 (82) 97 Room Air 08/06/17 22:32 98 Room Air 08/06/17 19:38 98.4 127 16 129/54 (79) 98 Room Air Physical Exam GENERAL: Markedly obese and lethargic female who on appearance appears to be chronically debilitated and deconditioned. SKIN: Warm and dry. HEAD: Normocephalic. EYES: No scleral icterus. No injection or drainage. NECK: Supple, trachea midline. No JVD or lymphadenopathy. CARDIOVASCULAR: Regular rate and rhythm without murmurs, gallops, or rubs. RESPIRATORY: Breath sounds equal bilaterally. No accessory muscle use. GASTROINTESTINAL: Abdomen soft, non-tender, nondistended. MUSCULOSKELETAL: No cyanosis. Patient appears to have a combination of lymphedema and some 1+ pitting edema involving involving the upper lower extremities which appears to be chronic. Laboratory Laboratory Tests Test 08/06/17 19:51 08/06/17 20:45 08/06/17 20:51 08/07/17 03:31 White Blood Count 20.5 Red Blood Count 4.46 Hemoglobin 12.7 Hematocrit 38.7 Mean Corpuscular Volume 86.8 Mean Corpuscular Hemoglobin 28.4 Mean Corpuscular Hemoglobin Concent 32.7 Red Cell Distribution Width 15.3 Platelet Count 213 Mean Platelet Volume 10.4 Neutrophils (%) (Auto) 80.0 Lymphocytes (%) (Auto) 11.1 Monocytes (%) (Auto) 7.8 Eosinophils (%) (Auto) 0.7 Basophils (%) (Auto) 0.4 Neutrophils # (Auto) 16.4 Lymphocytes # (Auto) 2.3 Monocytes # (Auto) 1.6 Eosinophils # (Auto) 0.1 Basophils # (Auto) 0.1 CBC Comment AUTO DIFF Differential Total Cells Counted 100 Neutrophils % (Manual) 76 Band Neutrophils % 6 Lymphocytes % 13 Monocytes % 4 Neutrophils # (Manual) 17.0 Myelocytes 1 Differential Comment FINAL DIFF MANUAL Platelet Estimate NORMAL Platelet Morphology Comment ENLARGED Prothrombin Time 12.2 Prothromb Time International Ratio 1.2 Activated Partial Thromboplast Time 25.2 Blood Urea Nitrogen 41 36 Creatinine 1.16 1.02 Random Glucose 110 111 Total Protein 6.8 Albumin 1.9 Calcium Level 8.8 8.6 Magnesium Level 2.0 Alkaline Phosphatase 270 Aspartate Amino Transf (AST/SGOT) 49 Alanine Aminotransferase (ALT/SGPT) 33 Total Bilirubin 0.9 Sodium Level 133 140 Potassium Level 5.4 4.5 Chloride Level 99 106 Carbon Dioxide Level 26.4 25.0 Anion Gap 8 9 Estimat Glomerular Filtration Rate 45 52 Troponin I 0.02 B-Type Natriuretic Peptide 166 Lipase 28 Urine Color YELLOW Urine Turbidity CLEAR Urine pH 5.5 Urine Specific [place] 1.020 Urine Protein TRACE Urine Glucose (UA) NEG Urine Ketones NEG Urine Occult Blood NEG Urine Nitrite NEG Urine Bilirubin NEG Urine Urobilinogen 2.0 Urine Leukocyte Esterase MOD Urine RBC 1 Urine WBC 4 Urine Squamous Epithelial Cells 2 Urine Amorphous Sediment RARE Urine Bacteria MANY Urine Hyaline Casts 4 Urine Mucus FEW Microscopic Urinalysis Comment CULTURE INDICATED Lactic Acid Level 1.6 Thyroid Stimulating Hormone 3rd Gen 7.280 Date/Time Source Procedure Growth Status 08/06/17 20:50 Blood Peripheral Aerobic Blood Culture - Preliminary NO GROWTH IN 1 DAY Resulted 08/06/17 20:50 Blood Peripheral Anaerobic Blood Culture - Preliminary NO GROWTH IN 1 DAY Resulted 08/06/17 20:45 Urine Random Urine Urine Culture - Preliminary Gram Negative Walter Resulted Result Diagram: 08/06/17195008/07/17 0331 Imaging Last 48 hours Impressions Chest X-Ray 08/06/171943 Signed Impressions: Service Date/Time: Sunday, August 06, 2017 20:12 - CONCLUSION: Interval development of patchy areas of infiltrate in the right mid and lower lung and in the medial left lower lung. Gunner Hobbs MD Assessment and Plan Problem List: (1) Edema ICD Codes: R60.9 - Edema, unspecified Status: Chronic Plan: Urinalysis is currently not suggestive of significant proteinuria and the patient does not appear to be with evidence of acute respiratory deficiency related to congestive heart failure. I believe that the patient has a combination of edema as well as lymphedema. Patient may have some degree of cardiac insufficiency however the patient's hypoalbuminemia most likely contributory only to her edema secondary to third space. Given the fact that the patient's edema appears to be chronic without evidence of acute respiratory insufficiency I would not recommend aggressive diuresis currently especially since patient has borderline blood pressure. I will switch the patient from furosemide to bumetanide by mouth which may be better absorbed and have better bioavailability. It appears that his patient has chronic debilitated condition based on review of records and I suspect that her overall long-term prognosis is poor. (2) CKD (chronic kidney disease) stage 3, GFR 30-59 ml/min ICD Codes: N18.3 - Chronic kidney disease, stage 3 (moderate) Status: Chronic Plan: Patient's renal indices appear to be at baseline. Patient most likely has chronic kidney disease secondary to nephrosclerosis of hypertension and aging. Urinalysis appears to be relatively bland and at the current time very low suspicion that the patient may have a glomerulonephritis. Serological studies as ordered. Renal ultrasound. Medications should be adjusted for the patient's estimated GFR if clinically indicated. Avoid agents with significant potential for nephrotoxicity possible including NSAIDs for analgesia, iodine contrast agents. Gadolinium is contraindicated if the GFR is below 30. (3) Lymphedema ICD Codes: I89.0 - Lymphedema, not elsewhere classified Status: Chronic (4) Diastolic dysfunction with chronic heart failure ICD Codes: I50.32 - Chronic diastolic (congestive) heart failure Status: Chronic (5) Hypoalbuminemia ICD Codes: E88.09 - Other disorders of plasma-protein metabolism, not elsewhere classified Status: Chronic Plan: Suspect that it is related to nutritional issues as well as chronic debilitation. I will order a spot urine protein/creatinine ratio to screen for significant proteinuria however. (6) Hyperkalemia ICD Codes: E87.5 - Hyperkalemia Status: Acute Plan: Secondary to the presence of the potassium sparing diuretic previously as well as a component of CKD. Agree with discontinuance of Aldactone. Ayana Sánchez MD Aug 07, 2017 19:20
--- NOTE | 2017-08-07 21:29 | EKG ---
Date Performed: 08/06/2017 Time Performed: 20:02:40 PTAGE: 81 years EKG: POSSIBLE ATRIAL FIBRILLATION WITH RAPID VENTRICULAR RESPONSE LOW QRS VOLTAGE IN PRECORDIAL LEADS NONSPECIFIC T WAVE ABNORMALITY POSSIBLE INFERIOR MYOCARDIAL INFARCTION ABNORMAL ECG PREVIOUS TRACING : 08/06/2017 20.00 Compared to previous tracing, possible atrial fibrillation has replaced Sinus rhythm , nonspecific T wave abnormality is now present. DOCTOR: Eliu Ott Interpretating Date/Time 08/08/2017 07:22:38
[2017-08-07] MEDS: HEPARIN SODIUM - SQ 10,000 UNITS/ML VIAL SQ SCH (22:04)
[2017-08-08] VITALS (23 sets, daily range): BP systolic 116–162; BP diastolic 50–86; PULSE 88–150; RESP 20; TEMP 97.8–98.8; O2SAT 94–100
[2017-08-08] MEDS: LORazepam 2 MG/ML VIAL IV PUSH PRN (00:06)
[2017-08-08] MEDS: FAMOTIDINE 20 MG/2 ML VIAL IV PUSH SCH ×2 (03:32→13:58)
[2017-08-08] MEDS: PIPERACIL-TAZO 2.25 GM PREMIX 50 ML IV SCH ×4 (03:32→20:28)
[2017-08-08] MEDS: DILTIAZEM HCL 30 MG TAB PO SCH ×3 (05:39→17:05)
[2017-08-08] MEDS: LEVOTHYROXINE SODIUM 25 MCG TAB PO SCH (05:39)
[2017-08-08 08:30] LABS: AUTOMATED NEUTROPHIL # 11.6 TH/MM3 (1.8-7.7); BASOPHIL % 0.3 % (0.0-2.0); EOSINOPHIL # 0.3 TH/MM3 (0-0.4); EOSINOPHIL % 2.1 % (0.0-4.0); HEMATOCRIT 34.4 % (35.0-46.0); HEMOGLOBIN 11.4 GM/DL (11.6-15.3); LYMPH % 10.3 % (9.0-44.0); LYMPHOCYTE # 1.5 TH/MM3 (1.0-4.8); MEAN CELL VOLUME 87.9 FL (80.0-100.0); MEAN CORPUSCULAR HEMOGLOBIN 29.2 PG (27.0-34.0); MEAN CORPUSCULAR HGB CONC 33.2 % (32.0-36.0); MEAN PLATELET VOLUME 9.4 FL (7.0-11.0); MONO % 6.9 % (0.0-8.0); NEUT % 80.4 % (16.0-70.0); PLATELET COUNT 203 TH/MM3 (150-450); RED BLOOD COUNT 3.92 MIL/MM3 (4.00-5.30); RED CELL DISTRIBUTION WIDTH 15.3 % (11.6-17.2); WHITE BLOOD COUNT 14.5 TH/MM3 (4.0-11.0)
--- NOTE | 2017-08-08 08:35 | PD.CARD.PN ---
Subjective Subjective Remarks patient remains obtunded overnight and RN reports uncooperative with po meds and increasing edema. IV access lost due to combativeness. She remains in afib with HRs elevated up to 110. (Gail Valdivia) Objective Medications Current Medications Medications (Trade) Dose Ordered Sig/Krystal Route Start Time Stop Time Status Last Admin (NS Flush) 2 ml UNSCH PRN IV FLUSH 08/06/17 19:45 08/07/17 16:29 (Miralax) 17 gm BID PO 08/07/17 09:00 08/07/17 09:21 (Fleets Enema (Adult)) 118 ml DAILY PRN RECTAL 08/06/17 22:15 (Milk Of Magnesia Liq) 30 ml Q3D PO 08/07/17 09:00 Diltiazem HCl 125 mg/Sodium Chloride 125 ml @ 5 mls/hr TITRATE PRN IV 08/07/17 01:15 08/07/17 03:40 (Ativan Inj) 0.5 mg Q6H PRN IV PUSH 08/07/17 01:30 08/08/17 00:06 (Ultram) 50 mg Q6H PRN PO 08/07/17 01:30 08/07/17 22:46 (Zofran Inj) 4 mg Q6H PRN IV PUSH 08/07/17 02:00 (Pepcid Inj) 10 mg Q12H IV PUSH 08/07/17 02:00 08/08/17 03:32 (Catapres) 0.1 mg Q6H PRN PO 08/07/17 08:30 Piperacillin Sod/ Tazobactam Sod 50 ml @ 100 mls/hr Q6H IV 08/07/17 10:00 08/08/17 03:32 (Cardizem) 30 mg Q6HR PO 08/07/17 12:00 08/08/17 05:39 (Ecotrin Ec) 325 mg DAILY PO 08/07/17 10:45 08/07/17 11:05 (Synthroid) 25 mcg DAILY@0600 PO 08/08/17 06:00 08/08/17 05:39 (Heparin Inj) 5,000 units Q12HR SQ 08/07/17 21:00 08/07/17 22:04 (Bumetanide) 1 mg DAILY PO 08/08/17 09:00 Vital Signs / I&O Vital Signs Date Time Temp Pulse Resp B/P (MAP) Pulse Ox O2 Delivery O2 Flow Rate FiO2 08/08/17 06:12 88 08/08/17 05:06 97 08/08/17 04:27 115 08/08/17 04:17 97.8 95 117/70 (86) 99 08/08/17 03:06 109 08/08/17 02:00 102 08/08/17 01:00 102 08/08/17 00:00 110 08/07/17 23:00 91 08/07/17 22:00 82 08/07/17 21:00 108 20 100 Nasal Cannula 2.00 08/07/17 21:00 98.0 121 112/64 (80) 99 08/07/17 20:25 82 16 92/52 (65) 100 Nasal Cannula 2.00 08/07/17 19:00 68 08/07/17 18:38 92 18 92/51 (65) 98 Nasal Cannula 2.00 08/07/17 17:35 100 20 99/58 (72) 98 Nasal Cannula 2.00 08/07/17 17:05 104 17 83/44 (57) 99 Nasal Cannula 2.00 08/07/17 16:00 98 19 109/58 (75) 98 2.00 08/07/17 15:05 99 21 102/70 (81) 100 Nasal Cannula 2.00 08/07/17 14:05 106 20 120/57 (78) 100 Nasal Cannula 2.00 08/07/17 13:05 103 19 97/57 (70) 97 Nasal Cannula 2.00 08/07/17 12:05 105 19 123/68 (86) 97 Nasal Cannula 2.00 08/07/17 11:05 108 19 128/59 (82) 98 Nasal Cannula 2.00 08/07/17 10:00 111 22 97/54 (68) 100 Nasal Cannula 2.00 08/07/17 08:54 113 20 102/76 (85) 98 Nasal Cannula 2.00 I/O 08/07/17 08/07/17 08/07/17 08/08/17 08/08/17 08/08/17 07:00 15:00 23:00 07:00 15:00 23:00 Intake Total 700 ml 50 ml 240 ml Output Total 1000 ml 1200 ml 600 ml Balance -300 ml 50 ml -1200 ml -360 ml Intake Oral 240 ml IV Total 700 ml 50 ml Output Urine Total 1000 ml 1200 ml 600 ml Physical Exam GENERAL: SKIN: Warm and dry. HEAD: Atraumatic. Normocephalic. ENT: No nasal bleeding or discharge. NECK: Trachea midline. No JVD. CARDIOVASCULAR: Irregularly irregular rate and rhythm, tachycardic RESPIRATORY: No accessory muscle use. Clear to auscultation. Breath sounds equal bilaterally. GASTROINTESTINAL: Abdomen soft, non-tender, MUSCULOSKELETAL: bilateral upper and lower extremities edematous 3+ NEUROLOGICAL: awake, obtunded, confused. Laboratory Laboratory Tests Test 08/06/17 19:51 08/06/17 20:45 08/06/17 20:51 08/07/17 03:31 Mean Corpuscular Volume 86.8 FL Mean Corpuscular Hemoglobin 28.4 PG Mean Corpuscular Hemoglobin Concent 32.7 % Red Cell Distribution Width 15.3 % Mean Platelet Volume 10.4 FL Neutrophils (%) (Auto) 80.0 % Lymphocytes (%) (Auto) 11.1 % Monocytes (%) (Auto) 7.8 % Eosinophils (%) (Auto) 0.7 % Basophils (%) (Auto) 0.4 % Neutrophils # (Auto) 16.4 TH/MM3 Lymphocytes # (Auto) 2.3 TH/MM3 Monocytes # (Auto) 1.6 TH/MM3 Eosinophils # (Auto) 0.1 TH/MM3 Basophils # (Auto) 0.1 TH/MM3 CBC Comment AUTO DIFF Differential Total Cells Counted 100 Neutrophils % (Manual) 76 % Band Neutrophils % 6 % Lymphocytes % 13 % Monocytes % 4 % Neutrophils # (Manual) 17.0 TH/MM3 Myelocytes 1 % Platelet Estimate NORMAL Platelet Morphology Comment ENLARGED Prothrombin Time 12.2 SEC Prothromb Time International Ratio 1.2 RATIO Activated Partial Thromboplast Time 25.2 SEC Blood Urea Nitrogen 41 MG/DL Creatinine 1.16 MG/DL Random Glucose 110 MG/DL Total Protein 6.8 GM/DL Albumin 1.9 GM/DL Calcium Level 8.8 MG/DL Magnesium Level 2.0 MG/DL Alkaline Phosphatase 270 U/L Aspartate Amino Transf (AST/SGOT) 49 U/L Alanine Aminotransferase (ALT/SGPT) 33 U/L Total Bilirubin 0.9 MG/DL Sodium Level 133 MEQ/L Potassium Level 5.4 MEQ/L Chloride Level 99 MEQ/L Carbon Dioxide Level 26.4 MEQ/L Troponin I 0.02 NG/ML B-Type Natriuretic Peptide 166 PG/ML Lipase 28 U/L Urine Color YELLOW Urine Turbidity CLEAR Urine pH 5.5 Urine Specific [place] 1.020 Urine Protein TRACE mg/dL Urine Glucose (UA) NEG mg/dL Urine Ketones NEG mg/dL Urine Occult Blood NEG Urine Nitrite NEG Urine Bilirubin NEG Urine Urobilinogen 2.0 MG/DL Urine Leukocyte Esterase MOD Urine RBC 1 /hpf Urine WBC 4 /hpf Urine Squamous Epithelial Cells 2 /hpf Urine Amorphous Sediment RARE Urine Bacteria MANY /hpf Urine Hyaline Casts 4 /lpf Urine Mucus FEW /lpf Microscopic Urinalysis Comment CULTURE INDICATED Lactic Acid Level 1.6 mmol/L Estimat Glomerular Filtration Rate 52 ML/MIN Thyroid Stimulating Hormone 3rd Gen 7.280 uIU/ML Test 08/08/17 08:15 Imaging Last 48 hours Impressions Chest X-Ray 08/06/171943 Signed Impressions: Service Date/Time: Sunday, August 06, 2017 20:12 - CONCLUSION: Interval development of patchy areas of infiltrate in the right mid and lower lung and in the medial left lower lung. Gunner Hobbs MD (Gail Valdivia) Assessment and Plan Problem List: (1) Atrial fibrillation with RVR ICD Codes: I48.91 - Unspecified atrial fibrillation Assessment and Plan 81 yo WF with COPD, CHF, hx of P.E/DVT who [facility] with new onset afib, edema vs. lymphedema and found to have urosepsis and pneumonia. RN reports patient has been confused and uncooperative overnight, refusing po meds and unable to obtain IV access. afib- rate remains elevated, ~100. SBP improving not a good candidate for anticoagulation at this time, cont asa echo shows normal EF, mild , left atrium mod dilated TSH elevated, 7.2, consider adjusting levothyroxine edema vs. lymphedema - good diuresis, -1510mL yesterday. lasix changed to bumex urosepsis/ PNA- primary team following, cont abx (Gail Valdivia) Assessment and Plan RVR but refusing PO meds and pulled out IV attempting IV again. central line planned then IV cardimartham (Wallace Lopes MD) Gail Valdivia Aug 08, 2017 08:35 Wallace Lopes MD Aug 08, 2017 13:48
[2017-08-08] MEDS: BUMETANIDE 1 MG TAB PO SCH (08:43)
[2017-08-08] MEDS: HEPARIN SODIUM - SQ 10,000 UNITS/ML VIAL SQ SCH ×2 (08:44→20:28)
[2017-08-08] MEDS: POLYETHYLENE GLYCOL 17 GM PKG PO SCH ×2 (08:44→20:28)
[2017-08-08] MEDS: ASPIRIN EC 325 MG TABEC PO SCH (08:44)
[2017-08-08 08:55] LABS: BICARBONATE 26.5 MEQ/L (21.0-32.0); CALCIUM 8.6 MG/DL (8.5-10.1); CREATININE 1.02 MG/DL (0.50-1.00)
--- NOTE | 2017-08-08 09:35 | RADRPT ---
EXAM DATE/TIME: 08/08/2017 08:24 [facility] COMPARISON: No previous studies available for comparison. INDICATIONS : Increased Bun and Creatinine. MEDICAL HISTORY : CHF. Hypertension. DVT. COPD. SURGICAL HISTORY : Tonsillectomy. Cataract. section. Left carpal tunnel. ENCOUNTER: Initial ACUITY: 1 day PAIN SCORE: 4/10 LOCATION: Bilateral flank MEASUREMENTS: RIGHT KIDNEY: 9.7 x 5.7 x 5.4 cm LEFT KIDNEY: 8.9 x 5.4 x 5.5 cm FINDINGS: RIGHT KIDNEY: Renal cortex is thin and echotexture. No hydronephrosis, stone, or mass. LEFT KIDNEY: Renal cortex is thin and echotexture. No hydronephrosis, stone, or mass. BLADDER: Within normal limits given the degree of distension. CONCLUSION: Small kidneys with thin echogenic cortex consistent with chronic renal disease. Ronnie Del Rio MD FACR on August 08, 2017 at 9:33 Board Certified Radiologist. This report was verified electronically.
--- NOTE | 2017-08-08 10:39 | HHI.FPPN ---
Subjective Remarks WEAK, NOT TAKING PO, REFUSING MEDS, NO IV ACCES D/T EDEMA, CALLED BY RN Objective Vitals Vital Signs Date Time Temp Pulse Resp B/P (MAP) Pulse Ox O2 Delivery O2 Flow Rate FiO2 08/08/17 10:00 128 08/08/17 08:00 98.8 98 20 162/86 (111) 94 08/08/17 08:00 115 08/08/17 06:12 88 08/08/17 05:06 97 08/08/17 04:27 115 08/08/17 04:17 97.8 95 117/70 (86) 99 08/08/17 03:06 109 08/08/17 02:00 102 08/08/17 01:00 102 08/08/17 00:00 110 08/07/17 23:00 91 08/07/17 22:00 82 08/07/17 21:00 108 20 100 Nasal Cannula 2.00 08/07/17 21:00 98.0 121 112/64 (80) 99 08/07/17 20:25 82 16 92/52 (65) 100 Nasal Cannula 2.00 08/07/17 19:00 68 08/07/17 18:38 92 18 92/51 (65) 98 Nasal Cannula 2.00 08/07/17 17:35 100 20 99/58 (72) 98 Nasal Cannula 2.00 08/07/17 17:05 104 17 83/44 (57) 99 Nasal Cannula 2.00 08/07/17 16:00 98 19 109/58 (75) 98 2.00 08/07/17 15:05 99 21 102/70 (81) 100 Nasal Cannula 2.00 08/07/17 14:05 106 20 120/57 (78) 100 Nasal Cannula 2.00 08/07/17 13:05 103 19 97/57 (70) 97 Nasal Cannula 2.00 08/07/17 12:05 105 19 123/68 (86) 97 Nasal Cannula 2.00 08/07/17 11:05 108 19 128/59 (82) 98 Nasal Cannula 2.00 I/O 08/07/17 08/07/17 08/07/17 08/08/17 08/08/17 08/08/17 07:00 15:00 23:00 07:00 15:00 23:00 Intake Total 700 ml 50 ml 240 ml Output Total 1000 ml 1200 ml 600 ml Balance -300 ml 50 ml -1200 ml -360 ml Intake Oral 240 ml IV Total 700 ml 50 ml Output Urine Total 1000 ml 1200 ml 600 ml Result Diagram: 08/08/17 0815 08/08/17 0815 Imaging Last 72 hours Impressions Renal Ultrasound 08/08/17 0000 Signed Impressions: Service Date/Time: Tuesday, August 08, 2017 08:24 - CONCLUSION: Small kidneys with thin echogenic cortex consistent with chronic renal disease. Ronnie Del Rio MD FACR Chest X-Ray 08/06/171943 Signed Impressions: Service Date/Time: Sunday, August 06, 2017 20:12 - CONCLUSION: Interval development of patchy areas of infiltrate in the right mid and lower lung and in the medial left lower lung. Gunner Hobbs MD Objective Remarks GENERAL: SKIN: Warm and dry. HEAD: Atraumatic. Normocephalic. EYES: Pupils equal and round. No scleral icterus. No injection or drainage. ENT: No nasal bleeding or discharge. Mucous membranes pink and moist. NECK: Trachea midline. No JVD. CARDIOVASCULAR: Regular rate and rhythm. RESPIRATORY: No accessory muscle use. Clear to auscultation. Breath sounds equal bilaterally. GASTROINTESTINAL: Abdomen soft, non-tender, nondistended. Hepatic and splenic margins not palpable. MUSCULOSKELETAL: Extremities without clubbing, cyanosis. three plus edema in all extremities. No obvious deformities. NEUROLOGICAL: Awake and alert. No obvious cranial nerve deficits. Motor grossly within normal limits. 1 out of 5 muscle strength in the arms and legs. PSYCHIATRIC: lethargic, calls out occasionally, Medications and IVs Current Medications Medications (Trade) Dose Ordered Sig/Krystal Route Start Time Stop Time Status Last Admin (NS Flush) 2 ml UNSCH PRN IV FLUSH 08/06/17 19:45 08/07/17 16:29 (Miralax) 17 gm BID PO 08/07/17 09:00 08/07/17 09:21 (Fleets Enema (Adult)) 118 ml DAILY PRN RECTAL 08/06/17 22:15 (Milk Of Magnesia Liq) 30 ml Q3D PO 08/07/17 09:00 Diltiazem HCl 125 mg/Sodium Chloride 125 ml @ 5 mls/hr TITRATE PRN IV 08/07/17 01:15 08/07/17 03:40 (Ativan Inj) 0.5 mg Q6H PRN IV PUSH 08/07/17 01:30 08/08/17 00:06 (Ultram) 50 mg Q6H PRN PO 08/07/17 01:30 08/07/17 22:46 (Zofran Inj) 4 mg Q6H PRN IV PUSH 08/07/17 02:00 (Pepcid Inj) 10 mg Q12H IV PUSH 08/07/17 02:00 08/08/17 03:32 (Catapres) 0.1 mg Q6H PRN PO 08/07/17 08:30 Piperacillin Sod/ Tazobactam Sod 50 ml @ 100 mls/hr Q6H IV 08/07/17 10:00 08/08/17 03:32 (Cardizem) 30 mg Q6HR PO 08/07/17 12:00 08/08/17 05:39 (Ecotrin Ec) 325 mg DAILY PO 08/07/17 10:45 08/07/17 11:05 (Synthroid) 25 mcg DAILY@0600 PO 08/08/17 06:00 08/08/17 05:39 (Heparin Inj) 5,000 units Q12HR SQ 08/07/17 21:00 08/07/17 22:04 (Bumetanide) 1 mg DAILY PO 08/08/17 09:00 A/P Assessment and Plan A/P: SEPSIS: IV ABX, IVF, PANCULTURES, ID CONSULT FLUID OVERLOAD DUE TO CHF: IV LASIX, CARDIOLOGY CONSULT, AM LABS, IR CONSULT IV UNOBTAINABLE, AF RVR: DILT GTT, ASA ONLY PER CARDIOLOGY, CHANGE LOVENOX BID TO HEPARIN BID FOR DVT PX E COLI UTI: FOLLOWUP CULTURES, CKD PE HYPOTHYROIDISM, NEW: STARTED SYNTHROID GI PX: IV PEPCID DVT PX: HEPARIN SC BID DISPO: NEEDS HOSPICE YET PT MENTIONED WANTING TO BE AGGRESSIVE, GOAL IS BACK TO [facility], PALLIATIVE CONSULT, Discharge Planning BACK TO [facility] Problem List: (1) Atrial fibrillation with RVR ICD Codes: I48.91 - Unspecified atrial fibrillation (2) Diastolic dysfunction with chronic heart failure ICD Codes: I50.32 - Chronic diastolic (congestive) heart failure Status: Chronic (3) CKD (chronic kidney disease) stage 3, GFR 30-59 ml/min ICD Codes: N18.3 - Chronic kidney disease, stage 3 (moderate) Status: Chronic (4) Hypoalbuminemia ICD Codes: E88.09 - Other disorders of plasma-protein metabolism, not elsewhere classified Status: Chronic (5) Lymphedema ICD Codes: I89.0 - Lymphedema, not elsewhere classified Status: Chronic (6) Edema ICD Codes: R60.9 - Edema, unspecified Status: Chronic (7) Hyperkalemia ICD Codes: E87.5 - Hyperkalemia Status: Acute (8) Sepsis ICD Codes: A41.9 - Sepsis, unspecified organism Status: Acute (9) PNA (pneumonia) ICD Codes: J18.9 - Pneumonia, unspecified organism Status: Acute (10) Edema of both legs ICD Codes: R60.0 - Localized edema Status: Acute (11) PE (pulmonary thromboembolism) ICD Codes: I26.99 - Other pulmonary embolism without acute cor pulmonale Status: Acute Rom Victoria MD Aug 08, 2017 10:38
--- NOTE | 2017-08-08 16:05 | PD.RAD ---
Post Procedure Progress Note Pre Procedure Diagnosis: (1) Urinary tract infection Post Procedure Diagnosis: (1) Urinary tract infection Procedure Date: Aug 08, 2017 Supervising Radiologist: Gunner Chamberlain JR Proceduralist/Assist: Antonia Jones, RT(R), Ko Cano RT(R) Anesthesia: Local Plan of Activity Patient to Unit: Nursing Unit Patient Condition: Good See PACS Report for procedural detail/treatment Central Venous Access Device Procedure 1 Right Internal Jugular Central Line Placement triple lumen [place]: 7 Findings: Placed right IJ CVL. Functions well. OK to use. Jr. Bulmaro,Gunner Rose MD Aug 08, 2017 16:05
[2017-08-08] MEDS ORDERED: SODIUM CHLORIDE 0.9% FLUSH 10 ML FLUSH IVF PRN ×2 (16:15)
--- NOTE | 2017-08-08 16:22 | PD.CONS ---
Consult Service Palliative Care Consult Requested By Dr. Victoria . Primary Care Physician Rom Victoria MD Reason for Consultation a. To assist with evaluation and management of symptoms including: Weakness , edema, lethargy b. To assist medical decision maker(s) with: better understanding of current medical conditions; weighing benefits/burdens of medical treatment options; making medical treatment decisions. HPI History of Present Illness This is a 81-year-old morbidly obese female who presented to the emergency room 08/06/17 from [facility] via EMS for lower abdominal pain and malodorous vaginal discharge with worsening peripheral edema. She has a history of COPD, diastolic heart failure, previous pulmonary embolus, previous DVT, chronic renal insufficiency stage III, possible central cord syndrome with chronic bilateral upper extremity weakness, chronic pain syndrome and chronic bedbound status. Patient was evaluated at the facility and found to be hypotensive with new onset atrial fibrillation and they were unable to place IV access secondary to severe peripheral edema. ED course: * Laboratory: Sodium 133, potassium 5.4, BUN 41, creatinine 1.16, AST 49, alkaline phosphatase 270, B natruretic peptide 166, albumin 1.9, lipase 28, WBC 20.5, hemoglobin 12.7, hematocrit 38.7, platelets 213. Urinalysis showed a clear yellow specimen with a pH of 5.5, specific gravity 1.020, moderate leukocyte esterase, many bacteria, culture indicated. * Radiology: Chest x-ray shows hazy areas of airspace opacity in the right central lower lung and smaller area medially in the lower left lung. Both hemidiaphragms well delineated, stable heart size compared to 08/25/2016. Consultations were obtained from cardiology, infectious disease and nephrology. * Cardiology: 2D echocardiogram reveals ejection fraction 55-60% with a moderately dilated left atrium. Valvular studies show mild mitral regurgitation , mild aortic regurgitation and mild aortic stenosis with mild to moderate tricuspid valve regurgitation. Mild pulmonary hypertension present at 46 mmHg. Previous echocardiogram done 06/20/2016 also indicates an ejection fraction of 55-60% with abnormal left ventricular relaxation at grade 1 diastolic dysfunction. Cardizem 30 mg every 6 hours orally was initiated for heart rate control. Given her poor performance status and high risk for falls no anticoagulation would be initiated except a 325 mg aspirin daily. * Infectious disease: Infectious disease recommended continuing piperacillin/ tazobactam, blood cultures, urine cultures. * Nephrology: Noted no significant proteinuria and opined that the hypoalbuminemia is likely contributing to her edema and third spacing. As edema appeared to be chronic aggressive diuresis was not recommended particularly in the setting of hypotension. Due to the better oral bioavailability of bumetanide, furosemide was discontinued and Bumex 1 mg daily was initiated. Patient was found to be hyperkalemic on admission so spironolactone was discontinued. This is a morbidly obese female lying in bed lethargic, obtunded. She eventually did arouse to strong verbal and tactile stimuli opened her eyes briefly but did not focus on the examiner. When I inquired as to whether she was in pain she shook her head no and went back to sleep. She has been refusing food fluid and medical care all day. She did receive Ativan several times over the last 24 hours and as she is opiate bonita this could be a contributing factor, as well as atrial fibrillation and sepsis from UTI and pneumonia. . Function/Cognitive Trajectory The daughter notes a steady progressive decline. She has been bedbound and nonmobile for over a year and continues to decline in nutrition, cognition and social interaction. At this evaluation she is obtunded possibly due to medical condition and administration of Ativan. . Review of Systems ROS Limitations: Clinical Condition, Altered Mental Status (Patient is nonverbal and unable to provide their own ROS. 10 part ROS taken as best as possible from medical record and available family.) Constitutional: COMPLAINS OF: Change in appetite, Generalized weakness Cardiovascular: COMPLAINS OF: Lower Extremity Edema Musculoskeletal: COMPLAINS OF: Muscle aches Psychiatric: COMPLAINS OF: Agitation Past Family Social History Coded Allergies: acetaminophen (Unverified Adverse Reaction, Severe, GI UPSET, 08/06/17) codeine (Unverified Adverse Reaction, Severe, GI UPSET, ITCHING, 08/06/17) cortisone (Unverified Adverse Reaction, Severe, GI UPSET, 08/06/17) ibuprofen (Unverified Adverse Reaction, Severe, DIZZY, 08/06/17) morphine (Unverified Adverse Reaction, Intermediate, GI UPSET, 08/06/17) Past Medical History COPD Diastolic heart failure grade 1 Pulmonary embolus DVT 1990 Chronic renal insufficiency Possible central cord syndrome with chronic bilateral upper weakness Chronic pain syndrome Morbid obesity . Past Surgical History section 1968 Carpal tunnel surgery . Reported Medications Reported Meds & Active Scripts Active Lyrica (Pregabalin) 50 Mg Cap 100 Mg PO TID Vitamin C (Ascorbic Acid) 250 Mg Chew 500 Mg CHEW BID Symbicort Inh (Budesonide/Formoterol Fumarate) 160-4.5 Mcg/Act Aero 2 Puff INH Q12HR Tessalon Perles (Benzonatate) 100 Mg Cap 200 Mg PO TID PRN Metoprolol Tartrate 50 Mg Tab 50 Mg PO DAILY Furosemide 40 Mg Tab 40 Mg PO DAILY Reported Aldactone (Spironolactone) 25 Mg Tab 25 Mg PO DAILY Miralax Powder (Polyethylene Glycol 3350 Powder) 17 Gm Powd 17 Gm PO BID Mix and dissolve one measuring cap-ful (17 grams) in water or juice. Tramadol (Tramadol HCl) 50 Mg Tab 50 Mg PO Q8H Colace (Docusate Sodium) 100 Mg Capsule 1 Cap PO BID Melatonin 5 Mg Tab 6 Mg PO HS Gabapentin 600 Mg Tab 600 Mg PO TID Multiple Vitamin 1 Tab 1 Tab PO DAILY Potassium Chloride ER (Potassium Chloride) 10 Meq Cap 10 Meq PO BID Aldactone (Spironolactone) 25 Mg Tab 25 Mg PO DAILY Dulcolax Supp (Bisacodyl) 10 Mg Supp 10 Mg RECTAL DAILY PRN Milk of Magnesia Liq (Magnesium Hydroxide) 400 Mg/5 Ml Susp 5 Ml PO Q3D Duoneb (Ipratropium-Albuterol Neb) 0.5-2.5 Mg/3 Ml Neb 1 Nebule INH Q6HR NEB . Current Medications Medications (Trade) Dose Ordered Sig/Krystal Route Start Time Stop Time Status Last Admin (NS Flush) 2 ml UNSCH PRN IV FLUSH 08/06/17 19:45 08/07/17 16:29 (Miralax) 17 gm BID PO 08/07/17 09:00 08/07/17 09:21 (Fleets Enema (Adult)) 118 ml DAILY PRN RECTAL 08/06/17 22:15 (Milk Of Magnesia Liq) 30 ml Q3D PO 08/07/17 09:00 Diltiazem HCl 125 mg/Sodium Chloride 125 ml @ 5 mls/hr TITRATE PRN IV 08/07/17 01:15 08/07/17 03:40 (Ativan Inj) 0.5 mg Q6H PRN IV PUSH 08/07/17 01:30 08/08/17 00:06 (Ultram) 50 mg Q6H PRN PO 08/07/17 01:30 08/07/17 22:46 (Zofran Inj) 4 mg Q6H PRN IV PUSH 08/07/17 02:00 (Pepcid Inj) 10 mg Q12H IV PUSH 08/07/17 02:00 08/08/17 03:32 (Catapres) 0.1 mg Q6H PRN PO 08/07/17 08:30 Piperacillin Sod/ Tazobactam Sod 50 ml @ 100 mls/hr Q6H IV 08/07/17 10:00 08/08/17 03:32 (Cardizem) 30 mg Q6HR PO 08/07/17 12:00 08/08/17 12:00 (Ecotrin Ec) 325 mg DAILY PO 08/07/17 10:45 08/07/17 11:05 (Synthroid) 25 mcg DAILY@0600 PO 08/08/17 06:00 08/08/17 05:39 (Heparin Inj) 5,000 units Q12HR SQ 08/07/17 21:00 08/07/17 22:04 (Bumetanide) 1 mg DAILY PO 08/08/17 09:00 . Family History Mother at age 83 with congestive heart failure. Father at age 89 with prostate cancer. Brother with prostate cancer and coronary artery disease. . Substance Use Tobacco: Quit smoking about 30 years ago. Alcohol: No significant alcohol use. Prescription med abuse: No prescription drug abuse. Illicits: No illicit drug abuse. . Psychosocial History She was born in [place] and moved to the [facility] when she was 15. 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 She gave to her only child at [facility] [place] currently resides at a correction facility. . Spiritual/Cultural Factors Identifies with the Bahai pentecostalism. . Living Will: Copy in medical record Health Care Surrogate: Copy in medical record Durable Power of Property Management Specialist: Copy in medical record Date completed: March 16, 2007. . Health Care Surrogate(s): Daughter, Karla Sommers. . Documented care wishes: Comfort oriented. Standard Living Will verbiage. . Today's verbally stated goals: Patient is lethargic/obtunded and unable to participate in conversation. . Family/friends goals: The daughter's goals are primarily comfort and in accordance with her mother's wishes maintains her DNR status. . Ethical and Legal Issues None noted. . Physical Exam Vital Signs Date Time Temp Pulse Resp B/P (MAP) Pulse Ox O2 Delivery O2 Flow Rate FiO2 08/08/17 14:00 126 08/08/17 13:00 114 08/08/17 12:00 109 08/08/17 11:00 98.7 110 20 116/66 (83) 95 08/08/17 10:00 128 08/08/17 08:00 98.8 98 20 162/86 (111) 94 08/08/17 08:00 115 08/08/17 06:12 88 08/08/17 05:06 97 08/08/17 04:27 115 08/08/17 04:17 97.8 95 117/70 (86) 99 08/08/17 03:06 109 08/08/17 02:00 102 08/08/17 01:00 102 08/08/17 00:00 110 08/07/17 23:00 91 08/07/17 22:00 82 08/07/17 21:00 108 20 100 Nasal Cannula 2.00 08/07/17 21:00 98.0 121 112/64 (80) 99 08/07/17 20:25 82 16 92/52 (65) 100 Nasal Cannula 2.00 08/07/17 19:00 68 08/07/17 18:38 92 18 92/51 (65) 98 Nasal Cannula 2.00 08/07/17 17:35 100 20 99/58 (72) 98 Nasal Cannula 2.00 08/07/17 17:05 104 17 83/44 (57) 99 Nasal Cannula 2.00 08/07/17 16:00 98 19 109/58 (75) 98 2.00 08/07/17 15:05 99 21 102/70 (81) 100 Nasal Cannula 2.00 . Exam CONSTITUTIONAL/GENERAL: This is a morbidly obese female lying in bed, obtunded. TUBES/LINES/DRAINS: PIV SKIN: No jaundice, rashes, or lesions. Ecchymoses on upper extremities. No wounds seen anteriorly. Skin temperature appropriate. Not diaphoretic. HEAD: Atraumatic. Normocephalic. Abnormally elevated at forehead. EYES: Pupils equal and round and reactive. No scleral icterus. No injection or drainage. Fundi not examined. ENT: Hearing diminished. Nose without bleeding or purulent drainage. Throat without visible erythema, exudates, masses, or lesions. NECK: Trachea midline. Supple, nontender. No palpable thyroid enlargement or nodularity. CARDIOVASCULAR: S1, S2, irregular rhythm, mildly tachycardic rate, no rub murmur or gallop. RESPIRATORY/CHEST: Symmetric, unlabored respirations. Clear to auscultation. Breath sounds equal bilaterally. No wheezes, rales, or rhonchi. GASTROINTESTINAL: Abdomen obese, soft, non-tender, nondistended. No hepato- splenomegaly, or palpable masses. No guarding. Bowel sounds present. GENITOURINARY: Without palpable bladder distension. Kumar catheter in place. MUSCULOSKELETAL: Peripheral edema and lymphedema seen in all 4 extremities. LYMPHATICS: No palpable cervical or supraclavicular adenopathy. NEUROLOGICAL: Obtunded PSYCHIATRIC: Obtunded. . Diagnostic Tests Laboratory Laboratory Tests Test 08/06/17 19:51 08/06/17 20:45 08/06/17 20:51 08/07/17 03:31 White Blood Count 20.5 TH/MM3 (4.0-11.0) Red Blood Count 4.46 MIL/MM3 (4.00-5.30) Hemoglobin 12.7 GM/DL (11.6-15.3) Hematocrit 38.7 % (35.0-46.0) Mean Corpuscular Volume 86.8 FL (80.0-100.0) Mean Corpuscular Hemoglobin 28.4 PG (27.0-34.0) Mean Corpuscular Hemoglobin Concent 32.7 % (32.0-36.0) Red Cell Distribution Width 15.3 % (11.6-17.2) Platelet Count 213 TH/MM3 (150-450) Mean Platelet Volume 10.4 FL (7.0-11.0) Neutrophils (%) (Auto) 80.0 % (16.0-70.0) Lymphocytes (%) (Auto) 11.1 % (9.0-44.0) Monocytes (%) (Auto) 7.8 % (0.0-8.0) Eosinophils (%) (Auto) 0.7 % (0.0-4.0) Basophils (%) (Auto) 0.4 % (0.0-2.0) Neutrophils # (Auto) 16.4 TH/MM3 (1.8-7.7) Lymphocytes # (Auto) 2.3 TH/MM3 (1.0-4.8) Monocytes # (Auto) 1.6 TH/MM3 (0-0.9) Eosinophils # (Auto) 0.1 TH/MM3 (0-0.4) Basophils # (Auto) 0.1 TH/MM3 (0-0.2) CBC Comment AUTO DIFF Differential Total Cells Counted 100 Neutrophils % (Manual) 76 % (16-70) Band Neutrophils % 6 % (0-6) Lymphocytes % 13 % (9-44) Monocytes % 4 % (0-8) Neutrophils # (Manual) 17.0 TH/MM3 (1.8-7.7) Myelocytes 1 % (0-0) Differential Comment FINAL DIFF MANUAL Platelet Estimate NORMAL (NORMAL) Platelet Morphology Comment ENLARGED (NORMAL) Prothrombin Time 12.2 SEC (9.8-11.6) Prothromb Time International Ratio 1.2 RATIO Activated Partial Thromboplast Time 25.2 SEC (24.3-30.1) Blood Urea Nitrogen 41 MG/DL (7-18) 36 MG/DL (7-18) Creatinine 1.16 MG/DL (0.50-1.00) 1.02 MG/DL (0.50-1.00) Random Glucose 110 MG/DL (74-106) 111 MG/DL (74-106) Total Protein 6.8 GM/DL (6.4-8.2) Albumin 1.9 GM/DL (3.4-5.0) Calcium Level 8.8 MG/DL (8.5-10.1) 8.6 MG/DL (8.5-10.1) Magnesium Level 2.0 MG/DL (1.5-2.5) Alkaline Phosphatase 270 U/L (45-117) Aspartate Amino Transf (AST/SGOT) 49 U/L (15-37) Alanine Aminotransferase (ALT/SGPT) 33 U/L (10-53) Total Bilirubin 0.9 MG/DL (0.2-1.0) Sodium Level 133 MEQ/L (136-145) 140 MEQ/L (136-145) Potassium Level 5.4 MEQ/L (3.5-5.1) 4.5 MEQ/L (3.5-5.1) Chloride Level 99 MEQ/L (98-107) 106 MEQ/L (98-107) Carbon Dioxide Level 26.4 MEQ/L (21.0-32.0) 25.0 MEQ/L (21.0-32.0) Anion Gap 8 MEQ/L (5-15) 9 MEQ/L (5-15) Estimat Glomerular Filtration Rate 45 ML/MIN (>89) 52 ML/MIN (>89) Troponin I 0.02 NG/ML (0.02-0.05) B-Type Natriuretic Peptide 166 PG/ML (0-100) Lipase 28 U/L (73-393) Urine Color YELLOW (YELLW/STRAW) Urine Turbidity CLEAR (CLEAR) Urine pH 5.5 (5.0-8.5) Urine Specific [place] 1.020 (1.002-1.035) Urine Protein TRACE mg/dL (NEG-TRACE) Urine Glucose (UA) NEG mg/dL (NEG) Urine Ketones NEG mg/dL (NEG) Urine Occult Blood NEG (NEG) Urine Nitrite NEG (NEG) Urine Bilirubin NEG (NEG) Urine Urobilinogen 2.0 MG/DL (LESS THAN Urine Leukocyte Esterase MOD (NEG) Urine RBC 1 /hpf (0-3) Urine WBC 4 /hpf (0-5) Urine Squamous Epithelial Cells 2 /hpf (0-5) Urine Amorphous Sediment RARE Urine Bacteria MANY /hpf (NONE) Urine Hyaline Casts 4 /lpf (RARE) Urine Mucus FEW /lpf (OCC) Microscopic Urinalysis Comment CULTURE INDICATED Lactic Acid Level 1.6 mmol/L (0.4-2.0) Thyroid Stimulating Hormone 3rd Gen 7.280 uIU/ML (0.358-3.740) Test 08/08/17 08:15 White Blood Count 14.5 TH/MM3 (4.0-11.0) Red Blood Count 3.92 MIL/MM3 (4.00-5.30) Hemoglobin 11.4 GM/DL (11.6-15.3) Hematocrit 34.4 % (35.0-46.0) Mean Corpuscular Volume 87.9 FL (80.0-100.0) Mean Corpuscular Hemoglobin 29.2 PG (27.0-34.0) Mean Corpuscular Hemoglobin Concent 33.2 % (32.0-36.0) Red Cell Distribution Width 15.3 % (11.6-17.2) Platelet Count 203 TH/MM3 (150-450) Mean Platelet Volume 9.4 FL (7.0-11.0) Neutrophils (%) (Auto) 80.4 % (16.0-70.0) Lymphocytes (%) (Auto) 10.3 % (9.0-44.0) Monocytes (%) (Auto) 6.9 % (0.0-8.0) Eosinophils (%) (Auto) 2.1 % (0.0-4.0) Basophils (%) (Auto) 0.3 % (0.0-2.0) Neutrophils # (Auto) 11.6 TH/MM3 (1.8-7.7) Lymphocytes # (Auto) 1.5 TH/MM3 (1.0-4.8) Monocytes # (Auto) 1.0 TH/MM3 (0-0.9) Eosinophils # (Auto) 0.3 TH/MM3 (0-0.4) Basophils # (Auto) 0.0 TH/MM3 (0-0.2) CBC Comment DIFF FINAL Differential Comment Blood Urea Nitrogen 32 MG/DL (7-18) Creatinine 1.02 MG/DL (0.50-1.00) Random Glucose 79 MG/DL (74-106) Calcium Level 8.6 MG/DL (8.5-10.1) Sodium Level 142 MEQ/L (136-145) Potassium Level 3.8 MEQ/L (3.5-5.1) Chloride Level 106 MEQ/L (98-107) Carbon Dioxide Level 26.5 MEQ/L (21.0-32.0) Anion Gap 10 MEQ/L (5-15) Estimat Glomerular Filtration Rate 52 ML/MIN (>89) Total Protein 6.2 GM/DL (6.0-7.6) Parathyroid Hormone (Intact) 107.6 PG/ML (12.4-76.8) Random Cortisol 25.4 MCG/DL Hepatitis B Surface Antigen NEGATIVE (NEGATIVE) Hepatitis C Antibody NEGATIVE (NEGATIVE) Result Diagram: 08/08/1781408/08/1715 Microbiology Microbiology Date/Time Source Procedure Growth Status 08/06/17 20:50 Blood Peripheral Aerobic Blood Culture - Preliminary NO GROWTH IN 2 DAYS Resulted 08/06/17 20:50 Blood Peripheral Anaerobic Blood Culture - Preliminary NO GROWTH IN 2 DAYS Resulted 08/06/17 20:40 Blood Peripheral Aerobic Blood Culture - Preliminary NO GROWTH IN 2 DAYS Resulted 08/06/17 20:40 Blood Peripheral Anaerobic Blood Culture - Preliminary NO GROWTH IN 2 DAYS Resulted 08/06/17 20:45 Urine Random Urine Urine Culture - Final Escherichia Coli Complete Imaging Last Impressions Renal Ultrasound 08/08/17 0000 Signed Impressions: Service Date/Time: Tuesday, August 08, 2017 08:24 - CONCLUSION: Small kidneys with thin echogenic cortex consistent with chronic renal disease. Ronnie Del Rio MD FACR Chest X-Ray 08/06/171943 Signed Impressions: Service Date/Time: Sunday, August 06, 2017 20:12 - CONCLUSION: Interval development of patchy areas of infiltrate in the right mid and lower lung and in the medial left lower lung. Gunner Hobbs MD Patient/Family Conference Present at Family Conference: Spoke with daughter via telephone to review palliative care purpose and focus, patient's clinical condition, test results, discharge plans and patient's refusal of all care today. Reviewed below listed items. . Family Conference Time (mins): 60 Family Conference Location: Telephone Issues Discussed: * Palliative care role, purpose, approach * Additional medical, psychosocial, and spiritual history * Patients general health, functional status, and cognitive changes in the months leading up to the current hospitalization * Patient/family understanding of the current medical problems * Patient/family understanding of prognosis * Patients goals of care as best understood from advance directives and/or conversations and/or values * Current medical treatment options and benefits/burdens of those options * Likely scenarios comparing ongoing aggressive care with a transition to comfort measures only * Questions answered to the best of my ability * Palliative care contact information provided Assessment and Plan Disease Oriented Problem List: (1) Urinary tract infection (2) Generalized weakness (3) Atrial fibrillation with RVR (4) Diastolic dysfunction with chronic heart failure (5) CKD (chronic kidney disease) stage 3, GFR 30-59 ml/min (6) Hypoalbuminemia (7) Lymphedema (8) Edema (9) Sepsis (10) PNA (pneumonia) Symptom Scale: (1) Weakness (2) Lethargy (3) Edema Pertinent Non-Medical Issues Psychosocial:She was born in [place] and moved to the [facility] when she was 15. 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 She gave to her only child at [facility] [place] currently resides at a correction facility. Spiritual: Adventism. Legal: None noted. Ethical issues impacting care: None noted. . Important Contacts Daughter: Karla Sommers . Prognosis Her prognosis is poor. She has a very poor nutritional status with hypoalbuminemia contributing to her overall edema. She is refusing food, fluid , medications and care at this time. She is very lethargic, will arouse and open her eyes but then returns to a semi-obtunded state. As she is refusing food fluid in care she will continue to decline and suffer more complications. . Code Status: No Code Plan PLAN: Legal decision maker: The patient at this time is not able to participate in healthcare decisions. She does have a previously completed healthcare surrogate naming her daughter, Karla Sommers has the surrogate decision maker. Goals: Comfort oriented CODE STATUS: DNR SYMPTOMS: * Weakness: Chronically bedbound. She had undergone previous therapy attempts and said that her legs would not hold her weight, she was too weak. At last admission in 2017, physical therapy was consulted but patient refused to cooperate with therapy session and would tolerate only passive range of motion. As she is currently refusing to cooperate with care, take medications or nutrition she is likely to remain weak and continue to decline. * Edema: She appears to have a combination of both edema, likely related to low albumin stores, and lymphedema. She had been receiving Lasix on admission and previously spironolactone, however, has now been evaluated by nephrology and placed on Bumex for better absorption. Renal function has improved showing a GFR of 52. * Lethargy: This appears to be multifactorial. She is an elderly, opiate bonita female who has received several doses of IV Ativan, the last of which was given at midnight for agitation. She also has both a urinary tract infection and pneumonia which is likely contributing to her lethargy. Would recommend minimizing the use of Ativan except for severe agitation and obtaining a speech therapy consultation to evaluate for possible aspiration as a contributing factor for pneumonia. * Pain: She does have chronic pain from spinal stenosis, possible central cord syndrome, bedbound status. She normally takes gabapentin, Lyrica and tramadol for pain. She was hypotensive on admission and gabapentin and Lyrica were not restarted. Would recommend resuming gabapentin and Lyrica per home med list. SUMMARY This is a 81-year-old, chronically bedbound, morbidly obese female who resides at [facility] correction [facility] rehab, admitted with UTI and pneumonia. She had a recent episode of aspiration of a hot dog at [facility] requiring the Heimlich maneuver to dislodge. The daughter is concerned about recurrent aspiration. She is very lethargic today, refusing food fluid and medication. She is pending intravenous line placement to resume antibiotics. Hospice was discussed with the daughter however she is not ready to make that decision at this time. She wishes to allow her mother several days to try and recover before considering that option. The patient is likely to suffer continued decline, recurrent hospitalizations and recurrent complications. Palliative care will continue to follow the patient during hospital course as condition evolves, to assist patient/decision-maker with understanding of their medical conditions, weighing benefits/burdens of treatment options, for clarification of goals of treatment. Additionally will assist with any symptoms of palliative concern. . Time Spent Total Floor Time (mins): 95 Face to Face Time (mins): 60 >50% Counseling/Coord of Care: Yes Thank you for the opportunity to participate in the care of Ms. Shrestha. Attestation To help prompt me to consider important information that might be impacting today's encounter and assessment, information from prior notes written by myself or my colleagues may have been "brought forward" into today's note. My signature on this note, however, is an attestation that I personally performed the exam, history, and/or decision-making noted today, and, unless otherwise indicated, the interactions with patient, family, and staff as well as the review of records all occurred today. I also attest that the listed assessment and stated plan reflect my best clinical judgment today based on the combination of historical information, prior notes, and today's exam/ interactions. When time spent is documented, it refers only to time spent today by the signer, or if indicated, combined time spent today by collaborating physician/nurse practitioner. . Karla Garcias Aug 08, 2017 15:25
--- NOTE | 2017-08-08 17:07 | RADRPT ---
EXAM DATE/TIME: 08/08/2017 15:43 [place] COMPARISON: No previous studies available for comparison. INDICATIONS : Patient presents with urinary tract infection and renal insufficiency in need of central line placeme nt for access. MEDICAL HISTORY : PE AF RI COPD HTN SURGICAL HISTORY : NC ENCOUNTER: Initial ACUITY: 2 days PAIN SCORE: Nonresponsive. LOCATION: N/A FLUORO TIME: 0.2 minutes IMAGE SERIES: 0 ACCESS: Right internal jugular vein DEVICE(S): 1.) 7 Nigerian triple lumen 16 cm Arrow central line PROCEDURE : 1. Ultrasound guided venipuncture. 2. Central line placement. The risks, benefits and alternatives to the procedure were explained and verbal and written consent w as obtained. The site was prepped in sterile fashion. Full sterile technique was used, including ca p, mask, sterile gloves and gown and a large sterile sheet. Hand hygiene and 2% chlorhexidine prep w as utilized per protocol for cutaneous antisepsis with appropriate dry time for site. Sterile gel an d sterile probe cover were utilized for ultrasound guidance. The skin and subcutaneous tissues were infiltrated with local anesthetic solution. With ultrasound guidance a dermatotomy in the neck was created and subcutaneous dissection was perfor med. A micropuncture set was used to gain access and serial dilatation was performed to accept the c atheter as prescribed above. The catheter was fixed in place with a StatLock device and a sterile wallace ssing was applied. The patient tolerated the procedure well and there were no complications. Chest radiograph is to be obtained to document position. CONCLUSION: Uncomplicated line placement as above. Gunner Chamberlain Jr., MD on August 08, 2017 at 17:05 Board Certified Radiologist. This report was verified electronically.
--- NOTE | 2017-08-08 17:08 | HHI.IDPN ---
Note Infectious Disease Note Patient states she feels okay. Very little interaction. Laying in bed and is in no distress. Afebrile. White blood cell count is low. 81-year-old white female who was brought to the emergency department from [facility]. The patient was noted to have diffuse edema. She was also noted to have low blood pressure. The patient also was noted to have lower abdominal pain and malodorous vaginal discharge. She was recently treated for a urinary tract infection earlier this month with a 4 day course of antibiotics which was then discontinued. PAST MEDICAL HISTORY: 1. Urinary tract infection. 2. COPD. 3. Hypertension. 4. CHF. 5. Pulmonary embolism. 6. Chronic pain. 7. Tonsillectomy. 8. History of C. difficile. ALLERGIES: MORPHINE, IBUPROFEN, CORTISONE, CODEINE, ACETAMINOPHEN. MEDICATIONS: Current Medications Medications (Trade) Dose Ordered Sig/Krystal Route PRN Reason Start Time Stop Time Status Last Admin Dose Admin Sodium Chloride (NS Flush) 2 ml UNSCH PRN IV FLUSH FLUSH AFTER USING IV ACCESS 08/06/17 19:45 08/07/17 16:29 Polyethylene Glycol (Miralax) 17 gm BID PO 08/07/17 09:00 08/07/17 09:21 Sodium Biphosphate/ Sodium Phosphate (Fleets Enema (Adult)) 118 ml DAILY PRN RECTAL CONSTIPATION 08/06/17 22:15 Magnesium Hydroxide (Milk Of Magnesia Liq) 30 ml Q3D PO 08/07/17 09:00 Diltiazem HCl 125 mg/Sodium Chloride 125 ml @ 5 mls/hr TITRATE PRN IV Tachycardia 08/07/17 01:15 08/07/17 03:40 Lorazepam (Ativan Inj) 0.5 mg Q6H PRN IV PUSH ANXIETY 08/07/17 01:30 08/08/17 00:06 Tramadol HCl (Ultram) 50 mg Q6H PRN PO PAIN 08/07/17 01:30 08/07/17 22:46 Ondansetron HCl (Zofran Inj) 4 mg Q6H PRN IV PUSH NAUSEA OR VOMITING 08/07/17 02:00 Famotidine (Pepcid Inj) 10 mg Q12H IV PUSH 08/07/17 02:00 08/08/17 03:32 Clonidine (Catapres) 0.1 mg Q6H PRN PO SBP>160, DBP>90 08/07/17 08:30 Piperacillin Sod/ Tazobactam Sod 50 ml @ 100 mls/hr Q6H IV 08/07/17 10:00 08/08/17 16:00 Diltiazem HCl (Cardizem) 30 mg Q6HR PO 08/07/17 12:00 08/08/17 12:00 Aspirin (Ecotrin Ec) 325 mg DAILY PO 08/07/17 10:45 08/07/17 11:05 Levothyroxine Sodium (Synthroid) 25 mcg DAILY@0600 PO 08/08/17 06:00 08/08/17 05:39 Heparin Sodium (Porcine) (Heparin Inj) 5,000 units Q12HR SQ 08/07/17 21:00 08/07/17 22:04 Bumetanide (Bumetanide) 1 mg DAILY PO 08/08/17 09:00 Sodium Chloride (NS Flush) DAILY IVF 08/09/17 09:00 Heparin Sodium (Porcine) (Heparin Central Flush) DAILY IV FLUSH 08/09/17 09:00 Sodium Chloride (NS Flush) UNSCH PRN IVF SEE PROTOCOL 08/08/17 16:15 Heparin Sodium (Porcine) (Heparin Central Flush) UNSCH PRN IV FLUSH SEE PROTOCOL 08/08/17 16:15 Sodium Chloride (NS Flush) UNSCH PRN IVF SEE PROTOCOL 08/08/17 16:15 OBJECTIVE: Vital Signs Date Time Temp Pulse Resp B/P (MAP) Pulse Ox O2 Delivery O2 Flow Rate FiO2 08/08/17 16:00 109 08/08/17 15:00 98.0 115 20 118/50 (72) 94 08/08/17 15:00 118 08/08/17 14:00 126 08/08/17 13:00 114 08/08/17 12:00 109 08/08/17 11:00 98.7 110 20 116/66 (83) 95 08/08/17 11:00 150 08/08/17 10:00 128 08/08/17 08:00 98.8 98 20 162/86 (111) 94 08/08/17 08:00 115 08/08/17 06:12 88 08/08/17 05:06 97 08/08/17 04:27 115 08/08/17 04:17 97.8 95 117/70 (86) 99 08/08/17 03:06 109 08/08/17 02:00 102 08/08/17 01:00 102 08/08/17 00:00 110 08/07/17 23:00 91 08/07/17 22:00 82 08/07/17 21:00 108 20 100 Nasal Cannula 2.00 08/07/17 21:00 98.0 121 112/64 (80) 99 08/07/17 20:25 82 16 92/52 (65) 100 Nasal Cannula 2.00 08/07/17 19:00 68 08/07/17 18:38 92 18 92/51 (65) 98 Nasal Cannula 2.00 08/07/17 17:35 100 20 99/58 (72) 98 Nasal Cannula 2.00 08/07/17 17:05 104 17 83/44 (57) 99 Nasal Cannula 2.00 Laboratory Tests Test 08/06/17 19:51 08/08/17 08:15 White Blood Count 20.5 TH/MM3 14.5 TH/MM3 Red Blood Count 4.46 MIL/MM3 3.92 MIL/MM3 Hemoglobin 12.7 GM/DL 11.4 GM/DL Hematocrit 38.7 % 34.4 % Mean Corpuscular Volume 86.8 FL 87.9 FL Mean Corpuscular Hemoglobin 28.4 PG 29.2 PG Mean Corpuscular Hemoglobin Concent 32.7 % 33.2 % Red Cell Distribution Width 15.3 % 15.3 % Platelet Count 213 TH/MM3 203 TH/MM3 Mean Platelet Volume 10.4 FL 9.4 FL Neutrophils (%) (Auto) 80.0 % 80.4 % Lymphocytes (%) (Auto) 11.1 % 10.3 % Monocytes (%) (Auto) 7.8 % 6.9 % Eosinophils (%) (Auto) 0.7 % 2.1 % Basophils (%) (Auto) 0.4 % 0.3 % Neutrophils # (Auto) 16.4 TH/MM3 11.6 TH/MM3 Lymphocytes # (Auto) 2.3 TH/MM3 1.5 TH/MM3 Monocytes # (Auto) 1.6 TH/MM3 1.0 TH/MM3 Eosinophils # (Auto) 0.1 TH/MM3 0.3 TH/MM3 Basophils # (Auto) 0.1 TH/MM3 0.0 TH/MM3 CBC Comment AUTO DIFF DIFF FINAL Differential Total Cells Counted 100 Neutrophils % (Manual) 76 % Band Neutrophils % 6 % Lymphocytes % 13 % Monocytes % 4 % Neutrophils # (Manual) 17.0 TH/MM3 Myelocytes 1 % Differential Comment FINAL DIFF MANUAL Platelet Estimate NORMAL Platelet Morphology Comment ENLARGED Laboratory Tests Test 08/06/17 19:51 08/06/17 20:51 08/07/17 03:31 08/08/17 08:15 Blood Urea Nitrogen 41 MG/DL 36 MG/DL 32 MG/DL Creatinine 1.16 MG/DL 1.02 MG/DL 1.02 MG/DL Random Glucose 110 MG/DL 111 MG/DL 79 MG/DL Total Protein 6.8 GM/DL 6.2 GM/DL Albumin 1.9 GM/DL Calcium Level 8.8 MG/DL 8.6 MG/DL 8.6 MG/DL Magnesium Level 2.0 MG/DL Alkaline Phosphatase 270 U/L Aspartate Amino Transf (AST/SGOT) 49 U/L Alanine Aminotransferase (ALT/SGPT) 33 U/L Total Bilirubin 0.9 MG/DL Sodium Level 133 MEQ/L 140 MEQ/L 142 MEQ/L Potassium Level 5.4 MEQ/L 4.5 MEQ/L 3.8 MEQ/L Chloride Level 99 MEQ/L 106 MEQ/L 106 MEQ/L Carbon Dioxide Level 26.4 MEQ/L 25.0 MEQ/L 26.5 MEQ/L Anion Gap 8 MEQ/L 9 MEQ/L 10 MEQ/L Estimat Glomerular Filtration Rate 45 ML/MIN 52 ML/MIN 52 ML/MIN Troponin I 0.02 NG/ML B-Type Natriuretic Peptide 166 PG/ML Lipase 28 U/L Lactic Acid Level 1.6 mmol/L Thyroid Stimulating Hormone 3rd Gen 7.280 uIU/ML Parathyroid Hormone (Intact) 107.6 PG/ML Random Cortisol 25.4 MCG/DL Microbiology Date/Time Source Procedure Growth Status 08/06/17 20:50 Blood Peripheral Aerobic Blood Culture - Preliminary NO GROWTH IN 2 DAYS Resulted 08/06/17 20:50 Blood Peripheral Anaerobic Blood Culture - Preliminary NO GROWTH IN 2 DAYS Resulted 08/06/17 20:40 Blood Peripheral Aerobic Blood Culture - Preliminary NO GROWTH IN 2 DAYS Resulted 08/06/17 20:40 Blood Peripheral Anaerobic Blood Culture - Preliminary NO GROWTH IN 2 DAYS Resulted 08/06/17 20:45 Urine Random Urine Urine Culture - Final Escherichia Coli Complete IMAGING: Renal Ultrasound 08/08/17 0000 Signed Impressions: Service Date/Time: Tuesday, August 08, 2017 08:24 - CONCLUSION: Small kidneys with thin echogenic cortex consistent with chronic renal disease. Ronnie Del Rio MD FACR Chest X-Ray 08/06/17 194 Signed Impressions: Service Date/Time: Sunday, August 06, 2017 20:12 - CONCLUSION: Interval development of patchy areas of infiltrate in the right mid and lower lung and in the medial left lower lung. Gunner Hobbs MD PHYSICAL EXAM: GENERAL: No acute distress. Easily aroused. HEENT: The head is atraumatic. Extraocular movements grossly intact, pupils reactive to light. No icterus. Oropharynx, dry mucosa. No thrush. No visible lesions. NECK: Supple without adenopathy. LUNGS: Decreased breath sounds at the right base. HEART: Irregular rate and rhythm. No murmurs audible. ABDOMEN: Bowel sounds diminished, soft, no tenderness appreciated. No masses palpable. EXTREMITIES: Diffuse edema with 3+ edema of the upper extremities and 2+ edema of the lower extremities. SKIN: No diffuse rash. NEURO: Nonfocal. PSYCH: Calm. IMPRESSION: 1. Urinary tract infection - E. coli. 2. Sepsis indicated by urinary tract infection along with tachycardia and leukocytosis. 3. Pneumonia. 4. Chronic kidney disease. 5. Anasarca. 6. Atrial fibrillation. RECOMMENDATIONS: 1. Continue piperacillin/tazobactam. 2. Monitor the white blood cell count. 3. Monitor temperature. 4. Monitor white blood cell counts. Vignesh Reyna MD Aug 08, 2017 17:08
[2017-08-08 22:11] LABS: ALB/GLOB RATIO (SPE) 0.7 (1.39-2.23)
[2017-08-09] VITALS (28 sets, daily range): BP systolic 89–130; BP diastolic 50–82; PULSE 84–166; RESP 18; TEMP 97.7–98.4; O2SAT 94–99
[2017-08-09] MEDS: DILTIAZEM HCL 30 MG TAB PO SCH ×4 (01:05→17:00)
[2017-08-09] MEDS: FAMOTIDINE 20 MG/2 ML VIAL IV PUSH SCH ×2 (01:06→13:46)
[2017-08-09] MEDS: LEVOTHYROXINE SODIUM 25 MCG TAB PO SCH (04:53)
[2017-08-09] MEDS: PIPERACIL-TAZO 2.25 GM PREMIX 50 ML IV SCH ×4 (04:54→21:22)
[2017-08-09] MEDS: traMADol HCL 50 MG TAB PO PRN ×2 (04:54→13:59)
[2017-08-09 05:26] LABS: AUTOMATED NEUTROPHIL # 11.4 TH/MM3 (1.8-7.7); BASOPHIL % 0.1 % (0.0-2.0); EOSINOPHIL # 0.1 TH/MM3 (0-0.4); EOSINOPHIL % 0.9 % (0.0-4.0); HEMOGLOBIN 11.4 GM/DL (11.6-15.3); LYMPH % 8.6 % (9.0-44.0); LYMPHOCYTE # 1.2 TH/MM3 (1.0-4.8); MEAN CELL VOLUME 87.3 FL (80.0-100.0); MEAN CORPUSCULAR HEMOGLOBIN 29.3 PG (27.0-34.0); MEAN CORPUSCULAR HGB CONC 33.6 % (32.0-36.0); MEAN PLATELET VOLUME 9.3 FL (7.0-11.0); MONO % 7.9 % (0.0-8.0); MONOCYTE # 1.1 TH/MM3 (0-0.9); NEUT % 82.5 % (16.0-70.0); PLATELET COUNT 221 TH/MM3 (150-450); RED CELL DISTRIBUTION WIDTH 14.9 % (11.6-17.2); WHITE BLOOD COUNT 13.8 TH/MM3 (4.0-11.0)
[2017-08-09 05:43] LABS: BICARBONATE 28.5 MEQ/L (21.0-32.0); CALCIUM 8.7 MG/DL (8.5-10.1); CREATININE 0.96 MG/DL (0.50-1.00)
[2017-08-09] MEDS: LORazepam 2 MG/ML VIAL IV PUSH PRN ×2 (05:52→21:23)
--- NOTE | 2017-08-09 08:22 | HHI.PR ---
Subjective Remarks This is a pleasant 81 y/o Female Who came from Nursing facility, with diffuse edema, hypotension, abdominal pain and malodorous vaginal discharge. Recently treated due to UTI, has COPD, Hypertension CHF, Pulmonary emboli, chronic pain syndrome, as per ID specialist she has UTI and Sepsis, Pneumonia, CKD, Anasarca, Atrial Fibrillation. on Zosyn, she is been confused uncooperative, refusing medicines, as per drilling fluids specialist continue with Atrial Fibrillation with RVR considering to re start Cardizem drip, added Digoxin, due to low blood pressure, not a good candidate for anticoagulation, recommended to continue Aspirin, Echo showed normal EF, Mild , left atrium with moderate dilatation. seen in her bedroom, and discussed with nurse Miss Palmer. Objective Vital Signs Date Time Temp Pulse Resp B/P (MAP) Pulse Ox O2 Delivery O2 Flow Rate FiO2 08/09/17 07:33 98.4 117 18 128/68 (88) 97 08/09/17 06:00 112 08/09/17 05:00 120 08/09/17 04:00 108 08/09/17 03:00 122 08/09/17 03:00 97.8 120 130/60 (83) 99 08/09/17 02:00 110 08/09/17 01:00 130 08/09/17 00:00 108 08/09/17 00:00 98.2 120 111/82 (92) 99 08/08/17 23:00 123 08/08/17 22:00 104 08/08/17 21:00 110 08/08/17 20:00 116 08/08/17 20:00 97.8 131 118/69 (85) 100 08/08/17 19:00 119 08/08/17 18:00 116 08/08/17 17:00 138 08/08/17 16:00 109 08/08/17 15:00 98.0 115 20 118/50 (72) 94 08/08/17 15:00 118 08/08/17 14:00 126 08/08/17 13:00 114 08/08/17 12:00 109 08/08/17 11:00 98.7 110 20 116/66 (83) 95 08/08/17 11:00 150 08/08/17 10:00 128 I/O 3/9/18 3/02/1708/08/17 08/09/17 08/09/17 08/09/17 07:00 15:00 23:00 07:00 15:00 23:00 Intake Total 240 ml 290 ml 240 ml Output Total 600 ml 425 ml 400 ml Balance -360 ml -135 ml -160 ml Intake Oral 240 ml 240 ml 240 ml IV Total 50 ml Output Urine Total 600 ml 425 ml 400 ml # Bowel Movements 0 Result Diagram: 08/09/17 0500 08/09/17 0500 Imaging Last Impressions Renal Ultrasound 08/08/17 0000 Signed Impressions: Service Date/Time: Tuesday, August 08, 2017 08:24 - CONCLUSION: Small kidneys with thin echogenic cortex consistent with chronic renal disease. Ronnie Del Rio MD FACR Central Venous Line 08/08/17 0000 Signed Impressions: Service Date/Time: Tuesday, August 08, 2017 15:43 - CONCLUSION: Uncomplicated line placement as above. Gunner Chamberlain Jr., MD Chest X-Ray 08/06/17 194 Signed Impressions: Service Date/Time: Sunday, August 06, 2017 20:12 - CONCLUSION: Interval development of patchy areas of infiltrate in the right mid and lower lung and in the medial left lower lung. Gunner Hobbs MD Procedures None Other Results Laboratory Tests Test 08/06/17 19:51 08/06/17 20:45 08/06/17 20:51 08/07/17 03:31 Differential Total Cells Counted 100 Neutrophils % (Manual) 76 % Band Neutrophils % 6 % Lymphocytes % 13 % Monocytes % 4 % Neutrophils # (Manual) 17.0 TH/MM3 Myelocytes 1 % Platelet Estimate NORMAL Platelet Morphology Comment ENLARGED Prothrombin Time 12.2 SEC Prothromb Time International Ratio 1.2 RATIO Activated Partial Thromboplast Time 25.2 SEC Blood Urea Nitrogen 41 MG/DL Creatinine 1.16 MG/DL Random Glucose 110 MG/DL Total Protein 6.8 GM/DL Albumin 1.9 GM/DL Calcium Level 8.8 MG/DL Magnesium Level 2.0 MG/DL Alkaline Phosphatase 270 U/L Aspartate Amino Transf (AST/SGOT) 49 U/L Alanine Aminotransferase (ALT/SGPT) 33 U/L Total Bilirubin 0.9 MG/DL Sodium Level 133 MEQ/L Potassium Level 5.4 MEQ/L Chloride Level 99 MEQ/L Carbon Dioxide Level 26.4 MEQ/L Troponin I 0.02 NG/ML B-Type Natriuretic Peptide 166 PG/ML Lipase 28 U/L Urine Color YELLOW Urine Turbidity CLEAR Urine pH 5.5 Urine Specific [place] 1.020 Urine Protein TRACE mg/dL Urine Glucose (UA) NEG mg/dL Urine Ketones NEG mg/dL Urine Occult Blood NEG Urine Nitrite NEG Urine Bilirubin NEG Urine Urobilinogen 2.0 MG/DL Urine Leukocyte Esterase MOD Urine RBC 1 /hpf Urine WBC 4 /hpf Urine Squamous Epithelial Cells 2 /hpf Urine Amorphous Sediment RARE Urine Bacteria MANY /hpf Urine Hyaline Casts 4 /lpf Urine Mucus FEW /lpf Microscopic Urinalysis Comment CULTURE INDICATED Lactic Acid Level 1.6 mmol/L Thyroid Stimulating Hormone 3rd Gen 7.280 uIU/ML Test 08/08/17 08:15 08/09/17 05:00 Total Protein 6.2 GM/DL Albumin 2.55 GM/DL Albumin/Globulin Ratio 0.70 Ixiqy-[id number] 0.31 GM/DL [id number]-8-Lobjtcmzn 0.84 GM/DL Beta Globulins 0.65 GM/DL Gamma Globulins 1.85 GM/DL Parathyroid Hormone (Intact) 107.6 PG/ML Random Cortisol 25.4 MCG/DL Hepatitis B Surface Antigen NEGATIVE Hepatitis C Antibody NEGATIVE White Blood Count 13.8 TH/MM3 Red Blood Count 3.90 MIL/MM3 Hemoglobin 11.4 GM/DL Hematocrit 34.0 % Mean Corpuscular Volume 87.3 FL Mean Corpuscular Hemoglobin 29.3 PG Mean Corpuscular Hemoglobin Concent 33.6 % Red Cell Distribution Width 14.9 % Platelet Count 221 TH/MM3 Mean Platelet Volume 9.3 FL Neutrophils (%) (Auto) 82.5 % Lymphocytes (%) (Auto) 8.6 % Monocytes (%) (Auto) 7.9 % Eosinophils (%) (Auto) 0.9 % Basophils (%) (Auto) 0.1 % Neutrophils # (Auto) 11.4 TH/MM3 Lymphocytes # (Auto) 1.2 TH/MM3 Monocytes # (Auto) 1.1 TH/MM3 Eosinophils # (Auto) 0.1 TH/MM3 Basophils # (Auto) 0.0 TH/MM3 CBC Comment DIFF FINAL Differential Comment Blood Urea Nitrogen 28 MG/DL Creatinine 0.96 MG/DL Random Glucose 87 MG/DL Calcium Level 8.7 MG/DL Sodium Level 141 MEQ/L Potassium Level 3.3 MEQ/L Chloride Level 104 MEQ/L Carbon Dioxide Level 28.5 MEQ/L Anion Gap 9 MEQ/L Estimat Glomerular Filtration Rate 56 ML/MIN Objective Remarks GENERAL: Lethargic, refusing medicines when awake. SKIN: Warm and dry. HEAD: Atraumatic. Normocephalic. EYES: Pupils equal and round. No scleral icterus. No injection or drainage. ENT: No nasal bleeding or discharge. Mucous membranes pink and moist. NECK: Trachea midline. No JVD. CARDIOVASCULAR: Regular rate and rhythm. RESPIRATORY: No accessory muscle use. Clear to auscultation. Breath sounds equal bilaterally. GASTROINTESTINAL: Abdomen soft, non-tender, nondistended. Hepatic and splenic margins not palpable. MUSCULOSKELETAL: Extremities without clubbing, cyanosis. three plus edema in all extremities. No obvious deformities. PSYCHIATRIC: lethargic, calls out occasionally, Medications and IVs Current Medications Medications (Trade) Dose Ordered Sig/Krystal Route Start Time Stop Time Status Last Admin (NS Flush) 2 ml UNSCH PRN IV FLUSH 08/06/17 19:45 08/07/17 16:29 (Miralax) 17 gm BID PO 08/07/17 09:00 08/07/17 09:21 (Fleets Enema (Adult)) 118 ml DAILY PRN RECTAL 08/06/17 22:15 (Milk Of Magnesia Liq) 30 ml Q3D PO 08/07/17 09:00 Diltiazem HCl 125 mg/Sodium Chloride 125 ml @ 5 mls/hr TITRATE PRN IV 08/07/17 01:15 08/07/17 03:40 (Ativan Inj) 0.5 mg Q6H PRN IV PUSH 08/07/17 01:30 08/09/17 05:52 (Ultram) 50 mg Q6H PRN PO 08/07/17 01:30 08/09/17 04:54 (Zofran Inj) 4 mg Q6H PRN IV PUSH 08/07/17 02:00 (Pepcid Inj) 10 mg Q12H IV PUSH 08/07/17 02:00 08/09/17 01:06 (Catapres) 0.1 mg Q6H PRN PO 08/07/17 08:30 Piperacillin Sod/ Tazobactam Sod 50 ml @ 100 mls/hr Q6H IV 08/07/17 10:00 08/09/17 04:54 (Cardizem) 30 mg Q6HR PO 08/07/17 12:00 08/09/17 04:53 (Ecotrin Ec) 325 mg DAILY PO 08/07/17 10:45 08/07/17 11:05 (Synthroid) 25 mcg DAILY@0600 PO 08/08/17 06:00 08/09/17 04:53 (Heparin Inj) 5,000 units Q12HR SQ 08/07/17 21:00 08/08/17 20:28 (Bumetanide) 1 mg DAILY PO 08/08/17 09:00 (NS Flush) DAILY IVF 08/09/17 09:00 (Heparin Central Flush) DAILY IV FLUSH 08/09/17 09:00 (NS Flush) UNSCH PRN IVF 08/08/17 16:15 (Heparin Central Flush) UNSCH PRN IV FLUSH 08/08/17 16:15 (NS Flush) UNSCH PRN IVF 08/08/17 16:15 A/P Assessment and Plan 1. Sepsis to continue IV antibiotics, ID specialist following continue Zosyn, secondary to UTI and Pneumonia, has UTI secondary to E Coli. 2. Fluid overload due to CHF, on IV Lasix Cardiology following, Echocardiogram showed normal EF. mild , left atrium with moderate dilatation. 3. Atrial fibrillation on Diltiazem, on Aspirin by Cardiology, at this time on Lovenox BID 4. E Coli UTI 5. CKD III by history. 6. Pulmonary Emboli by history 7. Hypothyroidism New diagnosis started on Synthroid. 8. Morbid obesity Poor prognosis, GI prophylaxis on IV Pepcid DVT prophylaxis with heparin Subcutaneous,. Discharge Planning DISPO: NEEDS HOSPICE YET PT MENTIONED WANTING TO BE AGGRESSIVE, GOAL IS BACK TO [facility], PALLIATIVE CONSULT, Germán Nick MD Aug 09, 2017 08:22
[2017-08-09] MEDS: POLYETHYLENE GLYCOL 17 GM PKG PO SCH ×2 (09:36→21:00)
[2017-08-09] MEDS: BUMETANIDE 1 MG TAB PO SCH (09:39)
[2017-08-09] MEDS: ASPIRIN EC 325 MG TABEC PO SCH (09:39)
[2017-08-09] MEDS: HEPARIN SODIUM - SQ 10,000 UNITS/ML VIAL SQ SCH ×2 (09:40→21:22)
[2017-08-09] MEDS: SODIUM CHLORIDE 0.9% FLUSH 10 ML FLUSH IVF SCH (09:56)
--- NOTE | 2017-08-09 12:04 | HHI.NPPN ---
Subjective History of Present Illness 81-year-old female with a history of multiple medical problems including COPD, CHF apparently secondary to diastolic dysfunction, PE, DVT and chronic renal insufficiency with a baseline creatinine of approximately 1.18 with estimated GFR is ranging between the 30s and 40s. Also I suspect the patient has chronic debilitation and some degree of failure to thrive based on clinical examination. Patient admitted to this institution with apparent atrial fibrillation, urinary tract infection secondary to gram-negative bacillary I and noted to have edema of the upper and lower extremities. Albumin level noted to be only 1.9. Urinalysis showing only trace protein however on presentation. Patient is a very poor historian and lethargic. Interval History Pt s/p central line yesterday as she had no IV access and was refusing po medications. Today, she is obtunded and is only groaning. (Vaishnavi Rayo) Review of Systems General General Remarks Unable to obtain (Vaishnavi Rayo) Objective Data Data Vital Signs Date Time Temp Pulse Resp B/P (MAP) Pulse Ox O2 Delivery O2 Flow Rate FiO2 08/09/17 11:11 97.7 104 18 107/64 (78) 97 08/09/17 11:11 97 Nasal Cannula 1.00 08/09/17 11:00 119 08/09/17 10:00 122 08/09/17 09:00 118 08/09/17 08:00 106 08/09/17 07:33 98.4 117 18 128/68 (88) 97 08/09/17 07:00 94 08/09/17 06:00 112 08/09/17 05:00 120 08/09/17 04:00 108 08/09/17 03:00 122 08/09/17 03:00 97.8 120 130/60 (83) 99 08/09/17 02:00 110 08/09/17 01:00 130 08/09/17 00:00 108 08/09/17 00:00 98.2 120 111/82 (92) 99 08/08/17 23:00 123 08/08/17 22:00 104 08/08/17 21:00 110 08/08/17 20:00 116 08/08/17 20:00 97.8 131 118/69 (85) 100 08/08/17 19:00 119 08/08/17 18:00 116 08/08/17 17:00 138 08/08/17 16:00 109 08/08/17 15:00 98.0 115 20 118/50 (72) 94 08/08/17 15:00 118 08/08/17 14:00 126 08/08/17 13:00 114 (Vaishnavi Rayo) -: 08/09/17 0500 08/09/17 0500 Imaging Last Impressions Renal Ultrasound 08/08/17 0000 Signed Impressions: Service Date/Time: Tuesday, August 08, 2017 08:24 - CONCLUSION: Small kidneys with thin echogenic cortex consistent with chronic renal disease. Ronnie Del Rio MD FACR Central Venous Line 08/08/17 0000 Signed Impressions: Service Date/Time: Tuesday, August 08, 2017 15:43 - CONCLUSION: Uncomplicated line placement as above. Gunner Chamberlain Jr., MD Chest X-Ray 08/06/17 194 Signed Impressions: Service Date/Time: Sunday, August 06, 2017 20:12 - CONCLUSION: Interval development of patchy areas of infiltrate in the right mid and lower lung and in the medial left lower lung. Gunner Hobbs MD Medication Review Current Medications Medications (Trade) Dose Ordered Sig/Krystal Route Start Time Stop Time Status Last Admin (NS Flush) 2 ml UNSCH PRN IV FLUSH 08/06/17 19:45 08/07/17 16:29 (Miralax) 17 gm BID PO 08/07/17 09:00 08/09/17 09:36 (Fleets Enema (Adult)) 118 ml DAILY PRN RECTAL 08/06/17 22:15 (Milk Of Magnesia Liq) 30 ml Q3D PO 08/07/17 09:00 Diltiazem HCl 125 mg/Sodium Chloride 125 ml @ 5 mls/hr TITRATE PRN IV 08/07/17 01:15 08/07/17 03:40 (Ativan Inj) 0.5 mg Q6H PRN IV PUSH 08/07/17 01:30 08/09/17 05:52 (Ultram) 50 mg Q6H PRN PO 08/07/17 01:30 08/09/17 04:54 (Zofran Inj) 4 mg Q6H PRN IV PUSH 08/07/17 02:00 (Pepcid Inj) 10 mg Q12H IV PUSH 08/07/17 02:00 08/09/17 01:06 (Catapres) 0.1 mg Q6H PRN PO 08/07/17 08:30 Piperacillin Sod/ Tazobactam Sod 50 ml @ 100 mls/hr Q6H IV 08/07/17 10:00 08/09/17 09:55 (Cardizem) 30 mg Q6HR PO 08/07/17 12:00 08/09/17 04:53 (Ecotrin Ec) 325 mg DAILY PO 08/07/17 10:45 08/09/17 09:39 (Synthroid) 25 mcg DAILY@0600 PO 08/08/17 06:00 08/09/17 04:53 (Heparin Inj) 5,000 units Q12HR SQ 08/07/17 21:00 08/09/17 09:40 (Bumetanide) 1 mg DAILY PO 08/08/17 09:00 08/09/17 09:39 (NS Flush) DAILY IVF 08/09/17 09:00 08/09/17 09:56 (Heparin Central Flush) DAILY IV FLUSH 08/09/17 09:00 08/09/17 09:40 (NS Flush) UNSCH PRN IVF 08/08/17 16:15 (Heparin Central Flush) UNSCH PRN IV FLUSH 08/08/17 16:15 (NS Flush) UNSCH PRN IVF 08/08/17 16:15 (Vaishnavi Rayo) Physical Exam General Appearance: Obese Appearance Remarks Groaning, but says no pain (Vaishnavi Rayo) Pulmonary Resp Exam: Clear Bilaterally, Breath Sounds Equal (Vaishnavi Rayo) Cardiology CV Exam: Tachycardia (Vaishnavi Rayo) Gastrointestinal/Abdomen GI Exam: Soft, Non-Tender (Vaishnavi Rayo) Extremeties Extremities Exam: Moderate Edema, Pitting Edema (pitting edema superimposed on lymphedema) (Vaishnavi Rayo) Neurologic Neuro Exam: Obtunded (Vaishnavi Rayo) Assessment/Plan Problem List: (1) Edema ICD Codes: R60.9 - Edema, unspecified Status: Chronic Plan: Urinalysis is currently not suggestive of significant proteinuria and the patient does not appear to be with evidence of acute respiratory deficiency related to congestive heart failure. I believe that the patient has a combination of edema as well as lymphedema. Patient may have some degree of cardiac insufficiency however the patient's hypoalbuminemia most likely contributory only to her edema secondary to third space. Given the fact that the patient's edema appears to be chronic without evidence of acute respiratory insufficiency I would not recommend aggressive diuresis currently especially since patient has borderline blood pressure. Continue on po Bumex 1mg. KCl ordered Will see PRN. Please call if needed It appears that his patient has chronic debilitated condition based on review of records and I suspect that her overall long-term prognosis is poor. (2) CKD (chronic kidney disease) stage 3, GFR 30-59 ml/min ICD Codes: N18.3 - Chronic kidney disease, stage 3 (moderate) Status: Chronic Plan: Patient's renal indices appear to be at baseline. Patient most likely has chronic kidney disease secondary to nephrosclerosis of hypertension and aging. Urinalysis appears to be relatively bland and at the current time very low suspicion that the patient may have a glomerulonephritis. Medications should be adjusted for the patient's estimated GFR if clinically indicated. Avoid agents with significant potential for nephrotoxicity possible including NSAIDs for analgesia, iodine contrast agents. Gadolinium is contraindicated if the GFR is below 30. (3) Lymphedema ICD Codes: I89.0 - Lymphedema, not elsewhere classified Status: Chronic (4) Diastolic dysfunction with chronic heart failure ICD Codes: I50.32 - Chronic diastolic (congestive) heart failure Status: Chronic (5) Hypoalbuminemia ICD Codes: E88.09 - Other disorders of plasma-protein metabolism, not elsewhere classified Status: Chronic Plan: Suspect that it is related to nutritional issues as well as chronic debilitation. I will order a spot urine protein/creatinine ratio to screen for significant proteinuria however. (Vaishnavi Rayo) Problem List: (1) Edema ICD Codes: R60.9 - Edema, unspecified Status: Chronic Plan: Urinalysis is currently not suggestive of significant proteinuria and the patient does not appear to be with evidence of acute respiratory deficiency related to congestive heart failure. I believe that the patient has a combination of edema as well as lymphedema. Patient may have some degree of cardiac insufficiency however the patient's hypoalbuminemia most likely contributory only to her edema secondary to third space. Given the fact that the patient's edema appears to be chronic without evidence of acute respiratory insufficiency I would not recommend aggressive diuresis currently especially since patient has borderline blood pressure. Continue on po Bumex 1mg. KCl ordered Will see PRN. Please call if needed It appears that his patient has chronic debilitated condition based on review of records and I suspect that her overall long-term prognosis is poor. (2) CKD (chronic kidney disease) stage 3, GFR 30-59 ml/min ICD Codes: N18.3 - Chronic kidney disease, stage 3 (moderate) Status: Chronic Plan: Patient's renal indices appear to be at baseline. Patient most likely has chronic kidney disease secondary to nephrosclerosis of hypertension and aging. Urinalysis appears to be relatively bland and at the current time very low suspicion that the patient may have a glomerulonephritis. Medications should be adjusted for the patient's estimated GFR if clinically indicated. Avoid agents with significant potential for nephrotoxicity possible including NSAIDs for analgesia, iodine contrast agents. Gadolinium is contraindicated if the GFR is below 30. (3) Lymphedema ICD Codes: I89.0 - Lymphedema, not elsewhere classified Status: Chronic (4) Diastolic dysfunction with chronic heart failure ICD Codes: I50.32 - Chronic diastolic (congestive) heart failure Status: Chronic (5) Hypoalbuminemia ICD Codes: E88.09 - Other disorders of plasma-protein metabolism, not elsewhere classified Status: Chronic Plan: Suspect that it is related to nutritional issues as well as chronic debilitation. I will order a spot urine protein/creatinine ratio to screen for significant proteinuria however. Plan The exam, history, and the medical decision-making described in the above note were completed with the assistance of the PA-Paula. I reviewed and agree with the findings presented. I attest that I had a [id number] encounter with the patient . (Ayana Sánchez MD) Vaishnavi Rayo Aug 09, 2017 12:04 Ayana Sánchez MD Aug 10, 2017 12:48
[2017-08-09] MEDS ORDERED: POTASSIUM CHLORIDE 10 MEQ CONTROLLED RELEASE TAB PO ONE (13:00)
[2017-08-09] MEDS ORDERED: DILTIAZEM HCL 25 MG/5 ML VIAL IV ONE (13:30)
[2017-08-09] MEDS: DILTIAZEM 125 MG/NS 100 ML IV PRN ×2 (14:03)
--- NOTE | 2017-08-09 14:37 | PD.CARD.PN ---
Subjective Subjective Remarks Afib RVR,' remains obtunded Objective Medications Current Medications Medications (Trade) Dose Ordered Sig/Krystal Route Start Time Stop Time Status Last Admin (NS Flush) 2 ml UNSCH PRN IV FLUSH 08/06/17 19:45 08/07/17 16:29 (Miralax) 17 gm BID PO 08/07/17 09:00 08/09/17 09:36 (Fleets Enema (Adult)) 118 ml DAILY PRN RECTAL 08/06/17 22:15 (Milk Of Magnesia Liq) 30 ml Q3D PO 08/07/17 09:00 (Ativan Inj) 0.5 mg Q6H PRN IV PUSH 08/07/17 01:30 08/09/17 05:52 (Ultram) 50 mg Q6H PRN PO 08/07/17 01:30 08/09/17 13:59 (Zofran Inj) 4 mg Q6H PRN IV PUSH 08/07/17 02:00 (Pepcid Inj) 10 mg Q12H IV PUSH 08/07/17 02:00 08/09/17 13:46 (Catapres) 0.1 mg Q6H PRN PO 08/07/17 08:30 Piperacillin Sod/ Tazobactam Sod 50 ml @ 100 mls/hr Q6H IV 08/07/17 10:00 08/09/17 09:55 (Cardizem) 30 mg Q6HR PO 08/07/17 12:00 08/09/17 12:05 (Ecotrin Ec) 325 mg DAILY PO 08/07/17 10:45 08/09/17 09:39 (Synthroid) 25 mcg DAILY@0600 PO 08/08/17 06:00 08/09/17 04:53 (Heparin Inj) 5,000 units Q12HR SQ 08/07/17 21:00 08/09/17 09:40 (Bumetanide) 1 mg DAILY PO 08/08/17 09:00 08/09/17 09:39 (NS Flush) DAILY IVF 08/09/17 09:00 08/09/17 09:56 (Heparin Central Flush) DAILY IV FLUSH 08/09/17 09:00 08/09/17 09:40 (NS Flush) UNSCH PRN IVF 08/08/17 16:15 (Heparin Central Flush) UNSCH PRN IV FLUSH 08/08/17 16:15 (NS Flush) UNSCH PRN IVF 08/08/17 16:15 Diltiazem HCl 125 mg/Sodium Chloride 125 ml @ 5 mls/hr TITRATE PRN IV 08/09/17 13:30 08/09/17 14:03 Vital Signs / I&O Vital Signs Date Time Temp Pulse Resp B/P (MAP) Pulse Ox O2 Delivery O2 Flow Rate FiO2 08/09/17 14:06 109 08/09/17 14:03 122 110/60 08/09/17 13:06 150 08/09/17 12:29 115 08/09/17 11:11 97.7 104 18 107/64 (78) 97 08/09/17 11:11 97 Nasal Cannula 1.00 08/09/17 11:00 119 08/09/17 10:00 122 08/09/17 09:00 118 08/09/17 08:00 106 08/09/17 07:33 98.4 117 18 128/68 (88) 97 08/09/17 07:00 94 08/09/17 06:00 112 08/09/17 05:00 120 08/09/17 04:00 108 08/09/17 03:00 122 08/09/17 03:00 97.8 120 130/60 (83) 99 08/09/17 02:00 110 08/09/17 01:00 130 08/09/17 00:00 108 08/09/17 00:00 98.2 120 111/82 (92) 99 08/08/17 23:00 123 08/08/17 22:00 104 08/08/17 21:00 110 08/08/17 20:00 116 08/08/17 20:00 97.8 131 118/69 (85) 100 08/08/17 19:00 119 08/08/17 18:00 116 08/08/17 17:00 138 08/08/17 16:00 109 08/08/17 15:00 98.0 115 20 118/50 (72) 94 08/08/17 15:00 118 I/O 08/08/17 08/08/17 08/08/17 08/09/17 08/09/17 08/09/17 07:00 15:00 23:00 07:00 15:00 23:00 Intake Total 240 ml 290 ml 240 ml Output Total 600 ml 425 ml 400 ml Balance -360 ml -135 ml -160 ml Intake Oral 240 ml 240 ml 240 ml IV Total 50 ml Output Urine Total 600 ml 425 ml 400 ml # Bowel Movements 0 Physical Exam GENERAL: Obtunded SKIN: Warm and dry. HEAD: Atraumatic. Normocephalic. ENT: No nasal bleeding or discharge. NECK: Trachea midline. No JVD. CARDIOVASCULAR: Irregularly irregular rate and rhythm, tachycardic RESPIRATORY: No accessory muscle use. Clear to auscultation. Breath sounds equal bilaterally. GASTROINTESTINAL: Abdomen soft, non-tender, MUSCULOSKELETAL: bilateral upper and lower extremities edematous 3+ NEUROLOGICAL: obtunded Laboratory Laboratory Tests Test 08/09/17 05:00 08/09/17 11:16 White Blood Count 13.8 TH/MM3 Red Blood Count 3.90 MIL/MM3 Hemoglobin 11.4 GM/DL Hematocrit 34.0 % Mean Corpuscular Volume 87.3 FL Mean Corpuscular Hemoglobin 29.3 PG Mean Corpuscular Hemoglobin Concent 33.6 % Red Cell Distribution Width 14.9 % Platelet Count 221 TH/MM3 Mean Platelet Volume 9.3 FL Neutrophils (%) (Auto) 82.5 % Lymphocytes (%) (Auto) 8.6 % Monocytes (%) (Auto) 7.9 % Eosinophils (%) (Auto) 0.9 % Basophils (%) (Auto) 0.1 % Neutrophils # (Auto) 11.4 TH/MM3 Lymphocytes # (Auto) 1.2 TH/MM3 Monocytes # (Auto) 1.1 TH/MM3 Eosinophils # (Auto) 0.1 TH/MM3 Basophils # (Auto) 0.0 TH/MM3 CBC Comment DIFF FINAL Differential Comment Blood Urea Nitrogen 28 MG/DL Creatinine 0.96 MG/DL Random Glucose 87 MG/DL Calcium Level 8.7 MG/DL Sodium Level 141 MEQ/L Potassium Level 3.3 MEQ/L Chloride Level 104 MEQ/L Carbon Dioxide Level 28.5 MEQ/L Anion Gap 9 MEQ/L Estimat Glomerular Filtration Rate 56 ML/MIN Assessment and Plan Problem List: (1) Atrial fibrillation with RVR ICD Codes: I48.91 - Unspecified atrial fibrillation (2) Lymphedema ICD Codes: I89.0 - Lymphedema, not elsewhere classified Status: Chronic (3) PE (pulmonary thromboembolism) ICD Codes: I26.99 - Other pulmonary embolism without acute cor pulmonale Status: Acute (4) PNA (pneumonia) ICD Codes: J18.9 - Pneumonia, unspecified organism Status: Acute (5) Sepsis ICD Codes: A41.9 - Sepsis, unspecified organism Status: Acute (6) Lethargy ICD Codes: R53.83 - Other fatigue Assessment and Plan 81 y/o Female, from Nursing facility, with diffuse edema, hypotension, 81 yo WF with COPD, CHF, hx of P.E/DVT [facility] onset afib, edema vs. lymphedema and found to have urosepsis and pneumonia. RN reports patient has been confused and uncooperative overnight, refusing po meds and unable to obtain IV access. afib- rate remains elevated, ~100-150. will resume IV Cardizem drip, Will add Digoxin due to low BP. not a good candidate for anticoagulation at this time, cont asa echo shows normal EF, mild , left atrium mod dilated TSH elevated, 7.2, consider adjusting levothyroxine edema vs. lymphedema - good diuresis, . lasix changed to bumex urosepsis/ PNA- primary team following, cont abx Dr. Pabon covers for Dr. Ronnie Lopes 08/09 to 08/10. Wing Susan Pabon MD Aug 09, 2017 14:37
[2017-08-09] MEDS ORDERED: DIGOXIN 0.5 MG/2 ML VIAL IV PUSH ONE (14:45)
[2017-08-09] MEDS ORDERED: POTASSIUM CHLORIDE 25 MEQ EFFERVESCENT TAB PO ONE ×3 (15:15→18:00)
--- NOTE | 2017-08-09 23:04 | EKG ---
Date Performed: 08/08/2017 Time Performed: 04:43:46 PTAGE: 81 years EKG: Atrial fibrillation Left axis deviation Inferior infarct - age undetermined Possible anteri or infarct - age undetermined Lateral T wave changes may be due to myocardial ischemia Generalized lo w QRS voltages Abnormal ECG PREVIOUS TRACING : 08/06/2017 20.02 Compared to prior tracing, rate has decreased DOCTOR: Joe Ingram Interpretating Date/Time 08/09/2017 23:03:10
[2017-08-10] VITALS (20 sets, daily range): BP systolic 116–127; BP diastolic 56–73; PULSE 68–118; RESP 16–22; TEMP 97.5–98.4; O2SAT 94–99
[2017-08-10] MEDS: FAMOTIDINE 20 MG/2 ML VIAL IV PUSH SCH ×2 (02:00→12:25)
[2017-08-10] MEDS: PIPERACIL-TAZO 2.25 GM PREMIX 50 ML IV SCH ×4 (04:00→21:56)
[2017-08-10] MEDS: LEVOTHYROXINE SODIUM 25 MCG TAB PO SCH (06:00)
[2017-08-10] MEDS: DILTIAZEM HCL 30 MG TAB PO SCH ×4 (06:00→16:32)
[2017-08-10 06:37] LABS: AUTOMATED NEUTROPHIL # 9.5 TH/MM3 (1.8-7.7); BASOPHIL % 0.1 % (0.0-2.0); EOSINOPHIL # 0.2 TH/MM3 (0-0.4); EOSINOPHIL % 1.8 % (0.0-4.0); HEMATOCRIT 34.5 % (35.0-46.0); HEMOGLOBIN 11.6 GM/DL (11.6-15.3); LYMPH % 13.6 % (9.0-44.0); LYMPHOCYTE # 1.7 TH/MM3 (1.0-4.8); MEAN CELL VOLUME 87.7 FL (80.0-100.0); MEAN CORPUSCULAR HEMOGLOBIN 29.4 PG (27.0-34.0); MEAN CORPUSCULAR HGB CONC 33.5 % (32.0-36.0); MEAN PLATELET VOLUME 9.5 FL (7.0-11.0); MONO % 8.5 % (0.0-8.0); MONOCYTE # 1.1 TH/MM3 (0-0.9); PLATELET COUNT 252 TH/MM3 (150-450); RED BLOOD COUNT 3.94 MIL/MM3 (4.00-5.30); RED CELL DISTRIBUTION WIDTH 15.5 % (11.6-17.2); WHITE BLOOD COUNT 12.5 TH/MM3 (4.0-11.0)
[2017-08-10 06:42] LABS: CALCIUM 9.2 MG/DL (8.5-10.1); CREATININE 0.99 MG/DL (0.50-1.00)
--- NOTE | 2017-08-10 08:26 | HHI.PR ---
Subjective Remarks This is a pleasant 81 y/o Female Who came from Nursing facility, with diffuse edema, hypotension, abdominal pain and malodorous vaginal discharge. Recently treated due to UTI, has COPD, Hypertension CHF, Pulmonary emboli, chronic pain syndrome, as per ID specialist she has UTI and Sepsis, Pneumonia, CKD, Anasarca, Atrial Fibrillation. on Zosyn, she is been confused uncooperative, refusing medicines, as per military technology specialist continue with Atrial Fibrillation with RVR considering to re start Cardizem drip, added Digoxin, due to low blood pressure, not a good candidate for anticoagulation, recommended to continue Aspirin, Echo showed normal EF, Mild , left atrium with moderate dilatation. 08/10: Seen in his bedroom, stable improving Leukocytosis, will continue present antibiotics. has controlled Atrial fibrillation, recommended by Cardiology to continue IV Cardizem drip and IV Digoxin due to Low BP, Not a good candidate for anticoagulation, to continue Aspirin, switch levothyroxine to IV 25 mcg daily and follow TSH levels, she refuse to take by mouth, no nausea, vomit or diarrhea. Objective Vital Signs Date Time Temp Pulse Resp B/P (MAP) Pulse Ox O2 Delivery O2 Flow Rate FiO2 08/10/17 06:00 88 08/10/17 05:46 97.5 96 18 127/65 (85) 98 08/10/17 05:00 92 08/10/17 04:00 80 08/10/17 03:00 82 08/10/17 01:00 110 08/10/17 00:00 84 08/09/17 23:00 84 08/09/17 23:00 98.2 99 18 124/57 (79) 95 08/09/17 22:00 92 08/09/17 21:00 108 08/09/17 20:00 92 08/09/17 20:00 97 Room Air 08/09/17 20:00 98.2 98 18 119/51 (73) 97 08/09/17 19:00 88 08/09/17 18:09 97 Room Air 08/09/17 18:05 88 08/09/17 17:18 96 08/09/17 16:00 119 08/09/17 15:31 99/55 (70) 08/09/17 15:25 97.7 110 18 89/50 (63) 94 08/09/17 15:00 91 08/09/17 14:06 109 08/09/17 14:03 122 110/60 08/09/17 13:06 150 08/09/17 12:29 115 08/09/17 11:11 97.7 104 18 107/64 (78) 97 08/09/17 11:11 97 Nasal Cannula 1.00 08/09/17 11:00 119 08/09/17 10:00 122 08/09/17 09:00 118 I/O 08/09/17 08/09/17 08/09/17 08/10/17 08/10/17 08/10/17 07:00 15:00 23:00 07:00 15:00 23:00 Intake Total 240 ml 600 ml 20 ml Output Total 400 ml 650 ml 225 ml Balance -160 ml -50 ml -205 ml Intake Oral 240 ml 600 ml 20 ml Output Urine Total 400 ml 650 ml 225 ml # Bowel Movements 0 0 Result Diagram: 08/10/17 0500 08/10/17 0500 Imaging Last Impressions Renal Ultrasound 08/08/17 0000 Signed Impressions: Service Date/Time: Tuesday, August 08, 2017 08:24 - CONCLUSION: Small kidneys with thin echogenic cortex consistent with chronic renal disease. Ronnie Del Rio MD FACR Central Venous Line 08/08/17 0000 Signed Impressions: Service Date/Time: Tuesday, August 08, 2017 15:43 - CONCLUSION: Uncomplicated line placement as above. Gunner Chamberlain Jr., MD Chest X-Ray 08/06/17 194 Signed Impressions: Service Date/Time: Sunday, August 06, 2017 20:12 - CONCLUSION: Interval development of patchy areas of infiltrate in the right mid and lower lung and in the medial left lower lung. Gunner Hobbs MD Procedures None Other Results Laboratory Tests Test 08/06/17 19:51 08/06/17 20:45 08/06/17 20:51 08/07/17 03:31 Differential Total Cells Counted 100 Neutrophils % (Manual) 76 % Band Neutrophils % 6 % Lymphocytes % 13 % Monocytes % 4 % Neutrophils # (Manual) 17.0 TH/MM3 Myelocytes 1 % Platelet Estimate NORMAL Platelet Morphology Comment ENLARGED Prothrombin Time 12.2 SEC Prothromb Time International Ratio 1.2 RATIO Activated Partial Thromboplast Time 25.2 SEC Blood Urea Nitrogen 41 MG/DL Creatinine 1.16 MG/DL Random Glucose 110 MG/DL Total Protein 6.8 GM/DL Albumin 1.9 GM/DL Calcium Level 8.8 MG/DL Magnesium Level 2.0 MG/DL Alkaline Phosphatase 270 U/L Aspartate Amino Transf (AST/SGOT) 49 U/L Alanine Aminotransferase (ALT/SGPT) 33 U/L Total Bilirubin 0.9 MG/DL Sodium Level 133 MEQ/L Potassium Level 5.4 MEQ/L Chloride Level 99 MEQ/L Carbon Dioxide Level 26.4 MEQ/L Troponin I 0.02 NG/ML B-Type Natriuretic Peptide 166 PG/ML Lipase 28 U/L Urine Color YELLOW Urine Turbidity CLEAR Urine pH 5.5 Urine Specific [place] 1.020 Urine Protein TRACE mg/dL Urine Glucose (UA) NEG mg/dL Urine Ketones NEG mg/dL Urine Occult Blood NEG Urine Nitrite NEG Urine Bilirubin NEG Urine Urobilinogen 2.0 MG/DL Urine Leukocyte Esterase MOD Urine RBC 1 /hpf Urine WBC 4 /hpf Urine Squamous Epithelial Cells 2 /hpf Urine Amorphous Sediment RARE Urine Bacteria MANY /hpf Urine Hyaline Casts 4 /lpf Urine Mucus FEW /lpf Microscopic Urinalysis Comment CULTURE INDICATED Lactic Acid Level 1.6 mmol/L Thyroid Stimulating Hormone 3rd Gen 7.280 uIU/ML Test 08/08/17 08:15 08/09/17 11:16 08/10/17 05:00 Total Protein 6.2 GM/DL Albumin 2.55 GM/DL Albumin/Globulin Ratio 0.70 Mawgj-3-Rqhaiaoyu 0.31 GM/DL Wihtq-5-Yeqfarnsq 0.84 GM/DL Beta Globulins 0.65 GM/DL Gamma Globulins 1.85 GM/DL 25-Hydroxy Vitamin D Total 17.6 ng/ML Parathyroid Hormone (Intact) 107.6 PG/ML Random Cortisol 25.4 MCG/DL Hepatitis B Surface Antigen NEGATIVE Hepatitis C Antibody NEGATIVE White Blood Count 12.5 TH/MM3 Red Blood Count 3.94 MIL/MM3 Hemoglobin 11.6 GM/DL Hematocrit 34.5 % Mean Corpuscular Volume 87.7 FL Mean Corpuscular Hemoglobin 29.4 PG Mean Corpuscular Hemoglobin Concent 33.5 % Red Cell Distribution Width 15.5 % Platelet Count 252 TH/MM3 Mean Platelet Volume 9.5 FL Neutrophils (%) (Auto) 76.0 % Lymphocytes (%) (Auto) 13.6 % Monocytes (%) (Auto) 8.5 % Eosinophils (%) (Auto) 1.8 % Basophils (%) (Auto) 0.1 % Neutrophils # (Auto) 9.5 TH/MM3 Lymphocytes # (Auto) 1.7 TH/MM3 Monocytes # (Auto) 1.1 TH/MM3 Eosinophils # (Auto) 0.2 TH/MM3 Basophils # (Auto) 0.0 TH/MM3 CBC Comment DIFF FINAL Differential Comment Blood Urea Nitrogen 24 MG/DL Creatinine 0.99 MG/DL Random Glucose 84 MG/DL Calcium Level 9.2 MG/DL Sodium Level 143 MEQ/L Potassium Level 4.0 MEQ/L Chloride Level 105 MEQ/L Carbon Dioxide Level 29.0 MEQ/L Anion Gap 9 MEQ/L Estimat Glomerular Filtration Rate 54 ML/MIN Objective Remarks GENERAL: Lethargic, refusing medicines when awake. SKIN: Warm and dry. HEAD: Atraumatic. Normocephalic. EYES: Pupils equal and round. No scleral icterus. No injection or drainage. ENT: No nasal bleeding or discharge. Mucous membranes pink and moist. NECK: Trachea midline. No JVD. CARDIOVASCULAR: Regular rate and rhythm. RESPIRATORY: No accessory muscle use. Clear to auscultation. Breath sounds equal bilaterally. GASTROINTESTINAL: Abdomen soft, non-tender, nondistended. Hepatic and splenic margins not palpable. MUSCULOSKELETAL: Extremities without clubbing, cyanosis. three plus edema in all extremities. No obvious deformities. PSYCHIATRIC: lethargic, calls out occasionally, Medications and IVs Current Medications Medications (Trade) Dose Ordered Sig/Krystal Route Start Time Stop Time Status Last Admin (NS Flush) 2 ml UNSCH PRN IV FLUSH 08/06/17 19:45 08/07/17 16:29 (Miralax) 17 gm BID PO 08/07/17 09:00 08/09/17 09:36 (Fleets Enema (Adult)) 118 ml DAILY PRN RECTAL 08/06/17 22:15 (Milk Of Magnesia Liq) 30 ml Q3D PO 08/07/17 09:00 (Ativan Inj) 0.5 mg Q6H PRN IV PUSH 08/07/17 01:30 08/09/17 21:23 (Ultram) 50 mg Q6H PRN PO 08/07/17 01:30 08/09/17 13:59 (Zofran Inj) 4 mg Q6H PRN IV PUSH 08/07/17 02:00 (Pepcid Inj) 10 mg Q12H IV PUSH 08/07/17 02:00 08/09/17 13:46 (Catapres) 0.1 mg Q6H PRN PO 08/07/17 08:30 Piperacillin Sod/ Tazobactam Sod 50 ml @ 100 mls/hr Q6H IV 08/07/17 10:00 08/10/17 04:00 (Cardizem) 30 mg Q6HR PO 08/07/17 12:00 08/09/17 17:00 (Ecotrin Ec) 325 mg DAILY PO 08/07/17 10:45 08/09/17 09:39 (Synthroid) 25 mcg DAILY@0600 PO 08/08/17 06:00 08/09/17 04:53 (Heparin Inj) 5,000 units Q12HR SQ 08/07/17 21:00 08/09/17 21:22 (Bumetanide) 1 mg DAILY PO 08/08/17 09:00 08/09/17 09:39 (NS Flush) DAILY IVF 08/09/17 09:00 08/09/17 09:56 (Heparin Central Flush) DAILY IV FLUSH 08/09/17 09:00 08/09/17 09:40 (NS Flush) UNSCH PRN IVF 08/08/17 16:15 (Heparin Central Flush) UNSCH PRN IV FLUSH 08/08/17 16:15 (NS Flush) UNSCH PRN IVF 08/08/17 16:15 Diltiazem HCl 125 mg/Sodium Chloride 125 ml @ 5 mls/hr TITRATE PRN IV 08/09/17 13:30 08/09/17 14:03 (Lanoxin Inj) 0.25 mg DAILY IV PUSH 08/10/17 09:00 A/P Assessment and Plan 1. Sepsis to continue IV antibiotics, ID specialist following continue Zosyn, secondary to UTI and Pneumonia, has UTI secondary to E Coli. Improving Leukocytosis. 2. Fluid overload due to CHF, on IV Lasix Cardiology following, Echocardiogram showed normal EF. mild , left atrium with moderate dilatation. 3. Atrial fibrillation on Diltiazem, on Aspirin by Cardiology, at this time on Lovenox BID, now rate controlled on Cardizem IV and Digoxin due to low blood pressure, not a good candidate for anticoagulation. 4. E Coli UTI continue Zosyn. 5. CKD III by history stable improving. 6. Pulmonary Emboli by history 7. Hypothyroidism New diagnosis started on Synthroid now switch to IV Levothyroxine. 8. Morbid obesity Poor prognosis, GI prophylaxis on IV Pepcid DVT prophylaxis with heparin Subcutaneous,. Discharge Planning Tomorrow will come her Primary Care Physician Doctor Julien to take care of the patient, I was covering while he comes to see the patient his notes states needs Hospice but at this time his family wanted aggressive management. Germán Nick MD Aug 10, 2017 08:26
[2017-08-10] MEDS: HEPARIN SODIUM - SQ 10,000 UNITS/ML VIAL SQ SCH ×2 (09:00→21:57)
[2017-08-10] MEDS: ASPIRIN EC 325 MG TABEC PO SCH (09:00)
[2017-08-10] MEDS: MAGNESIUM HYDROXIDE SUSP 30 ML CUP PO SCH (09:00)
[2017-08-10] MEDS: BUMETANIDE 1 MG TAB PO SCH (09:00)
[2017-08-10] MEDS: POLYETHYLENE GLYCOL 17 GM PKG PO SCH ×2 (09:00→21:00)
[2017-08-10] MEDS: DIGOXIN 0.5 MG/2 ML VIAL IV PUSH SCH (09:00)
[2017-08-10] MEDS: SODIUM CHLORIDE 0.9% FLUSH 10 ML FLUSH IVF SCH (09:01)
[2017-08-10] MEDS: DILTIAZEM 125 MG/NS 100 ML IV PRN ×2 (09:37)
[2017-08-10] MEDS: LEVOTHYROXINE SODIUM 100 MCG VIAL IV PUSH SCH (10:01)
--- NOTE | 2017-08-10 11:32 | PD.CARD.PN ---
Subjective Subjective Remarks Afib, HR in 80s,' remains obtunded Objective Medications Current Medications Medications (Trade) Dose Ordered Sig/Krystal Route Start Time Stop Time Status Last Admin (NS Flush) 2 ml UNSCH PRN IV FLUSH 08/06/17 19:45 08/07/17 16:29 (Miralax) 17 gm BID PO 08/07/17 09:00 08/09/17 09:36 (Fleets Enema (Adult)) 118 ml DAILY PRN RECTAL 08/06/17 22:15 (Milk Of Magnesia Liq) 30 ml Q3D PO 08/07/17 09:00 (Ultram) 50 mg Q6H PRN PO 08/07/17 01:30 08/09/17 13:59 (Zofran Inj) 4 mg Q6H PRN IV PUSH 08/07/17 02:00 (Pepcid Inj) 10 mg Q12H IV PUSH 08/07/17 02:00 08/09/17 13:46 (Catapres) 0.1 mg Q6H PRN PO 08/07/17 08:30 Piperacillin Sod/ Tazobactam Sod 50 ml @ 100 mls/hr Q6H IV 08/07/17 10:00 08/10/17 09:01 (Cardizem) 30 mg Q6HR PO 08/07/17 12:00 08/09/17 17:00 (Ecotrin Ec) 325 mg DAILY PO 08/07/17 10:45 08/09/17 09:39 (Heparin Inj) 5,000 units Q12HR SQ 08/07/17 21:00 08/10/17 09:00 (Bumetanide) 1 mg DAILY PO 08/08/17 09:00 08/09/17 09:39 (NS Flush) DAILY IVF 08/09/17 09:00 08/10/17 09:01 (Heparin Central Flush) DAILY IV FLUSH 08/09/17 09:00 08/09/17 09:40 (NS Flush) UNSCH PRN IVF 08/08/17 16:15 (Heparin Central Flush) UNSCH PRN IV FLUSH 08/08/17 16:15 (NS Flush) UNSCH PRN IVF 08/08/17 16:15 Diltiazem HCl 125 mg/Sodium Chloride 125 ml @ 5 mls/hr TITRATE PRN IV 08/09/17 13:30 08/10/17 09:37 (Lanoxin Inj) 0.25 mg DAILY IV PUSH 08/10/17 09:00 08/10/17 09:00 (Synthroid Inj) 25 mcg DAILY@06 IV PUSH 08/10/17 09:00 08/10/17 10:01 (Ativan Inj) 0.25 mg Q6H PRN IV PUSH 08/10/17 13:30 Vital Signs / I&O Vital Signs Date Time Temp Pulse Resp B/P (MAP) Pulse Ox O2 Delivery O2 Flow Rate FiO2 08/10/17 09:37 120 123/68 08/10/17 08:00 98.2 110 20 123/68 (86) 94 08/10/17 08:00 97 Room Air 08/10/17 07:00 88 08/10/17 06:00 88 08/10/17 05:46 97.5 96 18 127/65 (85) 98 08/10/17 05:00 92 08/10/17 04:00 80 08/10/17 03:00 82 08/10/17 01:00 110 08/10/17 00:00 84 08/09/17 23:00 84 08/09/17 23:00 98.2 99 18 124/57 (79) 95 08/09/17 22:00 92 08/09/17 21:00 108 08/09/17 20:00 92 08/09/17 20:00 97 Room Air 08/09/17 20:00 98.2 98 18 119/51 (73) 97 08/09/17 19:00 88 08/09/17 18:09 97 Room Air 08/09/17 18:05 88 08/09/17 17:18 96 08/09/17 16:00 119 08/09/17 15:31 99/55 (70) 08/09/17 15:25 97.7 110 18 89/50 (63) 94 08/09/17 15:00 91 08/09/17 14:06 109 08/09/17 14:03 122 110/60 08/09/17 13:06 150 08/09/17 12:29 115 I/O 08/09/17 08/09/17 08/09/17 08/10/17 08/10/1718 07:00 15:00 23:00 07:00 15:00 23:00 Intake Total 240 ml 600 ml 20 ml 100 ml Output Total 400 ml 650 ml 225 ml Balance -160 ml -50 ml -205 ml 100 ml Intake Oral 240 ml 600 ml 20 ml IV Total 100 ml Output Urine Total 400 ml 650 ml 225 ml # Bowel Movements 0 0 Physical Exam GENERAL: Obtunded SKIN: Warm and dry. HEAD: Atraumatic. Normocephalic. ENT: No nasal bleeding or discharge. NECK: Trachea midline. No JVD. CARDIOVASCULAR: Irregularly irregular rate and rhythm, tachycardic RESPIRATORY: No accessory muscle use. Clear to auscultation. Breath sounds equal bilaterally. GASTROINTESTINAL: Abdomen soft, non-tender, MUSCULOSKELETAL: bilateral upper and lower extremities edematous 3+ NEUROLOGICAL: obtunded Laboratory Laboratory Tests Test 08/10/17 05:00 White Blood Count 12.5 TH/MM3 Red Blood Count 3.94 MIL/MM3 Hemoglobin 11.6 GM/DL Hematocrit 34.5 % Mean Corpuscular Volume 87.7 FL Mean Corpuscular Hemoglobin 29.4 PG Mean Corpuscular Hemoglobin Concent 33.5 % Red Cell Distribution Width 15.5 % Platelet Count 252 TH/MM3 Mean Platelet Volume 9.5 FL Neutrophils (%) (Auto) 76.0 % Lymphocytes (%) (Auto) 13.6 % Monocytes (%) (Auto) 8.5 % Eosinophils (%) (Auto) 1.8 % Basophils (%) (Auto) 0.1 % Neutrophils # (Auto) 9.5 TH/MM3 Lymphocytes # (Auto) 1.7 TH/MM3 Monocytes # (Auto) 1.1 TH/MM3 Eosinophils # (Auto) 0.2 TH/MM3 Basophils # (Auto) 0.0 TH/MM3 CBC Comment DIFF FINAL Differential Comment Blood Urea Nitrogen 24 MG/DL Creatinine 0.99 MG/DL Random Glucose 84 MG/DL Calcium Level 9.2 MG/DL Sodium Level 143 MEQ/L Potassium Level 4.0 MEQ/L Chloride Level 105 MEQ/L Carbon Dioxide Level 29.0 MEQ/L Anion Gap 9 MEQ/L Estimat Glomerular Filtration Rate 54 ML/MIN Assessment and Plan Problem List: (1) Atrial fibrillation with RVR ICD Codes: I48.91 - Unspecified atrial fibrillation (2) Lymphedema ICD Codes: I89.0 - Lymphedema, not elsewhere classified Status: Chronic (3) PE (pulmonary thromboembolism) ICD Codes: I26.99 - Other pulmonary embolism without acute cor pulmonale Status: Acute (4) PNA (pneumonia) ICD Codes: J18.9 - Pneumonia, unspecified organism Status: Acute (5) Sepsis ICD Codes: A41.9 - Sepsis, unspecified organism Status: Acute (6) Lethargy ICD Codes: R53.83 - Other fatigue Assessment and Plan 81 y/o Female, from Nursing facility, with diffuse edema, hypotension, 81 yo WF with COPD, CHF, hx of P.E/DVT who presented from a senior living with new onset afib, edema vs. lymphedema and found to have urosepsis and pneumonia. RN reports patient has been confused and uncooperative overnight, refusing po meds and unable to obtain IV access. afib- rate now controlled. Will continue IV Cardizem drip, and IV Digoxin due to low BP. not a good candidate for anticoagulation at this time, cont asa echo shows normal EF, mild , left atrium mod dilated TSH elevated, 7.2, consider adjusting levothyroxine edema vs. lymphedema - good diuresis on Bumex. urosepsis/ PNA- primary team following, cont abx Dr. Pabon covers for Dr. Ronnie Lopes 08/09 to 08/10. Wing Susan Pabon MD Aug 10, 2017 11:31
[2017-08-10] MEDS ORDERED: LORazepam 2 MG/ML VIAL IV PUSH PRN (13:30)
[2017-08-10] MEDS ORDERED: HALOPERIDOL LACTATE 5 MG/ML AMP IV PUSH PRN (13:45)
--- NOTE | 2017-08-10 20:02 | MB ---
cc: Naseem Del Cid MD DATE OF CONSULT: REASON FOR CONSULTATION: I am asked to see her for mental status change. She has been in this hospital many times. She has never been seen by neurology. HISTORY OF PRESENT ILLNESS: The patient was admitted on 08/06/2017, from [facility] with lower abdominal pain, malodorous vaginal discharge, worsening peripheral edema, anasarca with history of COPD, CHF, PE, DVT, renal insufficiency, possible central cord syndrome with chronic bilateral upper extremity weakness, chronic pain syndrome, chronic bed rest, nonambulatory. She has been yelling out evidently for the last 3 weeks since in senior living continuously. Sees Dr. Victoria over there. Cannot her blood pressure checked. No IV access due to so much edema. I am asked to see for mental status change. SOCIAL HISTORY: Not a smoker, not a drinker, no drug use. PAST SURGICAL HISTORY: Stimulator in the low back, , AICD. ALLERGIES: ACETAMINOPHEN, CODEINE, CORTISONE, IBUPROFEN, MORPHINE. MEDICATIONS: She is on Lyrica 50 t.i.d., vitamin C, Symbicort, metoprolol, Lasix, Aldactone, Tramadol 50 q. 8, melatonin, gabapentin 500 t.i.d., potassium, DuoNeb. PHYSICAL EXAMINATION: VITAL SIGNS: 96, 116/56, lowest blood pressure 89/50. She has been afebrile. HEENT: Pupils are equal. NECK: There are no carotid bruits. GENERAL: She is edematous throughout. HEART: Regular rhythm. She is noted to be in AFib, however, on EKG. She has seen cardiology here, noted to be AFib. NEUROLOGIC: She can follow commands. She sticks her tongue out for me. It is hard to say if she is in pain or where. She says she is not a man. She appears to be in pain in her hands and feet as far as I can tell. She does yell out intermittently, sort of a painful yell. She will say yes and no. The toes were upgoing bilaterally. CURRENT MEDICATIONS: Haldol p.r.n., Ativan, digoxin, Synthroid, heparin, Cardizem, aspirin 325, piperacillin, MiraLAX, Tramadol. LABORATORY DATA: White count is 12. CBC is otherwise normal. Sed rate was 15 in 2003. ABG has been normal, in July, a year ago. Basic metabolic profile essentially normal. Ammonia is 23. SPEP shows an elevated gammaglobulin, interpretation is pending. TSH was elevated at 7.3. Troponin negative. CPK as normal a year ago. LFTs normal. DEREK has been negative in the past. Protein C and S have been normal in the past. She had a CAT scan of her brain done in June of this year. It was read as negative except for enlarged ventricles. In fact, the ventricles are extremely enlarged and there is diffuse atrophy. She has never had an MRI of her brain here. A prior CT from 2014 also shows the very large ventricles. First CT she ever had of the brain was in 2013, Unfortunately, I cannot look at those films. There were some chronic changes. Ventricles are not read as enlarged then. Another scan in 2013 does not mention enlarged ventricles and I am unable to look at those films also. IMPRESSION: She is probably in some diffuse pain. We could try her on some Cymbalta and see if that helps. She has not been eating. I suspect she probably has some dementia with the way her CT looks with the very large ventricles and atrophy of the brain. I suspect a lot of her yelling out is more frontal lobe behavioral. I would not give her Haldol at this time. Psychiatry could possibly see her to see if they could consider something such as Abilify. Will check electroencephalogram on her. She can communicate and does say yes or now and seems to understands questions. I would not recommend sedating her at this time, and I am going to stop her Tramadol. She is probably at some increased risk of seizures with the diffuse brain atrophy. It is unclear if she is able to take p.o., but considering her decompensated condition, I would not recommend a feeding tube. Will also check a sed rate and a rheumatoid factor on her. MD ASHWIN Welch/LINDSEY , 07:12 PM , 07:59 PM
[2017-08-10] MEDS: SODIUM CHLORIDE 0.9% FLUSH 10 ML FLUSH IV FLUSH PRN (21:57)
[2017-08-10] MEDS: DULoxetine HCl DR 30 MG CAP PO SCH (21:57)
[2017-08-10 23:21] LABS: C-REACTIVE PROTEIN 3.5 MG/DL (0.00-0.30)
[2017-08-11] VITALS (19 sets, daily range): BP systolic 90–132; BP diastolic 41–63; PULSE 73–104; RESP 18–20; TEMP 97.5–98; O2SAT 94–96
[2017-08-11 00:22] LABS: RHEUMATOID FACTOR SCREEN NEGATIVE (NEGATIVE)
[2017-08-11] MEDS: FAMOTIDINE 20 MG/2 ML VIAL IV PUSH SCH ×2 (02:00→14:56)
[2017-08-11] MEDS: PIPERACIL-TAZO 2.25 GM PREMIX 50 ML IV SCH ×3 (04:00→16:30)
[2017-08-11] MEDS: DILTIAZEM 125 MG/NS 100 ML IV PRN ×2 (04:07)
[2017-08-11] MEDS: LEVOTHYROXINE SODIUM 100 MCG VIAL IV PUSH SCH (06:00)
[2017-08-11] MEDS: DILTIAZEM HCL 30 MG TAB PO SCH ×4 (06:00→17:42)
[2017-08-11 06:31] LABS: BICARBONATE 27.7 MEQ/L (21.0-32.0); CALCIUM 9.3 MG/DL (8.5-10.1); CREATININE 0.96 MG/DL (0.50-1.00)
[2017-08-11 06:32] LABS: PHOSPHORUS 1.7 MG/DL (2.5-4.9)
[2017-08-11 06:38] LABS: AUTOMATED NEUTROPHIL # 11.3 TH/MM3 (1.8-7.7); BASOPHIL # 0.1 TH/MM3 (0-0.2); BASOPHIL % 0.5 % (0.0-2.0); EOSINOPHIL # 0.1 TH/MM3 (0-0.4); EOSINOPHIL % 0.9 % (0.0-4.0); HEMATOCRIT 34.1 % (35.0-46.0); HEMOGLOBIN 11.2 GM/DL (11.6-15.3); LYMPHOCYTE # 1.2 TH/MM3 (1.0-4.8); MEAN CELL VOLUME 88.8 FL (80.0-100.0); MEAN CORPUSCULAR HGB CONC 32.7 % (32.0-36.0); MEAN PLATELET VOLUME 9.5 FL (7.0-11.0); MONO % 7.1 % (0.0-8.0); NEUT % 82.5 % (16.0-70.0); PLATELET COUNT 260 TH/MM3 (150-450); RED BLOOD COUNT 3.84 MIL/MM3 (4.00-5.30); RED CELL DISTRIBUTION WIDTH 15.3 % (11.6-17.2); WHITE BLOOD COUNT 13.6 TH/MM3 (4.0-11.0)
--- NOTE | 2017-08-11 07:27 | HHI.PR ---
Objective Vital Signs Date Time Temp Pulse Resp B/P (MAP) Pulse Ox O2 Delivery O2 Flow Rate FiO2 08/11/17 04:07 99 08/11/17 04:00 97.9 86 20 110/55 (73) 95 08/11/17 04:00 81 08/11/17 00:00 84 08/11/17 00:00 98.0 89 18 103/46 (65) 95 08/10/17 20:00 87 08/10/17 20:00 98.4 118 22 123/66 (85) 97 08/10/17 20:00 Room Air 08/10/17 18:00 96 08/10/17 17:00 98 08/10/17 16:00 96 08/10/17 15:00 98.4 100 20 116/56 (76) 97 08/10/17 15:00 80 08/10/17 14:00 80 08/10/17 13:00 77 08/10/17 12:00 68 08/10/17 11:00 98.4 108 16 120/73 (89) 99 08/10/17 11:00 86 08/10/17 10:00 100 08/10/17 09:37 120 123/68 08/10/17 09:00 114 08/10/17 08:00 82 08/10/17 08:00 98.2 110 20 123/68 (86) 94 08/10/17 08:00 97 Room Air I/O 08/10/17 08/10/17 08/10/17 08/11/17 08/11/17 08/11/17 07:00 15:00 23:00 07:00 15:00 23:00 Intake Total 20 ml 100 ml 50 ml 295 ml Output Total 225 ml 200 ml 150 ml Balance -205 ml 100 ml -150 ml 145 ml Intake Oral 20 ml 120 ml IV Total 100 ml 50 ml 175 ml Output Urine Total 225 ml 200 ml 150 ml # Bowel Movements 0 1 2 Result Diagram: 08/11/1743408/11/17434 Procedures None Objective Remarks awake eyes open shakes head no will not cooperate but not screaming out Assessment and Plan Assessment and Plan imp some dementia and frontal lobe and behavioral cymbalta rf neg esr nl not acute neuro here the neurontin and lyrica could have inc edema Naseem Del Cid MD Aug 11, 2017 07:27
[2017-08-11] MEDS: DULoxetine HCl DR 30 MG CAP PO SCH (08:14)
[2017-08-11] MEDS: ASPIRIN EC 325 MG TABEC PO SCH (08:14)
[2017-08-11] MEDS: HEPARIN SODIUM - SQ 10,000 UNITS/ML VIAL SQ SCH (08:14)
[2017-08-11] MEDS: BUMETANIDE 1 MG TAB PO SCH (08:14)
[2017-08-11] MEDS: DIGOXIN 0.5 MG/2 ML VIAL IV PUSH SCH (08:22)
[2017-08-11] MEDS: SODIUM CHLORIDE 0.9% FLUSH 10 ML FLUSH IVF SCH (08:28)
[2017-08-11] MEDS: POLYETHYLENE GLYCOL 17 GM PKG PO SCH ×2 (08:29→21:00)
--- NOTE | 2017-08-11 09:47 | PD.CARD.PN ---
Subjective Subjective Remarks Telemetry shows atrial fibrillation with heart rates approximately 80-110. RN at bedside. Patient remains obtunded, no change. On Cardizem GTT at 5 mg per hour. Patient refusing most oral medications. (Faisal Renteria) Objective Medications Current Medications Medications (Trade) Dose Ordered Sig/Krystal Route Start Time Stop Time Status Last Admin (NS Flush) 2 ml UNSCH PRN IV FLUSH 08/06/17 19:45 08/10/17 21:57 (Miralax) 17 gm BID PO 08/07/17 09:00 08/11/17 08:29 (Fleets Enema (Adult)) 118 ml DAILY PRN RECTAL 08/06/17 22:15 (Milk Of Magnesia Liq) 30 ml Q3D PO 08/07/17 09:00 (Zofran Inj) 4 mg Q6H PRN IV PUSH 08/07/17 02:00 (Pepcid Inj) 10 mg Q12H IV PUSH 08/07/17 02:00 08/11/17 02:00 (Catapres) 0.1 mg Q6H PRN PO 08/07/17 08:30 Piperacillin Sod/ Tazobactam Sod 50 ml @ 100 mls/hr Q6H IV 08/07/17 10:00 08/11/17 04:00 (Cardizem) 30 mg Q6HR PO 08/07/17 12:00 08/11/17 06:00 (Ecotrin Ec) 325 mg DAILY PO 08/07/17 10:45 08/11/17 08:14 (Heparin Inj) 5,000 units Q12HR SQ 08/07/17 21:00 08/11/17 08:14 (Bumetanide) 1 mg DAILY PO 08/08/17 09:00 08/11/17 08:14 (NS Flush) DAILY IVF 08/09/17 09:00 08/11/17 08:28 (Heparin Central Flush) DAILY IV FLUSH 08/09/17 09:00 08/11/17 08:14 (NS Flush) UNSCH PRN IVF 08/08/17 16:15 (Heparin Central Flush) UNSCH PRN IV FLUSH 08/08/17 16:15 (NS Flush) UNSCH PRN IVF 08/08/17 16:15 Diltiazem HCl 125 mg/Sodium Chloride 125 ml @ 5 mls/hr TITRATE PRN IV 08/09/17 13:30 08/11/17 04:07 (Lanoxin Inj) 0.25 mg DAILY IV PUSH 08/10/17 09:00 08/11/17 08:22 (Synthroid Inj) 25 mcg DAILY@06 IV PUSH 08/10/17 09:00 08/11/17 06:00 (Cymbalta Dr) 30 mg BID PO 08/10/17 21:00 08/11/17 08:14 Vital Signs / I&O Vital Signs Date Time Temp Pulse Resp B/P (MAP) Pulse Ox O2 Delivery O2 Flow Rate FiO2 08/11/17 04:07 99 08/11/17 04:00 97.9 86 20 110/55 (73) 95 08/11/17 04:00 81 08/11/17 00:00 84 08/11/17 00:00 98.0 89 18 103/46 (65) 95 08/10/17 20:00 87 08/10/17 20:00 98.4 118 22 123/66 (85) 97 08/10/17 20:00 Room Air 08/10/17 18:00 96 08/10/17 17:00 98 08/10/17 16:00 96 08/10/17 15:00 98.4 100 20 116/56 (76) 97 08/10/17 15:00 80 08/10/17 14:00 80 08/10/17 13:00 77 08/10/17 12:00 68 08/10/17 11:00 98.4 108 16 120/73 (89) 99 08/10/17 11:00 86 08/10/17 10:00 100 I/O 08/10/17 08/10/17 08/10/17 08/11/17 08/11/17 08/11/17 07:00 15:00 23:00 07:00 15:00 23:00 Intake Total 20 ml 100 ml 50 ml 295 ml Output Total 225 ml 200 ml 150 ml Balance -205 ml 100 ml -150 ml 145 ml Intake Oral 20 ml 120 ml IV Total 100 ml 50 ml 175 ml Output Urine Total 225 ml 200 ml 150 ml # Bowel Movements 0 1 2 Physical Exam GENERAL: Well-developed well-nourished. In no acute distress. NECK: No carotid bruits. No JVD. CARDIOVASCULAR: Irregular rate and rhythm. No murmur appreciated. RESPIRATORY: No accessory muscle use. Clear to auscultation. Breath sounds equal bilaterally. MUSCULOSKELETAL: No clubbing or cyanosis. Nonpitting lower extremity edema. NEUROLOGICAL: Obtunded, crying out. Laboratory Laboratory Tests Test 08/10/17 16:42 08/10/17 22:20 08/10/17 22:29 08/11/17 04:35 Ammonia 23 MCMOL/L Erythrocyte Sedimentation Rate 18 mm/hr Total Creatine Kinase 48 U/L C-Reactive Protein 3.50 MG/DL Vitamin B12 Level 474 PG/ML Rheumatoid Factor Screen NEGATIVE Rheumatoid Factor Titer IU/ML White Blood Count 13.6 TH/MM3 Red Blood Count 3.84 MIL/MM3 Hemoglobin 11.2 GM/DL Hematocrit 34.1 % Mean Corpuscular Volume 88.8 FL Mean Corpuscular Hemoglobin 29.0 PG Mean Corpuscular Hemoglobin Concent 32.7 % Red Cell Distribution Width 15.3 % Platelet Count 260 TH/MM3 Mean Platelet Volume 9.5 FL Neutrophils (%) (Auto) 82.5 % Lymphocytes (%) (Auto) 9.0 % Monocytes (%) (Auto) 7.1 % Eosinophils (%) (Auto) 0.9 % Basophils (%) (Auto) 0.5 % Neutrophils # (Auto) 11.3 TH/MM3 Lymphocytes # (Auto) 1.2 TH/MM3 Monocytes # (Auto) 1.0 TH/MM3 Eosinophils # (Auto) 0.1 TH/MM3 Basophils # (Auto) 0.1 TH/MM3 CBC Comment DIFF FINAL Differential Comment Blood Urea Nitrogen 22 MG/DL Creatinine 0.96 MG/DL Random Glucose 95 MG/DL Calcium Level 9.3 MG/DL Phosphorus Level 1.7 MG/DL Sodium Level 142 MEQ/L Potassium Level 3.6 MEQ/L Chloride Level 104 MEQ/L Carbon Dioxide Level 27.7 MEQ/L Anion Gap 10 MEQ/L Estimat Glomerular Filtration Rate 56 ML/MIN Imaging Last Impressions Renal Ultrasound 08/08/17 0000 Signed Impressions: Service Date/Time: Tuesday, August 08, 2017 08:24 - CONCLUSION: Small kidneys with thin echogenic cortex consistent with chronic renal disease. Ronnie Del Rio MD FACR Central Venous Line 08/08/17 0000 Signed Impressions: Service Date/Time: Tuesday, August 08, 2017 15:43 - CONCLUSION: Uncomplicated line placement as above. Gunner Chamberlain Jr., MD Chest X-Ray 08/06/171943 Signed Impressions: Service Date/Time: Sunday, August 06, 2017 20:12 - CONCLUSION: Interval development of patchy areas of infiltrate in the right mid and lower lung and in the medial left lower lung. Gunner Hobbs MD (Faisal Renteria) Assessment and Plan Problem List: (1) Atrial fibrillation with RVR ICD Codes: I48.91 - Unspecified atrial fibrillation (2) Lymphedema ICD Codes: I89.0 - Lymphedema, not elsewhere classified Status: Chronic (3) PE (pulmonary thromboembolism) ICD Codes: I26.99 - Other pulmonary embolism without acute cor pulmonale Status: Acute (4) PNA (pneumonia) ICD Codes: J18.9 - Pneumonia, unspecified organism Status: Acute (5) Sepsis ICD Codes: A41.9 - Sepsis, unspecified organism Status: Acute (6) Lethargy ICD Codes: R53.83 - Other fatigue Assessment and Plan 81 yo WF with COPD, CHF, hx of P.E/DVT who presented from a skilled nursing with new onset afib, edema vs. lymphedema and found to have urosepsis and pneumonia. Remains confused and uncooperative, refusing PO meds. afib: RVR little better controlled currently. Will continue IV Cardizem drip, and IV Digoxin; transition to oral medications when patient agreeable. Not a good candidate for anticoagulation at this time, cont asa. echo shows normal EF, mild , left atrium mod dilated Hypothyroidism: TSH elevated. On IV levothyroxine per primary team. edema vs. lymphedema: Echo with normal EF. Continue on Bumex. urosepsis/ PNA: primary team following, cont abx Altered mental status: Neurology and palliative care on board. (Faisal Renteria) Assessment and Plan rate control cont bumex call with questions will sign off (Wallace Lopes MD) Faisal Renteria Aug 11, 2017 09:47 Wallace Lopes MD Aug 11, 2017 14:01
--- NOTE | 2017-08-11 10:03 | HHI.FPPN ---
Subjective Remarks moaning unable to provide history d/w RN Objective Vitals Vital Signs Date Time Temp Pulse Resp B/P (MAP) Pulse Ox O2 Delivery O2 Flow Rate FiO2 08/11/17 04:07 99 08/11/17 04:00 97.9 86 20 110/55 (73) 95 08/11/17 04:00 81 08/11/17 00:00 84 08/11/17 00:00 98.0 89 18 103/46 (65) 95 08/10/17 20:00 87 08/10/17 20:00 98.4 118 22 123/66 (85) 97 08/10/17 20:00 Room Air 08/10/17 18:00 96 08/10/17 17:00 98 08/10/17 16:00 96 08/10/17 15:00 98.4 100 20 116/56 (76) 97 08/10/17 15:00 80 08/10/17 14:00 80 08/10/17 13:00 77 08/10/17 12:00 68 08/10/17 11:00 98.4 108 16 120/73 (89) 99 08/10/17 11:00 86 I/O 08/10/17 08/10/17 08/10/17 08/11/17 08/11/17 08/11/17 07:00 15:00 23:00 07:00 15:00 23:00 Intake Total 20 ml 100 ml 50 ml 295 ml Output Total 225 ml 200 ml 150 ml Balance -205 ml 100 ml -150 ml 145 ml Intake Oral 20 ml 120 ml IV Total 100 ml 50 ml 175 ml Output Urine Total 225 ml 200 ml 150 ml # Bowel Movements 0 1 2 Result Diagram: 08/11/17 0435 08/11/17 0435 Objective Remarks GENERAL: SKIN: Warm and dry. HEAD: Atraumatic. Normocephalic. EYES: Pupils equal and round. No scleral icterus. No injection or drainage. ENT: No nasal bleeding or discharge. Mucous membranes pink and moist. NECK: Trachea midline. No JVD. CARDIOVASCULAR: Regular rate and rhythm. RESPIRATORY: No accessory muscle use. Clear to auscultation. Breath sounds equal bilaterally. GASTROINTESTINAL: Abdomen soft, non-tender, nondistended. Hepatic and splenic margins not palpable. MUSCULOSKELETAL: Extremities without clubbing, cyanosis. three plus edema in all extremities. No obvious deformities. NEUROLOGICAL: Awake and alert. No obvious cranial nerve deficits. Motor grossly within normal limits. 1 out of 5 muscle strength in the arms and legs. PSYCHIATRIC: lethargic, calls out occasionally, Medications and IVs Current Medications Medications (Trade) Dose Ordered Sig/Krystal Route Start Time Stop Time Status Last Admin (NS Flush) 2 ml UNSCH PRN IV FLUSH 08/06/17 19:45 08/10/17 21:57 (Miralax) 17 gm BID PO 08/07/17 09:00 08/11/17 08:29 (Fleets Enema (Adult)) 118 ml DAILY PRN RECTAL 08/06/17 22:15 (Milk Of Magnesia Liq) 30 ml Q3D PO 08/07/17 09:00 (Zofran Inj) 4 mg Q6H PRN IV PUSH 08/07/17 02:00 (Pepcid Inj) 10 mg Q12H IV PUSH 08/07/17 02:00 08/11/17 02:00 (Catapres) 0.1 mg Q6H PRN PO 08/07/17 08:30 Piperacillin Sod/ Tazobactam Sod 50 ml @ 100 mls/hr Q6H IV 08/07/17 10:00 08/11/17 04:00 (Cardizem) 30 mg Q6HR PO 08/07/17 12:00 08/11/17 06:00 (Ecotrin Ec) 325 mg DAILY PO 08/07/17 10:45 08/11/17 08:14 (Heparin Inj) 5,000 units Q12HR SQ 08/07/17 21:00 08/11/17 08:14 (Bumetanide) 1 mg DAILY PO 08/08/17 09:00 08/11/17 08:14 (NS Flush) DAILY IVF 08/09/17 09:00 08/11/17 08:28 (Heparin Central Flush) DAILY IV FLUSH 08/09/17 09:00 08/11/17 08:14 (NS Flush) UNSCH PRN IVF 08/08/17 16:15 (Heparin Central Flush) UNSCH PRN IV FLUSH 08/08/17 16:15 (NS Flush) UNSCH PRN IVF 08/08/17 16:15 Diltiazem HCl 125 mg/Sodium Chloride 125 ml @ 5 mls/hr TITRATE PRN IV 08/09/17 13:30 08/11/17 04:07 (Lanoxin Inj) 0.25 mg DAILY IV PUSH 08/10/17 09:00 08/11/17 08:22 (Synthroid Inj) 25 mcg DAILY@06 IV PUSH 08/10/17 09:00 08/11/17 06:00 (Cymbalta Dr) 30 mg BID PO 08/10/17 21:00 08/11/17 08:14 A/P Assessment and Plan A/P: SEPSIS: IV ABX, IVF, PANCULTURES, ID CONSULT FLUID OVERLOAD DUE TO CHF: IV LASIX, CARDIOLOGY CONSULT, AM LABS, IR CONSULT IV UNOBTAINABLE, AF RVR: DILT GTT, ASA ONLY PER CARDIOLOGY, CHANGE LOVENOX BID TO HEPARIN BID FOR DVT PX E COLI UTI: FOLLOWUP CULTURES, CKD PE HYPOTHYROIDISM, NEW: STARTED SYNTHROID GI PX: IV PEPCID DVT PX: HEPARIN SC BID DISPO: NEEDS HOSPICE YET PT MENTIONED WANTING TO BE AGGRESSIVE, GOAL IS BACK TO [facility], PALLIATIVE CONSULT, Discharge Planning BACK TO [facility] Problem List: (1) Atrial fibrillation with RVR ICD Codes: I48.91 - Unspecified atrial fibrillation (2) Diastolic dysfunction with chronic heart failure ICD Codes: I50.32 - Chronic diastolic (congestive) heart failure Status: Chronic (3) CKD (chronic kidney disease) stage 3, GFR 30-59 ml/min ICD Codes: N18.3 - Chronic kidney disease, stage 3 (moderate) Status: Chronic (4) Hypoalbuminemia ICD Codes: E88.09 - Other disorders of plasma-protein metabolism, not elsewhere classified Status: Chronic (5) Lymphedema ICD Codes: I89.0 - Lymphedema, not elsewhere classified Status: Chronic (6) Edema ICD Codes: R60.9 - Edema, unspecified Status: Chronic (7) Hyperkalemia ICD Codes: E87.5 - Hyperkalemia Status: Acute (8) Sepsis ICD Codes: A41.9 - Sepsis, unspecified organism Status: Acute (9) PNA (pneumonia) ICD Codes: J18.9 - Pneumonia, unspecified organism Status: Acute (10) Edema of both legs ICD Codes: R60.0 - Localized edema Status: Acute (11) PE (pulmonary thromboembolism) ICD Codes: I26.99 - Other pulmonary embolism without acute cor pulmonale Status: Acute Rom Victoria MD Aug 11, 2017 10:03
--- NOTE | 2017-08-11 11:29 | HHI.HCPN ---
Reason for visit a. To assist with evaluation and management of symptoms including: Weakness , pain, anorexia b. To assist medical decision maker(s) with: better understanding of current medical conditions; weighing benefits/burdens of medical treatment options; making medical treatment decisions. Subjective/Interval History Follow-up on goals of care and symptom management. This is an elderly, morbidly obese female but now arouses to voice. She opens her eyes and focuses on examiner. She moans and is seen to reposition herself in discomfort. When asked if she has pain she nods "yes". When asked to state where her pain was, she moans and continues to try to reposition herself. When asked if her back hurt she said "I have back pain". Is previously on tramadol but that was stopped by neurology due to obtundation and increased risk of seizures with diffuse brain atrophy, and recommends psychiatry consultation to consider adding Abilify. Neurology does make note of abnormal CT results, to include the diffuse atrophy but is extremely enlarged ventricles. Per her daughter this is a result of traumatic and chronic finding. She states her mother has always been "special". Neurology has stopped the gabapentin and Lyrica as it could contribute to increased edema and change to Cymbalta. Clinical findings: Rheumatoid factor was negative. Free kappa/lambda light chains pending. C-reactive protein is elevated at 3.50 (0.00-0.30). EEG is pending. . Family/friend interactions Spoke with her daughter via telephone. Updated as to a neurology opinion, medication changes and current laboratory studies. Daughter states that the mother was not opening her eyes or responding to when visited this weekend and is encouraged that she was opening her eyes today. Remains adamantly resistant to hospice but does want to go back to [place] [place] with cleared for discharge. . Advance Directives Living Will: Copy in medical record Health Care Surrogate: Copy in medical record Durable Power of Tapering Machine Operator: Copy in medical record Advance Directive Specifics Date completed: March 16, 2007. . Health Care Surrogate(s): Daughter, Karla Sommers. . Documented care wishes: Comfort oriented. Standard Living Will verbiage. . Objective Vital Signs Date Time Temp Pulse Resp B/P (MAP) Pulse Ox O2 Delivery O2 Flow Rate FiO2 08/11/17 10:14 80 08/11/17 08:45 86 08/11/17 08:05 94 Room Air 08/11/17 07:31 97.5 102 18 132/41 (71) 94 08/11/17 07:31 82 08/11/17 04:07 99 08/11/17 04:00 97.9 86 20 110/55 (73) 95 08/11/17 04:00 81 08/11/17 00:00 84 08/11/17 00:00 98.0 89 18 103/46 (65) 95 08/10/17 20:00 87 08/10/17 20:00 98.4 118 22 123/66 (85) 97 08/10/17 20:00 Room Air 08/10/17 18:00 96 08/10/17 17:00 98 08/10/17 16:00 96 08/10/17 15:00 98.4 100 20 116/56 (76) 97 08/10/17 15:00 80 08/10/17 14:00 80 08/10/17 13:00 77 08/10/17 12:00 68 08/10/17 11:00 98.4 108 16 120/73 (89) 99 08/10/17 11:00 86 Intake & Output 08/11/17 08/11/17 07:00 19:00 Intake Total 345 ml Output Total 150 ml Balance 195 ml Intake Oral 120 ml IV Total 225 ml Output Urine Total 150 ml # Bowel Movements 2 Physical Exam CONSTITUTIONAL/GENERAL: This is a morbidly obese female lying in bed, in no acute distress. TUBES/LINES/DRAINS: Right IJ central line SKIN: Ecchymoses on upper extremities. Skin temperature appropriate. Not diaphoretic. HEAD: Atraumatic. Normocephalic. Abnormally enlarged forehead. CARDIOVASCULAR: S1, S2, irregular rhythm, mildly tachycardic rate, no rub murmur or gallop. RESPIRATORY/CHEST: Symmetric, unlabored respirations. Clear to auscultation. Breath sounds equal bilaterally. No wheezes, rales, or rhonchi. GASTROINTESTINAL: Abdomen obese, soft, non-tender, nondistended. No hepato- splenomegaly, or palpable masses. No guarding. Bowel sounds present. GENITOURINARY: Without palpable bladder distension. Kumar catheter in place. MUSCULOSKELETAL: Decreasing peripheral edema and lymphedema seen in all 4 extremities. NEUROLOGICAL: Arousable, oriented to self. PSYCHIATRIC: Mild agitation. . Diagnostic Tests Laboratory Laboratory Tests Test 08/09/17 05:00 08/09/17 11:16 08/10/17 05:00 08/10/17 16:42 White Blood Count 13.8 TH/MM3 (4.0-11.0) 12.5 TH/MM3 (4.0-11.0) Red Blood Count 3.90 MIL/MM3 (4.00-5.30) 3.94 MIL/MM3 (4.00-5.30) Hemoglobin 11.4 GM/DL (11.6-15.3) 11.6 GM/DL (11.6-15.3) Hematocrit 34.0 % (35.0-46.0) 34.5 % (35.0-46.0) Mean Corpuscular Volume 87.3 FL (80.0-100.0) 87.7 FL (80.0-100.0) Mean Corpuscular Hemoglobin 29.3 PG (27.0-34.0) 29.4 PG (27.0-34.0) Mean Corpuscular Hemoglobin Concent 33.6 % (32.0-36.0) 33.5 % (32.0-36.0) Red Cell Distribution Width 14.9 % (11.6-17.2) 15.5 % (11.6-17.2) Platelet Count 221 TH/MM3 (150-450) 252 TH/MM3 (150-450) Mean Platelet Volume 9.3 FL (7.0-11.0) 9.5 FL (7.0-11.0) Neutrophils (%) (Auto) 82.5 % (16.0-70.0) 76.0 % (16.0-70.0) Lymphocytes (%) (Auto) 8.6 % (9.0-44.0) 13.6 % (9.0-44.0) Monocytes (%) (Auto) 7.9 % (0.0-8.0) 8.5 % (0.0-8.0) Eosinophils (%) (Auto) 0.9 % (0.0-4.0) 1.8 % (0.0-4.0) Basophils (%) (Auto) 0.1 % (0.0-2.0) 0.1 % (0.0-2.0) Neutrophils # (Auto) 11.4 TH/MM3 (1.8-7.7) 9.5 TH/MM3 (1.8-7.7) Lymphocytes # (Auto) 1.2 TH/MM3 (1.0-4.8) 1.7 TH/MM3 (1.0-4.8) Monocytes # (Auto) 1.1 TH/MM3 (0-0.9) 1.1 TH/MM3 (0-0.9) Eosinophils # (Auto) 0.1 TH/MM3 (0-0.4) 0.2 TH/MM3 (0-0.4) Basophils # (Auto) 0.0 TH/MM3 (0-0.2) 0.0 TH/MM3 (0-0.2) CBC Comment DIFF FINAL DIFF FINAL Differential Comment Blood Urea Nitrogen 28 MG/DL (7-18) 24 MG/DL (7-18) Creatinine 0.96 MG/DL (0.50-1.00) 0.99 MG/DL (0.50-1.00) Random Glucose 87 MG/DL (74-106) 84 MG/DL (74-106) Calcium Level 8.7 MG/DL (8.5-10.1) 9.2 MG/DL (8.5-10.1) Sodium Level 141 MEQ/L (136-145) 143 MEQ/L (136-145) Potassium Level 3.3 MEQ/L (3.5-5.1) 4.0 MEQ/L (3.5-5.1) Chloride Level 104 MEQ/L (98-107) 105 MEQ/L (98-107) Carbon Dioxide Level 28.5 MEQ/L (21.0-32.0) 29.0 MEQ/L (21.0-32.0) Anion Gap 9 MEQ/L (5-15) 9 MEQ/L (5-15) Estimat Glomerular Filtration Rate 56 ML/MIN (>89) 54 ML/MIN (>89) Ammonia 23 MCMOL/L (11-32) Test 08/10/17 22:20 08/10/17 22:29 08/11/17 04:35 Erythrocyte Sedimentation Rate 18 mm/hr (0-30) Total Creatine Kinase 48 U/L (26-192) C-Reactive Protein 3.50 MG/DL (0.00-0.30) Vitamin B12 Level 474 PG/ML (193-986) Rheumatoid Factor Screen NEGATIVE (NEGATIVE) Rheumatoid Factor Titer IU/ML (0.0-14.9) White Blood Count 13.6 TH/MM3 (4.0-11.0) Red Blood Count 3.84 MIL/MM3 (4.00-5.30) Hemoglobin 11.2 GM/DL (11.6-15.3) Hematocrit 34.1 % (35.0-46.0) Mean Corpuscular Volume 88.8 FL (80.0-100.0) Mean Corpuscular Hemoglobin 29.0 PG (27.0-34.0) Mean Corpuscular Hemoglobin Concent 32.7 % (32.0-36.0) Red Cell Distribution Width 15.3 % (11.6-17.2) Platelet Count 260 TH/MM3 (150-450) Mean Platelet Volume 9.5 FL (7.0-11.0) Neutrophils (%) (Auto) 82.5 % (16.0-70.0) Lymphocytes (%) (Auto) 9.0 % (9.0-44.0) Monocytes (%) (Auto) 7.1 % (0.0-8.0) Eosinophils (%) (Auto) 0.9 % (0.0-4.0) Basophils (%) (Auto) 0.5 % (0.0-2.0) Neutrophils # (Auto) 11.3 TH/MM3 (1.8-7.7) Lymphocytes # (Auto) 1.2 TH/MM3 (1.0-4.8) Monocytes # (Auto) 1.0 TH/MM3 (0-0.9) Eosinophils # (Auto) 0.1 TH/MM3 (0-0.4) Basophils # (Auto) 0.1 TH/MM3 (0-0.2) CBC Comment DIFF FINAL Differential Comment Blood Urea Nitrogen 22 MG/DL (7-18) Creatinine 0.96 MG/DL (0.50-1.00) Random Glucose 95 MG/DL (74-106) Calcium Level 9.3 MG/DL (8.5-10.1) Phosphorus Level 1.7 MG/DL (2.5-4.9) Sodium Level 142 MEQ/L (136-145) Potassium Level 3.6 MEQ/L (3.5-5.1) Chloride Level 104 MEQ/L (98-107) Carbon Dioxide Level 27.7 MEQ/L (21.0-32.0) Anion Gap 10 MEQ/L (5-15) Estimat Glomerular Filtration Rate 56 ML/MIN (>89) Result Diagram: 08/11/17 0435 08/11/17 0435 Microbiology Microbiology Date/Time Source Procedure Growth Status 08/06/17 20:50 Blood Peripheral Aerobic Blood Culture - Final NO GROWTH IN 5 DAYS Complete 08/06/17 20:50 Blood Peripheral Anaerobic Blood Culture - Final NO GROWTH IN 5 DAYS Complete 08/06/17 20:45 Urine Random Urine Urine Culture - Final Escherichia Coli Complete . Imaging Last Impressions Renal Ultrasound 08/08/17 0000 Signed Impressions: Service Date/Time: Tuesday, August 08, 2017 08:24 - CONCLUSION: Small kidneys with thin echogenic cortex consistent with chronic renal disease. Ronnie Del Rio MD FACR Central Venous Line 08/08/17 0000 Signed Impressions: Service Date/Time: Tuesday, August 08, 2017 15:43 - CONCLUSION: Uncomplicated line placement as above. Gunner Chamberlain Jr., MD Chest X-Ray 08/06/171943 Signed Impressions: Service Date/Time: Sunday, August 06, 2017 20:12 - CONCLUSION: Interval development of patchy areas of infiltrate in the right mid and lower lung and in the medial left lower lung. Gunner Hobbs MD . Assessment and Plan Disease Oriented Problem List: (1) Urinary tract infection (2) Generalized weakness (3) Atrial fibrillation with RVR (4) Diastolic dysfunction with chronic heart failure (5) CKD (chronic kidney disease) stage 3, GFR 30-59 ml/min (6) Hypoalbuminemia (7) Lymphedema (8) Edema (9) Sepsis (10) PNA (pneumonia) Symptom Scale: (1) Weakness (2) Lethargy (3) Edema Pertinent Non-Medical Issues Psychosocial:She was born in [place] and moved to the [facility] when she was 15. 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 She gave to her only child at [facility] currently resides at a nursing home facility. Spiritual: Adventism. Legal: None noted. Ethical issues impacting care: None noted. . Important Contacts Daughter: Karla Sommers . Prognosis Her prognosis is poor. She has a very poor nutritional status with hypoalbuminemia contributing to her overall edema. She is refusing food, fluid , medications and care at this time. She is very lethargic, will arouse and open her eyes but then returns to a semi-obtunded state. As she is refusing food fluid in care she will continue to decline and suffer more complications. . Code Status: No Code Plan PLAN: Legal decision maker: The patient at this time is not able to participate in healthcare decisions. She does have a previously completed healthcare surrogate naming her daughter, Karla Sommers has the surrogate decision maker. Goals: Comfort oriented CODE STATUS: DNR SYMPTOMS: * Weakness: Chronically bedbound. She had undergone previous therapy attempts and said that her legs would not hold her weight, she was too weak. At last admission in 2017, physical therapy was consulted but patient refused to cooperate with therapy session and would tolerate only passive range of motion, that is all she will tolerate as well, crying out in pain with any movement, to include passive. Due to her inability to participate in therapy likely to continue to decline. * Pain: She does have chronic pain from spinal stenosis, possible central cord syndrome, bedbound status. She has an implanted spinal stimulator which has never provided her relief and had been on Lyrica and gabapentin at the nursing home facility. Neurology is recommending Cymbalta instead due to the possible side effect of brain edema caused by gabapentin and Lyrica. Neurology has also discontinued tramadol due to the risk of seizures, as her CT scan showed some abnormalities. She continues to complain of back pain. Could consider low-dose steroids or NSAIDs. * Anorexia: She is eating only a few bites, not cooperating with med administration. Presenting TSH was high and she has since been started on low- dose levothyroxine 25 mcg daily. She may benefit from low-dose Remeron at night for both sleep and appetite. Palliative care will continue to follow the patient during hospital course as condition evolves, to assist patient/decision-maker with understanding of their medical conditions, weighing benefits/burdens of treatment options, for clarification of goals of treatment. Additionally will assist with any symptoms of palliative concern. . Time Spent Time Periods: 11: 00-11: 25 Total Floor Time (mins): 40 Face to Face Time (mins): 25 >50% Counseling/Coord of Care: Yes Attestation To help prompt me to consider important information that might be impacting today's encounter and assessment, information from prior notes written by myself or my colleagues may have been "brought forward" into today's note. My signature on this note, however, is an attestation that I personally performed the exam, history, and/or decision-making noted today, and, unless otherwise indicated, the interactions with patient, family, and staff as well as the review of records all occurred today. I also attest that the listed assessment and stated plan reflect my best clinical judgment today based on the combination of historical information, prior notes, and today's exam/ interactions. When time spent is documented, it refers only to time spent today by the signer, or if indicated, combined time spent today by collaborating physician/nurse practitioner. . Karla Garcias Aug 11, 2017 11:29
--- NOTE | 2017-08-11 15:20 | HHI.IDPN ---
Note Infectious Disease Note Patient is moaning. When asked whether she is in pain she says yes. When asked where her pain is located, she does not answer. RN reports that she has been morning all morning. Noted to be eating better. No fever. White blood cell count is elevated. 81-year-old white female who was brought to the emergency department from [facility]. The patient was noted to have diffuse edema. She was also noted to have low blood pressure. The patient also was noted to have lower abdominal pain and malodorous vaginal discharge. She was recently treated for a urinary tract infection earlier this month with a 4 day course of antibiotics which was then discontinued. PAST MEDICAL HISTORY: 1. Urinary tract infection. 2. COPD. 3. Hypertension. 4. CHF. 5. Pulmonary embolism. 6. Chronic pain. 7. Tonsillectomy. 8. History of C. difficile. ALLERGIES: MORPHINE, IBUPROFEN, CORTISONE, CODEINE, ACETAMINOPHEN. MEDICATIONS: Current Medications Medications (Trade) Dose Ordered Sig/Krystal Route PRN Reason Start Time Stop Time Status Last Admin Dose Admin Sodium Chloride (NS Flush) 2 ml UNSCH PRN IV FLUSH FLUSH AFTER USING IV ACCESS 08/06/17 19:45 08/10/17 21:57 Polyethylene Glycol (Miralax) 17 gm BID PO 08/07/17 09:00 08/11/17 08:29 Sodium Biphosphate/ Sodium Phosphate (Fleets Enema (Adult)) 118 ml DAILY PRN RECTAL CONSTIPATION 08/06/17 22:15 Magnesium Hydroxide (Milk Of Magnesia Liq) 30 ml Q3D PO 08/07/17 09:00 Ondansetron HCl (Zofran Inj) 4 mg Q6H PRN IV PUSH NAUSEA OR VOMITING 08/07/17 02:00 Famotidine (Pepcid Inj) 10 mg Q12H IV PUSH 08/07/17 02:00 08/11/17 14:56 Clonidine (Catapres) 0.1 mg Q6H PRN PO SBP>160, DBP>90 08/07/17 08:30 Piperacillin Sod/ Tazobactam Sod 50 ml @ 100 mls/hr Q6H IV 08/07/17 10:00 08/11/17 10:00 Diltiazem HCl (Cardizem) 30 mg Q6HR PO 08/07/17 12:00 08/11/17 12:42 Aspirin (Ecotrin Ec) 325 mg DAILY PO 08/07/17 10:45 08/11/17 08:14 Heparin Sodium (Porcine) (Heparin Inj) 5,000 units Q12HR SQ 08/07/17 21:00 08/11/17 08:14 Bumetanide (Bumetanide) 1 mg DAILY PO 08/08/17 09:00 08/11/17 08:14 Sodium Chloride (NS Flush) DAILY IVF 08/09/17 09:00 08/11/17 08:28 Heparin Sodium (Porcine) (Heparin Central Flush) DAILY IV FLUSH 08/09/17 09:00 08/11/17 08:14 Sodium Chloride (NS Flush) UNSCH PRN IVF SEE PROTOCOL 08/08/17 16:15 Heparin Sodium (Porcine) (Heparin Central Flush) UNSCH PRN IV FLUSH SEE PROTOCOL 08/08/17 16:15 Sodium Chloride (NS Flush) UNSCH PRN IVF SEE PROTOCOL 08/08/17 16:15 Diltiazem HCl 125 mg/Sodium Chloride 125 ml @ 5 mls/hr TITRATE PRN IV Tachycardia 08/09/17 13:30 08/11/17 04:07 Digoxin (Lanoxin Inj) 0.25 mg DAILY IV PUSH 08/10/17 09:00 08/11/17 08:22 Levothyroxine Sodium (Synthroid Inj) 25 mcg DAILY@06 IV PUSH 08/10/17 09:00 08/11/17 06:00 Duloxetine HCl (Cymbalta Dr) 30 mg BID PO 08/10/17 21:00 08/11/17 08:14 OBJECTIVE: Vital Signs Date Time Temp Pulse Resp B/P (MAP) Pulse Ox O2 Delivery O2 Flow Rate FiO2 08/11/17 14:00 103 08/11/17 13:00 86 08/11/17 12:22 89 08/11/17 12:22 97.8 104 18 90/57 (68) 96 08/11/17 10:14 80 08/11/17 08:45 86 08/11/17 08:05 94 Room Air 08/11/17 07:31 97.5 102 18 132/41 (71) 94 08/11/17 07:31 82 08/11/17 04:07 99 08/11/17 04:00 97.9 86 20 110/55 (73) 95 08/11/17 04:00 81 08/11/17 00:00 84 08/11/17 00:00 98.0 89 18 103/46 (65) 95 08/10/17 20:00 87 08/10/17 20:00 98.4 118 22 123/66 (85) 97 08/10/17 20:00 Room Air 08/10/17 18:00 96 08/10/17 17:00 98 08/10/17 16:00 96 Laboratory Tests Test 08/10/17 05:00 08/10/17 22:29 08/11/17 04:35 White Blood Count 12.5 TH/MM3 13.6 TH/MM3 Red Blood Count 3.94 MIL/MM3 3.84 MIL/MM3 Hemoglobin 11.6 GM/DL 11.2 GM/DL Hematocrit 34.5 % 34.1 % Mean Corpuscular Volume 87.7 FL 88.8 FL Mean Corpuscular Hemoglobin 29.4 PG 29.0 PG Mean Corpuscular Hemoglobin Concent 33.5 % 32.7 % Red Cell Distribution Width 15.5 % 15.3 % Platelet Count 252 TH/MM3 260 TH/MM3 Mean Platelet Volume 9.5 FL 9.5 FL Neutrophils (%) (Auto) 76.0 % 82.5 % Lymphocytes (%) (Auto) 13.6 % 9.0 % Monocytes (%) (Auto) 8.5 % 7.1 % Eosinophils (%) (Auto) 1.8 % 0.9 % Basophils (%) (Auto) 0.1 % 0.5 % Neutrophils # (Auto) 9.5 TH/MM3 11.3 TH/MM3 Lymphocytes # (Auto) 1.7 TH/MM3 1.2 TH/MM3 Monocytes # (Auto) 1.1 TH/MM3 1.0 TH/MM3 Eosinophils # (Auto) 0.2 TH/MM3 0.1 TH/MM3 Basophils # (Auto) 0.0 TH/MM3 0.1 TH/MM3 CBC Comment DIFF FINAL DIFF FINAL Differential Comment Erythrocyte Sedimentation Rate 18 mm/hr Laboratory Tests Test 08/10/17 05:00 08/10/17 16:42 08/10/17 22:20 08/10/17 22:29 Blood Urea Nitrogen 24 MG/DL Creatinine 0.99 MG/DL Random Glucose 84 MG/DL Calcium Level 9.2 MG/DL Sodium Level 143 MEQ/L Potassium Level 4.0 MEQ/L Chloride Level 105 MEQ/L Carbon Dioxide Level 29.0 MEQ/L Anion Gap 9 MEQ/L Estimat Glomerular Filtration Rate 54 ML/MIN Ammonia 23 MCMOL/L Total Creatine Kinase 48 U/L C-Reactive Protein 3.50 MG/DL Vitamin B12 Level 474 PG/ML Test 08/11/17 04:35 Blood Urea Nitrogen 22 MG/DL Creatinine 0.96 MG/DL Random Glucose 95 MG/DL Calcium Level 9.3 MG/DL Phosphorus Level 1.7 MG/DL Sodium Level 142 MEQ/L Potassium Level 3.6 MEQ/L Chloride Level 104 MEQ/L Carbon Dioxide Level 27.7 MEQ/L Anion Gap 10 MEQ/L Estimat Glomerular Filtration Rate 56 ML/MIN Microbiology Date/Time Source Procedure Growth Status 08/06/17 20:50 Blood Peripheral Aerobic Blood Culture - Preliminary NO GROWTH IN 2 DAYS Resulted 08/06/17 20:50 Blood Peripheral Anaerobic Blood Culture - Preliminary NO GROWTH IN 2 DAYS Resulted 08/06/17 20:40 Blood Peripheral Aerobic Blood Culture - Preliminary NO GROWTH IN 2 DAYS Resulted 08/06/17 20:40 Blood Peripheral Anaerobic Blood Culture - Preliminary NO GROWTH IN 2 DAYS Resulted 08/06/17 20:45 Urine Random Urine Urine Culture - Final Escherichia Coli Complete IMAGING: Renal Ultrasound 08/08/17 0000 Signed Impressions: Service Date/Time: Tuesday, August 08, 2017 08:24 - CONCLUSION: Small kidneys with thin echogenic cortex consistent with chronic renal disease. Ronnie Del Rio MD FACR Central Venous Line 08/08/17 0000 Signed Impressions: Service Date/Time: Tuesday, August 08, 2017 15:43 - CONCLUSION: Uncomplicated line placement as above. Gunner Chamberlain Jr., MD Chest X-Ray 08/06/171943 Signed Impressions: Service Date/Time: Sunday, August 06, 2017 20:12 - CONCLUSION: Interval development of patchy areas of infiltrate in the right mid and lower lung and in the medial left lower lung. Gunner Hobbs MD PHYSICAL EXAM: GENERAL: No acute distress. HEENT: The head is atraumatic. Extraocular movements grossly intact, pupils reactive to light. No icterus. Oropharynx, dry mucosa. No thrush. No visible lesions. NECK: Supple without adenopathy. LUNGS: Slight rhonchi at the bases. HEART: Irregular rate and rhythm. No murmurs audible. ABDOMEN: Bowel sounds diminished, soft, no tenderness. No masses palpable. EXTREMITIES: Diffuse edema with 1+ + edema of the upper extremities and trace edema of the lower extremities. SKIN: No diffuse rash. NEURO: Nonfocal. PSYCH: Calm. IMPRESSION: 1. Urinary tract infection - E. coli. 2. Sepsis indicated by urinary tract infection along with tachycardia and leukocytosis. 3. Pneumonia. 4. Chronic kidney disease. 5. Anasarca. 6. Atrial fibrillation. RECOMMENDATIONS: 1. Continue piperacillin/tazobactam. 2. Monitor the white blood cell count. 3. Repeat chest x-ray. 4. Monitor temperature. 5. Monitor white blood cell counts. Vignesh Reyna MD Aug 11, 2017 15:20
--- NOTE | 2017-08-11 17:28 | RADRPT ---
EXAM DATE/TIME: 08/11/2017 15:37 [facility] COMPARISON: CHEST SINGLE AP, August 06, 2017, 20:12. INDICATIONS : Pneumonia. MEDICAL HISTORY : CHF. Hypertension. DVT. COPD. SURGICAL HISTORY : Tonsillectomy. Cataract. section. Left carpal tunnel. ENCOUNTER: Subsequent ACUITY: 4 - 6 days PAIN SCORE: Non-responsive. LOCATION: Bilateral chest FINDINGS: There is patchy consolidation in the right lower lobe again seen. Right subclavian catheter is noted and the tip overlies expected location of the SVC. Spinal stimulator leads are noted. There is a smal l right effusion. There is cardiomegaly. Minimal left medial basilar nodular focus again seen. CONCLUSION: No significant change has occurred. Kahlil Stein MD on August 11, 2017 at 17:26 Board Certified Radiologist. This report was verified electronically.
[2017-08-12] VITALS (18 sets, daily range): BP systolic 126–149; BP diastolic 45–62; PULSE 65–84; RESP 16–20; TEMP 98–98.2; O2SAT 96–99
[2017-08-12] MEDS: DILTIAZEM HCL 30 MG TAB PO SCH ×2 (01:08→04:51)
[2017-08-12] MEDS: HEPARIN SODIUM - SQ 10,000 UNITS/ML VIAL SQ SCH ×2 (01:08→12:16)
[2017-08-12] MEDS: DULoxetine HCl DR 30 MG CAP PO SCH (01:09)
[2017-08-12] MEDS: PIPERACIL-TAZO 2.25 GM PREMIX 50 ML IV SCH ×3 (01:11→12:15)
[2017-08-12] MEDS: LEVOTHYROXINE SODIUM 100 MCG VIAL IV PUSH SCH (04:51)
[2017-08-12] MEDS: FAMOTIDINE 20 MG/2 ML VIAL IV PUSH SCH ×2 (05:14→14:39)
[2017-08-12] MEDS: POLYETHYLENE GLYCOL 17 GM PKG PO SCH (09:00)
--- NOTE | 2017-08-12 10:35 | HHI.FPPN ---
Subjective Remarks pt moaning agitated npo now d/w Rn d/w palliative care midlevel Objective Vitals Vital Signs Date Time Temp Pulse Resp B/P (MAP) Pulse Ox O2 Delivery O2 Flow Rate FiO2 08/12/17 10:01 82 134/53 08/12/17 10:00 78 08/12/17 09:00 78 08/12/17 08:17 Room Air 21 08/12/17 08:00 76 08/12/17 08:00 98.2 82 18 134/53 (80) 97 08/12/17 08:00 97 Room Air 08/12/17 07:00 65 08/12/17 06:00 78 08/12/17 05:14 98.0 79 18 97 08/12/17 05:00 84 08/12/17 04:00 78 08/12/17 03:00 70 08/12/17 02:00 80 08/12/17 00:40 82 16 126/62 (83) 96 08/12/17 00:00 76 08/12/17 00:00 21 08/11/17 23:00 90 08/11/17 22:00 76 08/11/17 21:09 86 18 126/63 (84) 96 08/11/17 21:07 86 20 126/63 (84) 94 08/11/17 21:00 80 08/11/17 20:00 84 08/11/17 19:56 Room Air 21 08/11/17 18:20 101 08/11/17 17:08 102 08/11/17 16:01 79 08/11/17 15:58 97.9 92 18 128/56 (80) 95 08/11/17 15:02 73 08/11/17 14:00 103 08/11/17 13:00 86 08/11/17 12:22 89 08/11/17 12:22 97.8 104 18 90/57 (68) 96 I/O 08/11/17 08/11/17 08/11/17 08/12/17 08/12/17 08/12/17 07:00 15:00 23:00 07:00 15:00 23:00 Intake Total 295 ml 240 ml 150 ml Output Total 150 ml 200 ml 225 ml Balance 145 ml 40 ml -75 ml Intake Oral 120 ml 240 ml IV Total 175 ml 150 ml Output Urine Total 150 ml 200 ml 225 ml # Bowel Movements 2 2 Result Diagram: 08/11/1743408/11/17434 Objective Remarks GENERAL: SKIN: Warm and dry. HEAD: Atraumatic. Normocephalic. EYES: Pupils equal and round. No scleral icterus. No injection or drainage. ENT: No nasal bleeding or discharge. Mucous membranes pink and moist. NECK: Trachea midline. No JVD. CARDIOVASCULAR: Regular rate and rhythm. RESPIRATORY: No accessory muscle use. Clear to auscultation. Breath sounds equal bilaterally. GASTROINTESTINAL: Abdomen soft, non-tender, nondistended. Hepatic and splenic margins not palpable. MUSCULOSKELETAL: Extremities without clubbing, cyanosis. three plus edema in all extremities. No obvious deformities. NEUROLOGICAL: Awake and alert. No obvious cranial nerve deficits. Motor grossly within normal limits. 1 out of 5 muscle strength in the arms and legs. PSYCHIATRIC: lethargic, calls out occasionally, Medications and IVs Current Medications Medications (Trade) Dose Ordered Sig/Krystal Route Start Time Stop Time Status Last Admin (NS Flush) 2 ml UNSCH PRN IV FLUSH 08/06/17 19:45 08/10/17 21:57 (Miralax) 17 gm BID PO 08/07/17 09:00 08/11/17 08:29 (Fleets Enema (Adult)) 118 ml DAILY PRN RECTAL 08/06/17 22:15 (Milk Of Magnesia Liq) 30 ml Q3D PO 08/07/17 09:00 (Zofran Inj) 4 mg Q6H PRN IV PUSH 08/07/17 02:00 (Pepcid Inj) 10 mg Q12H IV PUSH 08/07/17 02:00 08/12/17 05:14 (Catapres) 0.1 mg Q6H PRN PO 08/07/17 08:30 Piperacillin Sod/ Tazobactam Sod 50 ml @ 100 mls/hr Q6H IV 08/07/17 10:00 08/12/17 05:13 (Cardizem) 30 mg Q6HR PO 08/07/17 12:00 08/12/17 01:08 (Ecotrin Ec) 325 mg DAILY PO 08/07/17 10:45 08/11/17 08:14 (Heparin Inj) 5,000 units Q12HR SQ 08/07/17 21:00 08/12/17 01:08 (Bumetanide) 1 mg DAILY PO 08/08/17 09:00 08/11/17 08:14 (NS Flush) DAILY IVF 08/09/17 09:00 08/11/17 08:28 (Heparin Central Flush) DAILY IV FLUSH 08/09/17 09:00 08/11/17 08:14 (NS Flush) UNSCH PRN IVF 08/08/17 16:15 (Heparin Central Flush) UNSCH PRN IV FLUSH 08/08/17 16:15 (NS Flush) UNSCH PRN IVF 08/08/17 16:15 Diltiazem HCl 125 mg/Sodium Chloride 125 ml @ 5 mls/hr TITRATE PRN IV 08/09/17 13:30 08/11/17 04:07 (Lanoxin Inj) 0.25 mg DAILY IV PUSH 08/10/17 09:00 08/11/17 08:22 (Synthroid Inj) 25 mcg DAILY@06 IV PUSH 08/10/17 09:00 08/11/17 06:00 (Cymbalta Dr) 30 mg BID PO 08/10/17 21:00 08/12/17 01:09 A/P Assessment and Plan A/P: SEPSIS: IV ABX, IVF, PANCULTURES, ID CONSULT FLUID OVERLOAD DUE TO CHF: IV LASIX, CARDIOLOGY CONSULT, AM LABS, IR CONSULT IV UNOBTAINABLE, DYSPHAGIA: NPO, IVF, GI CONSULT AF RVR: DILT GTT, ASA ONLY PER CARDIOLOGY, CHANGE LOVENOX BID TO HEPARIN BID FOR DVT PX hcap E COLI UTI: FOLLOWUP CULTURES, CKD PE HYPOTHYROIDISM, NEW: STARTED SYNTHROID GI PX: IV PEPCID DVT PX: HEPARIN SC BID DISPO: GOAL IS BACK TO [facility], PALLIATIVE CONSULT, Discharge Planning BACK TO [facility] Problem List: (1) Atrial fibrillation with RVR ICD Codes: I48.91 - Unspecified atrial fibrillation (2) Diastolic dysfunction with chronic heart failure ICD Codes: I50.32 - Chronic diastolic (congestive) heart failure Status: Chronic (3) CKD (chronic kidney disease) stage 3, GFR 30-59 ml/min ICD Codes: N18.3 - Chronic kidney disease, stage 3 (moderate) Status: Chronic (4) Hypoalbuminemia ICD Codes: E88.09 - Other disorders of plasma-protein metabolism, not elsewhere classified Status: Chronic (5) Lymphedema ICD Codes: I89.0 - Lymphedema, not elsewhere classified Status: Chronic (6) Edema ICD Codes: R60.9 - Edema, unspecified Status: Chronic (7) Hyperkalemia ICD Codes: E87.5 - Hyperkalemia Status: Acute (8) Sepsis ICD Codes: A41.9 - Sepsis, unspecified organism Status: Acute (9) PNA (pneumonia) ICD Codes: J18.9 - Pneumonia, unspecified organism Status: Acute (10) Edema of both legs ICD Codes: R60.0 - Localized edema Status: Acute (11) PE (pulmonary thromboembolism) ICD Codes: I26.99 - Other pulmonary embolism without acute cor pulmonale Status: Acute Rom Victoria MD Aug 12, 2017 10:35
--- NOTE | 2017-08-12 12:02 | M6 ---
cc: Kyaw Fernando MD 08/11/2017 EEG RECORD #: [id number] A 81-year-old female with a history of mental status changes. Paroxysmal sharply contoured waves occurring every 5-10 seconds. Background combination of theta, delta activity, 20-40 microvolts. Occasional myogenic frontal artifact, eye blink artifact noted. Reduced driving with photic stimulation. Single-lead EKG showing sinus rhythm. INTERPRETATION: Mild to moderate encephalopathy with periodic slow waves. Clinical correlation. Kyaw Fernando MD MG/TI , 11:50 AM , 12:02 PM
[2017-08-12] MEDS: SODIUM CHLORIDE 0.9% FLUSH 10 ML FLUSH IVF SCH (12:17)
[2017-08-12] MEDS: DIGOXIN 0.5 MG/2 ML VIAL IV PUSH SCH (12:25)
--- NOTE | 2017-08-12 14:34 | HHI.IDPN ---
Note Infectious Disease Note Patient awake. She is not answering my questions. Appears a little drowsy but has eyes open. Noted to have diarrhea by RN. Afebrile. Stool C. difficile is positive. No fever. White blood cell count is elevated. 81-year-old white female who was brought to the emergency department from [facility]. The patient was noted to have diffuse edema. She was also noted to have low blood pressure. The patient also was noted to have lower abdominal pain and malodorous vaginal discharge. She was recently treated for a urinary tract infection earlier this month with a 4 day course of antibiotics which was then discontinued. PAST MEDICAL HISTORY: 1. Urinary tract infection. 2. COPD. 3. Hypertension. 4. CHF. 5. Pulmonary embolism. 6. Chronic pain. 7. Tonsillectomy. 8. History of C. difficile. ALLERGIES: MORPHINE, IBUPROFEN, CORTISONE, CODEINE, ACETAMINOPHEN. MEDICATIONS: Current Medications Medications (Trade) Dose Ordered Sig/Krystal Route PRN Reason Start Time Stop Time Status Last Admin Dose Admin Sodium Chloride (NS Flush) 2 ml UNSCH PRN IV FLUSH FLUSH AFTER USING IV ACCESS 08/06/17 19:45 08/10/17 21:57 Polyethylene Glycol (Miralax) 17 gm BID PO 08/07/17 09:00 08/11/17 08:29 Sodium Biphosphate/ Sodium Phosphate (Fleets Enema (Adult)) 118 ml DAILY PRN RECTAL CONSTIPATION 08/06/17 22:15 Magnesium Hydroxide (Milk Of Magnesia Liq) 30 ml Q3D PO 08/07/17 09:00 Ondansetron HCl (Zofran Inj) 4 mg Q6H PRN IV PUSH NAUSEA OR VOMITING 08/07/17 02:00 Famotidine (Pepcid Inj) 10 mg Q12H IV PUSH 08/07/17 02:00 08/12/17 05:14 Clonidine (Catapres) 0.1 mg Q6H PRN PO SBP>160, DBP>90 08/07/17 08:30 Piperacillin Sod/ Tazobactam Sod 50 ml @ 100 mls/hr Q6H IV 08/07/17 10:00 08/12/17 12:15 Heparin Sodium (Porcine) (Heparin Inj) 5,000 units Q12HR SQ 08/07/17 21:00 08/12/17 12:16 Sodium Chloride (NS Flush) DAILY IVF 08/09/17 09:00 08/12/17 12:17 Heparin Sodium (Porcine) (Heparin Central Flush) DAILY IV FLUSH 08/09/17 09:00 08/12/17 12:16 Sodium Chloride (NS Flush) UNSCH PRN IVF SEE PROTOCOL 08/08/17 16:15 Heparin Sodium (Porcine) (Heparin Central Flush) UNSCH PRN IV FLUSH SEE PROTOCOL 08/08/17 16:15 Sodium Chloride (NS Flush) UNSCH PRN IVF SEE PROTOCOL 08/08/17 16:15 Diltiazem HCl 125 mg/Sodium Chloride 125 ml @ 5 mls/hr TITRATE PRN IV Tachycardia 08/09/17 13:30 08/11/17 04:07 Digoxin (Lanoxin Inj) 0.25 mg DAILY IV PUSH 08/10/17 09:00 08/12/17 12:25 Levothyroxine Sodium (Synthroid Inj) 25 mcg DAILY@06 IV PUSH 08/10/17 09:00 08/11/17 06:00 Aspirin (Aspirin Supp) 300 mg DAILY RECTAL 08/13/17 09:00 Furosemide (Lasix Inj) 40 mg DAILY IV PUSH 08/13/17 09:00 OBJECTIVE: Vital Signs Date Time Temp Pulse Resp B/P (MAP) Pulse Ox O2 Delivery O2 Flow Rate FiO2 08/12/17 12:00 98.0 83 20 126/45 (72) 97 08/12/17 10:01 82 134/53 08/12/17 10:00 78 08/12/17 09:00 78 08/12/17 08:17 Room Air 21 08/12/17 08:00 76 08/12/17 08:00 98.2 82 18 134/53 (80) 97 08/12/17 08:00 97 Room Air 08/12/17 07:00 65 08/12/17 06:00 78 08/12/17 05:14 98.0 79 18 97 08/12/17 05:00 84 08/12/17 04:00 78 08/12/17 03:00 70 08/12/17 02:00 80 08/12/17 00:40 82 16 126/62 (83) 96 08/12/17 00:00 76 08/12/17 00:00 21 08/11/17 23:00 90 08/11/17 22:00 76 08/11/17 21:09 86 18 126/63 (84) 96 08/11/17 21:07 86 20 126/63 (84) 94 08/11/17 21:00 80 08/11/17 20:00 84 08/11/17 19:56 Room Air 21 08/11/17 18:20 101 08/11/17 17:08 102 08/11/17 16:01 79 08/11/17 15:58 97.9 92 18 128/56 (80) 95 08/11/17 15:02 73 Laboratory Tests Test 08/10/17 22:29 08/11/17 04:35 Erythrocyte Sedimentation Rate 18 mm/hr White Blood Count 13.6 TH/MM3 Red Blood Count 3.84 MIL/MM3 Hemoglobin 11.2 GM/DL Hematocrit 34.1 % Mean Corpuscular Volume 88.8 FL Mean Corpuscular Hemoglobin 29.0 PG Mean Corpuscular Hemoglobin Concent 32.7 % Red Cell Distribution Width 15.3 % Platelet Count 260 TH/MM3 Mean Platelet Volume 9.5 FL Neutrophils (%) (Auto) 82.5 % Lymphocytes (%) (Auto) 9.0 % Monocytes (%) (Auto) 7.1 % Eosinophils (%) (Auto) 0.9 % Basophils (%) (Auto) 0.5 % Neutrophils # (Auto) 11.3 TH/MM3 Lymphocytes # (Auto) 1.2 TH/MM3 Monocytes # (Auto) 1.0 TH/MM3 Eosinophils # (Auto) 0.1 TH/MM3 Basophils # (Auto) 0.1 TH/MM3 CBC Comment DIFF FINAL Differential Comment Laboratory Tests Test 08/10/17 16:42 08/10/17 22:20 08/10/17 22:29 08/11/17 04:35 Ammonia 23 MCMOL/L Total Creatine Kinase 48 U/L C-Reactive Protein 3.50 MG/DL Vitamin B12 Level 474 PG/ML Blood Urea Nitrogen 22 MG/DL Creatinine 0.96 MG/DL Random Glucose 95 MG/DL Calcium Level 9.3 MG/DL Phosphorus Level 1.7 MG/DL Sodium Level 142 MEQ/L Potassium Level 3.6 MEQ/L Chloride Level 104 MEQ/L Carbon Dioxide Level 27.7 MEQ/L Anion Gap 10 MEQ/L Estimat Glomerular Filtration Rate 56 ML/MIN Microbiology Date/Time Source Procedure Growth Status 08/06/17 20:50 Blood Peripheral Aerobic Blood Culture - Preliminary NO GROWTH IN 2 DAYS Resulted 08/06/17 20:50 Blood Peripheral Anaerobic Blood Culture - Preliminary NO GROWTH IN 2 DAYS Resulted 08/06/17 20:40 Blood Peripheral Aerobic Blood Culture - Preliminary NO GROWTH IN 2 DAYS Resulted 08/06/17 20:40 Blood Peripheral Anaerobic Blood Culture - Preliminary NO GROWTH IN 2 DAYS Resulted 08/06/17 20:45 Urine Random Urine Urine Culture - Final Escherichia Coli Complete IMAGING: Chest X-Ray 08/11/17 0000 Signed Impressions: Service Date/Time: Friday, August 11, 2017 15:37 - CONCLUSION: No significant change has occurred. Kahlil Stein MD Renal Ultrasound 08/08/17 Signed Impressions: Service Date/Time: Tuesday, August 08, 2017 08:24 - CONCLUSION: Small kidneys with thin echogenic cortex consistent with chronic renal disease. Ronnie Del Rio MD FACR Central Venous Line 08/08/17 Signed Impressions: Service Date/Time: Tuesday, August 08, 2017 15:43 - CONCLUSION: Uncomplicated line placement as above. Gunner Chamberlain Jr., MD Chest X-Ray 08/06/171943 Signed Impressions: Service Date/Time: Sunday, August 06, 2017 20:12 - CONCLUSION: Interval development of patchy areas of infiltrate in the right mid and lower lung and in the medial left lower lung. Gunner Hobbs MD PHYSICAL EXAM: GENERAL: No acute distress. HEENT: The head is atraumatic. Extraocular movements grossly intact, pupils reactive to light. No icterus. Oropharynx, dry mucosa. No thrush. No visible lesions. NECK: Supple without adenopathy. LUNGS: Decreased breath sounds. HEART: Irregular rate and rhythm. No murmurs audible. ABDOMEN: Bowel sounds diminished, soft, no tenderness. No masses palpable. EXTREMITIES: Diffuse edema with 1+ edema of the upper extremities and trace edema of the lower extremities. SKIN: No diffuse rash. NEURO: Nonfocal. PSYCH: Calm. IMPRESSION: 1. Urinary tract infection - E. coli. Treated. 2. Sepsis indicated by urinary tract infection along with tachycardia and leukocytosis. 3. Pneumonia. Possibly aspiration. 4. Chronic kidney disease. 5. Anasarca. 6. Atrial fibrillation. 7. C. difficile colitis. RECOMMENDATIONS: 1. Stop piperacillin/tazobactam. 2. Begin p.o. vancomycin. 3. Monitor the white blood cell count. 4. Monitor temperature. 5. Monitor stools. Patient anticipated to go to hospice care. Central line can be discontinued if it is only needed for IV antibiotics. Isolation for C. difficile. Continue to p.o. vancomycin for 10 days. Vignesh Reyna MD Aug 12, 2017 14:34
[2017-08-12] MEDS ORDERED: VANCOMYCIN 25 MG/ML SOLN 100 ML BOTTLE PO SCH (18:00)
[2017-08-13] MEDS ORDERED: ASPIRIN 300 MG SUPP RECTAL SCH (09:00)
[2017-08-13] MEDS ORDERED: FUROSEMIDE 40 MG/4 ML VIAL IV PUSH SCH (09:00)
--- NOTE | 2017-08-13 09:31 | HHI.DS ---
Discharge Summary Admission Date Aug 06, 2017 at 21:30 Discharge Date: Aug 12, 2017 Admitting Diagnosis pneumonmia;uti; afib; renal insufficiency (1) Lethargy ICD Codes: R53.83 - Other fatigue (2) Weakness ICD Codes: R53.1 - Weakness (3) Atrial fibrillation with RVR ICD Codes: I48.91 - Unspecified atrial fibrillation (4) Diastolic dysfunction with chronic heart failure ICD Codes: I50.32 - Chronic diastolic (congestive) heart failure Status: Chronic (5) CKD (chronic kidney disease) stage 3, GFR 30-59 ml/min ICD Codes: N18.3 - Chronic kidney disease, stage 3 (moderate) Status: Chronic (6) Hypoalbuminemia ICD Codes: E88.09 - Other disorders of plasma-protein metabolism, not elsewhere classified Status: Chronic (7) Lymphedema ICD Codes: I89.0 - Lymphedema, not elsewhere classified Status: Chronic (8) Edema ICD Codes: R60.9 - Edema, unspecified Status: Chronic (9) Hyperkalemia ICD Codes: E87.5 - Hyperkalemia Status: Acute (10) Sepsis ICD Codes: A41.9 - Sepsis, unspecified organism Status: Acute (11) PNA (pneumonia) ICD Codes: J18.9 - Pneumonia, unspecified organism Status: Acute (12) Edema of both legs ICD Codes: R60.0 - Localized edema Status: Acute (13) PE (pulmonary thromboembolism) ICD Codes: I26.99 - Other pulmonary embolism without acute cor pulmonale Status: Acute (14) Elevated blood pressure ICD Codes: R03.0 - Elevated blood pressure Status: Acute (15) Renal insufficiency ICD Codes: N28.9 - Disorder of kidney and ureter, unspecified Status: Acute (16) Urinary tract infection ICD Codes: N39.0 - Urinary tract infection, site not specified Status: Acute Procedures None Brief History 81 Y CF SNF RESIDENT. AT [facility] PAST TWO WEEKS W GENERAL DECLINE. I GAVE PT IVF'S HOWEVER PT REFUSED TO HAVE LINE REPLACED AGAIN. SHE MENTIONED LAST WEEK WANTING TO BE AGGRESSIVE W HER CARE. SHE DID NOT WANT HOSPICE "YET" SHE STATED. PT W MINIMAL TO NIL PO YESTERDAY AND WITH AMS. SUGGESTED ER AT [facility] [place]. PT FOUND IN AF RVR W DEHYDRATION YET THIRD SPACING. ER MD GAVE IVF AND I SUGGESTED DILT DRIP AND ALBUMIN WITH THE CURRENT BOLUSES ALREADY ORDERED BY THE ER MD. PT STILL W AMS AND WEAKNESS. D/W RN. CBC/BMP: 08/11/17 0435 08/11/17 043 Significant Findings Laboratory Tests Test 08/10/17 16:42 08/10/17 22:20 08/10/17 22:29 08/11/17 04:35 C-Reactive Protein 3.50 MG/DL (0.00-0.30) White Blood Count 13.6 TH/MM3 (4.0-11.0) Red Blood Count 3.84 MIL/MM3 (4.00-5.30) Hemoglobin 11.2 GM/DL (11.6-15.3) Hematocrit 34.1 % (35.0-46.0) Neutrophils (%) (Auto) 82.5 % (16.0-70.0) Neutrophils # (Auto) 11.3 TH/MM3 (1.8-7.7) Monocytes # (Auto) 1.0 TH/MM3 (0-0.9) Blood Urea Nitrogen 22 MG/DL (7-18) Phosphorus Level 1.7 MG/DL (2.5-4.9) Estimat Glomerular Filtration Rate 56 ML/MIN (>89) Test 08/11/17 13:25 08/12/17 06:34 Urine Random Total Protein 129 MG/DL (0-11.8) Urine Protein/Creatinine Ratio 1.22 (0.00-0.14) Stool C. difficile Toxin (PCR) POSITIVE (NEGATIVE) Stl C. difficile Toxin Epiderm 027 PRESUMPTIVE POSITIVE Hospital Course Hospital course and plan was to - SEPSIS: IV ABX, IVF, PANCULTURES, ID CONSULT FLUID OVERLOAD DUE TO CHF: IV LASIX, CARDIOLOGY CONSULT, AM LABS, IR CONSULT IV UNOBTAINABLE, DYSPHAGIA: NPO, IVF, GI CONSULT AF RVR: DILT GTT, ASA ONLY PER CARDIOLOGY, CHANGE LOVENOX BID TO HEPARIN BID FOR DVT PX hcap E COLI UTI: FOLLOWUP CULTURES, CKD PE HYPOTHYROIDISM, NEW: STARTED SYNTHROID GI PX: IV PEPCID DVT PX: HEPARIN SC BID DISPO: poa elected inpt hospice and pt d/c'd Pt Condition on Discharge: Guarded Discharge Disposition: Hospice/Med Facility Discharge Instructions DIET: Follow Instructions for: Nothing By Mouth Speech Therapy-Diet Recommenda: Pureed Activities you can perform: Continue Bedrest Victoria,Rom D. MD Aug 13, 2017 09:31
[2017-08-14 03:51] LABS: KAPPA/LAMBDA FREE 0.94 (0.26-1.65)
== END 2017-08-12 16:37 | disposition hospice, inpatient (51) | DRG 871 ==
LOC: NEPC 19:24 → NEDA 21:30 → NEDH 08-07 02:11 → HCIS 08-07 21:54
PROVIDERS: ADMIT Family Medicine; ATTEND Family Medicine
PROC: 02HV33Z Insertion of Infusion Device into Superior Vena Cava, Percutaneous Approach (ICD-10-PCS; principal; 2017-08-08)
DX: A41.9 Sepsis, unspecified organism (principal); J18.9 Pneumonia, unspecified organism; A04.72 Enterocolitis due to Clostridium difficile, not specified as recurrent; I13.0 Hypertensive heart and chronic kidney disease with heart failure and stage 1 through stage 4 chronic kidney disease, or unspecified chronic kidney disease; I95.9 Hypotension, unspecified; I50.32 Chronic diastolic (congestive) heart failure; F03.90 Unspecified dementia, unspecified severity, without behavioral disturbance, psychotic disturbance, mood disturbance, and anxiety; J44.0 Chronic obstructive pulmonary disease with (acute) lower respiratory infection; R13.10 Dysphagia, unspecified; Z68.42 Body mass index [BMI] 45.0-49.9, adult; E66.01 Morbid (severe) obesity due to excess calories; E86.0 Dehydration; E87.5 Hyperkalemia; E88.09 Other disorders of plasma-protein metabolism, not elsewhere classified; I48.91 Unspecified atrial fibrillation; N39.0 Urinary tract infection, site not specified; N18.3 Chronic kidney disease, stage 3 (moderate); B96.20 Unspecified Escherichia coli [E. coli] as the cause of diseases classified elsewhere; R65.20 Severe sepsis without septic shock; Y95 Nosocomial condition; G89.4 Chronic pain syndrome; R62.7 Adult failure to thrive; N89.8 Other specified noninflammatory disorders of vagina; E03.9 Hypothyroidism, unspecified; I89.0 Lymphedema, not elsewhere classified; M48.00 Spinal stenosis, site unspecified; Z66 Do not resuscitate; M19.90 Unspecified osteoarthritis, unspecified site; R00.0 Tachycardia, unspecified; Z86.711 Personal history of pulmonary embolism; Z86.718 Personal history of other venous thrombosis and embolism; Z74.01 Bed confinement status; Z87.440 Personal history of urinary (tract) infections; Z87.891 Personal history of nicotine dependence
CPT/HCPCS: 36556; 71045; 76775; 76937; 77001; 80048; 80053; 81001; 82088; 82140; 82306; 82533; 82550; 82570; 82607; 83605; 83690; 83735; 83880; 83883; 83970; 84100; 84156; 84165; 84207; 84244; 84425; 84443; 84484; 85007; 85025; 85027; 85610; 85652; 85730; 86140; 86335; 86430; 86592; 86803; 87040; 87077; 87086; 87186; 87340; 87493; 93005; 93306; 95819; J0692; J1160; J1630; J1642; J1644; J1650; J1940; J2060; J2543; J3370; J7050; P9047